=== PATIENT | male | born 1950 | race African-American/Black ===

== ENCOUNTER 2016-03-31 01:22 | Inpatient (IN) | payer MEDICARE, BC ==
[~2016-03-31] VITALS: Ht 177.8 cm; Wt 103.9 kg
[2016-03-31] VITALS (18 sets, daily range): BP systolic 102–197; BP diastolic 50–113; Ht 177.8 cm; Wt 103.9 kg
[~2016-03-31 01:22] MED LIST: ADVAIR HFA [SP]12 GM INH; ALEVE220 MG PO; AUGMENTIN 875-11 TAB PO; BAYER CHEWABLE81 MG PO; BENICAR HCT 40-1 TA1 PO; BENICAR40 MG PO; CARDIZEM CD240 MG PO; FLUTICASONE PRO16 GM NS; GLIMEPIRIDE1 MG PO; GLUCOPHAGE1000 MG PO; HYDROCHLOROTHIA25 MG PO; INVOKANA100 MG PO; INVOKANA300 MG PO; IPRAT-ALBUT 0.5-3 ML NEB; IPRAT-ALBUT 0.5-3 ML UPD; JANU; JANUMET 50-1,001 TAB PO; JANUVIA50 MG PO; LANTUS SOL100 UNIT/1 SQ; LEVAQUIN500 MG PO; LEVAQUIN750 MG PO; LEVEMIR100 U/M1 SC; MEDROL DOSE PACK4 MG PO; MUCINEX D1 TAB.SR . PO; MUCINEX600 MG PO; PREDNISONE20 MG PO; PROTONIX40 MG PO; PULMICORT180 MCG/AE INH; SINGULAIR10 MG PO; STERAPRED DS 1210 MG; SYMBICORT 16010.2 GM INH; TYLENOL325 MG PO; VIAGRA100 MG PO; XOPENEX 1.1.25 MG/3 UPD; ZITHROMAX250 MG PO; ZITHROMAX500 MG PO; ZOCOR40 MG PO; ZPAK PO
[2016-03-31 02:06] LABS: HEMATOCRIT 43.7 % (42.0-54.0); HEMOGLOBIN 14.2 g/dL (13.5-17.5); MCH 28.1 pg (26.0-34.0); MCHC 32.5 g/dL (31.0-37.0); MCV 86.5 fL (80.0-100.0); RBC 5.05 10x6/uL (4.20-6.10); RDW 13.7 % (11.5-14.5); WBC 20.9 10x3/uL (4.8-10.8)
[2016-03-31 02:07] LABS: MEAN PLATELET VOLUME 9.1 fL (7.4-10.4); PLATELET COUNT 288 10x3/uL (130-400)
[2016-03-31 02:20] LABS: ALBUMIN 4.4 g/dL (3.4-5.0); ALKALINE PHOSPHATASE 67 U/L (46-116); ALT (SGPT) 34 U/L (10-68); BILIRUBIN - TOTAL 0.28 mg/dL (0.2-1.3); CALC OSMOLALITY 299 mosm/kg (275-300); CALCIUM 9.8 mg/dL (8.5-10.1); CARBON DIOXIDE 31.8 mmol/L (21.0-32.0); CHLORIDE - SERUM 105 mmol/L (98-107); CREATININE - SERUM 1.2 mg/dL (0.6-1.3); GLUCOSE 269 mg/dL (74-106); POTASSIUM - SERUM 5.1 mmol/L (3.5-5.1); PROTEIN - SERUM 7.9 g/dL (6.4-8.2); SODIUM 144 mmol/L (136-145); UREA NITROGEN 24 mg/dL (7-18); eGFR NON AFRICAN AMERICAN 64 mL/min (90-120)
[2016-03-31 02:27] LABS: EOSINOPHILS 8 % (0-7); LYMPHOCYTES 14 % (15-50); MONOCYTES 5 % (2-11); NEUTROPHILS 71 % (40-80); PLATELET ESTIMATE NORMAL
[2016-03-31 02:28] LABS: CREATINE KINASE 182 UL (21-232); MAGNESIUM - SERUM 1.9 mg/dL (1.8-2.4); PRO BNP 305 pg/mL (0-125); TROPONIN-I < 0.017 ng/mL (0.000-0.060)
--- NOTE | 2016-03-31 03:50 | NUR ---
PT ARRIVED TO ICU FROM ER. ARRIVED BY HOSPITAL BED. PT AAO. PT ON NC @ 2L. C/O DIFFICULTY BREATHING.
[2016-03-31] MEDS ORDERED: DILTIAZEM PO (04:08)
[2016-03-31] MEDS ORDERED: BENICAR HCT 40-1 TA1 PO (04:09)
[2016-03-31] MEDS ORDERED: NIASPAN500 MG PO (04:09)
[2016-03-31] MEDS ORDERED: BREO ELLIPTA 21 EACH ×2 (04:09→04:12)
--- NOTE | 2016-03-31 04:15 | NUR ---
PT PLACED ON BIPAP. SHORT OF BREATH.
--- NOTE | 2016-03-31 04:18 | NUR ---
PERSONAL BELONGINGS HOME WITH GAURI SPENCE EXCEPT FOR CELL PHONE BEING KEPT BY PT.
--- NOTE | 2016-03-31 05:50 | NUR ---
PT RESTING; EYES CLOSED. NO DISTRESS NOTED. BIPAP IN PLACE. BP ELEVATED. WILL CONTINUE TO MONITOR.
--- NOTE | 2016-03-31 07:00 | NUR ---
REC'D REPORT AND RESUMED CARE, AWAKE WITH BIPAP IN USE AT 40%, FOLLOW COMMANDS, VSS, DENIES PAIN, ASSESSMENT COMPLETE PER FLOWSHEET, CALL LIGHT IN REACH, URINAL IN USE, NO NEEDS AT THIS TIME
--- NOTE | 2016-03-31 08:10 | NUR ---
BREAKFAST TRAY TO BEDSIDE, BIPAP OFF, NC AT 2L INITIATED WITHOUT DIFFICULTY, SAT 97%, INDEPENDENT WITH SET UP AND EATING
--- NOTE | 2016-03-31 09:15 | NUR ---
AM MEDS GIVEN WITHOUT DIFFICULTY, TOLERATED
--- NOTE | 2016-03-31 10:36 | NUR ---
Is the patient Alert and Oriented? Yes 0 * How many steps to enter\exit or inside your home? 4 0 * PCP DR. KATE 0 * Pharmacy [facility] 0 * Preadmission Environment Home with Family 0 * ADLs Independent 0 * Equipment Nebulizer 0 * List name and contact numbers for known caregivers / representatives who currently or will assist patient after discharge: TELLY': GAURI SPENCE [phone] 0 * Community resources currently utilized None 0 * Additional services required to return to the preadmission environment? No 0 * Can the patient safely return to the preadmission environment? Yes 0 * Has this patient been hospitalized within the prior 30 days at any hospital? No PATIENT STATES HE LIVES AT HOME WITH HIS FIANCEGAURI. SHE WILL BE AVAILABLE TO DRIVE HIM HOME AT DISCHARGE. PATIENT STATES HE WAS INDEPENDENT IN ALL ADL'S PRIOR TO COMING IN TO THE HOSPITAL. HIS PCP IS DR. KATE. HE GETS HIS MEDS FROM [facility]. PATIENT DENIES EVER HAVING HOME HEALTH. HE STATES HE HAS A NEBULIZER AT HOME. THERE ARE 4 STEPS TO ENTER HIS HOME. NO DISCHARGE NEEDS IDENTIFIED AT THIS TIME.
--- NOTE | 2016-03-31 11:06 | NUR ---
RESTING WATCHING TV, VSS, DENIES PAIN, NO ACUTE CHANGE FRO PREVIOUS ASSESSMENT, CALL LIGHT IN REACH, VOICES NO NEEDS AT THIS TIME
--- NOTE | 2016-03-31 11:23 | NUR ---
SET UP FOR BED BATH TO BEDSIDE, INDEPENDENT WITH SELF CARE/ADLS
--- NOTE | 2016-03-31 15:00 | NUR ---
NO ACUTE CHANGE FROM PREVIOUS ASSESSMENT, VSS, CALL LIGHT IN REACH, VOICES NO NEEDS AT THIS TIME, SELF REPOSITIONS
--- NOTE | 2016-03-31 17:15 | NUR ---
DINNER TRAY TO BEDSIDE, INDEPENDENT WITH SET UP AND EATING
--- NOTE | 2016-03-31 18:00 | NUR ---
AT BEDSIDE, STATUS UPDATE, VOICES NO NEEDS AT THIS TIME, PT AAO, CALL LIGHT IN REACH
--- NOTE | 2016-03-31 19:41 | NUR ---
REPORT RECIEVED. ASSESSMENT COMPLETE PER FLOW SHEET. REFER FOR FINDINGS. VSS DENIES PAIN OR NEEDS. WILL CONTINUE TO MONITOR.
--- NOTE | 2016-03-31 20:15 | NUR ---
GIVEN VALERIE PER REQUEST. ATE 100% VSS WILL CONTINUE TO MONITOR.
--- NOTE | 2016-03-31 21:10 | NUR ---
2100 MEDS ADM WIHTOUT DIFFICULTY. NO NEW CHANGES.
--- NOTE | 2016-03-31 21:50 | NUR ---
DR GWEN LI. T ORDER FOR TRANSFER GIVEN.
--- NOTE | 2016-03-31 22:30 | NUR ---
RECEIVED PATIENT FROM THE ICU.
[2016-04-01 01:00] VITALS: BP 121/60
--- NOTE | 2016-04-01 04:08 | NUR ---
RESTING WITH EYES CLOSED, OCCASIONAL COUGH NOTED, NO ACUTE DISTRESS, SR'S UP , CL IN REACH
[2016-04-01 06:15] LABS: BASOPHILS 0 % (0.0-2.0); EOSINOPHILS 0 % (0-7); HEMATOCRIT 37.6 % (42.0-54.0); HEMOGLOBIN 12.2 g/dL (13.5-17.5); IMMATURE GRANULOCYTES 0.4 % (0-5); LYMPHOCYTES 7.7 % (15-50); MCH 27.5 pg (26.0-34.0); MCHC 32.4 g/dL (31.0-37.0); MCV 84.7 fL (80.0-100.0); MEAN PLATELET VOLUME 9.2 fL (7.4-10.4); MONOCYTES 4.9 % (2-11); PLATELET COUNT 259 10x3/uL (130-400); RBC 4.44 10x6/uL (4.20-6.10); RDW 13.7 % (11.5-14.5); WBC 26.8 10x3/uL (4.8-10.8)
[2016-04-01 06:24] LABS: ANION GAP 10.8 mmol/L (8-16); CALCIUM 8.7 mg/dL (8.5-10.1); CARBON DIOXIDE 28.6 mmol/L (21.0-32.0); CREATININE - SERUM 1.2 mg/dL (0.6-1.3); MAGNESIUM - SERUM 2.2 mg/dL (1.8-2.4); PHOSPHOROUS 3.8 mg/dL (2.5-4.9); POTASSIUM - SERUM 4.4 mmol/L (3.5-5.1)
[2016-04-01 08:19] VITALS: BP 148/62
--- NOTE | 2016-04-01 08:51 | NUR ---
PT SEEN AT 0750. NO COMPLAINTS AT PRESENT. RUL CLEAR BUT ALL OTHER LOBES DIMINSHED. NO SOB NOTED OR VOICED. DID NOT USE BIPAP LAST PM. CALL LIGHT IN REACH
[2016-04-01 12:27] VITALS: BP 147/57
--- NOTE | 2016-04-01 13:56 | NUR ---
FSBS RECHECKED AND RESULTS OF 176
[2016-04-01 16:18] VITALS: BP 128/49
[2016-04-01 20:00] VITALS: BP 128/52
--- NOTE | 2016-04-01 20:00 | NUR ---
ASSESSMENT PER FLOWSHEET. IV PATENT LEFT AC SALINE LOCK. ALERT/ORIENTED X3 VISITS WITH FRIEND. O2 ON 2L/M PER NC. BREATH SOUNDS CLEAR UPPER LOBES AND DIMINSHED IN LOWER LOBES.
--- NOTE | 2016-04-01 21:45 | NUR ---
XVAS=127 28 UNITS REGULAR INSULIN GIVEN SUBC PER S/S.
[2016-04-02] VITALS: BP 115/45
--- NOTE | 2016-04-02 00:30 | NUR ---
EYES CLOSED RESPIRATIONS WITH EASE AND UNLABORED.
--- NOTE | 2016-04-02 02:24 | NUR ---
EYES CLOSED RESPIRATIONS WITH EASE AND UNLABORED.
[2016-04-02 04:00] VITALS: BP 128/55
--- NOTE | 2016-04-02 04:16 | NUR ---
RESTING QUIETLY RESPIRATIONS WITH EASE AND UNLABORED.
--- NOTE | 2016-04-02 07:15 | NUR ---
REPORT RECEIVED FROM PURCHASING INTERN NURSE. CALL LIGHT IN REACH.
[2016-04-02 07:57] VITALS: BP 145/60
[2016-04-02 08:21] LABS: IMMUNOGLOBULIN E 1224 IU/mL (0-100)
--- NOTE | 2016-04-02 09:03 | NUR ---
ASSESSMENT COMPLETED. AM MEDS ADMINISTERED. CALL LIGHT IN REACH. WILL CONTINUE WITH PLAN OF CARE.
[2016-04-02 11:33] LABS: BASOPHILS 0 % (0.0-2.0); EOSINOPHILS 0 % (0-7); HEMATOCRIT 39.4 % (42.0-54.0); IMMATURE GRANULOCYTES 0.8 % (0-5); LYMPHOCYTES 3.9 % (15-50); MCH 28.1 pg (26.0-34.0); MCV 85.1 fL (80.0-100.0); MEAN PLATELET VOLUME 9.5 fL (7.4-10.4); MONOCYTES 5.3 % (2-11); PLATELET COUNT 285 10x3/uL (130-400); RBC 4.63 10x6/uL (4.20-6.10); RDW 13.8 % (11.5-14.5); WBC 30.9 10x3/uL (4.8-10.8)
--- NOTE | 2016-04-02 11:54 | NUR ---
24 UNITS REGULAR INSULIN SUBQ TO LEFT ARM D/T FSBS OF 366.
[2016-04-02 12:31] VITALS: BP 118/65
--- NOTE | 2016-04-02 12:38 | NUR ---
EATING LUNCH AT THIS TIME.
--- NOTE | 2016-04-02 12:56 | NUR ---
AWAKE ALERT TALKING ON PHONE DENIES ANY NEEDS AT THIS TIME SL PATENT LAC.
--- NOTE | 2016-04-02 13:19 | NUR ---
NUTRITION MONITORING & EVAL CHART REVIEWED. PT TOLERATING ADA DIET. 100% INTAKE. WILL MONITOR PO INTAKE, PT PROGRESS. RD FOLLOWING
[2016-04-02] MEDS ORDERED: IPRAT-ALBUT 0.5-3 ML UPD (14:04)
[2016-04-02] MEDS ORDERED: PREDNISONE20 MG PO (14:07)
--- NOTE | 2016-04-02 16:16 | NUR ---
04/02/2016 16:12 DCP: Discharge Planning Patient Name: ANGEL SKAGGS Encounter No: [id number] : 1950 Primary Insurance: MEDICARE A & B Anticipated DC Date: Planned Disposition: Home DCP follow-up note: DC order rec'd. Patient and family in agreement with discharge plan. No changes to plan. Leonela Major
--- NOTE | 2016-04-02 17:34 | NUR ---
DC'D HOME VIA WC WITH .
--- NOTE | 2016-04-10 11:11 | EC ---
PATIENT:ANGEL SKAGGS DATE OF SERVICE: 03/31/16 SEX: M MEDICAL RECORD: [id number] DATE OF : [birth year] LOCATION:D.MS [address] AGE OF PATIENT: 65 ADMISSION DATE: 03/31/16 REFERRING PHYSICIAN: INTERPRETING PHYSICIAN: MARINO LUNA MD ECHOCARDIOGRAM REPORT ECHO CHARGES 4 ECHO COMPLETE CLINICAL DIAGNOSIS: AORTIC STENOSIS HX OF HTN/MURMUR ECHOCARDIOGRAPHIC MEASUREMENTS (adult normal given) AC root (d.<3.7cm) 3.2 LV Septum d (<1.2 cm> 1.7 Valve Excursion 1.6 LV Septum (systole) 1.8 Left Atria (s.<4.0cm> 3.6 LVPW d(<1.2cm) 1.5 RV (d.<2.3cm) 4.4 LVPW (sytole) 1.7 LV diastole(<5.6CM) 5.5 MV E-F(>70mm/sec) LV systole 3.8 LVOT Diameter 1.6 MV exc.(>10mm) 1.8 Est.ejection fraction (50-75%) Pericardial Effusion N DOPPLER: LVIT A 113 E 86.0 LA RVSP 23 LVOT 124 AOP1/2T Asc. Ao 410 RVOT RA PA AV Gradient Peak 67.37 AV Mean 42.99 AV Area 0.8 MV Gradient Peak 5.69 MV Mean 2.09 MV Area COMMENTS: Plate Drying Machine Tender: Vandana TANG Fishing Vessel Mate:Mila Luna TAPE# PACS DATE OF SERVICE: 03/31/2016 Echocardiogram FINDINGS: 1. Left ventricular chamber size is within normal limits. Left ventricular systolic function is normal. Overall ejection fraction estimated at 60%. 2. Left atrium is within normal limits at 3.6 cm. Right atrium and right ventricular chamber sizes are mildly dilated. 3. Valvular structures: Aortic valve demonstrates [id number] aortic ECHOCARDIOGRAM REPORT [id number] ANGEL SKAGGS stenosis. The valve area calculated to 0.8 cm square and there is a gradient of 67 mm across the valve. The remaining valvular structures have normal structure and motion. 4. Doppler interrogation elsewise reveals mild tricuspid regurgitation, no other valvular insufficiency or stenosis. Pulmonary systolic pressure is normal estimated at 23 mmHg. 5. No evidence of pericardial effusion or left ventricular thrombus. TRANSINT:[id number] Voice Confirmation ID: [id number] DOCUMENT ID: [id number] 04/09/2016 Edited to correct date of service, dmrae. MARINO LUNA MD at 1111 CC: [id number] DICTATION DATE: 04/01/16 1129 PRICE ACCURACY SUPERVISOR: 04/01/16 1203 DIS IN 04/02/16 [place] [id number] [place] [id number]
== END 2016-04-02 17:34 | disposition home or self-care (01) | DRG 189 ==
LOC: D.ER 01:22 → D.MS 03:01 → D.ICU 03:01 → D.MS 22:29
PROVIDERS: Emergency Medicine; Internal Medicine Pulmonary Disease; ADMIT Family Medicine
PROC: 5A09357 Assistance with Respiratory Ventilation, Less than 24 Consecutive Hours, Continuous Positive Airway Pressure (ICD-10-PCS; principal; 2016-03-31)
DX: J96.21 Acute and chronic respiratory failure with hypoxia (principal); J44.0 Chronic obstructive pulmonary disease with (acute) lower respiratory infection; J44.1 Chronic obstructive pulmonary disease with (acute) exacerbation; J45.901 Unspecified asthma with (acute) exacerbation; J96.22 Acute and chronic respiratory failure with hypercapnia; J20.9 Acute bronchitis, unspecified; J32.9 Chronic sinusitis, unspecified; D72.1 Eosinophilia; E11.65 Type 2 diabetes mellitus with hyperglycemia; I27.2 Other secondary pulmonary hypertension; I10 Essential (primary) hypertension; E78.5 Hyperlipidemia, unspecified; K21.9 Gastro-esophageal reflux disease without esophagitis; I08.2 Rheumatic disorders of both aortic and tricuspid valves

== ENCOUNTER 2016-04-22 05:39 | Inpatient (IN) | payer MEDICARE, BC ==
[~2016-04-22] VITALS: Ht 177.8 cm; Wt 100.5 kg
[~2016-04-22 05:39] MED LIST changes: +BREO ELLIPTA 21 EACH; +DILTIAZEM PO; +NIASPAN500 MG PO
[2016-04-22 06:20] LABS: BASOPHILS 0.2 % (0.0-2.0); EOSINOPHILS 4.5 % (0-7); HEMATOCRIT 42.1 % (42.0-54.0); HEMOGLOBIN 13.7 g/dL (13.5-17.5); IMMATURE GRANULOCYTES 0.6 % (0-5); LYMPHOCYTES 20.1 % (15-50); MCH 28.2 pg (26.0-34.0); MCHC 32.5 g/dL (31.0-37.0); MCV 86.8 fL (80.0-100.0); MEAN PLATELET VOLUME 9.1 fL (7.4-10.4); MONOCYTES 6.4 % (2-11); NEUTROPHILS 68.2 % (40-80); PLATELET COUNT 239 10x3/uL (130-400); RBC 4.85 10x6/uL (4.20-6.10); WBC 20.8 10x3/uL (4.8-10.8)
[2016-04-22 06:32] LABS: ALBUMIN 4.2 g/dL (3.4-5.0); ANION GAP 12.2 mmol/L (8-16); BILIRUBIN - TOTAL 0.4 mg/dL (0.2-1.3); CARBON DIOXIDE 29.6 mmol/L (21.0-32.0); CREATININE - SERUM 1.1 mg/dL (0.6-1.3); POTASSIUM - SERUM 3.8 mmol/L (3.5-5.1); PROTEIN - SERUM 7.3 g/dL (6.4-8.2)
--- NOTE | 2016-04-22 07:52 | NUR ---
REC'D PT FROM ER VIA W/C. PT A/O. SITTING ON SIDE OF BED. C/O SHORTNESS OF BREATH. O2 AT 3L VIA NC. O2 SAT 93%. LUNG SOUNDS CLEAR AT THIS TIME. PT REQUEST TEMP BE TURNED TO A LOWER SETTING IN THE ROOM. ORIENTED PT TO ROOM. PT DENIES NEEDS AT THIS TIME. CALL LIGHT WITH IN REACH. WILL CONT. TO MONITOR.
[2016-04-22 08:51] VITALS: BP 144/69
--- NOTE | 2016-04-22 09:32 | NUR ---
RESTS IN BED WITH CALL LIGHT IN REACH. WILL MONITOR NEEDS.
[2016-04-22 09:47] VITALS: BP 144/69; BMI 32.7
[2016-04-22 11:06] VITALS: Ht 177.8 cm; Wt 100.5 kg
[2016-04-22 12:17] VITALS: BP 168/105
[2016-04-22 14:53] VITALS: BP 126/58
--- NOTE | 2016-04-22 18:01 | NUR ---
PT SITTING UP IN BED VISITING WITH FAMILY. A/O. RESP UNLABORED. DENIES NEEDS. CALL LIGHT WITH INREACH.WILL CONT. TO MONITOR.
[2016-04-22 20:00] VITALS: BP 147/65
--- NOTE | 2016-04-22 23:18 | NUR ---
Recieved report, assessment done, patient alert and oriented, O2 at 3 L via NC, patient denies needs or wants at this time, no acute distress noted, will continue to monitor. call light hydration and bedside table in reach, will continue to monitor.
[2016-04-23] VITALS: BP 126/64
--- NOTE | 2016-04-23 01:12 | NUR ---
Patient resting quietly in bed eyes closed, no acute distress noted, call light, water, and bedside table within reach, will continue plan of care, will continue to monitor.
[2016-04-23 04:00] VITALS: BP 129/60
--- NOTE | 2016-04-23 04:54 | NUR ---
Patient resting quietly in bed eyes closed, call light and water in reach, no acute distress noted, will continue to monitor.
[2016-04-23 06:04] LABS: BASOPHILS 0.1 % (0.0-2.0); EOSINOPHILS 0 % (0-7); HEMATOCRIT 38.5 % (42.0-54.0); HEMOGLOBIN 12.6 g/dL (13.5-17.5); IMMATURE GRANULOCYTES 0.4 % (0-5); LYMPHOCYTES 5.9 % (15-50); MCH 27.9 pg (26.0-34.0); MCHC 32.7 g/dL (31.0-37.0); MCV 85.2 fL (80.0-100.0); MEAN PLATELET VOLUME 9.3 fL (7.4-10.4); MONOCYTES 2.9 % (2-11); NEUTROPHILS 90.7 % (40-80); PLATELET COUNT 237 10x3/uL (130-400); RBC 4.52 10x6/uL (4.20-6.10); RDW 13.9 % (11.5-14.5); WBC 17.9 10x3/uL (4.8-10.8)
[2016-04-23 06:33] LABS: ANION GAP 12.6 mmol/L (8-16); CALCIUM 8.7 mg/dL (8.5-10.1); CARBON DIOXIDE 27.5 mmol/L (21.0-32.0); CREATININE - SERUM 1.1 mg/dL (0.6-1.3); MAGNESIUM - SERUM 1.8 mg/dL (1.8-2.4); POTASSIUM - SERUM 4.1 mmol/L (3.5-5.1)
--- NOTE | 2016-04-23 08:07 | NUR ---
ASSESSMENT DONE. PT A/O. READING NEWSPAPER. STATES SOB HAS IMPROVED. DENIES NEEDS AT THIS TIME. CALL LIGHT WITH INREACH. WILL CONT. TO MONITOR.
[2016-04-23 08:34] VITALS: BP 135/60
--- NOTE | 2016-04-23 10:00 | NUR ---
RESP UL ON . BRAYAN NEEDS AT THIS TIME. CALL LIGHT IN REACH. WILL CONT. PLAN OF CARE.
[2016-04-23 11:00] VITALS: BP 125/57
--- NOTE | 2016-04-23 12:39 | NUR ---
PT TAKING SHOWER. NO DISTRESS NOTED. WILL CONT TO MONITOR.
--- NOTE | 2016-04-23 16:15 | NUR ---
Patient Name: ANGEL SKAGGS Admission Status: ER Accout number: [id number] Admission Date: 04-22-2016 : 1950 Admission Diagnosis: Attending: TORI Current LOS: 1 Anticipated DC Date: 04-25-2016 Planned Disposition: Home or Self Care Primary Insurance: MEDICARE A & B Discharge Planning Comments: CM MET WITH PATIENT REGARDING D/C NEEDS AND PLANS. PATIENT STATES HE LIVES WITH HIS FIANCE (GABRIELE SPENCE) AND SHE WILL DRIVE HIM HOME AT [facility]. PATIENT STATED HE HAS 4 STEPS W/RAILS TO ENTER HOME AND NO STAIRS ONCE INSIDE. PATIENT STATED HE IS INDEPENDENT WITH HIS CARE AND HAS A NEBULIZER AND GLUCOMETER AT HOME. PATIENT STATED HE CHECKS HIS BS EVERY OTHER DAY. PATIENTS PCP IS DR. KATE AND PHARMACY IS [facility]. PATIENT HAS REFUSED HOME HEALTH AT DISCHARGE. CM WILL CONTINUE TO FOLLOW PATIENT WITH D/C NEEDS AND PLANS. PCP DR. KATE [facility]- [phone] GABRIELE SPENCE- (TELLY) [phone] OR [phone] Audiology Doctor: Ladan Velasco Is the patient Alert and Oriented? Yes 0 * How many steps to enter\exit or inside your home? 4 W/RAILS 0 * PCP DR. KATE 0 * Pharmacy [facility] 0 * Preadmission Environment Home with Family 0 * ADLs Independent 0 * Equipment Glucometer 0 * List name and contact numbers for known caregivers / representatives who currently or will assist patient after discharge: GABRIELE SPENCE [phone] OR [phone] 0 * Community resources currently utilized None 0 * Additional services required to return to the preadmission environment? Yes 0 * Can the patient safely return to the preadmission environment? Yes 0 * Has this patient been hospitalized within the prior 30 days at any hospital? Yes 0 Grand Total: 0
[2016-04-23 16:39] VITALS: BP 137/58
--- NOTE | 2016-04-23 17:40 | NUR ---
PT LAYING IN BED TALKING ON PHONE. NO DISTRESS NOTED. DENIES NEEDS. CALL LIGHT WITH IN REACH. WILL CONT. TO MONITOR.
--- NOTE | 2016-04-23 19:30 | NUR ---
RESUMED CARE OF PT, PT IS ACHS, ON , IV-L. HAND-SL, DENIES ANY NEEDS, CALL LIGHT IN REACH, BED IS LOW, WILL CONTINUE TO MONITOR
[2016-04-23 20:00] VITALS: BP 114/56
--- NOTE | 2016-04-23 20:59 | NUR ---
[id number], COVER 16 UNITS HUMALOG, 40 UNITS OF LEVEMIR
[2016-04-24] VITALS: BP 129/57
--- NOTE | 2016-04-24 03:20 | NUR ---
CREDIT ADMINISTRATOR AT BEDSIDE TO OBTAIN VITALS, CALL LIGHT IN REACH. WILL CONTINUE WITH PLAN OF CARE.
[2016-04-24 04:00] VITALS: BP 118/48
--- NOTE | 2016-04-24 04:52 | NUR ---
SLEEPING, CALL LIGHT IN REACH,
[2016-04-24 06:09] LABS: BASOPHILS 0 % (0.0-2.0); EOSINOPHILS 0 % (0-7); HEMATOCRIT 37.3 % (42.0-54.0); HEMOGLOBIN 12.1 g/dL (13.5-17.5); IMMATURE GRANULOCYTES 0.4 % (0-5); MCH 27.8 pg (26.0-34.0); MCHC 32.4 g/dL (31.0-37.0); MCV 85.6 fL (80.0-100.0); MEAN PLATELET VOLUME 9.5 fL (7.4-10.4); MONOCYTES 2.7 % (2-11); NEUTROPHILS 91.9 % (40-80); PLATELET COUNT 243 10x3/uL (130-400); RBC 4.36 10x6/uL (4.20-6.10); RDW 14.1 % (11.5-14.5); WBC 18.4 10x3/uL (4.8-10.8)
[2016-04-24 06:30] LABS: CALC OSMOLALITY 287 mosm/kg (275-300); CALCIUM 8.8 mg/dL (8.5-10.1); CARBON DIOXIDE 29.8 mmol/L (21.0-32.0); CHLORIDE - SERUM 105 mmol/L (98-107); MAGNESIUM - SERUM 1.9 mg/dL (1.8-2.4); POTASSIUM - SERUM 4.7 mmol/L (3.5-5.1); SODIUM 139 mmol/L (136-145); UREA NITROGEN 24 mg/dL (7-18); eGFR NON AFRICAN AMERICAN 79 mL/min (90-120)
[2016-04-24 06:32] LABS: GLUCOSE 198 mg/dL (74-106)
--- NOTE | 2016-04-24 07:38 | NUR ---
PT LAYING IN BED WATCHING TV AND PLAYING ON PHONE. ASSESSMENT DONE. PT A/O. DENIES NEEDS AT THIS TIME. CALL LIGHT WITH IN REACH. WILL CONT. TO MONITOR.
[2016-04-24 08:31] VITALS: BP 128/59
--- NOTE | 2016-04-24 09:42 | NUR ---
RESP UL ON . STUDENT AT BS ASSISTING WITH NEEDS. WILL CONT. PLAN OF CARE.
[2016-04-24 12:05] VITALS: BP 120/60
[2016-04-24] MEDS ORDERED: VIBRAMYCIN 100100 MG PO (12:55)
[2016-04-24] MEDS ORDERED: PREDNISONE20 MG PO (12:55)
--- NOTE | 2016-04-24 13:53 | NUR ---
Patient Name: ANGEL SKAGGS Encounter No: [id number] : 1950 Primary Insurance: MEDICARE A & B Anticipated DC Date: 04-24-2016 Planned Disposition: Home or Self Care DCP follow-up note: CM MET WITH PT IN ROOM TO DISCUSS DISCHARGE NEEDS AND PLANNING. CM DISCUSSED AVAILABILITY OF HOME HEALTH, REHAB SERVICES AND MEDICAL EQUIPMENT. PT DENIES DISCHARGE NEEDS. FIANCE' TO TRANSPORT HOME AT DISCHARGE. IMPORTANT MESSAGE FROM MEDICARE PROVIDED AND EXPLAINED. Spencer Rodarte, CASE MANAGEMENT
--- NOTE | 2016-04-24 15:15 | NUR ---
D/C INSTRUCTIONS GIVEN TO PT. UNDERSTANDING VERBALIZED. IV REMOVED. PT WAITING ON A RIDE HOME.
--- NOTE | 2016-04-24 15:41 | NUR ---
PT D/C HOME SELF CARE VIA PRIVATE VEHICLE
--- NOTE | 2016-05-08 12:39 | CN ---
PATIENT NAME:ANGEL NAPOLES MEDICAL RECORD: [id number] : [birth year] LOCATION:[facility]104 ADMIT DATE: 04/22/16 ACCOUNT: [id number] CONSULTING PHYSICIAN: LESIA ALVAREZ MD REFERRING PHYSICIAN: ANGEL KATE MD DATE OF CONSULTATION: 04/22/2016 CONSULT REQUESTING PHYSICIAN: Dr. Angel Hand. REASON FOR CONSULTATION: Acute exacerbation of chronic obstructive pulmonary disease and shortness of breath. HISTORY OF PRESENT ILLNESS: Mr. Napoles is a 65-year-old gentleman who is well known to me. The patient is noncompliant. He did not follow in my office for almost 2 years. The patient was admitted on the first week of March with acute asthma exacerbation. He felt better, discharged home. Now, he is down to 10 mg of prednisone and he has worsening shortness of breath last night, wheezing, coughing and came to the ER. There is no significant sputum production. There are no fever and chills, no night sweats. He taking the GERD precaution. REVIEW OF SYSTEMS: As in history of present illness. PAST MEDICAL HISTORY: 1. Hypertension. 2. Aortic stenosis. 3. Mild tricuspid regurgitation. 4. Asthma. 5. Chronic obstructive pulmonary disease. 6. Bronchitis. PAST SURGICAL HISTORY: Appendectomy. ALLERGIES: HE IS ALLERGIC TO IODINE. PRESENT MEDICATIONS: He was on prednisone 40 mg b.i.d., Protonix 40 mg daily. His all other medication is reviewed. PERSONAL AND SOCIAL HISTORY: The patient is and lives with his . He is a nonsmoker, nondrinker. FAMILY HISTORY: Significant for cardiovascular and neurological disorder in his parents. PHYSICAL EXAMINATION: GENERAL: Now, the patient is sitting in bed. He is not in acute distress. VITAL SIGNS: The blood pressure is 126/58, pulse is 85, respiration is 15, temperature 98.1, SPO2 is 100% on 2 liters nasal cannula. HEENT: Conjunctivae pink, sclerae nonicteric. NECK: Supple, no JVD. CHEST: There is no wheeze, no rales. HEART: Rhythm regular, normal sound, no murmur. ABDOMEN: Soft. Bowel sounds present. No hepatosplenomegaly. RECTAL: Deferred. EXTREMITIES: No cyanosis, no clubbing, no pedal edema. CONSULT REPORT [id number] ANGEL NAPOLES SKIN: Warm, normal turgor. CENTRAL NERVOUS SYSTEM: The patient is awake and alert. There is no obvious cranial nerve abnormality. The gait was not tested. CHEST RADIOGRAPH: There is hyperinflation, no acute infiltrate. OTHER LABORATORY DATA: CBC: The WBC is 20.8, hemoglobin 13.7, hematocrit 42.1 the platelet count is 239. Chemistry: Sodium 143, potassium 3.8, BUN is 23, creatinine 1.1, glucose 172. ABG: The pH was 7.26, pCO2 of 62.5, the pO2 is 112. IMPRESSION: 1. Acute hypoxic-hypercapnic respiratory failure. 2. Respiratory acidosis secondary to acute hypoxic-hypercapnic respiratory failure. 3. Acute exacerbation of asthma. 4. Leukocytosis. 5. Tracheobronchitis. 6. Gastroesophageal reflux disease. 7. Acute cough. 8. Dyspnea. RECOMMENDATION: 1. Albuterol ipratropium nebulizer q.4 hourly, Brovana and budesonide nebulizer b.i.d., methylprednisolone IV, Singulair 10 mg daily, supplemental oxygen. 2. Follow labs and chest radiograph. I will talk to the pharmacy if we can get Xolair for him. Dr. Kate, once again, thanks for involving me in the care of Mr. Napoles. TRANSINT:[id number] Voice Confirmation ID: [id number] DOCUMENT ID: [id number] LESIA ALVAREZ MD at 1239 CC: AGNEL KATE MD [id number] DICTATION DATE: 04/22/16 1735 TUCKPOINTER: [id number] DIS IN 04/24/16 [place] [id number] [place] [address]
== END 2016-04-24 15:40 | disposition home or self-care (01) | DRG 190 ==
LOC: D.ER 05:39 → D.M2 06:22
PROVIDERS: Emergency Medicine; Internal Medicine Pulmonary Disease; ADMIT Family Medicine
DX: J44.1 Chronic obstructive pulmonary disease with (acute) exacerbation (principal); J96.02 Acute respiratory failure with hypercapnia; J96.01 Acute respiratory failure with hypoxia; J45.901 Unspecified asthma with (acute) exacerbation; I10 Essential (primary) hypertension; I07.1 Rheumatic tricuspid insufficiency; K21.9 Gastro-esophageal reflux disease without esophagitis

== ENCOUNTER 2017-01-29 15:17 | Inpatient (IN) | payer MEDICARE, BC ==
[~2017-01-29] VITALS: Ht 177.8 cm; Wt 104.3 kg
--- NOTE | ~2017-01-29 | HEMODYNAMI ---
PATIENT:ANGEL SKAGGS MEDICAL RECORD: [id number] : 48 [id number] [id number] ADMISSION DATE: 01/31/17 Generatedon:02/01/20179:18 Patient name: ANGEL SKAGGS Patient #: [id number] : 1950 Date of study: 02/01/2017 Page: Of Hemodynamic Procedure Report Patient Data Patient Demographics Procedure consent was obtained First Name: ANGEL Gender: Male Last Name: SHARIFA : 1950 Middle Initial: L Age: 66 year(s) Patient #: [id number] Race: Black SSN: [id number] Additional ID: [id number] Contact details Address: [address] [place] [address] State: [place] City: [facility] Zip code: [address] Past Medical History Allergies Allergen Reaction Date Comments Reported Other allergy 02/01/2017 iodine Admission Admission Data Admission Date: 01/31/2017 Admission Time: 17:56 Arrival Date: 01/31/2017 Arrival Time: 17:56 Admit Source: Other Insurance Payor: Medicare Room #: [id number] Lab Results Lab Result Date: 02/01/2017 Lab Result Time: 0:00 Biochemistry Name Units Result Min Max BUN mg/dl 28 --(----)-* 7 18 Creatinine mg/dl 1.1 --(--*-)-- 0.6 1.3 CBC Name Units Result Min Max Hemoglobin g/dl 11.9 *-(----)-- 13.5 17.5 Procedure Procedure Types Cath Procedure Diagnostic Procedure LHC Coronaries only Aortic Root Angiography Miscellaneous Procedures Moderate Sedation up to 15 minutes Procedure Description Procedure Date Procedure Date: 02/01/2017 Procedure Start Time: 8:51 Procedure End Time: 9:18 Procedure Staff Name Function Solomon Bazan MD Performing Physician Anali Rboles RT Scrub Sam Bradley RN Nurse Randee Fernandez RT Monitor Procedure Data Cath Procedure Fluoroscopy Diagnostic fluoroscopy Total fluoroscopy Time: 6.1 time: 6.1 min min Diagnostic fluoroscopy Total fluoroscopy dose: dose: 1473 mGy 1473 mGy Contrast Material Contrast Material Type Amount (ml) Isovue 300 107 Entry Location Entry Primary Successful Side Size Upsize Upsize Entry Closure Succes sful Closure Location (Fr) 1 (Fr) 2 (Fr) Remarks Device Remarks Femoral Right 5 Fr Exoseal artery Estimated blood loss: 10 ml Diagnostic catheters Device Type Used For End Catheter Placement Cordis 5Fr JL 4.0 Procedure Catheter (MP) Cordis 5Fr 3DRC Catheter Procedure (MP) Cordis 5Fr Pigtail Procedure Catheter (MP) Diagnostic Infinity 5Fr Procedure AR 1 MOD catheter Diagnostic Infinity 5Fr Procedure AL 1 catheter Procedure Complications No complications Procedure Medications Medication Administration Route Dosage 0.9% NaCl I.V. 100 ml/hr Oxygen NC 2 l/min Heparin Flush Bag added to field 2 bags (1000units/500ml NS) Lidocaine 2% added to field 20 Versed I.V. 1 mg Fentanyl I.V. 50 mcg Versed I.V. 1 mg Fentanyl I.V. 50 mcg Versed I.V. 0.5 mg Fentanyl I.V. 25 mcg Hemodynamics Rest HGB: 11.9 (g/dl) Heart Rate: 92 (bpm) Snapshots Pre Cath Intra NCS Post Cath Vital Signs Time Heart Resp SPO2 etCO2 NIBP (mmHg) Rhythm Pain Sedation Rate (ipm) (%) (mmHg) Status Level (bpm) 8:30:58 86 18 98 0 133/75(97) NSR 0 (11) 10(A) , No pain 8:35:21 84 22 97 24.7 126/73(102) NSR 0 (11) 10(A) , No pain 8:39:37 83 19 98 24.7 136/79(94) NSR 0 (11) 10(A) , No pain 8:43:59 87 17 97 22.5 136/72(96) NSR 0 (11) 10(A) , No pain 8:48:19 84 17 97 27 130/71(104) NSR 0 (11) 10(A) , No pain 8:53:18 82 17 97 25.4 123/71(99) NSR 0 (11) 9(A) , No pain 8:57:34 81 15 96 28.4 127/70(94) NSR 0 (11) 9(A) , No pain 9:01:48 84 16 96 32.2 122/72(96) NSR 0 (11) 9(A) , No pain 9:06:06 83 15 97 31.5 121/67(99) NSR 0 (11) 9(A) , No pain 9:10:14 85 16 96 30.7 125/76(97) NSR 0 (11) 10(A) , No pain 9:14:30 84 16 95 30.7 126/73(105) NSR 0 (11) 10(A) , No pain Medications Time Medication Route Dose Verified Delivered Reason Notes Ef fectiveness by by 8:34:35 0.9% NaCl I.V. 100ml/hr Solomon Buffie used for Beni Bradley cancer genetic counselor 8:35:30 Oxygen NC 2 l/min Solomon Buffie used for Beni Bradley cancer genetic counselor 8:35:51 Heparin Flush added 2 bags Solomon Buffie used for Bag to Beni Bradley cancer genetic counselor (1000units/500ml field NS) 8:36:51 Lidocaine 2% added 20ml Solomon Solomon for local to vial Beni Bazan MD anesthetic field 8:46:19 Versed I.V. 1 mg Solomon Buffie for Beni Bradley RN sedation 8:46:37 Fentanyl I.V. 50 mcg Solomon Buffie for Beni Bradley RN sedation 8:50:13 Versed I.V. 1 mg Solomon Buffie for Beni Bradley RN sedation 8:50:17 Fentanyl I.V. 50 mcg Solomon Buffie for Beni Bradley RN sedation 9:05:32 Versed I.V. 0.5 mg Solomon Buffie for Beni Bradley RN sedation 9:05:37 Fentanyl I.V. 25 mcg Solomon Buffie for Beni Bradley RN sedation Procedure Log Time Note 7:42:14 Informed consent obtained and on chart 7:42:23 Diagnostic Cath Status : Elective 7:43:25 Admit Source: Other 7:43:28 Arrival Date: 01/31/2017 5:56:00 PM 7:43:44 Insurance Payor : Medicare 7:45:25 Lab Result : Hemoglobin 11.9 g/dl 7:45:25 Lab Result : Creatinine 1.1 mg/dl 7:45:25 Lab Result : BUN 28 mg/dl 7:47:00 Anali Robles RT(R) sent for patient. Start room use. 7:47:01 Time tracking: Regular hours 7:47:06 Plan of Care:Hemodynamics will remain stable., Cardiac rhythm will remain stable., Comfort level will be maintained., Respiratory function will remain adequate., Patient/ family verbilizes understanding of procedure., Procedure tolerated without complication., Recovers from procedure without complications.. 8:23:17 Patient received from Med II to CCL 2 Alert and oriented. Tansferred to table in Supine position. 8:23:18 Warm blankets applied, and salbador hugger turned on for patient comfort. 8:23:19 Correct patient and procedure confirmed by team. 8:23:21 ECG and BP/O2 sat monitors applied to patient. 8:29:41 Vital chart was started 8:29:42 Baseline sample Acquired. 8:29:47 Previous problem with sedation/anesthesia? No ? 8:29:48 Snore? Yes 8:29:48 Sleep apnea? No 8:29:51 Patient diabetic? Yes. 8:29:51 If diabetic: On Metformin? No 8:29:57 Deviated septum? No 8:29:58 Opens mouth fully? Yes 8:29:59 Sticks out tongue? Yes 8:30:04 Airway obstruction? Yes asthma 8:30:06 Dentures? No ? 8:30:08 Pre procedure: right dorsailis pedis pulse 1+ Palpable, but thready & weak; easily obliterated 8:30:12 Patient pain scale 0/10 ?. 8:30:22 IV patent on arrival in left wrist with 0.9% NaCl at KVO. 8:30:25 Lab results completed and on chart. 8:30:32 Rhythm: sinus rhythm 8:30:47 H&P Date Dictated: 01/29/2017 Within 30 days and on chart.. 8:30:48 Pre-procedure instructions explained to patient. 8:30:48 Pre-op teaching completed and patient verbalized understanding. 8:30:50 Family in patients room. 8:30:51 Patient NPO since Midnight. 8:31:19 Patient allergic to Other allergyiodine 8:31:21 Is the patient allergic to Iodine/contrast media? Yes. 8:31:22 Was the patient premedicated? Yes 8:31:27 Is patient on blood thinner?Yes 8:31:30 ACC The patient was administered the following blood thiners within the last 24 hours: Coumadin 8:31:35 Right groin area was prepped with chlora-prep and draped in sterile fashion 8:31:36 Alarms reviewed by R. N. 8:31:36 Sharps counted by scrub and verified by R.N. 8:31:39 Use device set Femoral Dx 8:31:40 Tegaderm 4 x 4 opened to sterile field. 8:31:41 Acist Syringe opened to sterile field. 8:31:41 Bag Decanter opened to sterile field. 8:31:42 Medline Cath Pack opened to sterile field. 8:31:42 Terumo 5Fr Decatur Sheath opened to sterile field. 8:31:43 Diagnostic Infinity 5Fr Multipack catheter opened to sterile field. 8:31:44 Acist Manifold opened to sterile field. 8:31:45 Acist Hand Control opened to sterile field. 8:31:46 St Camilo 260cm J .035 wire opened to sterile field. 8:34:35 0.9% NaCl 100ml/hr I.V. was administered by Sam Bradley RN; used for procedure; 8:35:30 Oxygen 2 l/min NC was administered by Sam Bradley RN; used for procedure; 8:35:51 Heparin Flush Bag (1000units/500ml NS) 2 bags added to field was administered by Sam Bradley RN; used for procedure; 8:36:51 Lidocaine 2% 20ml vial added to field was administered by Solomon Bazan MD; for local anesthetic; 8:38:06 Physician paged 8:41:34 Zero performed for pressure channel P1 8:45:05 Physician arrived 8:45:06 --------ALL STOP TIME OUT------ 8:45:06 Final Timeout: patient, procedure, and site verified with staff and physician. All members of the team are in agreement. 8:45:08 Right groin site verified by team. 8:45:12 Sedation plan: IV Moderate Sedation Versed, Fentanyl 8:46:19 Versed 1 mg I.V. was administered by Sam Bradley RN; for sedation; 8:46:37 Fentanyl 50 mcg I.V. was administered by Sam Bradley RN; for sedation; 8:50:13 Versed 1 mg I.V. was administered by Sam Bradley RN; for sedation; 8:50:17 Fentanyl 50 mcg I.V. was administered by Sam Bradley RN; for sedation; 8:51:36 Procedure started. 8:51:36 Full Disclosure recording started 8:51:45 Local anesthetic to right femoral artery with Lidocaine 2% by Solomon Bazan MD.INITIAL ACCESS ONLY 8:53:27 A 5 Fr sheath was inserted into the Right Femoral artery 8:54:13 A Cordis 5Fr JL 4.0 Catheter (MP) was advanced over the wire and used for Procedure. 8:56:48 LCA angiography performed. 8:56:50 Catheter removed. 8:57:00 A Cordis 5Fr 3DRC Catheter (MP) was advanced over the wire and used for Procedure. 8:57:41 RCA angiography performed. 8:58:27 Catheter removed. 8:58:37 A Cordis 5Fr Pigtail Catheter (MP) was advanced over the wire and used for Procedure. 9:00:14 Aortic Root visualized 9:02:39 Catheter removed. 9:03:31 Cook Bentson 260cm 0.035 guide wire opened to sterile field. 9:03:38 A Diagnostic Infinity 5Fr AR 1 MOD catheter was advanced over the wire and used for Procedure. 9:05:32 Versed 0.5 mg I.V. was administered by Sam Bradley RN; for sedation; 9:05:37 Fentanyl 25 mcg I.V. was administered by Sam Bradley RN; for sedation; 9:06:13 Catheter removed. 9:06:34 Unable to cross valve 9:07:23 A Diagnostic Infinity 5Fr AL 1 catheter was advanced over the wire and used for Procedure. 9:08:58 Catheter removed. 9:09:16 unable to cross valve 9:09:22 Cordis 5Fr Exoseal opened to sterile field. 9:09:49 Sheath removed intact; hemostasis achieved with Exoseal to the Right Femoral artery. 9:09:51 Procedure ended.(Physican Out) 9:10:26 Fluoroscopy time 06.10 minutes. 9:10:32 Fluoroscopy dose: 1473 mGy 9:10:32 Flurop Dose total: 1473 9:10:38 Contrast amount:Isovue 300 107ml. 9:13:38 Sharps counted by scrub and verified by R.N. 9:13:44 Insertion/operative site no bleeding no hematoma. 9:13:51 Post-op/insertion site Right Femoral artery dressed using a 4 x 4 and Tegaderm. 9:14:28 Post right femoral artery:stable 9:14:50 Post Procedure Pulses reassessed and unchanged 9:14:59 Post-procedure physical assessment completed. ASA score P 2 - A patient with mild systemic disease as per Solomon Bazan MD. 9:15:02 Post procedure rhythm: sinus rhythm 9:15:06 Estimated blood loss: 10 ml 9:15:09 Post procedure instruction explained to patient.Patient verbalizes understanding. 9:15:38 Patient needs reinforcement of post procedure teaching. 9:16:23 Procedure type changed to Cath procedure, Diagnostic procedure, LHC, Coronaries only, Aortic Root Angiography, Miscellaneous Procedures, Moderate Sedation up to 15 minutes 9:16:25 Procedure and supply charges have been captured, reviewed, submitted and are correct. 9:17:22 Procedure Complication : No complications 9:17:25 Vital chart was stopped 9:17:30 See physician's report for complete and final results. 9:17:34 Report given to Med II. 9:18:09 Patient transfered to Med II with Bed. 9:18:12 Procedure ended. 9:18:12 Full Disclosure recording stopped 9:18:14 End room use (Document Last) Device Usage Item Name Manufacture Quantity Catalog Hospital Part Current Minimal Lo t# / Number Charge Number Stock Stock Serial# Code Tegaderm 4 3M 1 [id number] 149952 380403 5 x 4 Acist Acist 1 12220 604569 388746 725392 20 Syringe Medical Systems Inc Bag Microtek 1 2002S 650804 63641 279814 5 Decanter [employer] Inc. Medline Cardinal 1 [id number] 276720 22366 172392 5 Cath Pack Health Terumo 5Fr Terumo 1 [id number] 493760 679103 309717 40 Decatur Sheath Diagnostic Cardinal 1 [id number] 467807 19999 426345 30 Roam [employer] Wander 5Fr Multipack catheter Acist Acist 1 93073 717012 870844 448131 5 [employer] Inc Acist Hand Acist 1 87433 625250 280305 959734 5 Novapost Systems [facility] Camilo 1 [id number] 201396 265776 452798 30 260cm J .035 wire Cordis 5Fr Cardinal 1 576185 5 JL 4.0 Health Catheter (MP) Cordis 5Fr Cardinal 1 991432 5 3DRC Health Catheter (MP) Cordis 5Fr Cardinal 1 422052 5 Pigtail Health Catheter (MP) [facility] 1 [id number] 995504 116699 424233 4 Bentson 260cm 0.035 guide wire Diagnostic Cardinal 1 [id number] 166135 611907 140316 15 Infinity Health 5Fr AR 1 MOD catheter Diagnostic Cardinal 1 [id number] 343149 524847 600369 15 Infinity Health 5Fr AL 1 catheter Cordis 5Fr Cardinal 1 EX500 652293 595408 754466 10 [facility] [employer] Signature Audit [place] Stage Time Signature Unsigned Intra-Procedure 02/01/2017 Randee Fernandez 9:18:47 AM RT(R) Signatures Monitor : Randee Fernandez Signature : RT Date : Time : [place] [address] [place] [address]
[~2017-01-29 15:17] MED LIST changes: +VIBRAMYCIN 100100 MG PO
[2017-01-29 16:28] LABS: BASOPHILS 0.1 % (0-2); EOSINOPHILS 0.1 % (0-7); HEMATOCRIT 36.3 % (42.0-54.0); HEMOGLOBIN 11.8 g/dL (13.5-17.5); IMMATURE GRANULOCYTES 0.6 % (0-5); LYMPHOCYTES 7.5 % (15-50); MCH 27.5 pg (26.0-34.0); MCHC 32.5 g/dL (31.0-37.0); MCV 84.6 fL (80.0-100.0); MEAN PLATELET VOLUME 9.7 fL (7.4-10.4); MONOCYTES 4.9 % (2-11); NEUTROPHILS 86.8 % (40-80); PLATELET COUNT 290 10x3/uL (130-400); RBC 4.29 10x6/uL (4.20-6.10); RDW 14.1 % (11.5-14.5); WBC 18.1 10x3/uL (4.8-10.8)
[2017-01-29 16:43] LABS: ALBUMIN 3.4 g/dL (3.4-5.0); BILIRUBIN - TOTAL 0.27 mg/dL (0.2-1.3); CALCIUM 9.3 mg/dL (8.5-10.1); CARBON DIOXIDE 23.5 mmol/L (21.0-32.0); CREATININE - SERUM 1.5 mg/dL (0.6-1.3); POTASSIUM - SERUM 4.5 mmol/L (3.5-5.1); PROTEIN - SERUM 6.8 g/dL (6.4-8.2)
[2017-01-29 16:45] LABS: APPEARANCE CLEAR (CLEAR); BILIRUBIN NEGATIVE (NEGATIVE); COLOR YELLOW (YELLOW); GLUCOSE 1000 mg/dL (NEGATIVE); KETONE NEGATIVE (NEGATIVE); NITRITE NEGATIVE (NEGATIVE); PROTEIN NEGATIVE (NEGATIVE); UROBILINOGEN NORMAL (NORMAL)
[2017-01-29 20:00] VITALS: BP 111/63
--- NOTE | 2017-01-29 20:07 | HP ---
PATIENT: ANGEL SKAGGS MEDICAL RECORD: [id number] ACCOUNT: [id number] LOCATION:[address] : [birth year] ADMISSION DATE: 01/29/17 HISTORY AND PHYSICAL EXAMINATION ADMITTING PHYSICIAN: Angel Graves MD REASON FOR ADMISSION: Near syncope and shortness of breath. HISTORY OF PRESENT ILLNESS: The patient is a 66-year-old -Ind[place]ian male with history of diabetes mellitus, and hypertension, who said he has felt little short of breath on walking in the last 3 days. He has history of asthma and COPD, but says this is unlike his previous shortness of breath. He has not had a cough or sputum production and not felt wheezy. Nonetheless, he had walked to his truck after getting short of breath while doing so today and got in his truck, so he felt sweaty. His came home, found him in the truck, and she thought he might have passed out, and had low blood sugars, felt that he was very diaphoretic. He was awake, however. She got him into the house, who gave him a ham sandwich and he seemed to come around. He was in the Emergency Room for this reason, his blood sugar is over 300 when he came in. He denies any recent chest pain, but has been fatigued. He said he had a little bit of a headache as well and felt dizzy and wanted to be "checked out." PAST MEDICAL HISTORY: Asthma, COPD, GERD, hypertension, type 2 diabetes mellitus, fair control diabetic foot ulcer. He has had respiratory failure in the past required intubation as well as a tracheostomy short term, history of BPH, he has had multiple admissions for asthma, last was in March of this year. History of moderate to severe aortic stenosis, tricuspid regurg with the echo in March showed an EF of 60%, is on chronic steroid therapy and has chronic leukocytosis as a result. ALLERGIES: IODINE. PAST SURGICAL HISTORY: Appendectomy. FAMILY HISTORY: Father had lung cancer, smoker. Mother had lung disease and diabetes and of a stroke. SOCIAL HISTORY: He has never smoked. 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 He is . HOME MEDICATIONS: Glyburide 4 mg b.i.d., diltiazem 420 mg a day, diazepam 500 mg at bedtime, Breo-Ellipta 200/25 one puff daily, Singulair 10 mg at bedtime, Zocor 40 mg at bedtime, aspirin 81 mg a day, Benicar 40/25 one daily, Levemir 40 units subcutaneous at bedtime, Januvia 50 mg b.i.d. REVIEW OF SYSTEMS: GENERAL: He is a little fatigued in the last few days. He has had good appetite. No fever. HEENT: No recent visual change, sinus congestion, sore throat, or hearing difficulty, wears glasses to read. RESPIRATORY: As above, increasing exertional dyspnea recently, but no wheezing, cough, or asthmatic symptoms. Denies sputum production or hemoptysis. CARDIAC: No recent exertional chest pain, claudication, or edema. GASTROINTESTINAL: No nausea, vomiting, change in stools, or blood per rectum. HISTORY AND PHYSICAL [id number] ANGEL SKAGGS GENITOURINARY: Has nocturia once nightly. ENDOCRINE: Denies polyuria, polydipsia, heat or cold intolerance. NEUROLOGIC: Denies history of stroke, TIA, or vascular headaches. INTEGUMENT: No rash or itching. PSYCHIATRIC: Denies depressed mood. MUSCULOSKELETAL: Has intermittent lumbago with no sciatica. PHYSICAL EXAMINATION: VITAL SIGNS: Temperature 97.7 orally, respirations are 15, pulse 78 and regular, blood pressure 106/57, and sat 97% on room air. His BMI is 33, weighs 230 pounds or 104.3 kilos with height of 5 feet 10 inches. GENERAL: The patient is alert and oriented, in no acute distress. HEENT: His eyes are clear, oropharynx unremarkable. NECK: Supple, without bruits or masses. CHEST: Distant breath sounds without wheeze or rales. HEART: Regular rhythm with a 3 to 4/6 aortic systolic murmur. No diastolic rumble is noted. ABDOMEN: Soft, mildly obese, nontender. GENITOURINARY: Deferred. EXTREMITIES: No CC&E. He has diabetic foot ulcer that is very small. NEUROLOGIC: Oriented to person, place, and time. Cranial nerves grossly intact. Gait normal. LABORATORY DATA: Blood sugar 367. GFR of 60. ALT and AST are mildly elevated at 95 and 58 respectively. Creatinine 1.5, BUN 28. White count 18,000 with 86.8% segs. Urinalysis shows 1000 mg per deciliter of glucose, otherwise normal. X-rays: None ordered at this time. EKG is pending. ASSESSMENT: 1. Near syncopal episode with dyspnea. 2. Severe aortic stenosis, possibly causing current symptoms. 3. History of asthma and chronic obstructive pulmonary disease, currently stable. 4. Chronic leukocytosis, probably from steroid use. 5. Osteoarthritis. 6. Benign prostatic hyperplasia. 7. Hypertension. PLAN: We will check serial cardiac enzymes. Monitor on telemetry with further workup pending clinical course. TRANSINT:[id number] Voice Confirmation ID: [id number] DOCUMENT ID: [id number] HISTORY AND PHYSICAL [id number] ANGEL SKAGGS TIMOTHY MD at 2006 CC: [id number] DICTATION DATE: 01/29/171825 BALLOON DESIGN PRINTER: 01/29/17 193 ADM IN [facility] [address] [place] [address]
--- NOTE | 2017-01-29 20:10 | NUR ---
PT ARRIVED TO ROOM 2138 VIA WHEELCHAIR. PT IS AAO. HAS A 20G IV TO LEFT WRIST S/L. PT GAIT STEADY. VS BP 111/63 TEMP 98.4 PULSE 85 RR18 O2 96. PT WANTING TO TAKE A SHOWER. ONCE DONE WILL APPLY TELEMETRY AND THE ORDERED NS. PT DENIES ANY NEEDS AT THIS TIME. NO S/S OF DISTRESS. WILL CPOC
[2017-01-29] MEDS ORDERED: JANUMET 50-1,001 TAB PO (23:58)
[2017-01-30] VITALS (7 sets, daily range): BP systolic 104–138; BP diastolic 56–92; Ht 177.8 cm; Wt 104.3 kg
[2017-01-30 06:28] LABS: BASOPHILS 0.1 % (0-2); EOSINOPHILS 0.6 % (0-7); HEMATOCRIT 34.4 % (42.0-54.0); HEMOGLOBIN 11.4 g/dL (13.5-17.5); IMMATURE GRANULOCYTES 0.6 % (0-5); LYMPHOCYTES 21.4 % (15-50); MCH 27.7 pg (26.0-34.0); MCHC 33.1 g/dL (31.0-37.0); MCV 83.7 fL (80.0-100.0); MEAN PLATELET VOLUME 9.3 fL (7.4-10.4); MONOCYTES 6.3 % (2-11); PLATELET COUNT 260 10x3/uL (130-400); RBC 4.11 10x6/uL (4.20-6.10); RDW 14.2 % (11.5-14.5); WBC 15.9 10x3/uL (4.8-10.8)
--- NOTE | 2017-01-30 06:37 | NUR ---
FSBS OF 164 4 UNITS OF INSULIN GIVEN PER S/S. SNACK PROVIDED FOR PT. PT HAS NS INFUSING TO LEFT WRIST AT 100 ORDERED. PT DENIES ANY NEEDS. NO S/S OF DISTRESS. WILL CPOC
[2017-01-30 07:01] LABS: CALC OSMOLALITY 293 mosm/kg (275-300); CALCIUM 8.8 mg/dL (8.5-10.1); CHLORIDE - SERUM 108 mmol/L (98-107); CKMB 15.6 U/L (0.0-3.6); CREATINE KINASE 175 UL (21-232); CREATININE - SERUM 0.9 mg/dL (0.6-1.3); GLUCOSE 166 mg/dL (74-106); POTASSIUM - SERUM 3.5 mmol/L (3.5-5.1); SODIUM 143 mmol/L (136-145); UREA NITROGEN 27 mg/dL (7-18); eGFR NON AFRICAN AMERICAN 89 mL/min (90-120)
--- NOTE | 2017-01-30 07:15 | NUR ---
RECIEVED REPORT ON PATIENT, PATIENT IS ALERT AND ORIENTED AT THIS TIME. PATIENT HAS A L WRIST IV THAT IS INFUSING WITH NS AT 100ML/HR. PATIENT IS SR ON MONITOR WITH A RATE OF 85. EKG DONE, AND SPOKE WITH DR DUONG REGARDING CONSULT, DUE TO PATIENT ELEVATED TROPONIN OF 3.2. PATIENT DENIES ANY PAIN OR NEEDS AT THIS TIME. WILL CONT TO MONITOR PATIENT. BED LOW AND LOCKED. CPOC
--- NOTE | 2017-01-30 07:15 | NUR ---
CRITICAL TROPONIN OF 3.2. DR GRIFFITH NOTIFIED. BIOMASS BOILER OPERATOR CONSULT DONE. AND EKG ORDERED. PT HAS NO S/S OF DISTRESS. RUNNING 98 SR ON TELEMETRY. PT DENIES ANY NEEDS. WILL CPOC
--- NOTE | 2017-01-30 08:30 | NUR ---
MORNING MEDICATIONS GIVEN, NO ISSUES. PATIENT DENIES ANY NEEDS. BED LOW AND LOCKED. CPOC
[2017-01-30 09:04] LABS: HEMATOCRIT 36.9 % (42.0-54.0); HEMOGLOBIN 11.9 g/dL (13.5-17.5); MCH 27.2 pg (26.0-34.0); MCHC 32.2 g/dL (31.0-37.0); MCV 84.4 fL (80.0-100.0); MEAN PLATELET VOLUME 9.5 fL (7.4-10.4); RBC 4.37 10x6/uL (4.20-6.10); RDW 14.2 % (11.5-14.5); WBC 15.8 10x3/uL (4.8-10.8)
[2017-01-30 09:11] LABS: APTT 24.4 SECONDS (22.8-39.4); INR 1.08 (0.85-1.17); PROTIME 13.9 SECONDS (11.6-15.0)
--- NOTE | 2017-01-30 10:00 | NUR ---
ROUNDS MADE, PATIENT DENIES ANY CHEST PAIN OR NEEDS. CPOC
--- NOTE | 2017-01-30 11:15 | NUR ---
PATIENT FSBS 271, HUMILIN GIVEN PER SLIDING SCALE
--- NOTE | 2017-01-30 12:00 | NUR ---
PATIENT SITTING UP IN BED EATING LUNCH. DENIES ANY NEEDS. CPOC
--- NOTE | 2017-01-30 14:29 | NUR ---
PATIENT RESTING, REQUESTING HIS BREATHING TREATMENT. RESPIRATORY NOTIFIED. O2 SAT 93% RR 18. CPOC
--- NOTE | 2017-01-30 16:21 | NUR ---
HEPARING DOSE CHANGED TO 1200UNITS/HR, DUE TO PTT 49, WILL RECHECK IN 6 HOURS
--- NOTE | 2017-01-30 17:45 | NUR ---
PATIENT EATING DINNER, DENIES ANY NEEDS AT THIS TIME. CPOC
--- NOTE | 2017-01-30 18:38 | NUR ---
ROUNDS MADE, PATIENT FIANCE AT BEDSIDE. PATIENT DENIES ANY NEEDS OR PAIN AT THIS TIME. BED LOW AND LOCKED. CPOC
--- NOTE | 2017-01-30 19:40 | NUR ---
PT RESTING IN BED. AT BEDSIDE. PT HAS NS @ 100 AND HEPARIN @ 12 INFUSING TO LEFT WRIST. PT DENIES ANY NEEDS. NO S/S OF DISTRESS. WILL CPOC
--- NOTE | 2017-01-30 20:42 | NUR ---
PT FSBS 412 RECHECKED FSBS 2ND TIME AND IT WAS 377. WILL GIVE PT THE ORDERED 24 UNITS OF HUMULIN PER S/S. AND 40 UNITS OF LEVEMIR DUE QHS. PT DENIES ANY NEEDS. STATES IT IS HIGH FROM BEING ON SOLU-MED. PT HAS NO S/S OF DISTRESS. BED LOW AND CALL LIGHT IN REACH. WILL CPOC
--- NOTE | 2017-01-30 23:00 | NUR ---
APTT IS 47.6 PER HEPARIN PROTOCOL WILL INCREASE 100 UNITS AND RECHECK IN 6 HOURS. PT HAS NO S/S OF DISTRESS. PT DENIES ANY NEEDS. HEPARIN NOW AT 13 ML PER HOUR, WILL CPOC
[2017-01-31] VITALS: BP 114/58
[2017-01-31 05:14] LABS: HEMATOCRIT 36.8 % (42.0-54.0); HEMOGLOBIN 11.9 g/dL (13.5-17.5); MCH 27.2 pg (26.0-34.0); MCHC 32.3 g/dL (31.0-37.0); MEAN PLATELET VOLUME 10.1 fL (7.4-10.4); PLATELET COUNT 283 10x3/uL (130-400); RBC 4.38 10x6/uL (4.20-6.10); RDW 14.3 % (11.5-14.5); WBC 20.2 10x3/uL (4.8-10.8)
[2017-01-31 05:39] LABS: ANION GAP 16.4 mmol/L (8-16); CALCIUM 8.3 mg/dL (8.5-10.1); CARBON DIOXIDE 20.5 mmol/L (21.0-32.0); CREATININE - SERUM 1.1 mg/dL (0.6-1.3); POTASSIUM - SERUM 3.9 mmol/L (3.5-5.1)
--- NOTE | 2017-01-31 06:24 | NUR ---
PT APTT AT 0423 WAS 59.9 WILL INCREASE HEPARIN BY 100 UNITS ORDERED. PT RESTING IN BED. PT DENIES ANY NEEDS AT THIS TIME. NO S/S OF DISTRESS. WILL CPOC
--- NOTE | 2017-01-31 07:15 | NUR ---
RECIEVED REPORT ON PATIENT, PATIENT IS ALERT AND ORIENTED AT THIS TIME. PATIENT HAS A L WRIST IV WITH NS INFUSING AT 100ML/HR AND A HEPARIN DRIP INFUSING AT 14ML/HR. PATIENT IS SR ON MONITOR WITH A RATE OF 76. PATIENT DENIES ANY NEEDS AT THIS TIME. BED IS LOW AND LOCKED. WILL CONT TO MONITOR PATIENT. CPOC
[2017-01-31 08:00] VITALS: BP 160/62
[2017-01-31 08:49] LABS: BASOPHILS 0 % (0-2); EOSINOPHILS 0 % (0-7); IMMATURE GRANULOCYTES 0.3 % (0-5); LYMPHOCYTES 5.8 % (15-50); MONOCYTES 1.6 % (2-11); NEUTROPHILS 92.3 % (40-80)
--- NOTE | 2017-01-31 09:15 | NUR ---
MORNING MEDICATIONS GIVEN, NO ISSUES. FSBS 423. WAITING ON PHARMACY TO BRING LEVEMIR. CPOC
--- NOTE | 2017-01-31 11:20 | NUR ---
FSBS 405, 28 UNITS OF HUMULIN GIVEN. HEPARIN DRIP CHANGED TO 15ML/HR PER PROTOCOL. CPOC
[2017-01-31 12:00] VITALS: BP 114/58
--- NOTE | 2017-01-31 13:50 | NUR ---
PATIENT SITTING UP IN BED, DENIES ANY NEEDS OR PAIN AT THIS TIME. CPOC
--- NOTE | 2017-01-31 14:30 | NUR ---
PATIENT IS SHOWER AT THIS TIME. CPOC
[2017-01-31 16:00] VITALS: BP 113/53
--- NOTE | 2017-01-31 17:00 | NUR ---
PATIENT EATING DINNER, DENIES ANY NEEDS. CPOC
--- NOTE | 2017-01-31 17:45 | NUR ---
PTT IS 75 AND PER PROTOCOL, NO CHANGE TO HEPARIN DRIP. WILL CHECK PTT IN AM. CPOC
--- NOTE | 2017-01-31 18:15 | NUR ---
PATIENT SIGNED CONSENTS, DENIES ANY NEEDS AT THIS TIME. CPOC
--- NOTE | 2017-01-31 19:29 | NUR ---
RECEIVED REPORT, WILL ASSUME CARE OF PT, PT DENIES ANY NEEDS, GAVE ICE WATER, BED IS LOW, SRX2, EXPLAINED WILL BE NPO AFTER MIDNIGHT, CALL LIGHT IN REACH, WILL CONTINUE PLAN OF CARE
[2017-01-31 20:00] VITALS: BP 120/58
--- NOTE | 2017-01-31 21:09 | NUR ---
[id number] 28 UNITS-ROD R- LEVEMIR-40 ORDER
[2017-02-01] VITALS: BP 129/61
[2017-02-01 04:00] VITALS: BP 131/63
[2017-02-01 06:24] LABS: ANION GAP 13.7 mmol/L (8-16); CREATININE - SERUM 1.1 mg/dL (0.6-1.3); POTASSIUM - SERUM 3.7 mmol/L (3.5-5.1)
[2017-02-01 07:32] LABS: HEMATOCRIT 34.7 % (42.0-54.0); HEMOGLOBIN 11.5 g/dL (13.5-17.5); MCH 27.6 pg (26.0-34.0); MCHC 33.1 g/dL (31.0-37.0); MCV 83.2 fL (80.0-100.0); MEAN PLATELET VOLUME 10.1 fL (7.4-10.4); RBC 4.17 10x6/uL (4.20-6.10); RDW 14.4 % (11.5-14.5); WBC 26.4 10x3/uL (4.8-10.8)
--- NOTE | 2017-02-01 07:45 | NUR ---
ASSESSMENT DONE. DENIES NEEDS.
[2017-02-01 08:00] VITALS: BP 113/71
--- NOTE | 2017-02-01 08:30 | NUR ---
TO WOMEN'S GARMENT FITTER PER BED
--- NOTE | 2017-02-01 10:00 | NUR ---
BACK FROM COMBINE MECHANIC. VS WNL. RESO UL ON O2/NV. IV PATENT. AT BS. WILL CONT. PLAN OF CARE.
[2017-02-01 12:00] VITALS: BP 120/52
[2017-02-01 16:00] VITALS: BP 203/88
--- NOTE | 2017-02-01 16:39 | NUR ---
DAUGHTER AT SIDE. WITHOUT CHANGES OR DISTRESS NOTED AT THIS TIME. DENIES NEEDS.
--- NOTE | 2017-02-01 19:32 | NUR ---
PT SITTING UP ON SIDE OF BED, STATED THAT HE IS SOB, ASKING FOR BREATHING TX. PAGED RT, SPOKE WITH ALLAN.
--- NOTE | 2017-02-01 21:35 | NUR ---
HS MEDS GIVEN WITH FRESH ICE WATER. BS 295, COVERED PER S/S. PT DENIES PAIN OR NEEDS, BED LOW, CL IN REACH. FMILY ASLEEP AT BED SIDE.
[2017-02-01 22:18] VITALS: BP 120/63
[2017-02-02] VITALS (7 sets, daily range): BP systolic 122–156; BP diastolic 60–75
--- NOTE | 2017-02-02 03:36 | NUR ---
RESTING WITH EYES CLOSED, RESPERATIONS EVEN, NO S/S DISTRESS NOTED.
[2017-02-02 05:38] LABS: BASOPHILS 0 % (0-2); EOSINOPHILS 0 % (0-7); HEMATOCRIT 36.5 % (42.0-54.0); IMMATURE GRANULOCYTES 0.7 % (0-5); LYMPHOCYTES 4.4 % (15-50); MCH 27.5 pg (26.0-34.0); MCHC 32.9 g/dL (31.0-37.0); MCV 83.7 fL (80.0-100.0); MEAN PLATELET VOLUME 10.4 fL (7.4-10.4); NEUTROPHILS 88.9 % (40-80); PLATELET COUNT 266 10x3/uL (130-400); RBC 4.36 10x6/uL (4.20-6.10); RDW 14.8 % (11.5-14.5); WBC 24.4 10x3/uL (4.8-10.8)
[2017-02-02 05:54] LABS: ANION GAP 15.2 mmol/L (8-16); CARBON DIOXIDE 21.9 mmol/L (21.0-32.0); CREATININE - SERUM 1.3 mg/dL (0.6-1.3); MAGNESIUM - SERUM 2.3 mg/dL (1.8-2.4); PHOSPHOROUS 3.7 mg/dL (2.5-4.9); POTASSIUM - SERUM 4.1 mmol/L (3.5-5.1)
--- NOTE | 2017-02-02 08:03 | NUR ---
AM ROUNDS - PT IS IN BED AND AWAKE AT THIS TIME. MONITOR SHOWING SR, HR 2. PT ON 2.5L O2 VIA NC. IV TO LEFT WRIST, SL. PT IS UP AD NYDIA. FEMALE AT BEDSIDE. BED AT LOWEST POSITION. CALL BACA IN USE/REACH. SIDE RAILS UP X2. NO NEEDS AT THIS TIME. WILL CONTINUE OT MONITOR
[2017-02-02 10:19] LABS: HEPATITIS C ANTIBODY <0.1 (0.0-0.9)
--- NOTE | 2017-02-02 17:49 | NUR ---
PT IN BED WITH NO NEEDS AT THIS ITME. WILL CONTINUE TO MONITOR
--- NOTE | 2017-02-02 18:42 | NUR ---
PT PULLED IV IN LEFT ARM OUT. PLACED 22G TO RIGHT FA, 1 STICK. WILL CONTINUE TO MONITOR
[2017-02-03 01:16] LABS: HEMATOCRIT 34.9 % (42.0-54.0); HEMOGLOBIN 11.6 g/dL (13.5-17.5); MCH 27.9 pg (26.0-34.0); MCHC 33.2 g/dL (31.0-37.0); MCV 83.9 fL (80.0-100.0); MEAN PLATELET VOLUME 9.7 fL (7.4-10.4); RBC 4.16 10x6/uL (4.20-6.10); RDW 14.8 % (11.5-14.5); WBC 20.4 10x3/uL (4.8-10.8)
[2017-02-03 04:00] VITALS: BP 133/64
--- NOTE | 2017-02-03 05:28 | NUR ---
PT RESTING COMFORTABLY, CONTINUE TO MONITOR CLOSELY.
[2017-02-03 08:00] VITALS: BP 128/80
--- NOTE | 2017-02-03 08:24 | NUR ---
AM ROUNDS - PT IS IN BED AND AWAKE AT THIS TIME. NON SKID SOCKS ON. MONITOR SHOWING SR, HR 87. PT IS UP AD NYDIA. A&O. O2 AT 2.5L VIA NC. IV TO RIGHT FA, NS AT 30CC/HR. BED AT LOWEST LEVEL. SIDE RAILS UP X2. NON SKID SOCKS ON. CALL BACA IN USE. NO NEEDS AT THIS TIME. WILL CONTINUE TO MONITOR
[2017-02-03 11:51] VITALS: BP 146/71
--- NOTE | 2017-02-03 14:14 | NUR ---
Nutrition Follow Up: Pt is eating 100% meal avg on a diabetic diet. +BM 01/31/17. Labs reviewed - Glucose elevated. Meds noted including Lasix, Solu-Medrol. Rec continue current diet. RD following.
[2017-02-03 17:26] VITALS: BP 128/55
[2017-02-03 22:49] VITALS: BP 126/57
--- NOTE | 2017-02-03 23:31 | NUR ---
PATIENT IS ALERT, RR, CALL LIGHT IN REACH. DENIES NEEDS OR PAIN.
[2017-02-04] VITALS: BP 138/61
--- NOTE | 2017-02-04 00:17 | NUR ---
ORACLE DBA AT BEDSIDE, CALL LIGHT IN REACH. WILL CONTINUE WITH PLAN OF CARE.
[2017-02-04 06:29] LABS: BASOPHILS 0 % (0-2); EOSINOPHILS 0 % (0-7); HEMOGLOBIN 11.7 g/dL (13.5-17.5); IMMATURE GRANULOCYTES 0.6 % (0-5); LYMPHOCYTES 3.5 % (15-50); MCH 27.5 pg (26.0-34.0); MCHC 32.5 g/dL (31.0-37.0); MCV 84.5 fL (80.0-100.0); MEAN PLATELET VOLUME 10.1 fL (7.4-10.4); MONOCYTES 5.3 % (2-11); NEUTROPHILS 90.6 % (40-80); PLATELET COUNT 229 10x3/uL (130-400); RBC 4.26 10x6/uL (4.20-6.10); WBC 16.7 10x3/uL (4.8-10.8)
[2017-02-04 06:56] LABS: CALC OSMOLALITY 290 mosm/kg (275-300); CALCIUM 8.1 mg/dL (8.5-10.1); CARBON DIOXIDE 23.7 mmol/L (21.0-32.0); CHLORIDE - SERUM 110 mmol/L (98-107); CREATININE - SERUM 0.9 mg/dL (0.6-1.3); MAGNESIUM - SERUM 2.7 mg/dL (1.8-2.4); PHOSPHOROUS 3.3 mg/dL (2.5-4.9); POTASSIUM - SERUM 4.2 mmol/L (3.5-5.1); SODIUM 142 mmol/L (136-145); UREA NITROGEN 28 mg/dL (7-18); eGFR NON AFRICAN AMERICAN 89 mL/min (90-120)
[2017-02-04 07:00] LABS: GLUCOSE 141 mg/dL (74-106)
--- NOTE | 2017-02-04 07:46 | NUR ---
AM ROUNDING- RECEIVED REPORT FROM MARINE EQUIPMENT PRESERVATION INSPECTOR NURSE BASSAM. PT IS CURRENTLY SITTING UP IN BED WITH EYES OPEN RESTING ON CELL PHONE. PT DENIES ANY PAIN AT THIS TIME. ON 02 AT 2.5L VIA NC. ON MONITOR SHOWING SR, HR 70 WITH PVCS PER NATHALIE IN TELEMETRY. IV SEEN TO RIGHT FOREARM WITH NS RUNNING AT 30CC. NO FURTHER NEED AT THIS TIME. WILL CONTINUE TO MONITOR AND CONTINUE WITH PLAN OF CARE.
[2017-02-04 08:00] VITALS: BP 160/73
[2017-02-04 12:00] VITALS: BP 116/68
[2017-02-04 16:00] VITALS: BP 153/57
--- NOTE | 2017-02-04 18:32 | NUR ---
PT IS CURRENTLY SITTING UP IN BED WITH EYES OPEN RESTING. FAMILY MEMBER IS AT BEDSIDE. PT DENIES ANY NEED AT THIS CURRENT TIME. WILL CONTINUE TO MONITOR.
--- NOTE | 2017-02-04 19:41 | NUR ---
PT IS RESTING IN BED WITH EYES OPEN. ALERT AND ORIENTED X 3. DENIES ACUTE PAIN OR DISCOMFORT AT THIS TIME. O2 IS ON @ 2.5LPM PER NC. NO SOB NOTED. RFA SALINE LOCK NOTED. NO REDNESS OR EDEMA NOTED AT THE INSERTION SITE. TELEMETRY UNIT IS ON AND INTACT. SR'S ARE UP X 2 IN BED. CALL LIGHT AND BEDSIDE TABLE ARE WITHIN EASY REACH.
[2017-02-04 21:24] VITALS: BP 163/58
--- NOTE | 2017-02-04 22:04 | NUR ---
PT RESTING IN BED WATCHING TV. NO NEEDS VOICED.
--- NOTE | 2017-02-05 01:00 | NUR ---
PT RESTING IN BED WITH EYES CLOSED. NO ACUTE DISTRESS NOTED.
[2017-02-05 01:40] VITALS: BP 125/60
[2017-02-05 04:00] VITALS: BP 125/65
--- NOTE | 2017-02-05 05:14 | NUR ---
PT RESTING IN BED WITH EYES CLOSED. AWOKE EASILY TO VERBAL STIMULI. FSBS IS 45. PT HAS NO SYMPTOMS OF LOW SUGAR. MILK AND ASTON CRACKERS GIVEN PER HIS CHOICE. NO FURTHER NEEDS VOICED.
--- NOTE | 2017-02-05 05:26 | NUR ---
PT ASLEEP. RESPIRATIONS EVEN AND UNLABORED, NO S/S OF DISTRESS. BED LOW AND CALL LIGHT IN REACH. WILL CPOC
[2017-02-05 06:19] LABS: HEMATOCRIT 36.3 % (42.0-54.0); HEMOGLOBIN 11.8 g/dL (13.5-17.5); MCH 27.8 pg (26.0-34.0); MCHC 32.5 g/dL (31.0-37.0); MCV 85.6 fL (80.0-100.0); MEAN PLATELET VOLUME 10.1 fL (7.4-10.4); PLATELET COUNT 212 10x3/uL (130-400); RBC 4.24 10x6/uL (4.20-6.10); RDW 15.1 % (11.5-14.5); WBC 19.3 10x3/uL (4.8-10.8)
[2017-02-05 07:19] LABS: BASOPHILS 0 % (0-2); EOSINOPHILS 0.2 % (0-7); IMMATURE GRANULOCYTES 0.9 % (0-5); LYMPHOCYTES 9.8 % (15-50); MONOCYTES 7.8 % (2-11); NEUTROPHILS 81.3 % (40-80)
[2017-02-05 07:22] LABS: CALC OSMOLALITY 289 mosm/kg (275-300); CHLORIDE - SERUM 109 mmol/L (98-107); GLUCOSE 101 mg/dL (74-106); MAGNESIUM - SERUM 2.4 mg/dL (1.8-2.4); PHOSPHOROUS 3.1 mg/dL (2.5-4.9); POTASSIUM - SERUM 3.7 mmol/L (3.5-5.1); SODIUM 143 mmol/L (136-145); UREA NITROGEN 27 mg/dL (7-18); eGFR NON AFRICAN AMERICAN 79 mL/min (90-120)
[2017-02-05 08:00] VITALS: BP 137/70
--- NOTE | 2017-02-05 08:12 | NUR ---
AM ROUNDING- RECEIVED REPORT FROM CEMETERY LABORER NURSE CAMDEN. PT IS CURRENTLY SITTING UP IN BED WITH EYES OPEN RESTING EATING BREAKFAST. ON 02 AT 2.5L VIA NC. ON MONITOR SHOWING SR, HR 71. IV SEEN TO RIGHT FOREARM THAT IS CURRENTLY SALINE LOCKED. NO NEED AT THIS CURRENT TIME. WILL CONTINUE TO MONITOR AND CONTINUE WITH PLAN OF CARE.
[2017-02-05 12:00] VITALS: BP 139/64
[2017-02-05] MEDS ORDERED: LASIX40 MG PO (13:18)
[2017-02-05] MEDS ORDERED: PREDNISONE20 MG PO (13:18)
[2017-02-05] MEDS ORDERED: VIBRAMYCIN 100100 MG PO (13:19)
--- NOTE | 2017-02-05 13:23 | NUR ---
PAGED DR. HIDALGO REGARDING DR. GAXIOLA DISCHARGE MESSAGE. WILL AWAIT CALLBACK.
--- NOTE | 2017-02-05 16:05 | NUR ---
D/C INSTRUCTIONS EXPLAINED TO PT. D/C PAPERWORK SIGNED BY PT AND PLACED IN CHART. IV TO RIGHT FOREARM REMOVED WITH CATH TIP INTACT. PT IS AWAITING FIANCE TO COME AND GET HIM ONCE SHE GETS OFF WORK. WILL CONTINUE TO MONITOR.
--- NOTE | 2017-02-05 16:47 | NUR ---
Patient Name: ANGEL SKAGGS Encounter No: [id number] : 1950 Primary Insurance: MEDICARE A & B Anticipated DC Date: 02-05-2017 Planned Disposition: Home: DISCHARGE PLANNING: * Is the patient Alert and Oriented? Yes 0 * How many steps to enter\exit or inside your home? 4-O / 4-I 0 * PCP DR. KATE 0 * Pharmacy [facility] 0 * Preadmission Environment Home with Family 0 * ADLs Independent 0 * Equipment Nebulizer 0 * Other Equipment [facility] - MEDICAL EQUIPMENT PROVIDER 0 * List name and contact numbers for known caregivers / representatives who currently or will assist patient after discharge: ANNABEL SPENCE TELLY, 0 * Community resources currently utilized None 0 * Please name any agencies selected above. NONE 0 * Additional services required to return to the preadmission environment? No 0 * Can the patient safely return to the preadmission environment? Yes 0 * Has this patient been hospitalized within the prior 30 days at any hospital? No 0 CM MET WITH PT IN ROOM TO DISCUSS DISCHARGE PLANNING AND NEEDS. PT REPORTS LIVING AT HOME INDEPENDENTLY WITH BELINDA. PT HAS NEBULIZER FROM [facility]. PT HAS NO OUTSIDE SERVICES ASSISTING IN THE HOME. CM DISCUSSED AVAILABILITY OF HOME HEALTH, REHAB SERVICES AND MEDICAL EQUIPMENT. PT DENIES DISCHARGE NEEDS, REPORTS TELLY WILL PICK HIM UP FOR DISCHARGE HOME. IMPORTANT MESSAGE FROM MEDICARE PROVIDED AND EXPLAINED. Spencer Rodarte, CASE MANAGEMENT
--- NOTE | 2017-02-05 17:24 | NUR ---
PT D/C VIA WHEELCHAIR.
== END 2017-02-05 17:25 | disposition home or self-care (01) | DRG 280 ==
LOC: D.ER 15:17 → OBSVTIME 18:38 → D.M2 18:38
PROVIDERS: Emergency Medicine; Internal Medicine Cardiovascular Disease; Internal Medicine Pulmonary Disease; ADMIT Family Medicine
PROC: 4A023N7 Measurement of Cardiac Sampling and Pressure, Left Heart, Percutaneous Approach (ICD-10-PCS; 2017-02-01)
PROC: B2111ZZ Fluoroscopy of Multiple Coronary Arteries using Low Osmolar Contrast (ICD-10-PCS; principal; 2017-02-01 08:30)
DX: I21.4 Non-ST elevation (NSTEMI) myocardial infarction (principal); J18.9 Pneumonia, unspecified organism; I50.32 Chronic diastolic (congestive) heart failure; J98.11 Atelectasis; J44.0 Chronic obstructive pulmonary disease with (acute) lower respiratory infection; I08.3 Combined rheumatic disorders of mitral, aortic and tricuspid valves; I25.10 Atherosclerotic heart disease of native coronary artery without angina pectoris; I11.0 Hypertensive heart disease with heart failure; E11.9 Type 2 diabetes mellitus without complications; E78.5 Hyperlipidemia, unspecified; M19.90 Unspecified osteoarthritis, unspecified site; N40.0 Benign prostatic hyperplasia without lower urinary tract symptoms; K21.9 Gastro-esophageal reflux disease without esophagitis; D64.9 Anemia, unspecified; J30.9 Allergic rhinitis, unspecified; I27.20 Pulmonary hypertension, unspecified

== ENCOUNTER 2017-08-23 09:58 | Inpatient (IN) | payer MEDICARE, BC ==
[~2017-08-23] VITALS: Ht 177.8 cm; Wt 96.8 kg
--- NOTE | ~2017-08-23 | OP ---
PATIENT NAME: ANGEL SKAGGS MEDICAL RECORD: [id number] :[birth year] LOCATION:D.MS [address] ADMISSION DATE:08/23/17 SURGEON: RICHY COUCH MD DATE OF OPERATION: 08/24/2017 SURGEON: Richy Couch MD PREOPERATIVE DIAGNOSIS: Necrotic soft tissue wound, right shoulder. POSTOPERATIVE DIAGNOSIS: Necrotic soft tissue wound, right shoulder. PROCEDURE PERFORMED: Excisional biopsy of necrotic soft tissue, right shoulder with incision and drainage of subcutaneous abscess. ANESTHESIA: General. COMPLICATIONS: None. SPECIMEN: Tissue cultures as well as anaerobic and aerobic fluid cultures. Case was grossly contaminated. ESTIMATED BLOOD LOSS: 20 cc. OPERATIVE COURSE: After consent was obtained, the patient was taken to the operating room and placed in supine position on the operating table. There is an area of necrotic skin and soft tissue approximately 3 cm x 3 cm. This was excised with a 15 blade scalpel, approximately 5 cm in depth and at 5 cm in depth, some viable tissue was encountered. Extensive soft tissue excision continued until approximately wounds approximately 6 cm in width x cm in length x 5 cm in depth to excise all necrotic skin and soft tissue. The wound bed was then copiously debrided and scraped, tissue was sent for culture as well as fluid cultures were obtained at this time and sent for microbiology. Once healthy tissue had been encountered and all planes, a silver wound VAC was placed into the soft tissue defect and placed to suction. At end of the case, all needles and instrument counts were correct. No complications occurred. The patient was extubated and transferred to the PACU in stable condition. TRANSINT:[id number] Voice Confirmation ID: [id number] DOCUMENT ID: [id number] RICHY COUCH MD at 1556 CC: [id number] DICTATION DATE: 08/24/17 1306 MOLD MAINTENANCE TECHNICIAN: 08/24/17 1351 [place] [address]
[~2017-08-23 09:58] MED LIST changes: +LASIX40 MG PO
[2017-08-23 10:57] LABS: ALBUMIN 3.3 g/dL (3.4-5.0); ANION GAP 11.7 mmol/L (8-16); BILIRUBIN - TOTAL 0.5 mg/dL (0.2-1.3); CALCIUM 9.2 mg/dL (8.5-10.1); CARBON DIOXIDE 30.1 mmol/L (21.0-32.0); CREATININE - SERUM 2.3 mg/dL (0.6-1.3); POTASSIUM - SERUM 3.8 mmol/L (3.5-5.1); PROTEIN - SERUM 7.4 g/dL (6.4-8.2)
[2017-08-23 11:01] LABS: HEMATOCRIT 32.5 % (42.0-54.0); MCH 27.6 pg (26.0-34.0); MCHC 33.8 g/dL (31.0-37.0); MCV 81.7 fL (80.0-100.0); MEAN PLATELET VOLUME 9.3 fL (7.4-10.4); PLATELET COUNT 281 10x3/uL (130-400); RBC 3.98 10x6/uL (4.20-6.10); RDW 13.4 % (11.5-14.5); WBC 23.4 10x3/uL (4.8-10.8)
[2017-08-23 11:37] LABS: LYMPHOCYTES 11 % (15-50); MONOCYTES 5 % (2-11); NEUTROPHILS 75 % (40-80)
[2017-08-23 11:38] LABS: PLATELET ESTIMATE NORMAL; ROULEAUX OCC
[2017-08-23 12:04] LABS: APPEARANCE CLEAR (CLEAR); BILIRUBIN NEGATIVE (NEGATIVE); COLOR YELLOW (YELLOW); GLUCOSE 250 mg/dL (NEGATIVE); KETONE NEGATIVE (NEGATIVE); NITRITE NEGATIVE (NEGATIVE); PROTEIN NEGATIVE (NEGATIVE); UROBILINOGEN NORMAL (NORMAL)
[2017-08-23] MEDS ORDERED: PREDNISONE20 MG PO (12:54)
[2017-08-23 17:05] VITALS: BP 143/57
[2017-08-23 17:32] VITALS: BP 147/53; Ht 177.8 cm; Wt 96.8 kg
[2017-08-24 01:35] VITALS: BP 128/53
[2017-08-24 04:00] VITALS: BP 130/59
[2017-08-24 05:20] LABS: BASOPHILS 0 % (0-2); EOSINOPHILS 0.2 % (0-7); HEMATOCRIT 28.5 % (42.0-54.0); HEMOGLOBIN 9.4 g/dL (13.5-17.5); IMMATURE GRANULOCYTES 0.6 % (0-5); LYMPHOCYTES 6.8 % (15-50); MCH 27.1 pg (26.0-34.0); MCV 82.1 fL (80.0-100.0); MEAN PLATELET VOLUME 9.2 fL (7.4-10.4); MONOCYTES 6.4 % (2-11); PLATELET COUNT 264 10x3/uL (130-400); RBC 3.47 10x6/uL (4.20-6.10); RDW 13.5 % (11.5-14.5); WBC 22.9 10x3/uL (4.8-10.8)
[2017-08-24 05:40] LABS: ALBUMIN 2.5 g/dL (3.4-5.0); ANION GAP 13.5 mmol/L (8-16); BILIRUBIN - TOTAL 0.5 mg/dL (0.2-1.3); CALCIUM 8.6 mg/dL (8.5-10.1); CARBON DIOXIDE 27.1 mmol/L (21.0-32.0); MAGNESIUM - SERUM 1.9 mg/dL (1.8-2.4); POTASSIUM - SERUM 3.6 mmol/L (3.5-5.1); PROTEIN - SERUM 6.2 g/dL (6.4-8.2)
[2017-08-24 13:47] VITALS: BP 139/62
[2017-08-24 20:00] VITALS: BP 138/57
[2017-08-25 04:00] VITALS: BP 129/49
[2017-08-25 06:33] LABS: BASOPHILS 0 % (0-2); EOSINOPHILS 0.4 % (0-7); HEMATOCRIT 27.8 % (42.0-54.0); IMMATURE GRANULOCYTES 0.8 % (0-5); MCHC 32.4 g/dL (31.0-37.0); MCV 83.5 fL (80.0-100.0); MEAN PLATELET VOLUME 9.2 fL (7.4-10.4); NEUTROPHILS 83.8 % (40-80); PLATELET COUNT 251 10x3/uL (130-400); RBC 3.33 10x6/uL (4.20-6.10); RDW 13.7 % (11.5-14.5); WBC 21.7 10x3/uL (4.8-10.8)
[2017-08-25 07:05] LABS: ALBUMIN 2.1 g/dL (3.4-5.0); ANION GAP 14.4 mmol/L (8-16); BILIRUBIN - TOTAL 0.43 mg/dL (0.2-1.3); CALCIUM 8.4 mg/dL (8.5-10.1); CARBON DIOXIDE 24.5 mmol/L (21.0-32.0); CREATININE - SERUM 2.5 mg/dL (0.6-1.3); POTASSIUM - SERUM 3.9 mmol/L (3.5-5.1); PROTEIN - SERUM 5.7 g/dL (6.4-8.2)
[2017-08-25 10:03] VITALS: BP 143/61
[2017-08-25 13:35] VITALS: BP 128/53
[2017-08-25 16:54] VITALS: BP 123/79
[2017-08-25 20:00] VITALS: BP 119/46
[2017-08-26 04:00] VITALS: BP 140/44
[2017-08-26 05:43] LABS: BASOPHILS 0.1 % (0-2); EOSINOPHILS 0.8 % (0-7); HEMATOCRIT 26.2 % (42.0-54.0); HEMOGLOBIN 8.6 g/dL (13.5-17.5); IMMATURE GRANULOCYTES 0.9 % (0-5); LYMPHOCYTES 12.7 % (15-50); MCHC 32.8 g/dL (31.0-37.0); MCV 82.4 fL (80.0-100.0); MEAN PLATELET VOLUME 9.5 fL (7.4-10.4); MONOCYTES 8.1 % (2-11); NEUTROPHILS 77.4 % (40-80); PLATELET COUNT 261 10x3/uL (130-400); RBC 3.18 10x6/uL (4.20-6.10); RDW 13.4 % (11.5-14.5); WBC 16.8 10x3/uL (4.8-10.8)
[2017-08-26 06:09] LABS: ANION GAP 14.4 mmol/L (8-16); BILIRUBIN - TOTAL 0.37 mg/dL (0.2-1.3); CALCIUM 8.4 mg/dL (8.5-10.1); CARBON DIOXIDE 23.3 mmol/L (21.0-32.0); CREATININE - SERUM 2.4 mg/dL (0.6-1.3); MAGNESIUM - SERUM 2.2 mg/dL (1.8-2.4); POTASSIUM - SERUM 3.7 mmol/L (3.5-5.1); PROTEIN - SERUM 5.8 g/dL (6.4-8.2)
[2017-08-26 12:50] VITALS: BP 132/54
[2017-08-26 15:52] VITALS: BP 147/56
[2017-08-26] MEDS ORDERED: AUGMENTIN 875-11 TAB PO (18:06)
[2017-08-26 20:00] VITALS: BP 134/48
[2017-08-27] VITALS: BP 137/47
[2017-08-27 03:35] LABS: BASOPHILS 0.1 % (0-2); EOSINOPHILS 1.1 % (0-7); HEMATOCRIT 25.6 % (42.0-54.0); HEMOGLOBIN 8.4 g/dL (13.5-17.5); IMMATURE GRANULOCYTES 0.6 % (0-5); LYMPHOCYTES 14.7 % (15-50); MCH 26.8 pg (26.0-34.0); MCHC 32.8 g/dL (31.0-37.0); MCV 81.8 fL (80.0-100.0); MEAN PLATELET VOLUME 8.9 fL (7.4-10.4); MONOCYTES 7.6 % (2-11); NEUTROPHILS 75.9 % (40-80); PLATELET COUNT 257 10x3/uL (130-400); RBC 3.13 10x6/uL (4.20-6.10); RDW 13.5 % (11.5-14.5)
[2017-08-27 03:37] LABS: WBC 11.4 10x3/uL (4.8-10.8)
[2017-08-27 03:48] LABS: ALBUMIN 2.1 g/dL (3.4-5.0); BILIRUBIN - TOTAL 0.42 mg/dL (0.2-1.3); CALCIUM 8.3 mg/dL (8.5-10.1); CARBON DIOXIDE 23.6 mmol/L (21.0-32.0); CREATININE - SERUM 2.2 mg/dL (0.6-1.3); MAGNESIUM - SERUM 2.1 mg/dL (1.8-2.4); POTASSIUM - SERUM 3.6 mmol/L (3.5-5.1); PROTEIN - SERUM 5.3 g/dL (6.4-8.2)
[2017-08-27 04:00] VITALS: BP 132/42
[2017-08-27 07:57] VITALS: BP 147/55
[2017-08-27 11:47] VITALS: BP 142/52
== END 2017-08-27 14:09 | disposition home health service (06) | DRG 571 ==
LOC: D.ER 09:58 → D.MS 11:35
PROVIDERS: Emergency Medicine; Family Medicine; Surgery
PROC: 0JBD0ZZ Excision of Right Upper Arm Subcutaneous Tissue and Fascia, Open Approach (ICD-10-PCS; principal; 2017-08-24 08:00)
DX: L03.113 Cellulitis of right upper limb (principal); N17.9 Acute kidney failure, unspecified; I27.20 Pulmonary hypertension, unspecified; I35.0 Nonrheumatic aortic (valve) stenosis; K59.00 Constipation, unspecified; E11.22 Type 2 diabetes mellitus with diabetic chronic kidney disease; I12.9 Hypertensive chronic kidney disease with stage 1 through stage 4 chronic kidney disease, or unspecified chronic kidney disease; N18.9 Chronic kidney disease, unspecified

== ENCOUNTER 2018-03-03 11:07 | Inpatient (IN) | payer MEDICARE, BC ==
[~2018-03-03] VITALS: Ht 177.8 cm; Wt 93.9 kg
--- NOTE | ~2018-03-03 | MORECARE ---
CASE MANAGEMENT DISCHARGE SUMMARY PATIENT: ANGEL SKAGGS UNIT: [id number] ADM DATE: 03/03/18 AGE: 67 : 49 SEX: M ROOM/BED: D.1206 AUTHOR: JONA,DOC PHYSICIAN: REFERRING PHYSICIAN: RICHY COUCH MD DATE OF SERVICE: 03/09/18 Discharge Plan Patient Name: ANGEL SKAGGS Facility: [facility]:[place] : 1950 Planned Disposition: Home Health Service Anticipated Discharge Date: Discharge Date: Expected LOS: Initial Reviewer: [email or web address] Initial Review Date: 03/09/2018 Generated: 03/09/18 3:29 pm Comments DCP- Discharge Planning Updated by [id number]: Jannette Wells on 03/09/18 1:[address] Patient Name: ANGEL SKAGGS Admission Status: Elective Accout number: [id number] Admission Date: 03-03-2018 : 1950 Admission Diagnosis:SEPSIS, UNSPECIFIED ORGANISM Attending: RICHY COUCH Current LOS: 6 Anticipated DC Date: Planned Disposition: Home Health Service Primary Insurance: MEDICARE A & B Discharge Planning Comments: CM met with patient about discharge planning / needs. Patient states he plans to return home where he lives with his filizabeth?. Patient states he has used home health before for a spider bite to his back, but he could not remember the name of the agency. Patient choice [facility] and signed WILLIAMS. CM called [facility] [facility], spoke with Diamante. Diamante informed CM that they could not admit the patient before Wednesday and if the patient needs daily wound care they would have to have someone willing to learn how to do the wound care or they could not accept the patient. Barker Operator: Jannette Wells DCPIA - Discharge Planning Initial Assessment Updated by [id number]: Jannette Wells on 03/09/18 2:21 pm * Is the patient Alert and Oriented? Yes * How many steps to enter\exit or inside your home? * PCP [place] * Pharmacy [facility] * Preadmission Environment Home with Family * ADLs Independent * Equipment Grab Bars * List name and contact numbers for known caregivers / representatives who currently or will assist patient after discharge: Wilma Manjarrez [phone] * Verbal permission to speak to the caregivers and representatives has been obtained from the patient. N/A * Community resources currently utilized None * Additional services required to return to the preadmission environment? Yes * Can the patient safely return to the preadmission environment? Yes * Has this patient been hospitalized within the prior 30 days at any hospital? No Coverage Notice Reviewer: [id number] Bryce Wells Notice Issued Date-Time: 03/09/2018 13:05 Notice Type: Patient Choice Letter Notice Delivered To: Patient Relationship to Patient: Self Operational Intelligence Analyst Name: Delivery Method: HAND - Hand Delivered Shameka Days: Prior Verbal Notification: Recipient Understood Notice: Yes Recipient Signature: Yes Med Rec Note Co-signed by Attending: Coverage Notice Comment: Last DP export: 03/09/18 1:21 Patient Name: ANGEL SKAGGS Page [id number] at 1429 All edits/amendments must be made on the electronic document DICTATION DATE: 03/09/181427 CLINICAL OPERATIONS LEADER: DAVID 03/09/181427 RPT#: [id number] DC DATE: STATUS: ADM IN [facility] [address] [place] [address] END OF REPORT
--- NOTE | ~2018-03-03 | MORECARE ---
CASE MANAGEMENT DISCHARGE SUMMARY PATIENT: ANGEL SKAGGS UNIT: [id number] ADM DATE: 03/03/18 AGE: 67 : 49 SEX: M ROOM/BED: D.1206 AUTHOR: LUCINDA TENORIO PHYSICIAN: REFERRING PHYSICIAN: RICHY COUCH MD DATE OF SERVICE: 03/09/18 Discharge Plan Patient Name: ANGEL SKAGGS [facility] [facility] 1950 Planned Disposition: Home Health Service Anticipated Discharge Date: Discharge Date: Expected LOS: Initial Reviewer: [email or web address] Initial Review Date: 03/09/2018 Generated: 03/09/18 3:21 pm Patient Name: ANGEL SKAGGS Page [id number] at 1421 All edits/amendments must be made on the electronic document DICTATION DATE: 03/09/181419 TUMBLERS SUPERVISOR: DAVID 03/09/18 1420 RPT#: [id number] AL DATE: STATUS: ADM IN [facility] [address] [place] [address] END OF REPORT
--- NOTE | ~2018-03-03 | MORECARE ---
CASE MANAGEMENT DISCHARGE SUMMARY PATIENT: ANGEL SKAGGS UNIT: [id number] ADM DATE: 03/03/18 AGE: 67 : 49 SEX: M ROOM/BED: D.1206 AUTHOR: JONA,LUCINDA PHYSICIAN: REFERRING PHYSICIAN: RICHY COUCH MD DATE OF SERVICE: 03/14/18 Discharge Plan Patient Name: ANGEL SKAGGS Facility: [facility]:[place] : 1950 Planned Disposition: Home Health Service Anticipated Discharge Date: Discharge Date: 03/11/2018 Expected LOS: Initial Reviewer: [email or web address] Initial Review Date: 03/09/2018 Generated: 03/14/18 4:15 pm Comments DCP- Discharge Planning Updated by [email or web address]: Jannette Wells on 03/11/18 11:[address] CM faxed requested records to [facility] for home vac. Awaiting approval. CM called and spoke with Diamante at [facility] and informed her that CM anticipates discharge today, will need home health to admit Wednesday for wound vac changes Wed/Wed/Fridays. Faxed records as requested. CM met with patient and informed him of anticipated discharge today with [facility] to admit Wednesday for wound vac changes. Patient verbalized understanding and satisfaction with discharge plans. CM explained and served DC IMM. CM gave patient phone number for [facility] and instructed him to call home health if he has any trouble with the home vac this weekend. CM will continue to follow and assist as needed with discharge planning / needs. DCP- Discharge Planning Updated by [email or web address]: Jannette Wells on 03/09/18 1:[address] Patient Name: ANGEL SKAGGS Admission Status: Elective Accout number: [id number] Admission Date: 03-03-2018 : 1950 Admission Diagnosis:SEPSIS, UNSPECIFIED ORGANISM Attending: RICHY COUCH Current LOS: 6 Anticipated DC Date: Planned Disposition: Home Health Service Primary Insurance: MEDICARE A & B Discharge Planning Comments: CM met with patient about discharge planning / needs. Patient states he plans to return home where he lives with his fianc?. Patient states he has used home health before for a spider bite to his back, but he could not remember the name of the agency. Patient choice [facility] and signed WILLIAMS. CM called [facility], spoke with Diamante. Diamante informed CM that they could not admit the patient before Wednesday and if the patient needs daily wound care they would have to have someone willing to learn how to do the wound care or they could not accept the patient. General Manager: Jannette Wells DCPIA - Discharge Planning Initial Assessment Updated by [id number]: Jannette Wells on 03/09/18 2:21 pm * Is the patient Alert and Oriented? Yes * How many steps to enter\exit or inside your home? * PCP [facility] * Pharmacy [facility] * Preadmission Environment Home with Family * ADLs Independent * Equipment Grab Bars * List name and contact numbers for known caregivers / representatives who currently or will assist patient after discharge: Wilma Manjarrez, * Verbal permission to speak to the caregivers and representatives has been obtained from the patient. N/A * Community resources currently utilized None * Additional services required to return to the preadmission environment? Yes * Can the patient safely return to the preadmission environment? Yes * Has this patient been hospitalized within the prior 30 days at any hospital? No Coverage Notice Reviewer: [id number] Bryce Wells Notice Issued Date-Time: 03/09/2018 13:05 Notice Type: Patient Choice Letter Notice Delivered To: Patient Relationship to Patient: Self Chief Of Surgery Name: Delivery Method: HAND - Hand Delivered Shameka Days: Prior Verbal Notification: Recipient Understood Notice: Yes Recipient Signature: Yes Med Rec Note Co-signed by Attending: Coverage Notice Comment: Reviewer: [email or web address] Bryce Wells Notice Issued Date-Time: 03/11/2018 12:35 Notice Type: IM Discharge Notice Notice Delivered To: Patient Relationship to Patient: Self Chief Of Surgery Name: Delivery Method: HAND - Hand Delivered Shameka Days: Prior Verbal Notification: Recipient Understood Notice: Yes Recipient Signature: Yes Med Rec Note Co-signed by Attending: Coverage Notice Comment: Last DP export: 03/11/18 11:47 Patient Name: ANGEL SKAGGS Page [id number] at 1514 All edits/amendments must be made on the electronic document DICTATION DATE: 03/14/18 1512 ENVIRONMENTAL PROTECTION GEOLOGIST: DM 03/14/18 1515 RPT#: [id number] DC DATE:03/11/18 STATUS: DIS IN [facility] [address] [place] [address] END OF REPORT
--- NOTE | ~2018-03-03 | MORECARE ---
CASE MANAGEMENT DISCHARGE SUMMARY PATIENT: ANGEL SKAGGS UNIT: [id number] ADM DATE: 03/03/18 AGE: 67 : 49 SEX: M ROOM/BED: D.1206 AUTHOR: JONA,DOC PHYSICIAN: REFERRING PHYSICIAN: RICHY COUCH MD DATE OF SERVICE: 03/09/18 Discharge Plan Patient Name: ANGEL SKAGGS Facility: [facility]:[place] : 1950 Planned Disposition: Home Health Service Anticipated Discharge Date: Discharge Date: Expected LOS: Initial Reviewer: [email or web address] Initial Review Date: 03/09/2018 Generated: 03/09/18 4:56 pm Comments DCP- Discharge Planning Updated by [email or web address]: Jannette Wells on 03/09/18 1:[address] Patient Name: ANGEL SKAGGS Admission Status: Elective Accout number: [id number] Admission Date: 03-03-2018 : 1950 Admission Diagnosis:SEPSIS, UNSPECIFIED ORGANISM Attending: RICHY COUCH Current LOS: 6 Anticipated DC Date: Planned Disposition: Home Health Service Primary Insurance: MEDICARE A & B Discharge Planning Comments: CM met with patient about discharge planning / needs. Patient states he plans to return home where he lives with his filizabeth?. Patient states he has used home health before for a spider bite to his back, but he could not remember the name of the agency. Patient choice [facility] [employer] and signed WILLIAMS. CM called [employer] [facility], spoke with Diamante. Diamante informed CM that they could not admit the patient before Wednesday and if the patient needs daily wound care they would have to have someone willing to learn how to do the wound care or they could not accept the patient. Collections Professional: Jannette Wells DCPIA - Discharge Planning Initial Assessment Updated by [email or web address]: Jannette Wells on 03/09/18 2:21 pm * Is the patient Alert and Oriented? Yes * How many steps to enter\exit or inside your home? * PCP [place] * Pharmacy [facility] * Preadmission Environment Home with Family * ADLs Independent * Equipment Grab Bars * List name and contact numbers for known caregivers / representatives who currently or will assist patient after discharge: Wilma Manjarrez [phone] * Verbal permission to speak to the caregivers and representatives has been obtained from the patient. N/A * Community resources currently utilized None * Additional services required to return to the preadmission environment? Yes * Can the patient safely return to the preadmission environment? Yes * Has this patient been hospitalized within the prior 30 days at any hospital? No External Providers [facility] Next Contact Date: Service Request Date: Service Type: Resolution: Reviewer: Comments: Coverage Notice Reviewer: [id number] Bryce Wells Notice Issued Date-Time: 03/09/2018 13:05 Notice Type: Patient Choice Letter Notice Delivered To: Patient Relationship to Patient: Self Medical Billing Specialist Name: Delivery Method: HAND - Hand Delivered Shameka Days: Prior Verbal Notification: Recipient Understood Notice: Yes Recipient Signature: Yes Med Rec Note Co-signed by Attending: Coverage Notice Comment: Last DP export: 03/09/18 1:29 Patient Name: ANGEL SKAGGS Page [phone] at 1556 All edits/amendments must be made on the electronic document DICTATION DATE: 03/09/18 1555 PHYSICIAN COMPENSATION ANALYST: DAVID 03/09/18 1555 RPT#: [id number] DC DATE: STATUS: ADM IN [facility] [address] [place] [address] END OF REPORT
--- NOTE | ~2018-03-03 | OP ---
PATIENT NAME: ANGEL SKAGGS MEDICAL RECORD: [id number] :[birth year] LOCATION:D.M3 D.1206 ADMISSION DATE:03/03/18 SURGEON: SALMA DOTSON MD DATE OF OPERATION: 03/03/2018 PREOPERATIVE DIAGNOSES: 1. Left upper back cellulitis with abscess. 2. Sepsis. 3. Szipv-en-htiopjv renal failure. 4. Diabetes mellitus. POSTOPERATIVE DIAGNOSES: 1. Left upper back cellulitis with abscess. 2. Sepsis. 3. Dvwly-om-ulzvanx renal failure. 4. Diabetes mellitus. PROCEDURE: Incision and debridement of right upper back cellulitis. SURGEON: Salma Dotson MD DATA CENTER CONSULTANT: Beena Lara APRN REPORT OF OPERATION: The patient's right back was prepped and draped in sterile fashion. Upon palpation of the patient's back, there was purulent material extending out of all of the pores of the back. Cultures were taken times 2. There is an area of necrotic-appearing tissue on the right upper shoulder. A circular piece of this necrotic tissue was removed, totaling about a 2-1/2 x 3-1/2 cm in size. This was extended down all the way to the fascia of the scapular musculature. The wound had no evidence of an abscess pocket, but any time he would push on the tissues, purulence would come through the subcutaneous tissues into the wound. We tried to milk as much of the purulence as we could through the wound. Finger dissection of the planes showed that the tissues were all intact, which went against this being a necrotizing fasciitis. The fascia itself appeared to be okay. We inspected the remainder of the wound and could not find any evidence of an abscess pocket. We then irrigated out the wound thoroughly with peroxide and saline solution and then packed the wound with peroxide-soaked Kerlix. COMPLICATIONS: None. CONDITION: Stable. ANESTHESIA: General endotracheal. BLOOD LOSS: 50 mL. TRANSINT:[id number] Voice Confirmation ID: [id number] DOCUMENT ID: [id number] OPERATIVE REPORT [id number] ANGEL SKAGGS SALMA DOTSON MD CC: [id number] DICTATION DATE: 03/03/18 1527 WORKERS COMPENSATION ADMINISTRATOR: 03/04/18 0001 ADM IN [place] [id number] [place] [address]
--- NOTE | ~2018-03-03 | MORECARE ---
CASE MANAGEMENT DISCHARGE SUMMARY PATIENT: ANGEL SKAGGS UNIT: [id number] ADM DATE: 03/03/18 AGE: 67 : 49 SEX: M ROOM/BED: D.1206 AUTHOR: JONA,DOC PHYSICIAN: REFERRING PHYSICIAN: RICHY COUCH MD DATE OF SERVICE: 03/10/18 Discharge Plan Patient Name: ANGEL SKAGGS Facility: [facility]:[place] : 1950 Planned Disposition: Home Health Service Anticipated Discharge Date: Discharge Date: Expected LOS: Initial Reviewer: [email or web address] Initial Review Date: 03/09/2018 Generated: 03/10/18 4:18 pm Comments DCP- Discharge Planning Updated by [email or web address]: Jannette Wells on 03/09/18 1:[address] Patient Name: ANGEL SKAGGS Admission Status: Elective Accout number: [id number] Admission Date: 03-03-2018 : 1950 Admission Diagnosis:SEPSIS, UNSPECIFIED ORGANISM Attending: RICHY COUCH Current LOS: 6 Anticipated DC Date: Planned Disposition: Home Health Service Primary Insurance: MEDICARE A & B Discharge Planning Comments: CM met with patient about discharge planning / needs. Patient states he plans to return home where he lives with his filizabeth?. Patient states he has used home health before for a spider bite to his back, but he could not remember the name of the agency. Patient choice [employer] and signed WILLIAMS. CM called [facility] [facility], spoke with Diamante. Diamante informed CM that they could not admit the patient before Wednesday and if the patient needs daily wound care they would have to have someone willing to learn how to do the wound care or they could not accept the patient. Sign Artist: Jannette Wells DCPIA - Discharge Planning Initial Assessment Updated by [email or web address]: Jannette Wells on 03/09/18 2:21 pm * Is the patient Alert and Oriented? Yes * How many steps to enter\exit or inside your home? * PCP [place] * Pharmacy [facility] * Preadmission Environment Home with Family * ADLs Independent * Equipment Grab Bars * List name and contact numbers for known caregivers / representatives who currently or will assist patient after discharge: Wilma Manjarrez [phone] * Verbal permission to speak to the caregivers and representatives has been obtained from the patient. N/A * Community resources currently utilized None * Additional services required to return to the preadmission environment? Yes * Can the patient safely return to the preadmission environment? Yes * Has this patient been hospitalized within the prior 30 days at any hospital? No Coverage Notice Reviewer: [email or web address] Bryce Wells Notice Issued Date-Time: 03/09/2018 13:05 Notice Type: Patient Choice Letter Notice Delivered To: Patient Relationship to Patient: Self Control Panel Builder Name: Delivery Method: HAND - Hand Delivered Shameka Days: Prior Verbal Notification: Recipient Understood Notice: Yes Recipient Signature: Yes Med Rec Note Co-signed by Attending: Coverage Notice Comment: Last DP export: 03/09/18 2:56 Patient Name: ANGEL SKAGGS Page 18107 at 1518 All edits/amendments must be made on the electronic document DICTATION DATE: 03/10/181517 AUTOMATIC EQUIPMENT TECHNICIAN: DAVID 03/10/181517 RPT#: [id number] DC DATE: STATUS: ADM IN [facility] [address] [place] [address] END OF REPORT
--- NOTE | ~2018-03-03 | MORECARE ---
CASE MANAGEMENT DISCHARGE SUMMARY PATIENT: ANGEL SKAGGS UNIT: [id number] ADM DATE: 03/03/18 AGE: 67 : 49 SEX: M ROOM/BED: D.1206 AUTHOR: LUCINDA TENORIO PHYSICIAN: REFERRING PHYSICIAN: RICHY COUCH MD DATE OF SERVICE: 03/11/18 Discharge Plan Patient Name: ANGEL SKAGGS Facility: [facility]:[place] : 1950 Planned Disposition: Home Health Service Anticipated Discharge Date: Discharge Date: Expected LOS: Initial Reviewer: [email or web address] Initial Review Date: 03/09/2018 Generated: 03/11/18 1:47 pm Comments DCP- Discharge Planning Updated by [email or web address]: Jannette Wells on 03/11/18 11:[address] CM faxed requested records to [facility] for home vac. Awaiting approval. CM called and spoke with Diamante at [facility] and informed her that CM anticipates discharge today, will need home health to admit Wednesday for wound vac changes Wed/Wed/Fridays. Faxed records as requested. CM met with patient and informed him of anticipated discharge today with [facility] to admit Wednesday for wound vac changes. Patient verbalized understanding and satisfaction with discharge plans. CM explained and served DC IMM. CM gave patient phone number for [facility] and instructed him to call home health if he has any trouble with the home vac this weekend. CM will continue to follow and assist as needed with discharge planning / needs. DCP- Discharge Planning Updated by [email or web address]: Jannette Wells on 03/09/18 1:[address] Patient Name: ANGEL SKAGGS Admission Status: Elective Accout number: [id number] Admission Date: 03-03-2018 : 1950 Admission Diagnosis:SEPSIS, UNSPECIFIED ORGANISM Attending: RICHY COUCH Current LOS: 6 Anticipated DC Date: Planned Disposition: Home Health Service Primary Insurance: MEDICARE A & B Discharge Planning Comments: CM met with patient about discharge planning / needs. Patient states he plans to return home where he lives with his fianc?. Patient states he has used home health before for a spider bite to his back, but he could not remember the name of the agency. Patient choice [facility] and signed WILLIAMS. CM called [facility], spoke with Diamante. Diamante informed CM that they could not admit the patient before Wednesday and if the patient needs daily wound care they would have to have someone willing to learn how to do the wound care or they could not accept the patient. Machine Deicer Element Winder: Jannette Wells DCPIA - Discharge Planning Initial Assessment Updated by [email or web address]: Jannette Wells on 03/09/18 2:21 pm * Is the patient Alert and Oriented? Yes * How many steps to enter\exit or inside your home? * PCP [place] * Pharmacy [facility] * Preadmission Environment Home with Family * ADLs Independent * Equipment Grab Bars * List name and contact numbers for known caregivers / representatives who currently or will assist patient after discharge: Wilma Manjarrez, * Verbal permission to speak to the caregivers and representatives has been obtained from the patient. N/A * Community resources currently utilized None * Additional services required to return to the preadmission environment? Yes * Can the patient safely return to the preadmission environment? Yes * Has this patient been hospitalized within the prior 30 days at any hospital? No Coverage Notice Reviewer: [id number] Bryce Welsl Notice Issued Date-Time: 03/09/2018 13:05 Notice Type: Patient Choice Letter Notice Delivered To: Patient Relationship to Patient: Self Commercial Loan Coordinator Name: Delivery Method: HAND - Hand Delivered Shameka Days: Prior Verbal Notification: Recipient Understood Notice: Yes Recipient Signature: Yes Med Rec Note Co-signed by Attending: Coverage Notice Comment: Reviewer: [id number] Bryce Wells Notice Issued Date-Time: 03/11/2018 12:35 Notice Type: IM Discharge Notice Notice Delivered To: Patient Relationship to Patient: Self Commercial Loan Coordinator Name: Delivery Method: HAND - Hand Delivered Shameka Days: Prior Verbal Notification: Recipient Understood Notice: Yes Recipient Signature: Yes Med Rec Note Co-signed by Attending: Coverage Notice Comment: Last DP export: 03/11/18 10:29 Patient Name: ANGEL SKAGGS Page 07589 at 1247 All edits/amendments must be made on the electronic document DICTATION DATE: 03/11/18 1247 HEPATOLOGY PHYSICIAN: DAVID 03/11/18 1247 RPT#: [id number] DC DATE: STATUS: ADM IN [facility] [address] [place] [address] END OF REPORT
--- NOTE | ~2018-03-03 | MORECARE ---
CASE MANAGEMENT DISCHARGE SUMMARY PATIENT: ANGEL SKAGGS UNIT: [id number] ADM DATE: 03/03/18 AGE: 67 : 49 SEX: M ROOM/BED: D.1206 AUTHOR: JONA,DOC PHYSICIAN: REFERRING PHYSICIAN: RICHY COUCH MD DATE OF SERVICE: 03/11/18 Discharge Plan Patient Name: ANGEL SKAGGS Facility: [facility]:[place] : 1950 Planned Disposition: Home Health Service Anticipated Discharge Date: Discharge Date: Expected LOS: Initial Reviewer: [email or web address] Initial Review Date: 03/09/2018 Generated: 03/11/18 12:28 pm Comments DCP- Discharge Planning Updated by [email or web address]: Jannette Wells on 03/09/18 1:[address] Patient Name: ANGEL SKAGGS Admission Status: Elective Accout number: [id number] Admission Date: 03-03-2018 : 1950 Admission Diagnosis:SEPSIS, UNSPECIFIED ORGANISM Attending: RICHY COUCH Current LOS: 6 Anticipated DC Date: Planned Disposition: Home Health Service Primary Insurance: MEDICARE A & B Discharge Planning Comments: CM met with patient about discharge planning / needs. Patient states he plans to return home where he lives with his filizabeth?. Patient states he has used home health before for a spider bite to his back, but he could not remember the name of the agency. Patient choice [facility] and signed WILLIAMS. CM called [facility], spoke with Diamante. Diamante informed CM that they could not admit the patient before Wednesday and if the patient needs daily wound care they would have to have someone willing to learn how to do the wound care or they could not accept the patient. Mix Maker: Jannette Wells DCPIA - Discharge Planning Initial Assessment Updated by [id number]: Jannette Wells on 03/09/18 2:21 pm * Is the patient Alert and Oriented? Yes * How many steps to enter\exit or inside your home? * PCP [place] * Pharmacy [facility] * Preadmission Environment Home with Family * ADLs Independent * Equipment Grab Bars * List name and contact numbers for known caregivers / representatives who currently or will assist patient after discharge: Wilma Manjarrez [phone] * Verbal permission to speak to the caregivers and representatives has been obtained from the patient. N/A * Community resources currently utilized None * Additional services required to return to the preadmission environment? Yes * Can the patient safely return to the preadmission environment? Yes * Has this patient been hospitalized within the prior 30 days at any hospital? No External Providers External Provider: [facility] [employer] Next Contact Date: Service Request Date: Service Type: Resolution: Reviewer: Comments: Coverage Notice Reviewer: [id number] Bryce Wells Notice Issued Date-Time: 03/09/2018 13:05 Notice Type: Patient Choice Letter Notice Delivered To: Patient Relationship to Patient: Self Baggage Porter Name: Delivery Method: HAND - Hand Delivered Shameka Days: Prior Verbal Notification: Recipient Understood Notice: Yes Recipient Signature: Yes Med Rec Note Co-signed by Attending: Coverage Notice Comment: Last DP export: 03/10/18 2:18 Patient Name: ANGEL SKAGGS Page 10181 at 1129 All edits/amendments must be made on the electronic document DICTATION DATE: 03/11/181127 ARTILLERY SPECIALIST: DAVID 03/11/181127 RPT#: [id number] DC DATE: STATUS: ADM IN [facility] [address] [place] [address] END OF REPORT
[2018-03-03 13:53] VITALS: BMI 29.7
[2018-03-03 14:38] LABS: HEMATOCRIT 25.3 % (42.0-54.0); HEMOGLOBIN 8.4 g/dL (13.5-17.5); MCH 26.9 pg (26.0-34.0); MCHC 33.2 g/dL (31.0-37.0); MCV 81.1 fL (80.0-100.0); MEAN PLATELET VOLUME 9.6 fL (7.4-10.4); PLATELET COUNT 314 10x3/uL (130-400); RBC 3.12 10x6/uL (4.20-6.10); RDW 14.5 % (11.5-14.5); WBC 25.8 10x3/uL (4.8-10.8)
[2018-03-03 14:39] LABS: ANION GAP 14.8 mmol/L (8-16); CALCIUM 8.8 mg/dL (8.5-10.1); CARBON DIOXIDE 27.1 mmol/L (21.0-32.0); CREATININE - SERUM 3.6 mg/dL (0.6-1.3); MAGNESIUM - SERUM 1.8 mg/dL (1.8-2.4); POTASSIUM - SERUM 4.9 mmol/L (3.5-5.1)
[2018-03-03 14:58] VITALS: BP 145/53
[2018-03-03 15:09] LABS: LYMPHOCYTES 11 % (15-50); MONOCYTES 4 % (2-11); NEUTROPHILS 72 % (40-80); PLATELET ESTIMATE INCREASED; PLATELET MORPHOLOGY NORMAL PLT MORPH
[2018-03-03 16:45] VITALS: BP 137/54
[2018-03-03 17:00] VITALS: BP 125/68
[2018-03-03 17:15] VITALS: BP 136/58
[2018-03-03 17:30] VITALS: BP 145/60
[2018-03-03 20:00] VITALS: BP 119/51
[2018-03-04] VITALS: BP 93/52
[2018-03-04 04:00] VITALS: BP 100/50
[2018-03-04 05:25] LABS: BASOPHILS 0.1 % (0-2); EOSINOPHILS 0.3 % (0-7); HEMATOCRIT 24.5 % (42.0-54.0); IMMATURE GRANULOCYTES 1.2 % (0-5); LYMPHOCYTES 7.7 % (15-50); MCH 26.9 pg (26.0-34.0); MCHC 32.7 g/dL (31.0-37.0); MCV 82.5 fL (80.0-100.0); MEAN PLATELET VOLUME 9.2 fL (7.4-10.4); MONOCYTES 6.2 % (2-11); NEUTROPHILS 84.5 % (40-80); PLATELET COUNT 300 10x3/uL (130-400); RBC 2.97 10x6/uL (4.20-6.10); RDW 14.5 % (11.5-14.5); WBC 27.4 10x3/uL (4.8-10.8)
[2018-03-04 05:27] LABS: ANION GAP 15.6 mmol/L (8-16); CALCIUM 8.2 mg/dL (8.5-10.1); CARBON DIOXIDE 24.1 mmol/L (21.0-32.0); CREATININE - SERUM 4.1 mg/dL (0.6-1.3); POTASSIUM - SERUM 4.7 mmol/L (3.5-5.1)
[2018-03-04 07:41] VITALS: BP 109/50
[2018-03-04 10:40] VITALS: BP 101/59
[2018-03-04 14:43] VITALS: BP 112/53
[2018-03-04 20:00] VITALS: BP 124/50
[2018-03-05] VITALS: BP 112/44
[2018-03-05 06:04] LABS: BASOPHILS 0.1 % (0-2); EOSINOPHILS 0.4 % (0-7); HEMATOCRIT 23.6 % (42.0-54.0); HEMOGLOBIN 7.7 g/dL (13.5-17.5); IMMATURE GRANULOCYTES 1.6 % (0-5); LYMPHOCYTES 9.1 % (15-50); MCH 26.6 pg (26.0-34.0); MCHC 32.6 g/dL (31.0-37.0); MCV 81.7 fL (80.0-100.0); MEAN PLATELET VOLUME 9.2 fL (7.4-10.4); MONOCYTES 6.4 % (2-11); NEUTROPHILS 82.4 % (40-80); PLATELET COUNT 308 10x3/uL (130-400); RBC 2.89 10x6/uL (4.20-6.10); RDW 14.5 % (11.5-14.5); WBC 22.4 10x3/uL (4.8-10.8)
[2018-03-05 06:15] VITALS: BP 120/40
[2018-03-05 06:35] LABS: ANION GAP 15.3 mmol/L (8-16); CARBON DIOXIDE 21.4 mmol/L (21.0-32.0); CREATININE - SERUM 3.9 mg/dL (0.6-1.3)
[2018-03-05 06:36] LABS: POTASSIUM - SERUM 3.7 mmol/L (3.5-5.1)
[2018-03-05 08:25] VITALS: BP 131/44
[2018-03-05 20:00] VITALS: BP 149/67
[2018-03-05 21:23] VITALS: BP 138/48
[2018-03-05 21:38] VITALS: BP 130/75
[2018-03-06] VITALS (7 sets, daily range): BP systolic 112–149; BP diastolic 40–89
[2018-03-06 06:38] LABS: BASOPHILS 0.1 % (0-2); EOSINOPHILS 0.7 % (0-7); HEMATOCRIT 28.3 % (42.0-54.0); IMMATURE GRANULOCYTES 2.2 % (0-5); LYMPHOCYTES 7.8 % (15-50); MCH 27.5 pg (26.0-34.0); MCHC 32.9 g/dL (31.0-37.0); MONOCYTES 4.5 % (2-11); NEUTROPHILS 84.7 % (40-80); PLATELET COUNT 273 10x3/uL (130-400); RBC 3.38 10x6/uL (4.20-6.10); RDW 14.5 % (11.5-14.5); WBC 18.9 10x3/uL (4.8-10.8)
[2018-03-06 06:41] LABS: HEMOGLOBIN 9.3 g/dL (13.5-17.5); MCV 83.7 fL (80.0-100.0)
[2018-03-06 06:52] LABS: ANION GAP 15.5 mmol/L (8-16); CALCIUM 7.6 mg/dL (8.5-10.1); CARBON DIOXIDE 20.1 mmol/L (21.0-32.0); CREATININE - SERUM 4.1 mg/dL (0.6-1.3); POTASSIUM - SERUM 3.6 mmol/L (3.5-5.1)
[2018-03-06 17:16] LABS: CREATININE - URINE 118.4 mg/dL (30-125); PROTEIN - URINE 45.5 mg/dL (0.0-11.9)
[2018-03-07 00:29] VITALS: BP 131/45
[2018-03-07 04:00] VITALS: BP 143/48
[2018-03-07 06:04] LABS: BASOPHILS 0.2 % (0-2); EOSINOPHILS 0.6 % (0-7); HEMATOCRIT 28.6 % (42.0-54.0); HEMOGLOBIN 9.5 g/dL (13.5-17.5); LYMPHOCYTES 6.6 % (15-50); MCH 27.9 pg (26.0-34.0); MCHC 33.2 g/dL (31.0-37.0); MCV 84.1 fL (80.0-100.0); MEAN PLATELET VOLUME 9.1 fL (7.4-10.4); MONOCYTES 6.1 % (2-11); NEUTROPHILS 84.5 % (40-80); RDW 14.9 % (11.5-14.5); WBC 18.2 10x3/uL (4.8-10.8)
[2018-03-07 06:06] LABS: PLATELET COUNT 337 10x3/uL (130-400)
[2018-03-07 06:39] LABS: CALCIUM 7.7 mg/dL (8.5-10.1); CARBON DIOXIDE 19.4 mmol/L (21.0-32.0); CREATININE - SERUM 3.7 mg/dL (0.6-1.3)
[2018-03-07 06:41] LABS: ANION GAP 16.8 mmol/L (8-16); POTASSIUM - SERUM 4.2 mmol/L (3.5-5.1)
[2018-03-07 07:54] VITALS: BP 134/47
[2018-03-07 11:13] VITALS: BP 133/56
[2018-03-07 20:37] VITALS: BP 143/49
[2018-03-08] VITALS: BP 132/53
[2018-03-08 04:00] VITALS: BP 142/51
[2018-03-08 05:03] LABS: BASOPHILS 0.2 % (0-2); EOSINOPHILS 0.5 % (0-7); HEMOGLOBIN 9.5 g/dL (13.5-17.5); IMMATURE GRANULOCYTES 1.5 % (0-5); LYMPHOCYTES 10.4 % (15-50); MCH 27.5 pg (26.0-34.0); MCHC 32.8 g/dL (31.0-37.0); MCV 83.8 fL (80.0-100.0); MEAN PLATELET VOLUME 9.1 fL (7.4-10.4); MONOCYTES 6.3 % (2-11); NEUTROPHILS 81.1 % (40-80); PLATELET COUNT 379 10x3/uL (130-400); RBC 3.46 10x6/uL (4.20-6.10); RDW 14.9 % (11.5-14.5); WBC 16.9 10x3/uL (4.8-10.8)
[2018-03-08 05:16] LABS: ANION GAP 17.8 mmol/L (8-16); CALCIUM 7.9 mg/dL (8.5-10.1); CARBON DIOXIDE 19.3 mmol/L (21.0-32.0); POTASSIUM - SERUM 4.1 mmol/L (3.5-5.1)
[2018-03-08 05:26] LABS: CREATININE - SERUM 2.7 mg/dL (0.6-1.3)
[2018-03-08 09:52] VITALS: BP 138/55
[2018-03-08 13:28] VITALS: BP 126/55
[2018-03-08 17:08] VITALS: BP 153/64
[2018-03-08 20:00] VITALS: BP 121/49
[2018-03-09] VITALS: BP 132/48
[2018-03-09 05:16] VITALS: BP 141/50
[2018-03-09 07:58] VITALS: BP 113/40
[2018-03-09 11:37] VITALS: BP 134/50
[2018-03-09 12:02] VITALS: Ht 177.8 cm; Wt 93.9 kg
[2018-03-09 12:30] LABS: BASOPHILS 0.3 % (0-2); HEMATOCRIT 27.8 % (42.0-54.0); HEMOGLOBIN 9.2 g/dL (13.5-17.5); IMMATURE GRANULOCYTES 0.8 % (0-5); LYMPHOCYTES 16.9 % (15-50); MCH 27.7 pg (26.0-34.0); MCHC 33.1 g/dL (31.0-37.0); MCV 83.7 fL (80.0-100.0); MEAN PLATELET VOLUME 8.6 fL (7.4-10.4); MONOCYTES 5.3 % (2-11); NEUTROPHILS 75.7 % (40-80); PLATELET COUNT 357 10x3/uL (130-400); RBC 3.32 10x6/uL (4.20-6.10); RDW 14.8 % (11.5-14.5)
[2018-03-09 12:31] LABS: WBC 12.6 10x3/uL (4.8-10.8)
[2018-03-09 12:54] LABS: ANION GAP 15.7 mmol/L (8-16); CALCIUM 7.4 mg/dL (8.5-10.1); CREATININE - SERUM 2.4 mg/dL (0.6-1.3); POTASSIUM - SERUM 3.7 mmol/L (3.5-5.1)
[2018-03-09 16:50] VITALS: BP 132/66
[2018-03-09 20:24] VITALS: BP 130/74
[2018-03-10 00:58] VITALS: BP 114/50
[2018-03-10 04:00] VITALS: BP 120/52
[2018-03-10 05:48] LABS: BASOPHILS 0.2 % (0-2); EOSINOPHILS 0.8 % (0-7); HEMOGLOBIN 9.1 g/dL (13.5-17.5); IMMATURE GRANULOCYTES 0.6 % (0-5); LYMPHOCYTES 17.1 % (15-50); MCH 27.2 pg (26.0-34.0); MCHC 32.5 g/dL (31.0-37.0); MCV 83.6 fL (80.0-100.0); MEAN PLATELET VOLUME 8.9 fL (7.4-10.4); MONOCYTES 6.8 % (2-11); NEUTROPHILS 74.5 % (40-80); PLATELET COUNT 397 10x3/uL (130-400); RBC 3.35 10x6/uL (4.20-6.10); RDW 14.8 % (11.5-14.5); WBC 12.7 10x3/uL (4.8-10.8)
[2018-03-10 06:33] LABS: ANION GAP 14.2 mmol/L (8-16); CALCIUM 7.7 mg/dL (8.5-10.1); CARBON DIOXIDE 22.3 mmol/L (21.0-32.0); CREATININE - SERUM 2.2 mg/dL (0.6-1.3); POTASSIUM - SERUM 3.5 mmol/L (3.5-5.1)
[2018-03-10 08:15] VITALS: BP 154/79
[2018-03-10 11:31] VITALS: BP 132/47
[2018-03-11 04:25] LABS: BASOPHILS 0.3 % (0-2); EOSINOPHILS 0.7 % (0-7); HEMATOCRIT 27.6 % (42.0-54.0); HEMOGLOBIN 9.1 g/dL (13.5-17.5); IMMATURE GRANULOCYTES 0.7 % (0-5); LYMPHOCYTES 21.1 % (15-50); MCH 27.3 pg (26.0-34.0); MCV 82.9 fL (80.0-100.0); MEAN PLATELET VOLUME 8.7 fL (7.4-10.4); MONOCYTES 6.2 % (2-11); PLATELET COUNT 393 10x3/uL (130-400); RBC 3.33 10x6/uL (4.20-6.10); RDW 14.7 % (11.5-14.5); WBC 11.5 10x3/uL (4.8-10.8)
[2018-03-11 04:46] LABS: ANION GAP 14.6 mmol/L (8-16); CARBON DIOXIDE 23.2 mmol/L (21.0-32.0); CREATININE - SERUM 1.9 mg/dL (0.6-1.3); POTASSIUM - SERUM 3.8 mmol/L (3.5-5.1)
[2018-03-11 07:51] VITALS: BP 129/50
[2018-03-11 11:32] VITALS: BP 146/51
[2018-03-11] MEDS ORDERED: KEFLEX500 MG PO (13:59)
[2018-03-11 15:44] VITALS: BP 147/47
[2018-03-11] MEDS ORDERED: HYDROCODON-ACE1 EAC7 PO (18:14)
== END 2018-03-11 18:52 | disposition home health service (06) | DRG 853 ==
LOC: D.M3 11:07 → D.SDCHOLD 11:07 → D.M3 11:50
PROVIDERS: Internal Medicine; Internal Medicine Nephrology; Student in an Organized Health Care Education/Training Program; Surgery
PROC: 0JB70ZZ Excision of Back Subcutaneous Tissue and Fascia, Open Approach (ICD-10-PCS; principal; 2018-03-03 14:00)
DX: A41.9 Sepsis, unspecified organism (principal); N17.0 Acute kidney failure with tubular necrosis; L03.312 Cellulitis of back [any part except buttock and flank]; N13.30 Unspecified hydronephrosis; B95.61 Methicillin susceptible Staphylococcus aureus infection as the cause of diseases classified elsewhere; E11.22 Type 2 diabetes mellitus with diabetic chronic kidney disease; I12.9 Hypertensive chronic kidney disease with stage 1 through stage 4 chronic kidney disease, or unspecified chronic kidney disease; N18.9 Chronic kidney disease, unspecified

== ENCOUNTER 2018-04-01 03:08 | Emergency (ER) | payer MEDICARE, BC ==
[~2018-04-01] VITALS: Ht 177.8 cm; Wt 81.8 kg
[~2018-04-01 03:08] MED LIST changes: +HYDROCODON-ACE1 EAC7 PO; +KEFLEX500 MG PO
[2018-04-01 03:14] VITALS: Ht 177.8 cm; Wt 81.8 kg
[2018-04-01] MEDS ORDERED: NORCO 5/325 TAB1 TAB PO (04:15)
[2018-04-01 04:34] LABS: APPEARANCE SL CLDY (CLEAR); BILIRUBIN NEGATIVE (NEGATIVE); COLOR YELLOW (YELLOW); GLUCOSE 1000 mg/dL (NEGATIVE); KETONE NEGATIVE (NEGATIVE); NITRITE NEGATIVE (NEGATIVE); PROTEIN NEGATIVE (NEGATIVE); SPECIFIC GRAVITY 1.005 (1.005-1.020); UROBILINOGEN NORMAL (NORMAL); WHITE CELLS - URINE >50 /hpf (0-5)
[2018-04-01 04:35] LABS: BACTERIA MANY /hpf (NONE SEEN); EPITHELIAL CELLS 0-5 /hpf (0-5); MUCUS <1+ /lpf (NONE SEEN); RED CELLS - URINE 0-5 /hpf (0-5)
[2018-04-01] MEDS ORDERED: OMNICEF300 MG PO (04:37)
[2018-04-01 05:04] VITALS: BP 142/52
== END 2018-04-01 05:06 | disposition home or self-care (01) ==
LOC: D.ER 03:08
PROVIDERS: Family Medicine
DX: R33.9 Retention of urine, unspecified (principal); N39.0 Urinary tract infection, site not specified; R10.30 Lower abdominal pain, unspecified; E11.9 Type 2 diabetes mellitus without complications; I10 Essential (primary) hypertension

== ENCOUNTER 2018-04-01 19:01 | Inpatient (IN) | payer MEDICARE, BC ==
[~2018-04-01] VITALS: Ht 177.8 cm; Wt 98.4 kg
[~2018-04-01 19:01] MED LIST changes: +NORCO 5/325 TAB1 TAB PO; +OMNICEF300 MG PO
[2018-04-01 19:52] LABS: HEMATOCRIT 30.6 % (42.0-54.0); HEMOGLOBIN 10.1 g/dL (13.5-17.5); MCH 27.5 pg (26.0-34.0); MCV 83.4 fL (80.0-100.0); MEAN PLATELET VOLUME 9.9 fL (7.4-10.4); PLATELET COUNT 222 10x3/uL (130-400); RBC 3.67 10x6/uL (4.20-6.10)
[2018-04-01 20:00] LABS: INR 1.23 (0.85-1.17)
[2018-04-01 20:01] LABS: APTT 29.6 SECONDS (22.8-39.4)
[2018-04-01 20:04] LABS: ALBUMIN 2.9 g/dL (3.4-5.0); ALKALINE PHOSPHATASE 65 U/L (46-116); ALT (SGPT) 15 U/L (10-68); BILIRUBIN - TOTAL 0.87 mg/dL (0.2-1.3); CALC OSMOLALITY 300 mosm/kg (275-300); CALCIUM 8.6 mg/dL (8.5-10.1); CARBON DIOXIDE 17.3 mmol/L (21.0-32.0); CHLORIDE - SERUM 98 mmol/L (98-107); CREATININE - SERUM 3.7 mg/dL (0.6-1.3); POTASSIUM - SERUM 4.5 mmol/L (3.5-5.1); PROTEIN - SERUM 6.7 g/dL (6.4-8.2); SODIUM 132 mmol/L (136-145); UREA NITROGEN 72 mg/dL (7-18); eGFR NON AFRICAN AMERICAN 17 mL/min (90-120)
[2018-04-01 20:05] LABS: GLUCOSE 365 mg/dL (74-106)
[2018-04-01 20:10] LABS: EOSINOPHILS 2 % (0-7); LYMPHOCYTES 9 % (15-50); MONOCYTES 2 % (2-11); NEUTROPHILS 85 % (40-80); PLATELET ESTIMATE NORMAL
[2018-04-01 20:20] LABS: CREATINE KINASE 32 UL (21-232); TROPONIN-I 0.032 ng/mL (0.000-0.060)
[2018-04-01 20:41] LABS: APPEARANCE TURBID (CLEAR); BILIRUBIN NEGATIVE (NEGATIVE); COLOR RED (YELLOW); GLUCOSE NEGATIVE (NEGATIVE); KETONE NEGATIVE (NEGATIVE); NITRITE NEGATIVE (NEGATIVE); PROTEIN 2+ mg/dL (NEGATIVE); SPECIFIC GRAVITY 1.015 (1.005-1.020); UROBILINOGEN NORMAL (NORMAL)
[2018-04-01 20:42] LABS: BACTERIA MODERATE /hpf (NONE SEEN); RED CELLS - URINE >50 /hpf (0-5); WHITE CELLS - URINE 25-50 /hpf (0-5)
[2018-04-01 22:18] VITALS: BP 103/35
--- NOTE | 2018-04-01 22:21 | NUR ---
TITRATED LEVOPHED TO 17.5MCG/MIN FOR MAP OF 63
[2018-04-01 22:41] VITALS: BP 105/38
[2018-04-01 23:25] VITALS: BP 88/15
[2018-04-01 23:58] VITALS: BP 120/45
[2018-04-02] VITALS (85 sets, daily range): BP systolic 87–143; BP diastolic 30–743; BMI 28.5
--- NOTE | 2018-04-02 01:05 | NUR ---
NEOSYNEPHRINE ALMOST EMPTY WENT TO ICU TO GET SUPPLES TO CONT THERAPY
--- NOTE | 2018-04-02 01:11 | NUR ---
CHANGED NEOSYNEPHRINE BAG
--- NOTE | 2018-04-02 03:04 | NUR ---
0145-ARRIVED TO UNIT. MOVED SELF TO UNIT BED WITH LITTLE ASSISTANCE. HOOKED UP TO MONITORS. ADMISSIONS HISTORY OBTAINED AND ASSESSMENT COMPLETED. PATIENT ALERT AND ORIENTED X4, ANSWERS QUESTIONS APPROPRIATELY. SEE FLOW SHEETS FOR FULL DETAILS OF HX AND ASSESSMENT. DRESSING TO RIGHT SHOULDER TAKEN OFF, INSPECTED SITE, PATIENT STATED FROM BROWN RECLUSE BITE AND HAS HAD FOR 3 WEEKS. WOUND APPROXIMATELY 4 INCHES IN LENGTH AND 2 INCHES IN WIDTH AND 1.5 CM IN DEPTH, TUNNELING NOTED ON LEFT SIDE OF WOUND. TO LEFT OF WOUND A .5 CM IN DIAMETER PUNCTURE SPOT NOTED. BLOODY BANDAGES REMOVED, WOUND BASE PINK, TUNNELING AREA DARK BROWN IN COLOR. WOUND BASE WITH AREAS OF SEROUS MUCUS-LIKE TISSUE. PATIENT DENIES ANY PAIN AT SITE. PATIENT ON ROOM AIR, LUNGS CLEAR. S1S2 HEARD AND DISTANT, PPP, CAP REFIL <3 SECONDS. BS ACTIVE X4. DC IN PLACE, DRAINING CONCENTRATED AND BLOODY URINE. DENIES PAIN WHEN ASKED BUT INDICATED SOME DISCOMFORT WHEN TURNING. DURING ASSESSMENT PATIENT BECAME NAUSEOUS, VOMITED 200 ML DARK GREEN EMESIS, ASSISTED PATIENT WITH CLEAN UP. TOLERATED ACTIVITY WELL. VSS ATT, TITRATING MEDS PER ORDERS, BED LOW AND LOCKED, CALL LIGHT IN REACH. WILL CPOC.
--- NOTE | 2018-04-02 04:51 | NUR ---
PATIENT RESTING QUIETLY. VSS ATT. TITRATING LEVOPHED AND IRINEO PER ORDERS. BED LOW AND LOCKED, CALL LIGHT IN REACH. WILL CPOC.
[2018-04-02 08:08] LABS: BASOPHILS 0.1 % (0-2); EOSINOPHILS 0 % (0-7); HEMATOCRIT 28.6 % (42.0-54.0); HEMOGLOBIN 9.6 g/dL (13.5-17.5); IMMATURE GRANULOCYTES 9.9 % (0-5); LYMPHOCYTES 3.7 % (15-50); MCH 27.7 pg (26.0-34.0); MCHC 33.6 g/dL (31.0-37.0); MCV 82.7 fL (80.0-100.0); MEAN PLATELET VOLUME 9.7 fL (7.4-10.4); MONOCYTES 2.2 % (2-11); NEUTROPHILS 84.1 % (40-80); PLATELET COUNT 188 10x3/uL (130-400); RBC 3.46 10x6/uL (4.20-6.10); RDW 15.1 % (11.5-14.5)
[2018-04-02 08:12] LABS: WBC 62.6 10x3/uL (4.8-10.8)
[2018-04-02 08:13] LABS: ANION GAP 20.9 mmol/L (8-16); CALCIUM 7.8 mg/dL (8.5-10.1); CARBON DIOXIDE 19.5 mmol/L (21.0-32.0); POTASSIUM - SERUM 4.4 mmol/L (3.5-5.1)
--- NOTE | 2018-04-02 08:45 | NUR ---
ASSUMED CARE OF PT. ASSESSMENT COMPLETED. PT DENIES PAIN OR DISCOMFORT AT THIS TIME. ON DRIPS FOR HYPOTENSION SEE IV FLOWSHEET FOR DETAILS. CALL LIGHT IN REACH AND BREAKFAST TRAY DELIVERED.
--- NOTE | 2018-04-02 08:45 | NUR ---
REPORT GIVEN TO CHASE TA RN AND SHE ASSUMED CARE.
--- NOTE | 2018-04-02 10:13 | NUR ---
PATEINT REQUESTED "OXYGEN" NO DISTRESS NOTED, SAT 96% ON RA, PLACED 2LPM/NC PER PATIENT REQUEST.
--- NOTE | 2018-04-02 15:00 | NUR ---
NO CHANGE NOTED
--- NOTE | 2018-04-02 17:10 | NUR ---
FSBS WAS 239 BUT PATIENT IS NAUSEATED AND NOT EATING, NO INSULIN WILL BE GIVEN AT THIS TIME
[2018-04-03] VITALS (62 sets, daily range): BP systolic 92–139; BP diastolic 41–69
[2018-04-03 05:57] LABS: BASOPHILS 0 % (0-2); EOSINOPHILS 0.1 % (0-7); HEMATOCRIT 25.6 % (42.0-54.0); HEMOGLOBIN 8.4 g/dL (13.5-17.5); IMMATURE GRANULOCYTES 1.1 % (0-5); LYMPHOCYTES 2.7 % (15-50); MCH 26.9 pg (26.0-34.0); MCHC 32.8 g/dL (31.0-37.0); MCV 82.1 fL (80.0-100.0); MEAN PLATELET VOLUME 9.5 fL (7.4-10.4); MONOCYTES 2.9 % (2-11); NEUTROPHILS 93.2 % (40-80); PLATELET COUNT 118 10x3/uL (130-400); RBC 3.12 10x6/uL (4.20-6.10); RDW 15.2 % (11.5-14.5); WBC 41.1 10x3/uL (4.8-10.8)
[2018-04-03 06:06] LABS: CARBON DIOXIDE 21.8 mmol/L (21.0-32.0); CREATININE - SERUM 4.1 mg/dL (0.6-1.3); MAGNESIUM - SERUM 1.3 mg/dL (1.8-2.4); PHOSPHOROUS 5.3 mg/dL (2.5-4.9)
[2018-04-03 06:08] LABS: ANION GAP 16.3 mmol/L (8-16); POTASSIUM - SERUM 5.1 mmol/L (3.5-5.1)
[2018-04-03 06:09] LABS: CALCIUM 6.8 mg/dL (8.5-10.1)
--- NOTE | 2018-04-03 10:30 | NUR ---
W2D DRESSING CHANGED TO RIGHT SHOULDER WOUND, CULTURE ALSO OBTAINED
[2018-04-04] VITALS (22 sets, daily range): BP systolic 100–164; BP diastolic 49–99; Ht 177.8 cm; Wt 98.4 kg
[2018-04-04 04:28] LABS: BASOPHILS 0 % (0-2); EOSINOPHILS 0.5 % (0-7); HEMATOCRIT 25.7 % (42.0-54.0); HEMOGLOBIN 8.5 g/dL (13.5-17.5); IMMATURE GRANULOCYTES 0.3 % (0-5); LYMPHOCYTES 2.8 % (15-50); MCH 27.2 pg (26.0-34.0); MCHC 33.1 g/dL (31.0-37.0); MCV 82.1 fL (80.0-100.0); MONOCYTES 3.3 % (2-11); NEUTROPHILS 93.1 % (40-80); PLATELET COUNT 84 10x3/uL (130-400); RBC 3.13 10x6/uL (4.20-6.10); RDW 15.3 % (11.5-14.5); WBC 26.5 10x3/uL (4.8-10.8)
[2018-04-04 04:37] LABS: CALCIUM 7.3 mg/dL (8.5-10.1); CARBON DIOXIDE 26.7 mmol/L (21.0-32.0); CREATININE - SERUM 3.5 mg/dL (0.6-1.3)
[2018-04-04 04:43] LABS: MAGNESIUM - SERUM 1.9 mg/dL (1.8-2.4); POTASSIUM - SERUM 3.7 mmol/L (3.5-5.1)
[2018-04-04 05:08] LABS: PLATELET ESTIMATE DECREASED
--- NOTE | 2018-04-04 11:54 | NUR ---
Wound care consult: Pt has history of open wound on his right shoulder. The largest area measures 7cm x 9cm x 1.8cm x 1.3cm @ 9 oclock. Medial to this wound is a 1cm x 1cm x 1cm x 1cm @ 3 oclock open area. The wounds aren't bridged as of yet. The wound bed is pale pink with white/yellow necrotic tissue around inner edges. There is no odor. A small amount of serous drainage is noted. Cleansed well with wound peanut cleaner, patted dry, loosely packed with normal saline moistened 4x4s, covered with dry 4x4s, ABD pad and secured with medipore tape. Pt tolerated well. Wound care will continue monitoring.
--- NOTE | 2018-04-04 18:12 | MORECARE ---
CASE MANAGEMENT DISCHARGE SUMMARY PATIENT: ANGEL SKAGGS UNIT: [id number] ADM DATE: 04/02/18 AGE: 67 : 49 SEX: M ROOM/BED: D.2308 AUTHOR: LUCINDA TENORIO PHYSICIAN: REFERRING PHYSICIAN: ED JUNG MD DATE OF SERVICE: 04/04/18 Discharge Plan Patient Name: ANGEL SKAGGS [facility] [facility] 1950 Planned Disposition: Home Health Service Anticipated Discharge Date: Discharge Date: Expected LOS: Initial Reviewer: [email or web address] Initial Review Date: 04/04/2018 Generated: 04/04/18 7:12 pm DCPIA - Discharge Planning Initial Assessment Updated by [email or web address]: Adelaida Valdez on 04/04/18 6:11 pm * Is the patient Alert and Oriented? Yes * How many steps to enter\exit or inside your home? * PCP [facility] * [facility] * Preadmission Environment Home with Family * ADLs Independent * Equipment None * List name and contact numbers for known caregivers / representatives who currently or will assist patient after discharge: GAURI [facility]ENCE [facility] [phone] * Verbal permission to speak to the caregivers and representatives has been obtained from the patient. N/A * Community resources currently utilized Home Health * Please name any agencies selected above. [facility] * Additional services required to return to the preadmission environment? No * Can the patient safely return to the preadmission environment? Yes * Has this patient been hospitalized within the prior 30 days at any hospital? Yes Patient Name: ANGEL SKAGGS Page 26800 at 1812 All edits/amendments must be made on the electronic document DICTATION DATE: 04/04/181811 CHEMISTRY TEACHER: DAVID 04/04/181811 RPT#: [id number] DC DATE: STATUS: ADM IN [facility] [address] [place] [address] END OF REPORT
--- NOTE | 2018-04-04 18:35 | MORECARE ---
CASE MANAGEMENT DISCHARGE SUMMARY PATIENT: ANGEL SKAGGS UNIT: [id number] ADM DATE: 04/02/18 AGE: 67 : 48 SEX: M ROOM/BED: D.2308 AUTHOR: JONA,DOC PHYSICIAN: REFERRING PHYSICIAN: ED JUNG MD DATE OF SERVICE: 04/04/18 Discharge Plan Patient Name: ANGEL SKAGGS Facility: [facility]:[place] : 1950 Planned Disposition: Home Health Service Anticipated Discharge Date: Discharge Date: Expected LOS: Initial Reviewer: [email or web address] Initial Review Date: 04/04/2018 Generated: 04/04/18 7:35 pm Comments DCP- Discharge Planning Updated by [email or web address]: Adelaida Valdez on 04/04/18 5:[address] LATE ENTRY 04/04/18 @ 1145 Patient Name: ANGEL SKAGGS Admission Status: ER Accout number: [id number] Admission Date: 04-02-2018 : 1950 Admission Diagnosis: Attending: ED JUNG Current LOS: 2 Anticipated DC Date: Planned Disposition: Home Health Service Primary Insurance: MEDICARE A & B Discharge Planning Comments: CM met with patient at bedside after obtaining verbal consent. Patient states he plans on returning home after discharge with his family. Patient states he will have family transport him home via private vehicle. Patient states he plans on [facility] resuming care upon discharge. Patient denies any discharge needs at this time. CM will continue to follow and assist as needed for discharge planning / needs. Thermometer Maker: Adelaida Valedz DCPIA - Discharge Planning Initial Assessment Updated by [email or web address]: Adelaida Valdez on 04/04/18 6:11 pm * Is the patient Alert and Oriented? Yes * How many steps to enter\exit or inside your home? * PCP [facility] * [facility] * Preadmission Environment Home with Family * ADLs Independent * Equipment None * List name and contact numbers for known caregivers / representatives who currently or will assist patient after discharge: GAURI SPENCE [facility]- [phone] * Verbal permission to speak to the caregivers and representatives has been obtained from the patient. N/A * Community resources currently utilized Home Health * Please name any agencies selected above. [facility] * Additional services required to return to the preadmission environment? No * Can the patient safely return to the preadmission environment? Yes * Has this patient been hospitalized within the prior 30 days at any hospital? Yes Last DP export: 04/04/18 5:12 pm Patient Name: ANGEL SKAGGS Page 26262 at 1835 All edits/amendments must be made on the electronic document DICTATION DATE: 04/04/181833 BUNCHER MACHINE: DAVID 04/04/181833 RPT#: [id number] DC DATE: STATUS: ADM IN [facility] [address] [place] [address] END OF REPORT
[2018-04-05] VITALS (18 sets, daily range): BP systolic 98–137; BP diastolic 52–62
--- NOTE | 2018-04-05 07:20 | NUR ---
REPORT RECEIVED. ASSESSMENT COMPLETE PER FLOW SHEET. VSS. NO NEW CHANGES. PT RESTING COMFORTABLY WILL CONTINE TO MONITOR
--- NOTE | 2018-04-05 08:50 | NUR ---
DR COUCH AT BEDSIDE. UPDATE GIVEN. NEW ORDERS RECUEVED.
--- NOTE | 2018-04-05 11:16 | NUR ---
REASSESSMENT COMPLET EPER FLOW SHEET. VSS NO NEW CHANGES WILL CONTINUE TO MONITOR
--- NOTE | 2018-04-05 15:23 | NUR ---
REASSESSMENT COMPLETE PER FLOW SHEET.VSS PT RESTING COMFORTABLY WILL CONTINUE TO MONITOR
--- NOTE | 2018-04-05 17:15 | NUR ---
FAMILY CALLED STATED PASSWORD GIVEN UPDATE. NO NEW CHANGES WILL CONTINUE TO MONITOR
[2018-04-06 01:10] VITALS: BP 113/46
[2018-04-06 04:38] LABS: BASOPHILS 0 % (0-2); HEMATOCRIT 23.1 % (42.0-54.0); HEMOGLOBIN 7.7 g/dL (13.5-17.5); IMMATURE GRANULOCYTES 0.6 % (0-5); LYMPHOCYTES 8.1 % (15-50); MCH 27.2 pg (26.0-34.0); MCHC 33.3 g/dL (31.0-37.0); MCV 81.6 fL (80.0-100.0); MEAN PLATELET VOLUME 9.9 fL (7.4-10.4); MONOCYTES 5.4 % (2-11); NEUTROPHILS 84.9 % (40-80); PLATELET COUNT 101 10x3/uL (130-400); RBC 2.83 10x6/uL (4.20-6.10); RDW 15.4 % (11.5-14.5); WBC 20.7 10x3/uL (4.8-10.8)
[2018-04-06 04:46] LABS: ALBUMIN 1.4 g/dL (3.4-5.0); ANION GAP 11.6 mmol/L (8-16); BILIRUBIN - TOTAL 0.96 mg/dL (0.2-1.3); CALCIUM 7.6 mg/dL (8.5-10.1); CARBON DIOXIDE 27.7 mmol/L (21.0-32.0); POTASSIUM - SERUM 3.3 mmol/L (3.5-5.1); PROTEIN - SERUM 5.3 g/dL (6.4-8.2)
[2018-04-06 05:36] VITALS: BP 124/54
--- NOTE | 2018-04-06 06:26 | NUR ---
PATIENT ARIVED ON FLOOR AT 2044 FROM ICU IN W/C AND ICU STAFF, ASSISTED TO BED IV IN TACT WITH SODIUM BICARB TO #1. AND #2 S/L. REVIEW OF ORDERS SHOW ORDER FOR INSERTION OF NGT FOR DECOMPRESSION. PLACED AND TOLARATED WELL BY PATIENT. 60CC OF CLEAR FLUID WITH SOME BROWN DRANAGE NOTED, AND AIR WHEN PLACED. TO INTERMINET. RESTING WITH NO NEEDS,
--- NOTE | 2018-04-06 06:35 | NUR ---
CALL TO DR KATE INFORMED OF POTASSIUM OF 3.3 STATED THAT HE WOULD ADRESS WHEN HE WAS ON UNIT THIS AM.
--- NOTE | 2018-04-06 08:28 | NUR ---
PT RESTING IN BED WITH EYES CLOSED. AROUSED BY VERBAL STIMULI. NO S/S OF ACUTE DISTRESS. CL IN PLACE.
[2018-04-06 08:45] VITALS: BP 146/56
[2018-04-06 12:59] VITALS: BP 123/54
--- NOTE | 2018-04-06 13:53 | NUR ---
NUTRITION F/U DIET ADVANCED TO CLEAR LIQUID. WILL CONTINUE TO MONITOR DIET ADVANCEMENT, PO INTAKE. RD FOLLOWING
[2018-04-06 17:01] VITALS: BP 131/58
--- NOTE | 2018-04-06 20:06 | NUR ---
PT RESTING IN BED. RETAPED NGTUBE. NO S/S OF ACUTE DISTRESS. CL IN PLACE.
[2018-04-06 20:23] VITALS: BP 138/52
[2018-04-07 00:15] VITALS: BP 126/59
--- NOTE | 2018-04-07 00:32 | NUR ---
LYING IN BED WITH EYES CLOSED. RESP EVEN AND NONLABORED. NGT TO RT NARE WITH BURGANDY DRAINAGE IN CANISTER. IV INFUSING IN LT WRIST WITHOUT DIFF. DC CATH PATENT. SR ELEVATED X2. CL IN REACH.
[2018-04-07 04:23] VITALS: BP 134/60
[2018-04-07 05:02] LABS: HEMATOCRIT 22.5 % (42.0-54.0); MCH 27.5 pg (26.0-34.0); MCHC 32.9 g/dL (31.0-37.0); MEAN PLATELET VOLUME 9.2 fL (7.4-10.4); NEUTROPHILS 83.9 % (40-80); RBC 2.69 10x6/uL (4.20-6.10); RDW 15.2 % (11.5-14.5)
[2018-04-07 05:08] LABS: ALBUMIN 1.3 g/dL (3.4-5.0); ANION GAP 13.7 mmol/L (8-16); BILIRUBIN - TOTAL 0.71 mg/dL (0.2-1.3); CALCIUM 7.5 mg/dL (8.5-10.1); CARBON DIOXIDE 25.9 mmol/L (21.0-32.0); CREATININE - SERUM 2.5 mg/dL (0.6-1.3); POTASSIUM - SERUM 3.6 mmol/L (3.5-5.1); PROTEIN - SERUM 5.2 g/dL (6.4-8.2)
[2018-04-07 05:22] LABS: MCV 83.6 fL (80.0-100.0); PLATELET COUNT 127 10x3/uL (130-400); WBC 14.5 10x3/uL (4.8-10.8)
[2018-04-07 05:23] LABS: HEMOGLOBIN 7.4 g/dL (13.5-17.5)
[2018-04-07 08:22] VITALS: BP 137/56
--- NOTE | 2018-04-07 08:30 | NUR ---
PT AOX4 RESP EVEN AND NONLABORED PT DENIES NEEDS AT THIS TIME IV TO LEFT WRIST PATENT AND INTACT AT THIS TIME SRX2 BED AT LOWEST SETTING CALL LIGHT WITHIN REACH WILL CONTINUE TO MONITOR
[2018-04-07 13:16] VITALS: BP 128/54
--- NOTE | 2018-04-07 16:00 | NUR ---
Dressing to wound on right shoulder removed and wound cleaned with wound blind cleaner/patted dry. Applied santyl to adaptic and placed in the wound bed. covered with 4x4s and ABD pad and secured with medipore tape. Pt tolerated well.
[2018-04-07 16:51] VITALS: BP 127/58
[2018-04-07 20:53] VITALS: BP 130/50
[2018-04-08 01:11] VITALS: BP 144/54
--- NOTE | 2018-04-08 02:07 | NUR ---
UNIT 1 OF BLOOD STARTED AT 04/07/18 AT 2030 V/S 98.7, P;USE 95, RESP 18, B/P 134/81 COMPLETED AT 0010 98.9, 89, 18, 132/52 UNIT 2 STARTED AT 0010. NO S/S OF DISTRESS.
--- NOTE | 2018-04-08 03:38 | NUR ---
2ED UNIT OF BLOOD COMPLET TOLLARATED WELL RESTING WITH NO S/S OF DISTRESS.
[2018-04-08 04:51] VITALS: BP 139/47
[2018-04-08 05:34] LABS: ALBUMIN 1.4 g/dL (3.4-5.0); ANION GAP 13.6 mmol/L (8-16); BILIRUBIN - TOTAL 1.19 mg/dL (0.2-1.3); CALCIUM 7.6 mg/dL (8.5-10.1); CARBON DIOXIDE 24.7 mmol/L (21.0-32.0); CREATININE - SERUM 2.1 mg/dL (0.6-1.3); POTASSIUM - SERUM 3.3 mmol/L (3.5-5.1); PROTEIN - SERUM 5.3 g/dL (6.4-8.2)
[2018-04-08 05:38] LABS: BASOPHILS 0.2 % (0-2); EOSINOPHILS 2.2 % (0-7); HEMATOCRIT 26.7 % (42.0-54.0); HEMOGLOBIN 8.8 g/dL (13.5-17.5); IMMATURE GRANULOCYTES 0.4 % (0-5); LYMPHOCYTES 13.4 % (15-50); MCH 27.3 pg (26.0-34.0); MCV 82.9 fL (80.0-100.0); MEAN PLATELET VOLUME 9.7 fL (7.4-10.4); MONOCYTES 4.7 % (2-11); NEUTROPHILS 79.1 % (40-80); PLATELET COUNT 150 10x3/uL (130-400); RBC 3.22 10x6/uL (4.20-6.10); RDW 15.3 % (11.5-14.5); WBC 16.9 10x3/uL (4.8-10.8)
[2018-04-08 09:35] VITALS: BP 144/53
--- NOTE | 2018-04-08 11:13 | NUR ---
PT RESTING IN BED. NO SIGNS OF DISTRESS. IV TO LEFT WRIST PATENT NO REDNESS OR TENDERESS. HAS NG TUBE TO LOW INT. SUCTION. HAS DC PATENT NO KINKS. HAS DRESSING TO RIGHT SHOULDER CLEAN AND INTACT. RIGHT HAND TENDER PER PT. DENIES ANY OTHER NEED AT THIS TIME. CALL LIGHT IN REACH. BED LOW POSITION. NO FAMILY AT BEDSIDE.
[2018-04-08 14:13] VITALS: BP 136/57
[2018-04-08 15:42] VITALS: BP 140/67
[2018-04-08 21:28] VITALS: BP 137/59
--- NOTE | 2018-04-08 23:00 | NUR ---
PT PULLED OUT NGT. TOLERATING CLEAR LIQUIDS. INCONTINENT OF DARK LOOSE STOOL. COMPLETE ASSESSMENT PER FLOW-SHEET. WILL CONTINUE TO MONITOR.
[2018-04-09 00:29] VITALS: BP 130/80
[2018-04-09 05:26] VITALS: BP 120/80
[2018-04-09 08:10] LABS: BASOPHILS 0.1 % (0-2); EOSINOPHILS 1.7 % (0-7); HEMATOCRIT 24.5 % (42.0-54.0); IMMATURE GRANULOCYTES 0.4 % (0-5); LYMPHOCYTES 13.7 % (15-50); MCH 27.3 pg (26.0-34.0); MCHC 32.7 g/dL (31.0-37.0); MCV 83.6 fL (80.0-100.0); MEAN PLATELET VOLUME 9.5 fL (7.4-10.4); MONOCYTES 3.9 % (2-11); NEUTROPHILS 80.2 % (40-80); RBC 2.93 10x6/uL (4.20-6.10); RDW 15.7 % (11.5-14.5); WBC 16.6 10x3/uL (4.8-10.8)
[2018-04-09 08:15] LABS: PLATELET COUNT 188 10x3/uL (130-400)
--- NOTE | 2018-04-09 08:33 | NUR ---
PT ALERT X 4. BREATH SOUNDS CLEAR BILAT. +3 EDEMA TO RIGHT HAND AND ARM. +2 EDEMA TO LOWER EXTREMITIES. OPEN WOUND TO RIGHT SCAPULAR AREA, DRESSING CLEAN DRY AND INTACT. IV TO LEFT WRIST, PATENT, DRESSING CLEAN DRY AND INTACT. DC IN PLACE, URINE YELLOW AND CLEAR. BOTTOM EXCORIATED. PAIN OF 8/10, MEDICATED PER ORDERS, WILL MONITOR. BREAKFAST IN ROOM. BED LOW, CALL LIGHT IN REACH. NO OTHER NEEDS AT THIS TIME.
[2018-04-09 09:00] LABS: ALBUMIN 1.3 g/dL (3.4-5.0); BILIRUBIN - TOTAL 0.7 mg/dL (0.2-1.3); CALCIUM 7.4 mg/dL (8.5-10.1); CARBON DIOXIDE 21.5 mmol/L (21.0-32.0); CREATININE - SERUM 1.8 mg/dL (0.6-1.3); MAGNESIUM - SERUM 1.6 mg/dL (1.8-2.4); PHOSPHOROUS 2.4 mg/dL (2.5-4.9); PROTEIN - SERUM 5.2 g/dL (6.4-8.2)
[2018-04-09 09:06] LABS: ANION GAP 14.2 mmol/L (8-16); POTASSIUM - SERUM 4.7 mmol/L (3.5-5.1)
[2018-04-09 09:09] VITALS: BP 131/68
[2018-04-09 13:15] VITALS: BP 151/60
[2018-04-09 20:53] VITALS: BP 145/56
[2018-04-10 00:50] VITALS: BP 150/80
[2018-04-10 05:02] VITALS: BP 139/50
[2018-04-10 07:04] LABS: BASOPHILS 0.2 % (0-2); EOSINOPHILS 1.2 % (0-7); HEMATOCRIT 26.1 % (42.0-54.0); HEMOGLOBIN 8.4 g/dL (13.5-17.5); IMMATURE GRANULOCYTES 0.4 % (0-5); LYMPHOCYTES 15.2 % (15-50); MCH 27.5 pg (26.0-34.0); MCHC 32.2 g/dL (31.0-37.0); MEAN PLATELET VOLUME 9.1 fL (7.4-10.4); MONOCYTES 3.1 % (2-11); NEUTROPHILS 79.9 % (40-80); PLATELET COUNT 204 10x3/uL (130-400); RBC 3.05 10x6/uL (4.20-6.10); RDW 15.8 % (11.5-14.5); WBC 16.3 10x3/uL (4.8-10.8)
[2018-04-10 07:21] LABS: MCV 85.6 fL (80.0-100.0)
[2018-04-10 07:33] LABS: ALBUMIN 1.5 g/dL (3.4-5.0); BILIRUBIN - TOTAL 0.63 mg/dL (0.2-1.3); CALCIUM 7.9 mg/dL (8.5-10.1); CARBON DIOXIDE 20.1 mmol/L (21.0-32.0); CREATININE - SERUM 1.7 mg/dL (0.6-1.3); POTASSIUM - SERUM 5.1 mmol/L (3.5-5.1); PROTEIN - SERUM 5.5 g/dL (6.4-8.2)
--- NOTE | 2018-04-10 07:52 | NUR ---
PT ALERT X 4. BREATH SOUNDS CLEAR BILAT. ABDOMEN DISTENDED, TENDER IN UPPER QUADS. +2 EDEMA TO RIGHT ARM AND HAND, ELEVATED, PT DOING ROM TO REDUCE SWELLING. +1 EDEMA TO BLE. DC IN PLACE, URINE YELLOW AND CLEAR. IV TO LEFT WRIST, PATENT, DRESSING CLEAN DRY AND INTACT. BED LOW, CALL LIGHT IN REACH, NO OTHER NEEDS AT THIS TIME.
[2018-04-10 08:00] VITALS: BP 161/61
[2018-04-10 12:00] VITALS: BP 165/59
[2018-04-10 21:02] VITALS: BP 150/49
[2018-04-11 00:43] VITALS: BP 153/55
[2018-04-11 05:00] VITALS: BP 148/62
[2018-04-11 05:49] LABS: MAGNESIUM - SERUM 1.2 mg/dL (1.8-2.4)
[2018-04-11 06:01] LABS: PHOSPHOROUS 3.1 mg/dL (2.5-4.9)
--- NOTE | 2018-04-11 08:05 | NUR ---
AWAKE AND ALERT. ORIENTED X3. C/O HICCUPS THIS AM. WILL MONITOR. LUNGS HAVE INSPIRATORY WHEEZES IN UPPER LOBES. DENIES COUGH. SKIN IS INTACT WITHOUT REDNESS. DC PATENT WITH CLEAR YELLOW URINE. IV TO LEFT WRIST IS PATENT WITHOUT REDNESS AT INSERTION SITE. DENIES NEEDS.
[2018-04-11 08:09] VITALS: BP 157/58
--- NOTE | 2018-04-11 09:10 | NUR ---
INCONTINENT LARGE AMOUNT OF WATERY TARRY STOOL. SKIN CARE, LINENS CHANGED PER STAFF. POSITIONED ON LEFT SIDE.
[2018-04-11 12:09] VITALS: BP 172/51
--- NOTE | 2018-04-11 17:05 | NUR ---
FOUND WITH IV OUT CATHETER INTACT. RESITED TO LEFT FOREARM AFTER ONE ATTEMPT WITH 22G.
--- NOTE | 2018-04-11 19:47 | NUR ---
DRESSING REMOVED FROM RIGHT SHOULDER. WOUND CLEANED AND DRESSING RE-APPLIED PER ORDER. PT TOLERATED WELL. BED IS IN LOWEST POSITION. CALL LIGHT AND BEDSIDE TABLE ARE WITHIN REACH. PT DENIES FURTHER NEEDS. WILL CONT TO MONITOR.
[2018-04-11 20:00] VITALS: BP 142/48
--- NOTE | 2018-04-11 20:00 | NUR ---
RESTING IN BED RESP UNLABOREDIV INFUSING WITHOUT DIFFICULTY, DC CATH DRAINING YELLOW URINE DENIES PAIN CALL RUPINDER EWING
--- NOTE | 2018-04-12 07:15 | NUR ---
MORNING ASSESSMENT COMPLETE. SEE ASSESSMENT FLOWSHEET FOR FURTHER DETIALS. PT LYING IN BED AAO X3 TO PERSON, PLACE, AND TIME. L FA PIV IN PLACE- C/D/I; PATENT. HEART: S1 AND S2 HEARD AT AORTIC, PULMONIC, ERBS, TRICUSPID, AND MITRAL SITES- REG RHYTHM. BILAT RADIAL AND PEDAL PULSES PALP AND STRONG. LUNG SOUNDS CTA. BOWEL SOUNDS ACTIVE X4. DENIES NEEDS AT THIS TIME. CL IN REACH.
[2018-04-12 07:44] LABS: BASOPHILS 0.2 % (0-2); EOSINOPHILS 1.6 % (0-7); IMMATURE GRANULOCYTES 0.3 % (0-5); LYMPHOCYTES 21.5 % (15-50); MCH 27.1 pg (26.0-34.0); MCHC 31.3 g/dL (31.0-37.0); MCV 86.5 fL (80.0-100.0); MEAN PLATELET VOLUME 9.1 fL (7.4-10.4); MONOCYTES 5.4 % (2-11); PLATELET COUNT 222 10x3/uL (130-400); RBC 2.66 10x6/uL (4.20-6.10); RDW 15.7 % (11.5-14.5)
[2018-04-12 07:53] LABS: WBC 9.5 10x3/uL (4.8-10.8)
[2018-04-12 07:54] LABS: HEMOGLOBIN 7.2 g/dL (13.5-17.5)
[2018-04-12 08:05] LABS: ALBUMIN 1.4 g/dL (3.4-5.0); ANION GAP 12.5 mmol/L (8-16); BILIRUBIN - TOTAL 0.43 mg/dL (0.2-1.3); CALCIUM 7.7 mg/dL (8.5-10.1); CARBON DIOXIDE 22.5 mmol/L (21.0-32.0); CREATININE - SERUM 1.7 mg/dL (0.6-1.3); PROTEIN - SERUM 5.2 g/dL (6.4-8.2)
[2018-04-12 08:24] VITALS: BP 150/54
[2018-04-12 12:49] VITALS: BP 152/53
--- NOTE | 2018-04-12 13:05 | NUR ---
NUTRITION F/U CHART REVIEWED. NG TUBE DC'D, CLEAR LIQUID DIET. MAY BENEFIT FROM NUTRITION SUPPORT IF UNABLE TO ADVANCE DIET IN 24 [address] FOLLOWING
[2018-04-12 16:06] LABS: HEMATOCRIT 23.7 % (42.0-54.0)
[2018-04-12 16:08] VITALS: BP 148/50
[2018-04-12 16:17] LABS: HEMOGLOBIN 7.4 g/dL (13.5-17.5)
--- NOTE | 2018-04-12 17:37 | NUR ---
CHANGED DRSG TO R SCAPULA
[2018-04-12 19:48] VITALS: BP 139/49
--- NOTE | 2018-04-12 20:00 | NUR ---
RESTING QUITELY IN BED RESP UNLABORED, DENIES PAIN CALL LIGHT IN REACH DC CATH DRAING YELLOW URINE NO APPARENT DISTRESS
[2018-04-13 04:17] LABS: BASOPHILS 0.1 % (0-2); EOSINOPHILS 1.3 % (0-7); HEMATOCRIT 21.9 % (42.0-54.0); IMMATURE GRANULOCYTES 0.4 % (0-5); LYMPHOCYTES 21.7 % (15-50); MCH 27.3 pg (26.0-34.0); MCV 85.5 fL (80.0-100.0); MEAN PLATELET VOLUME 8.9 fL (7.4-10.4); NEUTROPHILS 71.5 % (40-80); PLATELET COUNT 227 10x3/uL (130-400); RBC 2.56 10x6/uL (4.20-6.10); RDW 15.1 % (11.5-14.5); WBC 8.2 10x3/uL (4.8-10.8)
[2018-04-13 04:43] LABS: ALBUMIN 1.4 g/dL (3.4-5.0); ANION GAP 11.5 mmol/L (8-16); BILIRUBIN - TOTAL 0.28 mg/dL (0.2-1.3); CALCIUM 7.4 mg/dL (8.5-10.1); CARBON DIOXIDE 23.6 mmol/L (21.0-32.0); CREATININE - SERUM 1.9 mg/dL (0.6-1.3); MAGNESIUM - SERUM 1.2 mg/dL (1.8-2.4); PHOSPHOROUS 3.6 mg/dL (2.5-4.9); POTASSIUM - SERUM 5.1 mmol/L (3.5-5.1); PROTEIN - SERUM 5.1 g/dL (6.4-8.2)
[2018-04-13 06:14] VITALS: BP 146/52
[2018-04-13 08:12] VITALS: BP 161/59
--- NOTE | 2018-04-13 10:25 | NUR ---
RESITED 22G PIC TO L LOWER FA X1 ATTEMPT. PT TOLERATED WELL
[2018-04-13 12:58] VITALS: BP 135/51
--- NOTE | 2018-04-13 20:00 | NUR ---
RESTING IN BED ALERT IV INFUSING WITHOUT DIFFICULTY, DC CATH DRAINING YELLOW URINE NO APPARENT DISTRESS CALL LIGHT IN REACH
[2018-04-13 20:55] VITALS: BP 155/51
[2018-04-14 04:00] VITALS: BP 143/54
[2018-04-14 06:09] LABS: BASOPHILS 0.2 % (0-2); EOSINOPHILS 1.2 % (0-7); HEMOGLOBIN 8.4 g/dL (13.5-17.5); IMMATURE GRANULOCYTES 0.4 % (0-5); LYMPHOCYTES 25.2 % (15-50); MCH 27.5 pg (26.0-34.0); MCHC 32.3 g/dL (31.0-37.0); MCV 85.2 fL (80.0-100.0); MEAN PLATELET VOLUME 9.4 fL (7.4-10.4); MONOCYTES 6.3 % (2-11); NEUTROPHILS 66.7 % (40-80); PLATELET COUNT 250 10x3/uL (130-400); RBC 3.05 10x6/uL (4.20-6.10); RDW 15.1 % (11.5-14.5); WBC 8.1 10x3/uL (4.8-10.8)
[2018-04-14 06:19] LABS: ALBUMIN 1.5 g/dL (3.4-5.0); ANION GAP 13.2 mmol/L (8-16); BILIRUBIN - TOTAL 0.52 mg/dL (0.2-1.3); CALCIUM 7.8 mg/dL (8.5-10.1); CARBON DIOXIDE 22.6 mmol/L (21.0-32.0); CREATININE - SERUM 1.8 mg/dL (0.6-1.3); POTASSIUM - SERUM 4.8 mmol/L (3.5-5.1); PROTEIN - SERUM 5.2 g/dL (6.4-8.2)
--- NOTE | 2018-04-14 07:15 | NUR ---
MORNING ASSESSMENT COMPLETE. SEE ASSESSMENT FLWOSHEET FOR FURTHER DETIALS. PT LYING IN BED AAO X3 TO PERSON, PLACE, AND TIME. BUTTOCK SKIN BREAKDOWN NOTED. R SHOULDER SKIN BREAKDOWN- PT STATES ITS FROM A "SPIDER BITE". CHANGING DRSGS ON SHOULDER DAILY. DENIES NEEDS AT THIS TIME. CL IN REACH. SIDE RAILS UP X3 FOR PATIENT SAFETY
[2018-04-14 09:00] VITALS: BP 149/54
[2018-04-14 12:42] VITALS: BP 157/54
[2018-04-14 16:00] VITALS: BP 147/49
--- NOTE | 2018-04-14 19:40 | NUR ---
DRSG CHANGE COMPLETE. NO DRAINAGE NOTED. PT TOLERATED WELL.
[2018-04-14 19:52] VITALS: BP 139/46
--- NOTE | 2018-04-14 20:10 | NUR ---
LYING IN BED. ALERT AND ORIENTED X4. RESP EVEN AND NONLABORED. ABD IS DISTENDED. DC CATH PATENT AND DRAINING CLEAR YELLOW URINE. DRSG NOTED TO RT SHOULDER IS C/D/I. DRSG NOTED TO COCCYX IS INTACT. SCDS ON. 2+ EDEMA NOTED TO BLE. O2 @ 1L/NC. NS WITH 40 MEQ KCL @ 50 ML/HR INFUSING IN LT FOREARM WITHOUT DIFF. SR ELEVATED X2. CL IN REACH.
[2018-04-15] VITALS: BP 149/54
[2018-04-15 04:00] VITALS: BP 155/58
[2018-04-15 05:20] LABS: BASOPHILS 0.2 % (0-2); EOSINOPHILS 1.6 % (0-7); HEMATOCRIT 26.7 % (42.0-54.0); HEMOGLOBIN 8.5 g/dL (13.5-17.5); IMMATURE GRANULOCYTES 0.4 % (0-5); LYMPHOCYTES 23.3 % (15-50); MCH 27.2 pg (26.0-34.0); MCHC 31.8 g/dL (31.0-37.0); MCV 85.6 fL (80.0-100.0); MEAN PLATELET VOLUME 9.1 fL (7.4-10.4); NEUTROPHILS 69.5 % (40-80); PLATELET COUNT 252 10x3/uL (130-400); RBC 3.12 10x6/uL (4.20-6.10); RDW 15.1 % (11.5-14.5); WBC 8.6 10x3/uL (4.8-10.8)
[2018-04-15 05:37] LABS: ALBUMIN 1.6 g/dL (3.4-5.0); ANION GAP 16.7 mmol/L (8-16); BILIRUBIN - TOTAL 0.26 mg/dL (0.2-1.3); CALCIUM 7.9 mg/dL (8.5-10.1); CARBON DIOXIDE 22.4 mmol/L (21.0-32.0); CREATININE - SERUM 1.8 mg/dL (0.6-1.3); MAGNESIUM - SERUM 1.3 mg/dL (1.8-2.4); PHOSPHOROUS 3.6 mg/dL (2.5-4.9); POTASSIUM - SERUM 5.1 mmol/L (3.5-5.1); PROTEIN - SERUM 5.5 g/dL (6.4-8.2)
--- NOTE | 2018-04-15 07:50 | NUR ---
PT AOX4 RESP EVEN AND NONLABORED PT DENIES NEEDS AT THIS TIME IV TO RIGHT HAND PATENT AND INTACT AT THIS TIME SRX2 BED AT LOWEST SETTING CALL LIGHT WITHIN REACH WILL CONTINUE TO MONITOR
[2018-04-15 07:53] VITALS: BP 147/53
[2018-04-15 12:03] VITALS: BP 138/50
--- NOTE | 2018-04-15 19:00 | NUR ---
PT IN BED IN LOW FOWLERS POSITION. ALERT AND ORIENTED X4. RESPIRATIONS EVEN AND UNLABORED. VITAL SIGNS STABLE AND AFEBRILE. NO VISUAL CUES OF DISTRESS NOTED. DENIES ANY OTHER NEEDS AT THIS TIME. BED LOW, SIDE RAILS UP X2. CALL LIGHT IN REACH. WILL CONTINUE TO MONITOR.
[2018-04-15 20:00] VITALS: BP 150/46
[2018-04-15 23:58] VITALS: BP 148/51
[2018-04-16 04:00] VITALS: BP 149/54
[2018-04-16 06:24] LABS: BASOPHILS 0.4 % (0-2); HEMATOCRIT 25.6 % (42.0-54.0); HEMOGLOBIN 8.1 g/dL (13.5-17.5); IMMATURE GRANULOCYTES 0.3 % (0-5); LYMPHOCYTES 23.5 % (15-50); MCH 26.8 pg (26.0-34.0); MCHC 31.6 g/dL (31.0-37.0); MCV 84.8 fL (80.0-100.0); MEAN PLATELET VOLUME 9.1 fL (7.4-10.4); MONOCYTES 5.8 % (2-11); PLATELET COUNT 261 10x3/uL (130-400); RBC 3.02 10x6/uL (4.20-6.10); WBC 7.6 10x3/uL (4.8-10.8)
[2018-04-16 06:42] LABS: ALBUMIN 1.7 g/dL (3.4-5.0); BILIRUBIN - TOTAL 0.26 mg/dL (0.2-1.3); CALCIUM 7.8 mg/dL (8.5-10.1); CARBON DIOXIDE 22.9 mmol/L (21.0-32.0); CREATININE - SERUM 1.9 mg/dL (0.6-1.3); POTASSIUM - SERUM 4.9 mmol/L (3.5-5.1); PROTEIN - SERUM 5.6 g/dL (6.4-8.2)
[2018-04-16 08:30] VITALS: BP 173/54
--- NOTE | 2018-04-16 08:35 | NUR ---
PT ALERT X 4. BREATH SOUNDS CLEAR, 1L 02 PER NC. IV TO LEFT FOREARM, PATENT, DRESSING CLEAN DRY AND INTACT. ABSCESS TO RIGHT SHOULDER, DRESSING CLEAN DRY AND INTACT. EXCORIATION TO BOTTOM, DRESSING INTACT. BREAKFAST IN ROOM. BED LOW, CALL LIGHT IN REACH, NO OTHER NEEDS AT THIS TIME.
[2018-04-16 20:00] VITALS: BP 149/49
[2018-04-17] VITALS (7 sets, daily range): BP systolic 94–157; BP diastolic 45–55
[2018-04-17 06:09] LABS: MAGNESIUM - SERUM 1.3 mg/dL (1.8-2.4); PHOSPHOROUS 4.4 mg/dL (2.5-4.9)
--- NOTE | 2018-04-17 06:46 | NUR ---
PT IN BED IN LOW FOWLERS POSITION. ALERT AND ORIENTED X 4. RESPIRATIONS EVEN AND UNLABORED. RESPIRATIONS EVEN AND UNLABORED. NO VISUAL CUES OF DISTRESS NOTED. DENIES ANY OTHER NEEDS AT THIS TIME. BED LOW, SIDE RAILS UP X2 CALL LIGHT IN REACH. WILL CONTINUE TO MONITOR.
[2018-04-17 07:59] LABS: ALBUMIN 1.8 g/dL (3.4-5.0); ANION GAP 14.8 mmol/L (8-16); BILIRUBIN - TOTAL 0.28 mg/dL (0.2-1.3); CALCIUM 8.1 mg/dL (8.5-10.1); CARBON DIOXIDE 22.8 mmol/L (21.0-32.0); POTASSIUM - SERUM 4.6 mmol/L (3.5-5.1); PROTEIN - SERUM 5.7 g/dL (6.4-8.2)
--- NOTE | 2018-04-17 08:07 | NUR ---
PT ALERT X 4. WHEEZES ON INSPIRATION AND EXPIRATION THAT CLEARS WITH COUGHING. IV TO LEFT FOREARM, SALINE LOCKED. +1 EDEMA TO BLE, PT ENCOURAGED TO WALK TODAY. DC IN PLACE, URINE YELLOW AND CLEAR. OPEN ABSCESS WOUND TO RIGHT SHOULDER. EXCORIATION TO BUTTOCKS, MEPILEX IN PLACE. BED LOW, CALL LIGHT IN REACH. NO OTHER NEEDS AT THIS TIME.
[2018-04-18] VITALS: BP 141/51; BP 158/57
--- NOTE | 2018-04-18 00:40 | NUR ---
RIGHT SHOULDER DRESSING BLEEDING THROUGH. REMOVED OLD DRESSING. CLEANED WOUND WITH WOUND CLEANSER AND PATTED DRY. APPLIED SANTYL TO ADAPTIC AND PLACED IN WOUND BED. LIGHTLY PACKED WITH SALINE MOIST 4X4'S, APPLIED DRY 4X4'S, ABD PAD AND SECURED WITH MEDIPORE TAPE. PT TOLERATED WELL. NO OTHER NEEDS. WILL CONTINUE TO MONITOR.
--- NOTE | 2018-04-18 07:00 | NUR ---
FSBS 51 THIS AM. PT DRINKING ORANGE JUICE AND WILL EAT BREAKFAST. PASSED ON IN REPORT TO FOLLOW-UP.
--- NOTE | 2018-04-18 07:15 | NUR ---
MORNING ASSESSMENT COMPLETE. SEE ASSESSMENT FLOWSHEET FOR FURTHER DETAILS. PT LYING IN BED AAO X3 TO PERSON, PLACE, AND TIME. L FA SL- C/D/I; PATNENT. S1 AND S2 HEARD AT AORTIC, PULMONIC, ERBS, TRICUSPID, AND MITRAL SITES- REG RHYTH,. BILAT RADIAL AND PEDAL PULSES PALP AND STRONG. LUNG SOUNDS CTA- ON 1 L O2 PER NC. BOWEL SOUNDS ACTIVE X4. DENIES NEEDS AT THIS TIME. CL IN REACH. SIDE RAILS UP X2 FOR PATIENT SAFETY
[2018-04-18 08:30] VITALS: BP 137/56
[2018-04-18 08:37] LABS: ANION GAP 13.6 mmol/L (8-16); CALCIUM 8.3 mg/dL (8.5-10.1); CARBON DIOXIDE 24.8 mmol/L (21.0-32.0); MAGNESIUM - SERUM 1.4 mg/dL (1.8-2.4); POTASSIUM - SERUM 4.4 mmol/L (3.5-5.1)
[2018-04-18 11:52] VITALS: BP 159/48
--- NOTE | 2018-04-18 14:44 | NUR ---
NUTRITION F/U PT TOLERATING DIABETIC DIET. 75% INTAKE RECENT MEALS. WILL CONTINUE TO PROVIDE DIET, MONITOR PO INTAKE. RD FOLLOWING
[2018-04-18 16:29] VITALS: BP 157/77
[2018-04-18 17:11] LABS: BASOPHILS 0.2 % (0-2); HEMATOCRIT 29.2 % (42.0-54.0); IMMATURE GRANULOCYTES 0.2 % (0-5); LYMPHOCYTES 18.9 % (15-50); MCHC 30.8 g/dL (31.0-37.0); MCV 87.7 fL (80.0-100.0); MEAN PLATELET VOLUME 9.2 fL (7.4-10.4); MONOCYTES 5.1 % (2-11); NEUTROPHILS 73.6 % (40-80); PLATELET COUNT 306 10x3/uL (130-400); RBC 3.33 10x6/uL (4.20-6.10); RDW 14.9 % (11.5-14.5); WBC 8.7 10x3/uL (4.8-10.8)
--- NOTE | 2018-04-18 17:13 | NUR ---
CHANGED R SHOULDER DRSG. USED SANTYL, ADAPTIC, 4X4, AND ABD PAD. PT TOLERATED WELL. SLIGHT YELLOW DISCHARGE NOTED.
--- NOTE | 2018-04-18 19:40 | NUR ---
awake alert and orented able to voice needs and wants to staff no needs at this time call light in reach.
[2018-04-18 20:00] VITALS: BP 135/48
[2018-04-19 04:00] VITALS: BP 140/55
[2018-04-19 04:50] LABS: BASOPHILS 0.3 % (0-2); EOSINOPHILS 2.7 % (0-7); HEMATOCRIT 27.4 % (42.0-54.0); HEMOGLOBIN 8.8 g/dL (13.5-17.5); IMMATURE GRANULOCYTES 0.3 % (0-5); LYMPHOCYTES 28.2 % (15-50); MCH 27.4 pg (26.0-34.0); MCHC 32.1 g/dL (31.0-37.0); MEAN PLATELET VOLUME 8.6 fL (7.4-10.4); MONOCYTES 5.7 % (2-11); NEUTROPHILS 62.8 % (40-80); PLATELET COUNT 257 10x3/uL (130-400); RBC 3.21 10x6/uL (4.20-6.10); RDW 14.6 % (11.5-14.5); WBC 8.8 10x3/uL (4.8-10.8)
[2018-04-19 04:53] LABS: MCV 85.4 fL (80.0-100.0)
[2018-04-19 05:22] LABS: ALBUMIN 1.9 g/dL (3.4-5.0); ANION GAP 13.3 mmol/L (8-16); BILIRUBIN - TOTAL 0.17 mg/dL (0.2-1.3); CALCIUM 8.3 mg/dL (8.5-10.1); CARBON DIOXIDE 25.4 mmol/L (21.0-32.0); CREATININE - SERUM 1.9 mg/dL (0.6-1.3); POTASSIUM - SERUM 4.7 mmol/L (3.5-5.1)
--- NOTE | 2018-04-19 06:09 | NUR ---
FSBS 53 THIS AM GAVE ORANGE JUICE AND MILK WITH GRAM CRAKER RECHECK FSBS 77
--- NOTE | 2018-04-19 07:15 | NUR ---
MORNING ASSESSMENT COMPLETE. SEE ASSESSMENT FLOWSHEET FOR FRUTHER DETAILS. PT LYIGN IN BED AAO X3 TO PERSON, PLACE, AND TIME. SKIN BREAKDOWN NOTED TO BOTTOM (MEPILEX DRSG IN PLACE) AND R SHOULDER (SANTYL BEING USED). DAILY DRSG CHANGE TO R SHOULDER- WILL CHANGE LATER TODAY. CHRONIC F/C IN PLACE. L FA SL- C/D/I; PATENT. DENIES NEEDS AT THIS TIME. CL IN REACH.
[2018-04-19 08:45] VITALS: BP 133/50
[2018-04-19 12:49] VITALS: BP 123/60
[2018-04-19 16:16] VITALS: BP 137/53
[2018-04-19 20:00] VITALS: BP 131/55
--- NOTE | 2018-04-19 20:08 | NUR ---
SUPINE IN BED, A&O X 4, DENIES CURRENT NEEDS, REFUSED SCD'S, FSBS 140. WILL CONTINUE TO MONITOR.
[2018-04-20] VITALS: BP 130/53
--- NOTE | 2018-04-20 03:00 | NUR ---
CONCUR W/ BIOCHEMICAL ENGINEER ASSESSMENT
[2018-04-20 04:00] VITALS: BP 123/54
[2018-04-20 07:24] LABS: BASOPHILS 0.4 % (0-2); EOSINOPHILS 2.9 % (0-7); HEMATOCRIT 29.7 % (42.0-54.0); HEMOGLOBIN 9.3 g/dL (13.5-17.5); IMMATURE GRANULOCYTES 0.2 % (0-5); LYMPHOCYTES 25.4 % (15-50); MCHC 31.3 g/dL (31.0-37.0); MCV 86.1 fL (80.0-100.0); MEAN PLATELET VOLUME 8.9 fL (7.4-10.4); MONOCYTES 6.2 % (2-11); NEUTROPHILS 64.9 % (40-80); PLATELET COUNT 285 10x3/uL (130-400); RBC 3.45 10x6/uL (4.20-6.10); RDW 14.8 % (11.5-14.5); WBC 8.4 10x3/uL (4.8-10.8)
[2018-04-20 07:41] LABS: ALBUMIN 2.3 g/dL (3.4-5.0); ANION GAP 13.6 mmol/L (8-16); BILIRUBIN - TOTAL 0.32 mg/dL (0.2-1.3); CARBON DIOXIDE 25.9 mmol/L (21.0-32.0); POTASSIUM - SERUM 4.5 mmol/L (3.5-5.1); PROTEIN - SERUM 6.7 g/dL (6.4-8.2)
[2018-04-20 10:04] VITALS: BP 131/58
--- NOTE | 2018-04-20 11:27 | MORECARE ---
CASE MANAGEMENT DISCHARGE SUMMARY PATIENT: ANGEL SKAGGS UNIT: [id number] ADM DATE: 04/02/18 AGE: 67 : 49 SEX: M ROOM/BED: D.2203 AUTHOR: JONA,DOC PHYSICIAN: REFERRING PHYSICIAN: ANGEL KATE MD DATE OF SERVICE: 04/20/18 Discharge Plan Patient Name: ANGEL SKAGGS Facility: [facility]:[place] : 1950 Planned Disposition: Home Health Service Anticipated Discharge Date: Discharge Date: Expected LOS: Initial Reviewer: [email or web address] Initial Review Date: 04/04/2018 Generated: 04/20/18 12:27 pm Comments DCP- Discharge Planning Updated by [id number]: Adelaida Valdez on 04/04/18 5:[address] LATE ENTRY 04/04/18 @ 1145 Patient Name: ANGEL SKAGGS Admission Status: ER Accout number: [id number] Admission Date: 04-02-2018 : 1950 Admission Diagnosis: Attending: ED JUNG Current LOS: 2 Anticipated DC Date: Planned Disposition: Home Health Service Primary Insurance: MEDICARE A & B Discharge Planning Comments: CM met with patient at bedside after obtaining verbal consent. Patient states he plans on returning home after discharge with his family. Patient states he will have family transport him home via private vehicle. Patient states he plans on [facility] resuming care upon discharge. Patient denies any discharge needs at this time. CM will continue to follow and assist as needed for discharge planning / needs. Service Administrator: Adelaida Valdez DCPIA - Discharge Planning Initial Assessment Updated by [email or web address]: Adelaida Valdez on 04/04/18 6:11 pm * Is the patient Alert and Oriented? Yes * How many steps to enter\exit or inside your home? * [facility] * [facility] * Preadmission Environment Home with Family * ADLs Independent * Equipment None * List name and contact numbers for known caregivers / representatives who currently or will assist patient after discharge: GAURI SPENCE [facility]- [phone] * Verbal permission to speak to the caregivers and representatives has been obtained from the patient. N/A * Community resources currently utilized Home Health * Please name any agencies selected above. [facility] * Additional services required to return to the preadmission environment? No * Can the patient safely return to the preadmission environment? Yes * Has this patient been hospitalized within the prior 30 days at any hospital? Yes Last DP export: 04/04/18 5:35 pm Patient Name: ANGEL SKAGGS Page 52301 at 1127 All edits/amendments must be made on the electronic document DICTATION DATE: 04/20/181125 IT ANALYST: DAVID 04/20/181125 RPT#: [id number] DC DATE: STATUS: ADM IN [facility] [address] [place] [address] END OF REPORT
--- NOTE | 2018-04-20 11:35 | MORECARE ---
CASE MANAGEMENT DISCHARGE SUMMARY PATIENT: ANGEL SKAGGS UNIT: [id number] ADM DATE: 04/02/18 AGE: 67 : 49 SEX: M ROOM/BED: D.2203 AUTHOR: JONA,DOC PHYSICIAN: REFERRING PHYSICIAN: ANGEL KATE MD DATE OF SERVICE: 04/20/18 Discharge Plan Patient Name: ANGEL SKAGGS Facility: [facility]:[place] : 1950 Planned Disposition: Home Health Service Anticipated Discharge Date: Discharge Date: Expected LOS: Initial Reviewer: [id number] Initial Review Date: 04/04/2018 Generated: 04/20/18 12:35 pm Comments DCP- Discharge Planning Updated by [email or web address]: Leeanne Berman on 04/20/18 10:[address] Patient would like to go to inpatient rehab, Inpatient rehab will accept patient today. IMM served and explained to patient. CM will continue to follow and assist as needed DCP- Discharge Planning Updated by [id number]: Adelaida Valdez on 04/04/18 5:[address] LATE ENTRY 04/04/18 @ 1145 Patient Name: ANGEL SKAGGS Admission Status: ER Accout number: [id number] Admission Date: 04-02-2018 : 1950 Admission Diagnosis: Attending: ED JUNG Current LOS: 2 Anticipated DC Date: Planned Disposition: Home Health Service Primary Insurance: MEDICARE A & B Discharge Planning Comments: CM met with patient at bedside after obtaining verbal consent. Patient states he plans on returning home after discharge with his family. Patient states he will have family transport him home via private vehicle. Patient states he plans on [facility] resuming care upon discharge. Patient denies any discharge needs at this time. CM will continue to follow and assist as needed for discharge planning / needs. Steamfitter: Adelaida Valdez DCPIA - Discharge Planning Initial Assessment Updated by [id number]: Adelaida Valdez on 04/04/18 6:11 pm * Is the patient Alert and Oriented? Yes * How many steps to enter\exit or inside your home? * [facility] * Preadmission Environment Home with Family * ADLs Independent * Equipment None * List name and contact numbers for known caregivers / representatives who currently or will assist patient after discharge: GAURI SPENCE [facility]- [phone] * Verbal permission to speak to the caregivers and representatives has been obtained from the patient. N/A * Community resources currently utilized Home Health * Please name any agencies selected above. [facility] * Additional services required to return to the preadmission environment? No * Can the patient safely return to the preadmission environment? Yes * Has this patient been hospitalized within the prior 30 days at any hospital? Yes Coverage Notice Reviewer: [id number] Bryce Berman Notice Issued Date-Time: 04/20/2018 11:15 Notice Type: IM Discharge Notice Notice Delivered To: Patient Relationship to Patient: Bottling Line Attendant Name: Delivery Method: HAND - Hand Delivered Shameka Days: Prior Verbal Notification: Recipient Understood Notice: Yes Recipient Signature: Yes Med Rec Note Co-signed by Attending: Coverage Notice Comment: Last DP export: 04/20/18 10:27 a Patient Name: ANGEL SKAGGS Page [id number] at 1135 All edits/amendments must be made on the electronic document DICTATION DATE: 04/20/18 1134 CONCRETE FOREMAN: DAVID 04/20/18 1134 RPT#: [id number] DC DATE: STATUS: ADM IN [facility] [address] [place] [address] END OF REPORT
--- NOTE | 2018-04-20 11:59 | NUR ---
Rehab Prescreening Consult recieved and the patient was visited. He meets criteria and is agreeable to participate in the required therapy. He will be accepted today if his physician luciano. Discussed with the CM Cammy Berman. Karla Villarreal RN Clinical Liaison, Rehab
--- NOTE | 2018-04-20 13:42 | NUR ---
Right shoulder surgical wound has improved, now measuring 7cm x 9cm x 1cm. Wound bed is red and has spotted areas of white/necrotic tissue. Recommend stopping use of Santyl and starting plurogel to wound bed. Coccyx has stage 2 pressure injury measuring 10cm x 8cm. Wound bed is red and includes bilateral buttocks. Instructed pt to lay on his left or right side while in bed to relieve pressure. He voiced understanding and remained on his left side. Cleansed and covered area with mepilex sacral dressing. Pt tolerated well.
--- NOTE | 2018-04-20 14:24 | MORECARE ---
CASE MANAGEMENT DISCHARGE SUMMARY PATIENT: ANGEL SKAGGS UNIT: [id number] ADM DATE: 04/02/18 AGE: 67 : 49 SEX: M ROOM/BED: D.2203 AUTHOR: JONA,DOC PHYSICIAN: REFERRING PHYSICIAN: ANGEL KATE MD DATE OF SERVICE: 04/20/18 Discharge Plan Patient Name: ANGEL SKAGGS Facility: [facility]:[place] : 1950 Planned Disposition: Home Health Service Anticipated Discharge Date: Discharge Date: Expected LOS: Initial Reviewer: [id number] Initial Review Date: 04/04/2018 Generated: 04/20/18 3:24 pm Comments DCP- Discharge Planning Updated by [id number]: Leeanne Berman on 04/20/18 1:[address] PATIENT TO DISCHARGE TO INPATIENT REHAB TODAY DCP- Discharge Planning Updated by [id number]: Leeanne Berman on 04/20/18 10:[address] Patient would like to go to inpatient rehab, Inpatient rehab will accept patient today. IMM served and explained to patient. CM will continue to follow and assist as needed DCP- Discharge Planning Updated by [id number]: Adelaida Valdez on 04/04/18 5:[address] LATE ENTRY 04/04/18 @ 1145 Patient Name: ANGEL SKAGGS Admission Status: ER Accout number: [id number] Admission Date: 04-02-2018 : 1950 Admission Diagnosis: Attending: ED JUNG Current LOS: 2 Anticipated DC Date: Planned Disposition: Home Health Service Primary Insurance: MEDICARE A & B Discharge Planning Comments: CM met with patient at bedside after obtaining verbal consent. Patient states he plans on returning home after discharge with his family. Patient states he will have family transport him home via private vehicle. Patient states he plans on [facility] resuming care upon discharge. Patient denies any discharge needs at this time. CM will continue to follow and assist as needed for discharge planning / needs. Stage Builder: Adelaida Valdez DCPIA - Discharge Planning Initial Assessment Updated by [email or web address]: Adelaida Valdez on 04/04/18 6:11 pm * Is the patient Alert and Oriented? Yes * How many steps to enter\exit or inside your home? * PCP [facility] * Preadmission Environment Home with Family * ADLs Independent * Equipment None * List name and contact numbers for known caregivers / representatives who currently or will assist patient after discharge: GAURI SPENCE -[facility]- [phone] * Verbal permission to speak to the caregivers and representatives has been obtained from the patient. N/A * Community resources currently utilized Home Health * Please name any agencies selected above. [facility] * Additional services required to return to the preadmission environment? No * Can the patient safely return to the preadmission environment? Yes * Has this patient been hospitalized within the prior 30 days at any hospital? Yes Coverage Notice Reviewer: [id number] Bryce Berman Notice Issued Date-Time: 04/20/2018 11:15 Notice Type: IM Discharge Notice Notice Delivered To: Patient Relationship to Patient: Pillow Agent Name: Delivery Method: HAND - Hand Delivered Shameka Days: Prior Verbal Notification: Recipient Understood Notice: Yes Recipient Signature: Yes Med Rec Note Co-signed by Attending: Coverage Notice Comment: Last DP export: 04/20/18 10:35 a Patient Name: ANGEL SKAGGS Page 75997 at 1424 All edits/amendments must be made on the electronic document DICTATION DATE: 04/20/181423 MEDTRONICS TECHNICIAN: DAVID 04/20/181423 RPT#: [id number] DC DATE: STATUS: ADM IN [facility] [address] [place] [address] END OF REPORT
--- NOTE | 2018-04-22 11:36 | MORECARE ---
CASE MANAGEMENT DISCHARGE SUMMARY PATIENT: ANGEL SKAGGS UNIT: [id number] ADM DATE: 04/02/18 AGE: 67 : 49 SEX: M ROOM/BED: D.2203 AUTHOR: JONA,DOC PHYSICIAN: REFERRING PHYSICIAN: ANGEL KATE MD DATE OF SERVICE: 04/22/18 Discharge Plan Patient Name: ANGEL SKAGGS Facility: [facility]:[place] : 1950 Planned Disposition: Home Health Service Anticipated Discharge Date: Discharge Date: 04/20/2018 Expected LOS: 0 Initial Reviewer: [id number] Initial Review Date: 04/04/2018 Generated: 04/22/18 12:36 pm Comments DCP- Discharge Planning Updated by [id number]: Leeanne Berman on 04/20/18 1:[address] PATIENT TO DISCHARGE TO INPATIENT REHAB TODAY DCP- Discharge Planning Updated by [id number]: Leeanne Berman on 04/20/18 10:[address] Patient would like to go to inpatient rehab, Inpatient rehab will accept patient today. IMM served and explained to patient. CM will continue to follow and assist as needed DCP- Discharge Planning Updated by [id number]: Adelaida Valdez on 04/04/18 5:[address] LATE ENTRY 04/04/18 @ 1145 Patient Name: ANGEL SKAGGS Admission Status: ER Accout number: [id number] Admission Date: 04-02-2018 : 1950 Admission Diagnosis: Attending: ED JUNG Current LOS: 2 Anticipated DC Date: Planned Disposition: Home Health Service Primary Insurance: MEDICARE A & B Discharge Planning Comments: CM met with patient at bedside after obtaining verbal consent. Patient states he plans on returning home after discharge with his family. Patient states he will have family transport him home via private vehicle. Patient states he plans on [facility] resuming care upon discharge. Patient denies any discharge needs at this time. CM will continue to follow and assist as needed for discharge planning / needs. Power Generating Plant Operator: Adelaida Valdez DCPIA - Discharge Planning Initial Assessment Updated by [email or web address]: Adelaida Valdez on 04/04/18 6:11 pm * Is the patient Alert and Oriented? Yes * How many steps to enter\exit or inside your home? * [facility] * Preadmission Environment Home with Family * ADLs Independent * Equipment None * List name and contact numbers for known caregivers / representatives who currently or will assist patient after discharge: GAURI ENRIQUEZ- [phone] * Verbal permission to speak to the caregivers and representatives has been obtained from the patient. N/A * Community resources currently utilized Home Health * Please name any agencies selected above. [facility] * Additional services required to return to the preadmission environment? No * Can the patient safely return to the preadmission environment? Yes * Has this patient been hospitalized within the prior 30 days at any hospital? Yes Coverage Notice Reviewer: [id number] Bryce Berman Notice Issued Date-Time: 04/20/2018 11:15 Notice Type: IM Discharge Notice Notice Delivered To: Patient Relationship to Patient: Salt Miner Name: Delivery Method: HAND - Hand Delivered Shameka Days: Prior Verbal Notification: Recipient Understood Notice: Yes Recipient Signature: Yes Med Rec Note Co-signed by Attending: Coverage Notice Comment: Last DP export: 04/20/18 1:24 p Patient Name: ANGEL SKAGGS Page 06825 at 1136 All edits/amendments must be made on the electronic document DICTATION DATE: 04/22/181134 PHARMACOVIGILANCE SAFETY EXPERT: DAVID 04/22/18 1135 RPT#: [id number] DC DATE:04/20/18 STATUS: DIS IN [facility] [address] [place] [address] END OF REPORT
--- NOTE | 2018-04-22 11:45 | MORECARE ---
CASE MANAGEMENT DISCHARGE SUMMARY PATIENT: ANGEL SKAGGS UNIT: [id number] ADM DATE: 04/02/18 AGE: 67 : 49 SEX: M ROOM/BED: D.2203 AUTHOR: JONA,DOC PHYSICIAN: REFERRING PHYSICIAN: ANGEL KATE MD DATE OF SERVICE: 04/22/18 Discharge Plan Patient Name: ANGEL SKAGGS Facility: [facility]:[place] : 1950 Planned Disposition: Home Health Service Anticipated Discharge Date: Discharge Date: 04/20/2018 Expected LOS: 0 Initial Reviewer: [email or web address] Initial Review Date: 04/04/2018 Generated: 04/22/18 12:45 pm Comments DCP- Discharge Planning Updated by [id number]: Leeanne Berman on 04/20/18 1:[address] PATIENT TO DISCHARGE TO INPATIENT REHAB TODAY DCP- Discharge Planning Updated by [email or web address]: Leeanne Berman on 04/20/18 10:[address] Patient would like to go to inpatient rehab, Inpatient rehab will accept patient today. IMM served and explained to patient. CM will continue to follow and assist as needed DCP- Discharge Planning Updated by [id number]: Adelaida Valdez on 04/04/18 5:[address] LATE ENTRY 04/04/18 @ 1145 Patient Name: ANGEL SKAGGS Admission Status: ER Accout number: [id number] Admission Date: 04-02-2018 : 1950 Admission Diagnosis: Attending: ED JUNG Current LOS: 2 Anticipated DC Date: Planned Disposition: Home Health Service Primary Insurance: MEDICARE A & B Discharge Planning Comments: CM met with patient at bedside after obtaining verbal consent. Patient states he plans on returning home after discharge with his family. Patient states he will have family transport him home via private vehicle. Patient states he plans on [facility] resuming care upon discharge. Patient denies any discharge needs at this time. CM will continue to follow and assist as needed for discharge planning / needs. Commissary Assistant: Adelaida Valdez DCPIA - Discharge Planning Initial Assessment Updated by [id number]: Adelaida Valdez on 04/04/18 6:11 pm * Is the patient Alert and Oriented? Yes * How many steps to enter\exit or inside your home? * [facility]CP [facility] * [facility] * Preadmission Environment Home with Family * ADLs Independent * Equipment None * List name and contact numbers for known caregivers / representatives who currently or will assist patient after discharge: GAURI ENRIQUEZ- [phone] * Verbal permission to speak to the caregivers and representatives has been obtained from the patient. N/A * Community resources currently utilized Home Health * Please name any agencies selected above. [facility] * Additional services required to return to the preadmission environment? No * Can the patient safely return to the preadmission environment? Yes * Has this patient been hospitalized within the prior 30 days at any hospital? Yes Coverage Notice Reviewer: [id number] Bryce Berman Notice Issued Date-Time: 04/20/2018 11:15 Notice Type: IM Discharge Notice Notice Delivered To: Patient Relationship to Patient: Senior Electronics Technician Name: Delivery Method: HAND - Hand Delivered Shameka Days: Prior Verbal Notification: Recipient Understood Notice: Yes Recipient Signature: Yes Med Rec Note Co-signed by Attending: Coverage Notice Comment: Last DP export: 04/20/18 1:24 p Patient Name: ANGEL SKAGGS Page 97230 at 1145 All edits/amendments must be made on the electronic document DICTATION DATE: 04/22/18 1144 LINER MAN: DAVID 04/22/18 1144 RPT#: [id number] DC DATE:04/20/18 STATUS: DIS IN [facility] [address] [place] [address] END OF REPORT
== END 2018-04-20 17:03 | DRG 871 ==
LOC: D.ER 19:01 → D.ICU 04-02 01:03 → D.MS 04-02 01:03 → D.EDHOLD 04-02 01:03 → D.ICU 04-02 01:19 → D.MS 04-05 20:45
PROVIDERS: Family Medicine; Internal Medicine; ADMIT Family Medicine
DX: A41.9 Sepsis, unspecified organism (principal); R65.21 Severe sepsis with septic shock; N17.9 Acute kidney failure, unspecified; N10 Acute pyelonephritis; K56.690 Other partial intestinal obstruction; I12.9 Hypertensive chronic kidney disease with stage 1 through stage 4 chronic kidney disease, or unspecified chronic kidney disease; N18.9 Chronic kidney disease, unspecified; B96.89 Other specified bacterial agents as the cause of diseases classified elsewhere; E87.6 Hypokalemia; N13.9 Obstructive and reflux uropathy, unspecified; E11.9 Type 2 diabetes mellitus without complications

== ENCOUNTER 2018-04-20 17:07 | Inpatient (IN) | payer MEDICARE, BC ==
[~2018-04-20] VITALS: Ht 177.8 cm; Wt 90.7 kg
--- NOTE | 2018-04-20 16:45 | NUR ---
RECIEVED FROM [facility] FLOOR TO ROOM 1119B PER WC;ORIENTED TO SURROUNDINGS AND CL.
[2018-04-20 19:00] VITALS: BP 133/54
[2018-04-20 20:46] VITALS: BP 133/54; BMI 28.7
--- NOTE | 2018-04-20 21:30 | NUR ---
PATIENT INSISTING THAT HE CANT BREATH AND THAT I NEED TO CONTACT RESPIRATORY. TWO RESPIRATORY THERAPISTS CAME AND ASSESSED THE PATIENT. RESPIRATORY SAID THAT HIS SATS WHERE GOOD AT 97% ON 2L O2 VIA NC. PATIENT SEEMED TO BE ANXIOUS WHICH MAY HAVE CAUSED HIM TO FEEL LIKE HE COULDNT BREATH. WCTM.
--- NOTE | 2018-04-20 23:51 | NUR ---
PATIENT ASLEEP WITH EYES CLOSED LAYING ON RIGHT SIDE. RESPIRATIONS EVEN. NO SIGNS OF DISTRESS. CALL LIGHT IN REACH.
--- NOTE | 2018-04-21 02:22 | NUR ---
URINE SAMPLE COLLECTED FROM DC AND TAKEN TO LAB FOR UA
[2018-04-21 02:42] LABS: APPEARANCE CLEAR (CLEAR); BILIRUBIN NEGATIVE (NEGATIVE); COLOR STRAW (YELLOW); GLUCOSE NEGATIVE (NEGATIVE); KETONE NEGATIVE (NEGATIVE); NITRITE NEGATIVE (NEGATIVE); PROTEIN NEGATIVE (NEGATIVE); SPECIFIC GRAVITY 1.005 (1.005-1.020); UROBILINOGEN NORMAL (NORMAL)
[2018-04-21 02:43] LABS: BACTERIA FEW /hpf (NONE SEEN); EPITHELIAL CELLS 0-5 /hpf (0-5); RED CELLS - URINE 0-5 /hpf (0-5)
--- NOTE | 2018-04-21 03:55 | NUR ---
PATIENT ASLEEP WITH EYES CLOSED LAYING IN SUPINE POSITION. HOB AT 30 DEGREES. O2 AT 2L VIA NC. RESPIRATIONS EVEN. NO SIGNS OF DISTRESS. CALL LIGHT IN REACH.
--- NOTE | 2018-04-21 07:36 | NUR ---
PT LYING IN BED WATCHING TV. CL IN REACH. PT DENIES NEEDS OR PAIN. PT DOES COMPLAIN OF BEING SHORT OF BREATH RESP SHALLOW BUT NO SIGNS OF DISTRESS OR PAIN. RESP 18. O2 97%. BED IN LOW POSITION. SIDE RAILS X2. PT ON 1ST STEP MATTRESS DUE TO PRESSURE SORE ON BUTTOCKS. PT ON 2L OF O2. WILL CONTINUE TO MONITOR.
[2018-04-21 08:00] VITALS: BP 112/67
[2018-04-21 08:32] LABS: BASOPHILS 0.3 % (0-2); EOSINOPHILS 3.1 % (0-7); HEMATOCRIT 28.4 % (42.0-54.0); HEMOGLOBIN 8.9 g/dL (13.5-17.5); IMMATURE GRANULOCYTES 0.2 % (0-5); LYMPHOCYTES 23.5 % (15-50); MCH 26.9 pg (26.0-34.0); MCHC 31.3 g/dL (31.0-37.0); MCV 85.8 fL (80.0-100.0); MEAN PLATELET VOLUME 8.8 fL (7.4-10.4); MONOCYTES 7.3 % (2-11); NEUTROPHILS 65.6 % (40-80); PLATELET COUNT 290 10x3/uL (130-400); RBC 3.31 10x6/uL (4.20-6.10); RDW 14.4 % (11.5-14.5); WBC 8.7 10x3/uL (4.8-10.8)
[2018-04-21 08:42] LABS: ANION GAP 12.5 mmol/L (8-16); CALCIUM 8.5 mg/dL (8.5-10.1); CARBON DIOXIDE 27.1 mmol/L (21.0-32.0); POTASSIUM - SERUM 4.6 mmol/L (3.5-5.1)
--- NOTE | 2018-04-21 10:24 | NUR ---
CHANGED DRESSING TO BUTTOCKS AND RIGHT SHOULDER PER PREVIOUS WOUND CARE ORDERS. ORDERS IN FOR DAILY DRESSING CHANGE FOR RIGHT SHOULDER AND EVERY 3 DAYS FOR MEPILEX OR CHANGED WHEN SOILED. PT RECIEVED SHOWER THIS MORNING. WILL CONTINUE TO MONITOR. CL IN REACH. PT SITTING UP IN WHEELCHAIR NEXT TO BED.
--- NOTE | 2018-04-21 11:28 | NUR ---
CHECKED ON PT AND PT COMPLAINED OF BEING COLD. BROUGHT PT A BLANKET AND CHECKED TEMP. TEMP WAS 98.0 WNL. CL IN REACH. PT DENIES ANY FURTHER NEEDS OR PAIN. WCTM
[2018-04-21 13:23] VITALS: Ht 177.8 cm; Wt 90.7 kg
--- NOTE | 2018-04-21 14:28 | NUR ---
PT IN THERAPY. DENIES NEEDS
--- NOTE | 2018-04-21 15:23 | NUR ---
RESTING QUIETLY.CL IN REACH.
--- NOTE | 2018-04-21 17:42 | NUR ---
PT LYING IN BED. PT DENIES NEEDS OR PAIN. CL IN REACH. WCTM
[2018-04-21 19:00] VITALS: BP 116/69
--- NOTE | 2018-04-21 19:42 | NUR ---
PT UP ON SIDE OF BED, C/O INABILITY TO BREATHE, CALLED RESPIRATORY, FLUIDS AND CALL LIGHT WITHIN REACH
--- NOTE | 2018-04-22 01:31 | NUR ---
PT ASLEEP NO NEEDS NOTED FLUIDS AND CALL LIGHT WITHIN REACH
[2018-04-22 07:49] VITALS: BP 116/63
[2018-04-22 07:50] LABS: BASOPHILS 0.3 % (0-2); EOSINOPHILS 3.3 % (0-7); HEMATOCRIT 29.6 % (42.0-54.0); HEMOGLOBIN 9.3 g/dL (13.5-17.5); IMMATURE GRANULOCYTES 0.2 % (0-5); LYMPHOCYTES 23.7 % (15-50); MCHC 31.4 g/dL (31.0-37.0); MCV 85.8 fL (80.0-100.0); MEAN PLATELET VOLUME 9.3 fL (7.4-10.4); MONOCYTES 7.6 % (2-11); NEUTROPHILS 64.9 % (40-80); PLATELET COUNT 333 10x3/uL (130-400); RBC 3.45 10x6/uL (4.20-6.10); RDW 14.3 % (11.5-14.5)
[2018-04-22 07:51] LABS: ANION GAP 14.3 mmol/L (8-16); CALCIUM 8.7 mg/dL (8.5-10.1); CARBON DIOXIDE 24.8 mmol/L (21.0-32.0); POTASSIUM - SERUM 4.1 mmol/L (3.5-5.1)
[2018-04-22 08:19] LABS: WBC 11.1 10x3/uL (4.8-10.8)
--- NOTE | 2018-04-22 12:13 | NUR ---
PATIENT ADMITTED TO REHAB FROM ACUTE FLOOR. SHE IS A CLIENT OF [facility]. HER PCP IS DR. KATE. DSICHARGE PLANS ARE TO RETURN HOME. WILL CONTINUE TO FOLLOW WITH PATIENT.
--- NOTE | 2018-04-22 15:04 | NUR ---
DSG CHANGED TO BACK OF RIGHT SHOULDER. WOUND BED IS BEEFY RED. WOUND SIZE [id number]. GREENISH DRAINAGE NOTED ON OLD DSG.
--- NOTE | 2018-04-22 17:29 | NUR ---
LAYING ON LEFT SIDE IN BED. EYES CLOSED. RESP EFFORT 22 AND NON LABORED. OXYGEN 2LNC IN PLACE. CALL LIGHT IN REACH
--- NOTE | 2018-04-22 20:32 | NUR ---
CONTACTED RESPIRATORY TO COME AND CHECK OUT PATIENT. PATIENT IS GASPING FOR BREATH. O2 TURNED UP TO 3L AND PATIENT MOVED UP IN BED TO HELP WITH BREATHING.
--- NOTE | 2018-04-22 20:45 | NUR ---
PATIENTS BREATHING HAS IMPROVED. O2 SATS ARE UP TO 97. WCTM.
--- NOTE | 2018-04-22 21:15 | NUR ---
RESPIRATORY IN PATIENTS ROOM AND DID ABG'S = RESULTING IN PH OR 7.22, BICARB OF 28, RESPIRATORY OF 68.7 FROM VENOUS BLOOD.
--- NOTE | 2018-04-22 21:25 | NUR ---
RESPIRATORY DOING ARTERIAL ABG TO CHECK OXYGEN STATUS.
--- NOTE | 2018-04-22 21:31 | NUR ---
ARTERAIL ABGS PERFORMED RESULTING IN PH 7.33, CO2-43, BICARB - 23, SAT 97
--- NOTE | 2018-04-23 01:15 | NUR ---
PATIENT IS AWAKE AND LAYING IN BED WATCHING TV. O2 AT 3L AND SAT AT 99%. WCTM.
--- NOTE | 2018-04-23 01:30 | NUR ---
ADMINISTERED PRN ATIVAN FOR PATIENTS ANXIETY. PATIENT SEEMS TO HAVE A HARD TIME BREATHING WHEN HIS ANXIETY INCREASES. 02 SAT AT 99%
--- NOTE | 2018-04-23 02:28 | NUR ---
ANSWERING CALL LIGHT. PATIENT STATES THAT HE SHORT OF BREATH AND THAT HE IS TOO HOT. PATIENTS O2 SAT AT 98. AND NO FEVER. WIPED PATIENT DOWN WITH COOL WET WASH CLOTH AND OPENED DOOR TO ROOM TO HELP WITH VENTOLATION. SUNIL.
--- NOTE | 2018-04-23 04:30 | NUR ---
ASSISTED PATIENT TO SITTING IN WHEELCHAIR. ALARM IN CHAIR ON AND WORKING PROPERLY. PATIENT STATED THAT MAYBE HE COULD BREATHE BETTER. WCTM.
[2018-04-23 07:31] VITALS: BP 120/53
--- NOTE | 2018-04-23 09:55 | NUR ---
RESTING QUIETLY IN BED. LEANED OVER TO LEFT SIDE. OXYGEN IN PLACE. 2LNC. DRY NON PRODUCTIVE COUGH NOTED. AIR MATTRESS IN PLACE. CALL LIGHT IN REACH
--- NOTE | 2018-04-23 19:40 | NUR ---
GREETED PATIENT AND INTRODUCED MYSELF HIS NURSE. PATIENT STATES THAT HE HASNT HAD A VERY GOOD DAY TODAY THAT HE CONTINUES TO BE ANXIOUS AND THAT HE HAS A HARD TIME CATCHING IS BREATH. STATES THAT HE IS IN A LITTLE PAIN IN BOTH OF HIS LEGS. CALL LIGHT IN REACH.
[2018-04-23 20:13] VITALS: BP 131/75
--- NOTE | 2018-04-23 21:15 | NUR ---
CONTACTED RESPIRATORY TO COME AND TALK WITH PATIENT. PATIENT INSIST THAT HE DIDNT GET HIS 0 BREATHING TREATMENT. RESPIRATORY CONFIRMED THAT PATIENT DID RECEIVE TREATMENT 1912. [facility].
--- NOTE | 2018-04-23 21:24 | NUR ---
RESPIRATORY HERE TO TALK WITH PATIENT AND EXPLAIN TO HIM THAT SHE HAD GIVEN HIM TREATMENT EARLIER AND THAT SHE WOULD BE BACK AT 2300 TO GIVE HIM ANOTHER ONE. PATIENT STATES THAT HE IS STILL HAVING A HARD TIME BREATHING. PATIENTS HEART RATE INCREASES DUE TO HIS CONTINUED ANXIETY EVEN WITH ADMINISTRATION OF PRN ATIVAN. WCTM.
--- NOTE | 2018-04-23 22:40 | NUR ---
CHECKED PATIENTS FSBS BLOOD SUGAR. BLOOD SUGAR WAS 47. PATIENT WARM AND DRY AND ALERT X 4. GAVE PATIENT ORANCE JUICE AND 2% MILK AND ASTON CRACKERS WITH PEANUT BUTTER.
--- NOTE | 2018-04-23 23:16 | NUR ---
RECHECKED PATIENTS BLOOD SUGAR AFTER ORANGE JUICE, MILK AND ASTON CRACKERS WITH PEANUT BUTTER. PATIENTS BLOOD SUGAR IS UP TO 57. WILL REPEAT WITH ANOTHER ORANGE JUICE, MILK AND ASTON CRACKERS.
--- NOTE | 2018-04-24 00:07 | NUR ---
RECHECKED PATIENTS BLOOD SUGAR AFTER SECOND ROUND OF ORANGE JUICE, MILK, ASTON CRACKERS AND PEANUT BUTTER. PATIENTS BLOOD SUGAR IS NOW 74. WCTM.
--- NOTE | 2018-04-24 01:30 | NUR ---
CHECKED ON PATIENT AND HE IS STILL EXPERIENCING LABORED BREATHING AND PULSE IS 135. SAT AT 96. PATIENT STATED THAT HE JUST WANTED TO BE LEFT ALONE AT THIS TIME.
--- NOTE | 2018-04-24 01:50 | NUR ---
APICAL PULSE AND 02 SATS CHECKED BY Beny JAMES AND REMAINS TACHYCARDIC. RT NOTIFIED TO ASSESS PATIENT.
--- NOTE | 2018-04-24 02:36 | NUR ---
PATIENT STILL HAVING LABORED BREATHING. RESPIRATORY ON SITE AND CHANGED PATIENT FROM NC TO NON-REBREATHER AND DOING ABG'S.
--- NOTE | 2018-04-24 02:40 | NUR ---
AUDIOMETRIC TECHNICIAN FOR DR. LOCKHART NOTIFIED AND WAS INFORMED TO CALL ER DOCTOR. MACHINE TENDER NOTIFIED.
--- NOTE | 2018-04-24 02:43 | NUR ---
PATIENT NOT RESPONDING TO VERBAL COMMANDS AND STILL HAVING LABORED BREATHING. RAPID RESPONSE CALLED. RESPIRATORY PRESENT IN PATIENTS ROOM AT TIME OF RAPID CALLED. RESPIRATORY DID EKG AND ABGS. ABG RESULTS: C02-105, PH 7.0, P02-251.
--- NOTE | 2018-04-24 02:49 | NUR ---
ICU STAFF ARRIVED TO PATIENTS ROOM TO ASSESS. ASSESSMENT WAS MADE BY ICU STAFF TO TRANSFER TO ICU.
--- NOTE | 2018-04-24 02:50 | NUR ---
PATIENTS VITALS - TEMP 98.2, BP 167/70, PULSE 136
--- NOTE | 2018-04-24 02:56 | NUR ---
PATIENT TRANSFERRED TO ICU. WITH ICU STAFF AND RESPIRATORY AT BEDSIDE.
--- NOTE | 2018-04-24 03:04 | NUR ---
FAMILY MEMBERS CONTACTED ABOUT PATIENT MOVING TO ICU.
[2018-04-24 03:06] LABS: BASOPHILS 0.6 % (0-2); EOSINOPHILS 6.1 % (0-7); HEMOGLOBIN 10.2 g/dL (13.5-17.5); IMMATURE GRANULOCYTES 0.1 % (0-5); LYMPHOCYTES 23.4 % (15-50); MCH 27.2 pg (26.0-34.0); MCHC 30.9 g/dL (31.0-37.0); MONOCYTES 8.3 % (2-11); NEUTROPHILS 61.5 % (40-80); PLATELET COUNT 367 10x3/uL (130-400); RBC 3.75 10x6/uL (4.20-6.10); RDW 14.2 % (11.5-14.5)
[2018-04-24 03:07] LABS: WBC 14.7 10x3/uL (4.8-10.8)
[2018-04-24 03:10] LABS: APTT 37.6 SECONDS (22.8-39.4)
--- NOTE | 2018-04-24 03:10 | NUR ---
PATIENT DISCHARGED FROM REHAB.
[2018-04-24 03:18] LABS: D-DIMER-QUANTITATIVE 6.17 ug/mLFEU (0.20-0.54)
[2018-04-24 03:20] LABS: ALBUMIN 2.8 g/dL (3.4-5.0); ANION GAP 10.2 mmol/L (8-16); BILIRUBIN - TOTAL 0.22 mg/dL (0.2-1.3); CALCIUM 8.9 mg/dL (8.5-10.1); CARBON DIOXIDE 29.3 mmol/L (21.0-32.0); CREATININE - SERUM 2.1 mg/dL (0.6-1.3); POTASSIUM - SERUM 5.5 mmol/L (3.5-5.1); PROTEIN - SERUM 7.8 g/dL (6.4-8.2)
--- NOTE | 2018-04-28 08:31 | RHP ---
PATIENT: ANGEL SKAGGS MEDICAL RECORD: [id number] ACCOUNT: [id number] [facility] [birth year] ADMISSION DATE: 04/20/18 REHABILITATION HISTORY AND PHYSICAL EXAMINATION POST ADMISSION PHYSICIAN EXAMINATION DATE OF ADMISSION: 04/20/2018 ADMITTING DIAGNOSIS: Critical illness myopathy. HISTORY OF PRESENT ILLNESS: The patient is a 67-year-old gentleman admitted with critical illness myopathy secondary to severe sepsis, septic shock, acute renal failure, obstructive uropathy and prolonged hospitalization, arrived to Emergency Room on 04/01/2018 with hematuria, fever and chills. He is a patient of Dr. Graves, has been having some urinary retention for almost a year. He has got an indwelling catheter. The home health nurse was instructed to remove it for a voiding trial. He was unable to void in the Emergency Room, he was found to have a bladder scan with 970 cc of volume left. He had fever, chills and rigors. UA was consistent with positive white blood cells, leukocyte esterase, and bacteria. Urine grew out gram-negative rods. CT of the abdomen and pelvis showed hydronephrosis due to urinary retention, a thickened bladder and enlarged prostate. White count was elevated at 62,000. His creatinine had been in renal failure range throughout 2018 with a range of 2 to 3.9. He was found to be in septic shock. He was hypotensive, given IV fluids and transferred to the ICU. After 2 days in the ICU, he had good urine output. His white count had decreased to 40,000. His creatinine was 4.1. He had symptoms consistent with a partial small-bowel obstruction. Dr. Lindquist was consulted. NG tube placement was done. Dr. Ron is set up to follow him up on an outpatient basis for prostate biopsy. He has been having some improved p.o. intake and been on an electrolyte replacement protocol. On 04/13/2018, his hemoglobin dropped to 7. An additional 2 units packed red blood cells was given. He was improved and placed out in the medical floor. He gets fatigued and winded easily when he tries to walk. He has been very fatigued with limited flexion and extension of his lower extremities. He has got proximal muscle strength, which is pretty decreased at this time. He is mod-to-max assist for ADLs, mod-to-max assist for agx-qk-khyrc and wti-zq-deplp. He is highly motivated and has good family support to regain his strength and return back to home with his prior level of functioning. Previously, he was wearing a Quiles catheter when he was driving and was independent with ADLs and mobility. COMORBIDITIES: In this patient include fever, weakness, peripheral neuropathy, urinary retention, UTI, diabetes, acute renal failure, metabolic acidosis, diabetes, pulmonary hypertension, COPD, open wound to his shoulder, pressure ulcer to his coccyx, UTI, pyelonephritis, hypertension, history of ID, moderate aortic stenosis, weight loss, sepsis. PAST MEDICAL HISTORY: Significant for diabetes, moderate aortic stenosis, tricuspid regurg, hypertension, ID, asthma, bronchitis, acid reflux, arthritis. PAST SURGICAL HISTORY: Includes tracheostomy, he had heart surgery in January, tonsillectomy, appendectomy and he has also had a valve replacement. ALLERGIES: IODINE. CURRENT MEDICATIONS: Include Floranex 460 mg daily, Protonix 40 mg daily, HISTORY AND PHYSICAL [id number] ANGEL SKAGGS Amaryl 4 mg b.i.d. with meals, aspirin 81 mg daily, Omnicef 300 mg b.i.d., DuoNeb updrafts, albuterol 2 puffs every 2 to 4 hours p.r.n., Zocor 40 mg at bedtime, niacin 500 mg at bedtime, Singulair 10 mg at bedtime, [place] 5/325 one tab every 4 to 6 hours as needed. HABITS: No current alcohol or tobacco use. FAMILY HISTORY: Noncontributory. SOCIAL HISTORY: The patient hopes to return back home and get back to his prior level of functioning. REVIEW OF SYSTEMS: GENERAL: He does complain of some weakness and fatigue. HEENT: Denies cold, cough, or congestion. CARDIOVASCULAR: Denied chest pain. VITAL SIGNS: Stable, afebrile. GENERAL: A well-developed gentleman in no acute distress, alert upon exam. HEENT: Normocephalic and atraumatic. Mucosa moist. NECK: Supple. No lymphadenopathy. LUNGS: Clear at this time. HEART: Regular rate and rhythm. He does have a holosystolic murmur. ABDOMEN: Benign. EXTREMITIES: No clubbing, cyanosis or edema. NEUROLOGIC: He does have noted weakness. LABORATORY DATA: Admit white count is 8.7, H&H is 8.9 and 28.4, and platelet count is noted to be 290. His admit UA did show trace blood, leukocyte esterase and a few bacteria. His admit chemistries are pending at this time. ASSESSMENT: This is a 67-year-old gentleman admitted to the rehab with a working diagnosis of critical illness myopathy secondary to a prolonged stay in the ICU with sepsis. The patient has potential to make improvement. We instituted the following multidisciplinary therapies including, but not limited to physical, occupational, respiratory, speech, nutritional services, prosthetics and orthotics. Given his complex medical condition and risks for more complications rehabilitation services cannot be provided at a low level of care such as shelter facility. PLAN: 1. Admit to [facility] for inpatient therapy to include the following disciplines: A. Physical therapy to improve gait, all transfer skills and bed mobility to a modified independent level. B. Occupational therapy to a modified independent level. C. Case management to assist with discharge planning and placement options. D. Nutrition to assist with nutritional needs. E. Rehabilitation nursing to assist with monitoring the patient's underlying medical conditions and to assist with any type of bowel and bladder management. 2. The patient's current medication and medical care will be continued. 3. The patient will be placed on standard fall precautions. 4. The patient's estimated length of stay is approximately 7-10 days. 5. Discuss this patient during care team staff meeting this week. TRANSINT:[id number] Voice Confirmation ID: [id number] DOCUMENT ID: [id number] HISTORY AND PHYSICAL [id number] ANGEL SKAGGS 04/22/18 Edited for priyanka KOCH. ZEE notes whether there has been none or any medical/functional change since admission: - No change since preadmission screening. ZEE attests patient continues to be appropriate for IRF: - Continues to be appropriate. BARRIE LOCKHART MD at 0831 CC: [id number] DICTATION DATE: 04/21/18 0841 PACKAGING ENGINEER: 04/21/18 0903 DIS IN 04/24/18 [place] [address]
--- NOTE | 2018-04-29 11:40 | NUR ---
LATE ENTRY FOR 04/24/18 PATIENT DISCHARGE FROM REHAB AND ADMITTED TO ACUTE FLOOR.
== END 2018-04-24 03:10 | disposition short-term general hospital (02) | DRG 91 ==
LOC: D.REHAB 17:07
PROVIDERS: ADMIT Emergency Medicine
DX: G72.81 Critical illness myopathy (principal); A41.9 Sepsis, unspecified organism; R65.21 Severe sepsis with septic shock; N39.0 Urinary tract infection, site not specified; N12 Tubulo-interstitial nephritis, not specified as acute or chronic; E87.2 Acidosis; N17.9 Acute kidney failure, unspecified; K56.609 Unspecified intestinal obstruction, unspecified as to partial versus complete obstruction; R63.4 Abnormal weight loss; I35.0 Nonrheumatic aortic (valve) stenosis; J44.9 Chronic obstructive pulmonary disease, unspecified; I27.20 Pulmonary hypertension, unspecified; R33.9 Retention of urine, unspecified; E11.42 Type 2 diabetes mellitus with diabetic polyneuropathy; R50.9 Fever, unspecified; R53.1 Weakness; I95.9 Hypotension, unspecified; S41.001D Unspecified open wound of right shoulder, subsequent encounter; L89.152 Pressure ulcer of sacral region, stage 2; I12.9 Hypertensive chronic kidney disease with stage 1 through stage 4 chronic kidney disease, or unspecified chronic kidney disease; E11.22 Type 2 diabetes mellitus with diabetic chronic kidney disease; N18.9 Chronic kidney disease, unspecified; R31.9 Hematuria, unspecified; D72.829 Elevated white blood cell count, unspecified; I25.10 Atherosclerotic heart disease of native coronary artery without angina pectoris

== ENCOUNTER 2018-04-24 03:10 | Inpatient (IN) | payer MEDICARE, BC ==
--- NOTE | 2018-04-23 03:45 | NUR ---
DECREASED BP NOTED, MD ORDER FOR LEVOPHED GTT RECEIVED.
[~2018-04-24] VITALS: Ht 177.8 cm; Wt 92.3 kg
[2018-04-24] VITALS (53 sets, daily range): BP systolic 51–148; BP diastolic 31–75
--- NOTE | ~2018-04-24 | OP ---
PATIENT NAME: ANGEL SKAGGS MEDICAL RECORD: [id number] :48 LOCATION:[facility] D.2305 ADMISSION DATE:04/24/18 SURGEON: LESIA ALVAREZ MD DATE OF OPERATION: 04/24/2018 PROCEDURE: Fiberoptic bronchoscopy. INDICATION: Mr. Skaggs is a 67-year-old gentleman who has respiratory arrest last night, possible aspiration of crackers. Fiberoptic bronchoscopy was carried out to remove any foreign body as well as to obtain specimen for culture and sensitivity. DESCRIPTION OF PROCEDURE: The patient orally intubated. The disposable bronchoscope was passed through the tracheostomy tube. There was a thick yellowish secretion bilaterally. No crackles. No food material was seen. The right main bronchus subsegment to the right upper lobe, right lower lobe, and middle lobe within normal range. There were bronchitic changes with thick yellowish secretion. The left main bronchus subsegment to the left upper lobe lingula, left lower lobe within normal range. No endobronchial lesion was seen. There were bronchitic changes. Overall, the patient tolerated the procedure very well. Specimen washing was obtained and sent for routine culture and sensitivity, AFB and fungus and cytology. TRANSINT:[id number] Voice Confirmation ID: [id number] DOCUMENT ID: [id number] LESIA ALVAREZ MD CC: [id number] DICTATION DATE: 04/24/18 1239 AFTER SCHOOL COORDINATOR: 04/24/18 1411 ADM IN [facility] [id number] [place] [address]
--- NOTE | ~2018-04-24 | CN ---
PATIENT NAME:ANGEL NAPOLES MEDICAL RECORD: [id number] : [birth year] LOCATION:[facility].2305 ADMIT DATE: 04/24/18 ACCOUNT: [id number] CONSULTING PHYSICIAN: LESIA ALVAREZ MD REFERRING PHYSICIAN: ANGEL KATE MD DATE OF CONSULTATION: 04/24/2018 REQUESTING PHYSICIAN: Angel Kate MD REASON FOR CONSULTATION: Respiratory arrest. HISTORY OF PRESENT ILLNESS: Mr. Napoles is a 67-year-old -Trist[place] gentleman, very well known to me. He has a history of IgE-associated asthma, diabetes, gastroesophageal reflux disease. Recently, he was hospitalized for a brown recluse spider bite. The patient was then transferred to the rehab for rehabilitation. Last night, the patient was hypoglycemic and lethargic. He was given some crackers and the patient choke on it and a code blue was called because the patient was in agonal breathing. Now, the patient is orally intubated and sedated. The history was taken mainly by reviewing the patient's note as well as talking to the nursing staff. PAST MEDICAL HISTORY: 1. COPD. 2. IgE-associated asthma. 3. Gastroesophageal reflux disease. 4. History of respiratory failure and mechanical ventilation in the past. PAST SURGICAL HISTORY: 1. Appendectomy. 2. He has history of tracheostomy. ALLERGIES: HE IS ALLERGIC TO IODINE. MEDICATIONS: On Take the Interview is reviewed. PERSONAL AND SOCIAL HISTORY: The patient is . He lives with his . He is nonsmoker, nondrinker. FAMILY HISTORY: Noncontributory. PHYSICAL EXAMINATION: GENERAL: Now, the patient is orally intubated and sedated. VITAL SIGNS: The blood pressure is 136/63, pulse is 108, and respiratory rate is 14. He is on SIMV mechanical ventilation, PEEP of 5. HEENT: Conjunctivae are pink. Sclerae not icteric. NECK: Supple, no JVD. CHEST: No excursion is minimal on both sides. There is prolonged expiration with wheezing. There are crackle. HEART: Rhythm regular, normal sound. No murmur. ABDOMEN: Abdomen is soft. Bowel sounds present. No hepatosplenomegaly. RECTAL: Deferred. EXTREMITIES: No cyanosis, no clubbing, no pedal edema. CENTRAL NERVOUS SYSTEM: The patient is orally intubated and sedated. There is no obvious cranial nerve abnormality. CONSULT REPORT [id number] ANGEL NAPOLES CHEST RADIOGRAPH: The ET tube is in good position. There is minimal atelectasis/scarring. No consolidation as such. OTHER LABORATORY DATA: CBC: WBC 14.7, hemoglobin 10.2, hematocrit 33, the platelet count is 367. Chemistry: Sodium 140, potassium 5.5, BUN is 21, creatinine is 2.1. Initial ABG: The pH was 7.24, pCO2 was 70.6%, pO2 is 93, bicarbonate is 30.6. IMPRESSION: 1. Acute hypoxic hypercapnic respiratory failure. 2. Respiratory arrest. 3. Acute asthma exacerbation. 4. Xbanu-ri-jckfloh kidney disease. 5. Respiratory acidosis. 6. Leukocytosis. 7. Foreign body aspiration, possible crackle aspiration. 8. Pseudomonas bacteremia. 9. UTI. 10. Open wound on his back due to a spider bite. RECOMMENDATION: 1. Continue mechanical ventilation, adjust the setting. Keep the peak airway pressure below 40. 2. Start on Zosyn. Continue Levaquin. 3. Methylprednisolone IV. 4. Brovana and budesonide nebulizer. 5. Albuterol and ipratropium nebulizer. 6. DVT prophylaxis. 7. GI bleed prophylaxis. 8. Follow up labs and chest radiograph. 9. We will proceed with fiberoptic bronchoscopy. Discussed with the family at length. Dr. Kate, thank you for involving me in the care of Mr. Napoles. TRANSINT:[id number] Voice Confirmation ID: [id number] DOCUMENT ID: [id number] LESIA ALVAREZ MD CC: [id number] DICTATION DATE: 04/24/18 1237 HEADRIG SAWYER: 04/24/18 1403 ADM IN [facility] [address] [place] [address]
--- NOTE | 2018-04-24 03:05 | NUR ---
PT REC'D TO ROOM 2305 FROM REHAB, TRANSFERRED TO BED, PT UNRESPONSIVE, NONREBREATHER INTACT, DR. MCNEILL IN ROOM TO INTUBATE PATIENT, RIGHT 20GAUGE PLACED TO FOREARM X 2 ATTEMPTS, 100MG SUCCS AND 5MG VERSED GIVEN SLOW IVP FOR INTUBATION, PT INTUBATED WITH 8.0 ETT TAPED @ 25CM LIPLINE, VENT SETTINGS A/C TV 550 R 14 FIO2 100 % PEEP 5, OGT PLACED AND VERIFIED WITH AIR BOLUS AUSCULTATED OVER EPIGASTRIM, IMMEDIATE RETURN OF 300CC BEIGE SECRETIONS WITH FOOD PARTICLES NOTED, CXR OBTAINED FOR PLACEMENT.
--- NOTE | 2018-04-24 03:05 | NUR ---
PT TO ROOM 2305 VIA BED, BAGGED BY RT, DR MCNEILL AT BEDSIDE.
--- NOTE | 2018-04-24 03:15 | NUR ---
DIPRIVAN BEGUN TO LEFT UPPER ARM PIV @ 10MCG/KG/MIN, DR. MCNEILL AT REVIEWING CXR, ETT PULLED BACK TO THE 23CM LIPLINE, BP 94/52, WILL MONITOR CLOSELY FOR CHANGES.
--- NOTE | 2018-04-24 03:25 | NUR ---
SBP 50'S LEVOPHED GTT BEGUN @ 20MCG/MIN AND FLUID BOLUS INFUSING AT THIS TIME.
--- NOTE | 2018-04-24 03:40 | NUR ---
100 OF SUCC, 5 OF VERSED PER MD ORDER BY DR MCNEILL. PT INTUBATED WITH 8.0 ETT, 25 AT [facility]. CXR COMPLETED, ETT PULLED BACK TO 23 AT [facility] BY DR MCNEILL.
--- NOTE | 2018-04-24 03:56 | NUR ---
DR KATE NOTIFIED REGARDING CHANGE IN PT STATUS AND CURRENT INTUBATION, NO ORDERS RECEIEVED AT THIS TIME.
--- NOTE | 2018-04-24 04:07 | NUR ---
PT FAMILY NOTIFIED OF PT CURRENT STATUS, ALL QUESTIONS ANSWERED. STATE THEY ARE WAITING FOR HIS DAUGHTER.
--- NOTE | 2018-04-24 05:50 | NUR ---
PT SISTER, SON, AND DAUGHTER AT BEDSIDE, ALL QUESTIONS ANSWERED. COPY OF POA PAPERWORK MADE AND PLACED ON CHART.
--- NOTE | 2018-04-24 07:00 | NUR ---
REPORT RECIEVED, SHIFT ASSESSMENT COMPLETE, PT IS SEDATED ON VENT, SEDATION VACATION, PT BECAME AGITATED, ORAL CARE PROVIDED, ALL PPP, WILL CON'T TO MONITOR
--- NOTE | 2018-04-24 09:12 | NUR ---
FAMILY AT BEDSIDE, UPDATE GIVEN
--- NOTE | 2018-04-24 11:10 | NUR ---
REASSESSMENT COMPLETE, NO CHANGES NOTED, WILL CON'T TO MONITOR
--- NOTE | 2018-04-24 12:00 | NUR ---
FAMILY AT BEDSIDE, UPDATE GIVEN, CONSENT SIGNED FOR BRONCHOSCOPY
--- NOTE | 2018-04-24 12:18 | NUR ---
DR. ALVAREZ AT BEDSIDE, BRONCH PERFORMED, PT TOLERATED WELL,
--- NOTE | 2018-04-24 13:26 | NUR ---
FAMILY AT BEDSIDE, UPDATE GIVEN
--- NOTE | 2018-04-24 15:15 | NUR ---
REASSESSMENT COMPLETE, NO CHANGES NOTED, WILL CON'T TO MONITOR
--- NOTE | 2018-04-24 19:00 | NUR ---
REPORT RECEIVED, PT SEDATED ON VENT, VSS, WILL CONTINUE TO ASSESS
--- NOTE | 2018-04-24 20:04 | NUR ---
PT FIENCEE AT BEDSIDE, PT RESTING COMFORTABLY, VSS, MEDS GIVEN PER MAR
--- NOTE | 2018-04-24 20:20 | NUR ---
PT POA CONTACTED D/T JORDAN ASKING FOR PASSWORD, POA CONFIRMED TO NOT GIVE PASSWORD TO JORDAN
--- NOTE | 2018-04-24 22:07 | NUR ---
PT SON CALLED, UPDATE GIVEN, NO FURTHER NEEDS STATED, VSS, WILL CONTINUE TO MONITOR
--- NOTE | 2018-04-24 23:00 | NUR ---
REASSESSMENT COMPLETE, NO ACUTE CHANGES NOTED, PT SEDATEDON VENT, VSS, REPOSITIONED, WILL CONTINUE TO ASSESS
[2018-04-25] VITALS (24 sets, daily range): BP systolic 123–151; BP diastolic 53–95; Ht 177.8 cm; Wt 92.3 kg
--- NOTE | 2018-04-25 01:00 | NUR ---
PT SEDATED, VENT SETTINGS PER ORDERS/MAR, ORAL CARE DC CARE COMPLETED, REPOSITIONED IN BED, VSS, WILL CONTINUE TO ASSESS
--- NOTE | 2018-04-25 03:00 | NUR ---
REASSESSMENT COMPLETE, NO S/S OF DISTRESS NOTED, COMPLETE BED BATH AND LINEN CHANGE, ORAL/SKIN CARE COMPLETED, REPOSITIONED IN BED, HOB ELEVATED, HEELS FLOATED WITH PILLOWS, VSS WILL CONTINUE TO ASSESS
[2018-04-25 04:49] LABS: BASOPHILS 0.1 % (0-2); EOSINOPHILS 0 % (0-7); HEMATOCRIT 27.4 % (42.0-54.0); HEMOGLOBIN 8.7 g/dL (13.5-17.5); IMMATURE GRANULOCYTES 0.2 % (0-5); LYMPHOCYTES 7.2 % (15-50); MCH 26.6 pg (26.0-34.0); MCHC 31.8 g/dL (31.0-37.0); MEAN PLATELET VOLUME 9.4 fL (7.4-10.4); MONOCYTES 1.6 % (2-11); NEUTROPHILS 90.9 % (40-80); RBC 3.27 10x6/uL (4.20-6.10); WBC 16.1 10x3/uL (4.8-10.8)
[2018-04-25 05:00] LABS: MCV 83.8 fL (80.0-100.0); PLATELET COUNT 275 10x3/uL (130-400)
[2018-04-25 05:14] LABS: ALBUMIN 2.1 g/dL (3.4-5.0); BILIRUBIN - TOTAL 0.28 mg/dL (0.2-1.3); CALCIUM 7.9 mg/dL (8.5-10.1); CARBON DIOXIDE 24.4 mmol/L (21.0-32.0); CREATININE - SERUM 2.6 mg/dL (0.6-1.3); MAGNESIUM - SERUM 1.9 mg/dL (1.8-2.4); PROTEIN - SERUM 6.4 g/dL (6.4-8.2)
[2018-04-25 05:15] LABS: ANION GAP 16.5 mmol/L (8-16); POTASSIUM - SERUM 3.9 mmol/L (3.5-5.1)
--- NOTE | 2018-04-25 05:30 | NUR ---
JORDAN AT BEDSIDE, UNABE TO UPDATE D/T POA REQUEST, PT SEDATED ON VENT, VSS, WILL CONT TO ASSESS
--- NOTE | 2018-04-25 07:00 | NUR ---
REPORT RECIEVED, SHIFT ASSESSMENT COMPLETE, PT IS SEDATED ON VENT, REPOSITIONED FOR COMFORT, ORAL CARE PROVIDED, WILL CON'T TO MONITOR
--- NOTE | 2018-04-25 08:59 | NUR ---
SEDATION TURNED OFF AT THIS TIME,
--- NOTE | 2018-04-25 11:00 | NUR ---
REASSESSMENT COMPLETE, NO CHANGES NOTED, PT STILL CPAPING AT THIS TIME, ALL VSS, WILL CON'T TO MONITOR
--- NOTE | 2018-04-25 13:20 | NUR ---
PT EXTUBATED AT THIS TIME, ON 3L NC WITH 95% O2 SAT.
--- NOTE | 2018-04-25 15:00 | NUR ---
DR. KATE AT BEDSIDE, UPDATE GIVEN
--- NOTE | 2018-04-25 15:38 | NUR ---
DR. DAWKINS AT BEDSIDE, UPDATE GIVEN
--- NOTE | 2018-04-25 16:15 | NUR ---
14 FR DC DC'D AT THIS TIME, NEW 14FR DC PLACED AT THIS TIME, PT TOLERATED WELL
[2018-04-25 17:03] LABS: APPEARANCE CLEAR (CLEAR); BACTERIA MODERATE /hpf (NONE SEEN); BILIRUBIN NEGATIVE (NEGATIVE); COLOR YELLOW (YELLOW); GLUCOSE NEGATIVE (NEGATIVE); KETONE NEGATIVE (NEGATIVE); NITRITE NEGATIVE (NEGATIVE); PROTEIN TRACE mg/dL (NEGATIVE); RED CELLS - URINE OCC /hpf (0-5); SPECIFIC GRAVITY 1.015 (1.005-1.020); UROBILINOGEN NORMAL (NORMAL); WHITE CELLS - URINE OCC /hpf (0-5)
--- NOTE | 2018-04-25 17:15 | NUR ---
PT C/O PAIN, DR. HIDALGO NOTIFIED, NEW ORDERS RECIEVED
--- NOTE | 2018-04-25 19:51 | MORECARE ---
CASE MANAGEMENT DISCHARGE SUMMARY PATIENT: ANGEL SKAGGS UNIT: [id number] ADM DATE: 04/24/18 AGE: 67 : 49 SEX: M ROOM/BED: D.2305 AUTHOR: LUCINDA TENORIO PHYSICIAN: REFERRING PHYSICIAN: ANGEL KATE MD DATE OF SERVICE: 04/25/18 Discharge Plan Patient Name: ANGEL SKAGGS Facility: [facility]:[place] : 1950 Planned Disposition: Anticipated Discharge Date: Discharge Date: Expected LOS: Initial Reviewer: [email or web address] Initial Review Date: 04/25/2018 Generated: 04/25/18 8:51 pm Comments DCP- Discharge Planning Updated by [email or web address]: Adelaida Valdez on 04/25/18 6:[address] CM notified that patients family are requesting for patient to be transferred to . CM [phone]. She stated that she was [facility]. CM explained that insurance wouldn't pay for transfer since it isn't medically necessary for transfer. She agreed that she still wanted to check pricing. CM explained process of transfer of having to get an accepting physician. CM contacted [employer] [phone] and spoke with Shonda Martínez in business office received a quote from [facility] to [facility] for $1767.00. Shonda stated that the family would need to pay half up front then can pay out the rest. MARTHA spoke with Sandy and gave her the quote. Sandy was requesting a notary for POA to get patients wallet from patients girlfriend / fianc?e. MARTHA notified Medical Records but they only notarized medical papers. Sandy came back and spoke with CM that her brother would be here on to pay for patients transfer. Patient was extubated today so hopefully by he will be able to make his own decision on transfer. Family dynamic issues are noted. CM will continue to follow and assist as needed with discharge planning / needs. Patient Name: ANGEL SKAGGS Page [id number] at 1951 All edits/amendments must be made on the electronic document DICTATION DATE: 04/25/181950 SENIOR JAVA DEVELOPER: DAVID 04/25/181950 RPT#: [id number] DC DATE: STATUS: ADM IN [facility] [address] [place] [address] END OF REPORT
--- NOTE | 2018-04-25 20:20 | NUR ---
PT SON GLADYS AT BEDSIDE, UPDATE GIVEN, EXPLAINED PAIN CONTROL, PT AND SON VERBALIZED UNDERSTANDING, REPOSITIONED ON LEFT SIDE WITH PILLOWS, WARM BLANKET GIVEN, MEDS GIVEN PER MAR, VSS, WILL CONTINUE TO ASSESS
--- NOTE | 2018-04-25 23:54 | NUR ---
PT AGGITATED AND STATING HE IS IN PAIN, BUT WILL NOT ANSWER ANY QUESTIONS, WHEN ASKED IF HE WANTED TO BE REPOSITIONED PT STATED "NO, I WANT SOMETHING FOR PAIN" AFTER JUST RECEIVING PAIN MEDICATION PER MAR, INFORMED PT ABOUT MEDICATION, PT CONTINUES AGGITATION, VSS, WILL CONTINUE TO ASSESS
[2018-04-26] VITALS (24 sets, daily range): BP systolic 123–145; BP diastolic 52–67
--- NOTE | 2018-04-26 00:07 | NUR ---
PT YELLING FROM ROOM FOR HELP, PT ASKED WHAT HE NEEDS HELP WITH PT ONLY STATES PAIN AND WONT ANSWER ANY FURTHER QUESTIONS, PT RECEIVED PAIN MEDICATION RECENTLY PER MAR, INFORMED PT OF ONSET OF MEDICATION.
--- NOTE | 2018-04-26 00:50 | NUR ---
MICHELET Swan CALLED, PW OBTAINED, UPDATE GIVEN, NO FURTHER NEEDS AT THIS TIME
--- NOTE | 2018-04-26 01:01 | NUR ---
PT YELLING FOR HELP FROM ROOM, STATES HE NEEDS HELP WITH PAIN, PT DOESN'T ANSWER ANY OTHER QUESTIONS WHEN ASKED TO FURTHER ASSESS PAIN, PT GETS AGGITATED AND STATES HE JUST NEEDS HELP WITH PAIN, REPOSITIONED PT IN BED, INFORMED PT ABOUT PAIN MEDICATION, VSS
--- NOTE | 2018-04-26 01:17 | NUR ---
Patient yelling out "Help me", entered room to check on patient. Multiple attempts to question patient, eventually responds with "I'm hurting". Again attempted to discover location/severity of pain with multiple attempts, patient irritable and states hurting "all over". PRN Tramadol already given per EMAR, patient repositioned. Questioned patient multiple times regarding anything that helps relieve pain with no response, patient eventually yells angrily that "nothing helps". Tried again to discover methods of alleviating patient discomfort, patient refuses to respond to questions and turns away.
--- NOTE | 2018-04-26 02:59 | NUR ---
PT SHOUTING " SOMEONE HELP", WHEN ASKED WHAT PT NEEDS HELP WITH, PT GETS AGGITATED AND STATES " I NEED HELP WITH HELP", ASKED PT TO CLARIFY WHAT HE NEEDS HELP WITH HE RAISES VOICE AND STATES " IM IN PAIN", ASKED PT WHERE HE IS IN PAIN PT STATES "ALL OVER", PT DOESNT ANSWER OTHER QUESTIONS TO ASSESS PAIN JUST GETS AGGITATED AND SHAKES HEAD, REPOSITIONED IN BED, ELEVATED HOB, NO DECREASE IN PAIN, WILL CONTINUE TO ASSESS
--- NOTE | 2018-04-26 04:00 | NUR ---
PT FAMILY MICHELET Swan AT BEDSIDE, UPDATE GIVEN, NO OTHER NEEDS AT THIS TIME
--- NOTE | 2018-04-26 04:10 | NUR ---
DISCUSSED WITH FAMILY MEMBER ABOUT PT PAIN AND UNABLE TO GET INFORMATION FROM PT WITH MULTIPLE ATTEMPTS THROUGHOUT THE NIGHT, PT FAMILY MEMBER STATED SHE WILL ATTEMPT TO HELP WITH SITUATION
[2018-04-26 04:20] LABS: HEMATOCRIT 25.8 % (42.0-54.0); HEMOGLOBIN 8.4 g/dL (13.5-17.5); MCH 26.8 pg (26.0-34.0); MCHC 32.6 g/dL (31.0-37.0); MCV 82.4 fL (80.0-100.0); MEAN PLATELET VOLUME 9.2 fL (7.4-10.4); PLATELET COUNT 281 10x3/uL (130-400); RBC 3.13 10x6/uL (4.20-6.10); RDW 14.2 % (11.5-14.5)
[2018-04-26 04:21] LABS: ANION GAP 17.4 mmol/L (8-16); BILIRUBIN - TOTAL 0.27 mg/dL (0.2-1.3); CALCIUM 7.7 mg/dL (8.5-10.1); CARBON DIOXIDE 22.1 mmol/L (21.0-32.0); CREATININE - SERUM 2.3 mg/dL (0.6-1.3); PHOSPHOROUS 2.7 mg/dL (2.5-4.9); POTASSIUM - SERUM 3.5 mmol/L (3.5-5.1); PROTEIN - SERUM 6.2 g/dL (6.4-8.2)
--- NOTE | 2018-04-26 04:30 | NUR ---
FAMILY MEMBER STATED SHE WAS UNABLE TO GATHER ANY INFORMATION FROM PT R/T PAIN, FAMILY MEMBER STATED SHE WAS GETTING SAME RESPONSE FROM PT; THAT HE IS IN PAIN BUT WONT STATE ANY FURTHER ABOUT PAIN QUALITY OR LOCATION, WILL CONTINUE TO ASSESS, FAMILY MEMBER AWARE OF SITUATION
[2018-04-26 04:49] LABS: LYMPHOCYTES 9 % (15-50); MONOCYTES 1 % (2-11); NEUTROPHILS 89 % (40-80); PLATELET ESTIMATE NORMAL
--- NOTE | 2018-04-26 04:54 | NUR ---
PT CONTINUES TO C/O OF GENERALIZED PAIN, AGGITATED AND DOESNT GIVE ANY FURTHER INFORMATION ABOUT LOCATION OR PAIN DESCRIPTION, PT SELF REPOSITIONED TO LEFT SIDE, WHEN ASKED IF IT HELPED PAIN, PT ELEVATED VOICE AND STATED "MAN, NO IM HURTING", VSS, WILL CONTINUE TO ASSESS AND NOTIFY ONCOMING RN OF SITUATION
--- NOTE | 2018-04-26 05:15 | NUR ---
REPLACED DRSG ON RT UPPER SHOULDER, WOUND PINK WITH LIGHT CLEAR EXUDATE NOTED, CLEANED WOUND WITH SALINE FLUSH DAMPENED GAUZE, DRIED SITE AND PLACED NON-ADHEARANT GAUZE OVER WOUND, WITH ABD PAD COVERING GAUZE OVER SITE SECURED ON SIDES WITH MEDIPORE TAPE, DATE AND TIMEED NEW DRSG, PT TOLLERATED PROCEDURE, WILL DISCUSS WITH ONCOMING RN R/T WOUNDS, PT VSS, WILL CONTINUE TO ASSESS
--- NOTE | 2018-04-26 09:00 | NUR ---
RESTING QUIETLY AT THIS TIME---SEE GRAPHIC
--- NOTE | 2018-04-26 13:00 | NUR ---
WATCHING TV AT THIS TIME ---SEE GRAPHIC
--- NOTE | 2018-04-26 16:44 | MORECARE ---
CASE MANAGEMENT DISCHARGE SUMMARY PATIENT: ANGEL SKAGGS UNIT: [id number] ADM DATE: 04/24/18 AGE: 67 : 49 SEX: M ROOM/BED: D.2305 AUTHOR: JONA,DOC PHYSICIAN: REFERRING PHYSICIAN: ANGEL KATE MD DATE OF SERVICE: 04/26/18 Discharge Plan Patient Name: ANGEL SKAGGS Facility: [facility]:[place] : 1950 Planned Disposition: Anticipated Discharge Date: Discharge Date: Expected LOS: Initial Reviewer: [email or web address] Initial Review Date: 04/25/2018 Generated: 04/26/18 5:43 pm Comments DCP- Discharge Planning Updated by [email or web address]: Adelaida Valdez on 04/25/18 6:[address] CM notified that patients family are requesting for patient to be transferred to . CM spoke with daughter Sandy [facility] [phone]. She stated that she was wanting patient transferred to [facility] or [facility]. CM explained that insurance wouldn't pay for transfer since it isn't medically necessary for transfer. She agreed that she still wanted to check pricing. CM explained process of transfer of having to get an accepting physician. CM contacted [employer] [phone] and spoke with Shonda Martínez in business office received a quote from [facility] to [facility] for $1767.00. Shonda stated that the family would need to pay half up front then can pay out the rest. MARTHA spoke with Sandy and gave her the quote. Sandy was requesting a notary for POA to get patients wallet from patients girlfriend / fianc?e. MARTHA notified Medical Records but they only notarized medical papers. Sandy came back and spoke with CM that her brother would be here on to pay for patients transfer. Patient was extubated today so hopefully by he will be able to make his own decision on transfer. Family dynamic issues are noted. CM will continue to follow and assist as needed with discharge planning / needs. Last DP export: 04/25/18 6:51 p Patient Name: ANGEL SKAGGS Page [id number] at 1644 All edits/amendments must be made on the electronic document DICTATION DATE: 04/26/181642 CEO NA: DAVID 04/26/181642 RPT#: [id number] DC DATE: STATUS: ADM IN [facility] [address] [place] [address] END OF REPORT
--- NOTE | 2018-04-26 16:55 | MORECARE ---
CASE MANAGEMENT DISCHARGE SUMMARY PATIENT: ANGEL SKAGGS UNIT: [id number] ADM DATE: 04/24/18 AGE: 67 : 49 SEX: M ROOM/BED: D.2305 AUTHOR: JONA,DOC PHYSICIAN: REFERRING PHYSICIAN: ANGEL KATE MD DATE OF SERVICE: 04/26/18 Discharge Plan Patient Name: ANGEL SKAGGS Facility: [facility]:[place] : 1950 Planned Disposition: Anticipated Discharge Date: Discharge Date: Expected LOS: Initial Reviewer: [email or web address] Initial Review Date: 04/25/2018 Generated: 04/26/18 5:55 pm Comments DCP- Discharge Planning Updated by [email or web address]: Adelaida Valdez on 04/25/18 6:[address] CM notified that patients family are requesting for patient to be transferred to . CM spoke with daughter Isela Mosqueda [facility] [phone]. She stated that she was wanting patient transferred to [facility] or [facility]. CM explained that insurance wouldn't pay for transfer since it isn't medically necessary for transfer. She agreed that she still wanted to check pricing. CM explained process of transfer of having to get an accepting physician. CM contacted [employer] [phone] and spoke with Shonda Martínez in business office received a quote from [facility] to [facility] for $1767.00. Shonda stated that the family would need to pay half up front then can pay out the rest. MARTHA spoke with Isela and gave her the quote. Isela was requesting a notary for POA to get patients wallet from patients girlfriend / fianc?e. MARTHA notified Medical Records but they only notarized medical papers. Isela came back and spoke with CM that her brother would be here on to pay for patients transfer. Patient was extubated today so hopefully by he will be able to make his own decision on transfer. Family dynamic issues are noted. CM will continue to follow and assist as needed with discharge planning / needs. DCPIA - Discharge Planning Initial Assessment Updated by [email or web address]: Adelaida Valdez on 04/26/18 4:45 pm * Is the patient Alert and Oriented? Yes * How many steps to enter\exit or inside your home? * PCP [facility] * Pharmacy [facility] * Preadmission Environment Acute Inpatient Rehab * Facility Name [facility] * ADLs Partial Dependent * Equipment None * List name and contact numbers for known caregivers / representatives who currently or will assist patient after discharge: GAURI SPENCE [facility] [phone] ISELA MOSQUEDA - [facility]- [phone] * Verbal permission to speak to the caregivers and representatives has been obtained from the patient. Yes * Community resources currently utilized Home Health * Please name any agencies selected above. HOME HEALTH CARE per patient * Additional services required to return to the preadmission environment? No * Can the patient safely return to the preadmission environment? Yes * Has this patient been hospitalized within the prior 30 days at any hospital? Yes Last DP export: 04/26/18 3:44 p Patient Name: ANGEL SKAGGS Page 48390 at 1655 All edits/amendments must be made on the electronic document DICTATION DATE: 04/26/181653 NITROGLYCERIN NITRATOR OPERATOR BATCH: DAVID 04/26/181653 RPT#: [id number] DC DATE: STATUS: ADM IN [facility] [address] [place] [address] END OF REPORT
--- NOTE | 2018-04-26 17:00 | NUR ---
SON AT ----NO COMPLAINTS VERBAL
--- NOTE | 2018-04-26 17:05 | MORECARE ---
CASE MANAGEMENT DISCHARGE SUMMARY PATIENT: ANGEL SKAGGS UNIT: [id number] ADM DATE: 04/24/18 AGE: 67 : 49 SEX: M ROOM/BED: D.2305 AUTHOR: JONA,DOC PHYSICIAN: REFERRING PHYSICIAN: ANGEL KATE MD DATE OF SERVICE: 04/26/18 Discharge Plan Patient Name: ANGEL SKAGGS Facility: [facility]:[place] : 1950 Planned Disposition: Anticipated Discharge Date: Discharge Date: Expected LOS: Initial Reviewer: [email or web address] Initial Review Date: 04/25/2018 Generated: 04/26/18 6:04 pm Comments DCP- Discharge Planning Updated by [email or web address]: Adelaida Valdez on 04/26/18 3:[address] Patient Name: ANGEL SKAGGS Admission Status: Elective Accout number: [id number] Admission Date: 04-24-2018 : 1950 Admission Diagnosis: Attending: ANGEL KATE Current LOS: 2 Anticipated DC Date: Planned Disposition: Primary Insurance: MEDICARE A & B Discharge Planning Comments: CM spoke with patient at bedside. Patient states that prior to his recent hospitalization he lived at home with his fianc?e. He plans to return there eventually. He states he knows he needs to get stronger. CM asked patient if he was wanting to be transferred to [place]. He first stated "No" then CM explained that his daughter was requesting for him to transfer to be closer to her. He then stated " if that's what she wants then I guess I will go." CM explained that it was going to probably be before transfer. Patient states that he did have Home Health Care but couldn't give providers name. CM will continue to follow and assist as needed with discharge planning / needs. Chef German: Adelaida Valdez DCP- Discharge Planning Updated by [id number]: Adelaida Valdez on 04/25/18 6:[address] CM notified that patients family are requesting for patient to be transferred to . CM [facility] with [facility] [phone]. She stated that she was wanting patient transferred to [facility] or [facility]. CM explained that insurance wouldn't pay for transfer since it isn't medically necessary for transfer. She agreed that she still wanted CM to check pricing. CM explained process of transfer of having to get an accepting physician. CM contacted [employer] [phone] and spoke with Shonda Casanovaman in business office received a quote from [facility] to [facility] for $1767.00. Shonda stated that the family would need to pay half up front then can pay out the rest. MARTHA spoke with Isela and gave her the quote. Isela was requesting a notary for POA to get patients wallet from patients girlfriend / fianc?e. MARTHA notified Medical Records but they only notarized medical papers. Isela came back and spoke with CM that her brother would be here on to pay for patients transfer. Patient was extubated today so hopefully by he will be able to make his own decision on transfer. Family dynamic issues are noted. CM will continue to follow and assist as needed with discharge planning / needs. DCPIA - Discharge Planning Initial Assessment Updated by [id number]: Adelaida Valdez on 04/26/18 4:45 pm * Is the patient Alert and Oriented? Yes * How many steps to enter\\exit or inside your home? * [facility] * Pharmacy [facility] * Preadmission Environment Acute Inpatient Rehab * Facility Name [facility] * ADLs Partial Dependent * Equipment None * List name and contact numbers for known caregivers / representatives who currently or will assist patient after discharge: GAURI SPENCE MAXIMILIANO [phone] ISELA MOSQUEDA - [facility]- [phone] * Verbal permission to speak to the caregivers and representatives has been obtained from the patient. Yes * Community resources currently utilized Home Health * Please name any agencies selected above. HOME HEALTH CARE per patient * Additional services required to return to the preadmission environment? No * Can the patient safely return to the preadmission environment? Yes * Has this patient been hospitalized within the prior 30 days at any hospital? Yes Last DP export: 04/26/18 3:55 p Patient Name: ANGEL SKAGGS Page 00197 at 1705 All edits/amendments must be made on the electronic document DICTATION DATE: 04/26/181703 THERAPIST RADIATION: DAVID 04/26/181703 RPT#: [id number] [place] DATE: STATUS: ADM IN [facility] [address] [place] [address] END OF REPORT
[2018-04-26 17:11] LABS: ACID FAST SMEAR Negative (()); AFB SPECIMEN PROCESSING Concentration (())
--- NOTE | 2018-04-26 19:00 | NUR ---
REPORT RECEIVED, ASSESSMENT COMPLETED PER FLOW SHEET, PT IN NO ACUTE DISTRESS, DENIES NEEDS AT THIS TIME, RESPIRATORY GIVING Tx, PT AWAKE AND ALERT SITTING UP IN BED, 20g PIV IN RT HAND INFUSING MEDS PER MAR, PPP, VSS, WILL CONTINUE TO ASSESS
--- NOTE | 2018-04-26 19:15 | NUR ---
JORDAN CALLED, NO PASSWORD GIVEN BY CALLER, JORDAN WANTED NURSE TO TELL PT THAT SHE CALLED "BECAUSE THAT WOULD MAKE KATHERINE FEEL BETTER"
--- NOTE | 2018-04-26 20:42 | NUR ---
PAGED R/T PT PAIN CONTROL WITH ULTRAM, ANSWERING SERVICE STATED IS ON-CALL PHYSICIAN ELIZABETH
--- NOTE | 2018-04-26 20:50 | NUR ---
CALLED ICU, UPDATE ON PT GIVEN, INFORMED OF PAIN CONTROL WITH ULTRAM NOT CONTROLLING PAIN, ORDERS RECEIVED TO RESTART HOME PAIN MEDICATION, NO OTHER NEEDS AT THIS TIME
--- NOTE | 2018-04-26 23:00 | NUR ---
REASSESSMENT COMPLETED PER FLOW SHEET, NO ACUTE CHANGES NOTED, PT RESTING WITH EYES CLOSED, VSS, WILL CONTINUE TO ASSESS
[2018-04-27] VITALS (19 sets, daily range): BP systolic 116–146; BP diastolic 61–95
--- NOTE | 2018-04-27 01:00 | NUR ---
PT SLEEPING, NO S/S OF ACUTE DISTRESS, VSS, REPOSITIONED FOR COMFORT, WILL CONTINUE TO ASSESS
[2018-04-27 03:50] LABS: BASOPHILS 0 % (0-2); EOSINOPHILS 0 % (0-7); HEMATOCRIT 25.7 % (42.0-54.0); HEMOGLOBIN 8.2 g/dL (13.5-17.5); IMMATURE GRANULOCYTES 0.3 % (0-5); LYMPHOCYTES 4.5 % (15-50); MCH 26.5 pg (26.0-34.0); MCHC 31.9 g/dL (31.0-37.0); MCV 82.9 fL (80.0-100.0); MEAN PLATELET VOLUME 9.3 fL (7.4-10.4); MONOCYTES 2.2 % (2-11); PLATELET COUNT 247 10x3/uL (130-400); RDW 14.3 % (11.5-14.5); WBC 17.8 10x3/uL (4.8-10.8)
[2018-04-27 04:36] LABS: % SATURATION 56 % (15-55); IRON 82 ug/dl (35-150); TOTAL IRON BIND CAPACITY 144 ug/dl (260-445); UNSAT IRON BIND CAPACITY 62 ug/dl (150-375)
--- NOTE | 2018-04-27 04:40 | NUR ---
PT FAMILY MEMBER AT BEDSIDE, UPDATE GIVEN, NO FURTHER NEEDS, PT AWAKE AND ALERT, VSS WILL CONTINUE TO MONITOR
[2018-04-27 04:49] LABS: ALBUMIN 2.1 g/dL (3.4-5.0); ANION GAP 14.2 mmol/L (8-16); BILIRUBIN - TOTAL 0.25 mg/dL (0.2-1.3); CALCIUM 7.5 mg/dL (8.5-10.1); CARBON DIOXIDE 23.6 mmol/L (21.0-32.0); CREATININE - SERUM 1.9 mg/dL (0.6-1.3); MAGNESIUM - SERUM 2.1 mg/dL (1.8-2.4); POTASSIUM - SERUM 3.8 mmol/L (3.5-5.1); PROTEIN - SERUM 6.1 g/dL (6.4-8.2)
--- NOTE | 2018-04-27 09:00 | NUR ---
PT ALERT & O X 3 -----REQUEST FOR GIRLFRIEND TO VISIT & BRING HIS CELL PHONE
--- NOTE | 2018-04-27 10:25 | NUR ---
GIRLFRIEND AT BS NO COMPLAINTS VERBAL
--- NOTE | 2018-04-27 10:56 | NUR ---
APS NOW AT BS VISITING WITH PATIENT
--- NOTE | 2018-04-27 13:00 | NUR ---
DR KATE @ -----GIRLFRIEND AT
--- NOTE | 2018-04-27 13:03 | NUR ---
Nutrition follow-up: Diet: ADA pureed PO intake 50-75% of meals Labs reviewed; glucose elevated +BM Pt to tx to [facility] 04/28 RDN following.
--- NOTE | 2018-04-27 14:40 | MORECARE ---
CASE MANAGEMENT DISCHARGE SUMMARY PATIENT: ANGEL SKAGGS UNIT: [id number] ADM DATE: 04/24/18 AGE: 67 : 49 SEX: M ROOM/BED: D.2305 AUTHOR: JONA,DOC PHYSICIAN: REFERRING PHYSICIAN: ANGEL KATE MD DATE OF SERVICE: 04/27/18 Discharge Plan Patient Name: ANGEL SKAGGS Facility: [facility]:[place] : 1950 Planned Disposition: Anticipated Discharge Date: Discharge Date: Expected LOS: Initial Reviewer: [id number] Initial Review Date: 04/25/2018 Generated: 04/27/18 3:39 pm Comments DCP- Discharge Planning Updated by [email or web address]: Adelaida Valdez on 04/26/18 3:[address] Patient Name: ANGEL SKAGGS Admission Status: Elective Accout number: [id number] Admission Date: 04-24-2018 : 1950 Admission Diagnosis: Attending: ANGEL KATE Current LOS: 2 Anticipated DC Date: Planned Disposition: Primary Insurance: MEDICARE A & B Discharge Planning Comments: CM spoke with patient at bedside. Patient states that prior to his recent hospitalization he lived at home with his fianc?e. He plans to return there eventually. He states he knows he needs to get stronger. CM asked patient if he was wanting to be transferred to [place]. He first stated "No" then CM explained that his daughter was requesting for him to transfer to be closer to her. He then stated " if that's what she wants then I guess I will go." CM explained that it was going to probably be before transfer. Patient states that he did have Home Health Care but couldn't give providers name. CM will continue to follow and assist as needed with discharge planning / needs. Asp Net Mvc Developer: Adelaida Valdez DCP- Discharge Planning Updated by [id number]: Adelaida Valdez on 04/25/18 6:[address] CM notified that patients family are requesting for patient to be transferred to . CM spoke with [facility] [phone]. She stated that she was wanting patient transferred to [facility] or [facility]. CM explained that insurance wouldn't pay for transfer since it isn't medically necessary for transfer. She agreed that she still wanted CM to check pricing. CM explained process of transfer of having to get an accepting physician. CM contacted [employer] [phone] and spoke with Shonda Casanovaman in business office received a quote from [facility] [place] to [facility] for $1767.00. Shonda stated that the family would need to pay half up front then can pay out the rest. MARTHA spoke with Isela and gave her the quote. Isela was requesting a notary for POA to get patients wallet from patients girlfriend / fianc?e. MARTHA notified Medical Records but they only notarized medical papers. Isela came back and spoke with CM that her brother would be here on to pay for patients transfer. Patient was extubated today so hopefully by he will be able to make his own decision on transfer. Family dynamic issues are noted. CM will continue to follow and assist as needed with discharge planning / needs. DCPIA - Discharge Planning Initial Assessment Updated by [id number]: Adelaida Valdez on 04/26/18 4:45 pm * Is the patient Alert and Oriented? Yes * How many steps to enter\\exit or inside your home? * PCP [facility] * Pharmacy [facility] * Preadmission Environment Acute Inpatient Rehab * Facility Name [facility] [place] * ADLs Partial Dependent * Equipment None * List name and contact numbers for known caregivers / representatives who currently or will assist patient after discharge: GAURI SPENCE MAXIMILIANO - [phone] ISELA MOSQUEDA - [facility]- [phone] * Verbal permission to speak to the caregivers and representatives has been obtained from the patient. Yes * Community resources currently utilized Home Health * Please name any agencies selected above. HOME HEALTH CARE per patient * Additional services required to return to the preadmission environment? No * Can the patient safely return to the preadmission environment? Yes * Has this patient been hospitalized within the prior 30 days at any hospital? Yes External Providers External Provider: [facility] Next Contact Date: Service Request Date: Service Type: Resolution: Reviewer: Comments: Last DP export: 04/26/18 4:05 p Patient Name: ANGEL SKAGGS Page [phone] at 1440 All edits/amendments must be made on the electronic document DICTATION DATE: 04/27/181438 BRIM RAISER: DAVID 04/27/18 143 RPT#: [id number] DC DATE: STATUS: ADM IN [facility] [address] [place] [address] END OF REPORT
--- NOTE | 2018-04-27 15:05 | MORECARE ---
CASE MANAGEMENT DISCHARGE SUMMARY PATIENT: ANGEL SKAGGS UNIT: [id number] ADM DATE: 04/24/18 AGE: 67 : 49 SEX: M ROOM/BED: D.2305 AUTHOR: JONA,DOC PHYSICIAN: REFERRING PHYSICIAN: ANGEL KATE MD DATE OF SERVICE: 04/27/18 Discharge Plan Patient Name: ANGEL SKAGGS Facility: [facility]:[place] : 1950 Planned Disposition: Anticipated Discharge Date: Discharge Date: Expected LOS: Initial Reviewer: [email or web address] Initial Review Date: 04/25/2018 Generated: 04/27/18 4:04 pm Comments DCP- Discharge Planning Updated by [id number]: Adelaida Valdez on 04/27/18 1:[address] CM spoke with Dr. Kate regarding transfer. Dr. Kate stated that patient was alright for patient to transfer to to an acute floor bed and that it would be alright for him to transfer by private vehicle with portable 02. CM spoke with patient he still agrees to transfer. Patient's oxygen saturation is 98% at room air. He will not qualify for portable 02. CM called transfer center and faxed records to find placement. Family is requesting [facility] in preferably but any hospital in except [place]. will be alright. CM conveyed this request to transfer center. CM awaiting to hear back from transfer center on placement acceptance. CM will continue to follow and assist as needed with discharge planning / needs. DCP- Discharge Planning Updated by [id number]: Adelaida Valdez on 04/26/18 3:[address] Patient Name: ANGEL SKAGGS Admission Status: Elective Accout number: [id number] Admission Date: 04-24-2018 : 1950 Admission Diagnosis: Attending: ANGEL KATE Current LOS: 2 Anticipated DC Date: Planned Disposition: Primary Insurance: MEDICARE A & B Discharge Planning Comments: CM spoke with patient at bedside. Patient states that prior to his recent hospitalization he lived at home with his fianc?e. He plans to return there eventually. He states he knows he needs to get stronger. CM asked patient if he was wanting to be transferred to [place]. He first stated "No" then CM explained that his daughter was requesting for him to transfer to be closer to her. He then stated " if that's what she wants then I guess I will go." CM explained that it was going to probably be before transfer. Patient states that he did have Home Health Care but couldn't give providers name. CM will continue to follow and assist as needed with discharge planning / needs. Rfid Systems Architect: Adelaida Valdez DCP- Discharge Planning Updated by [id number]: Adelaida Valdez on 04/25/18 6:[address] CM notified that patients family are requesting for patient to be transferred to . CM spoke with daughter Isela Mo POA [phone]. She stated that she was wanting patient transferred to [facility] or [facility]. CM explained that insurance wouldn't pay for transfer since it isn't medically necessary for transfer. She agreed that she still wanted CM to check pricing. CM explained process of transfer of having to get an accepting physician. CM contacted [employer] [phone] and spoke with Shonda Martínez in business office received a quote from [facility] to [facility] for $1767.00. Shonda stated that the family would need to pay half up front then can pay out the rest. CM spoke with Isela and gave her the quote. Isela was requesting a notary for POA to get patients wallet from patients girlfriend / fianc?e. CM notified Medical Records but they only notarized medical papers. Isela came back and spoke with CM that her brother would be here on to pay for patients transfer. Patient was extubated today so hopefully by he will be able to make his own decision on transfer. Family dynamic issues are noted. CM will continue to follow and assist as needed with discharge planning / needs. DCPIA - Discharge Planning Initial Assessment Updated by [id number]: Adelaida Valdez on 04/26/18 4:45 pm * Is the patient Alert and Oriented? Yes * How many steps to enter\\exit or inside your home? * PCP [facility] * Pharmacy [facility] * Preadmission Environment Acute Inpatient Rehab * Facility Name [facility] * ADLs Partial Dependent * Equipment None * List name and contact numbers for known caregivers / representatives who currently or will assist patient after discharge: GAURI SPENCE [facility] [phone] ISELA MOSQUEDA - [facility]- [phone] * Verbal permission to speak to the caregivers and representatives has been obtained from the patient. Yes * Community resources currently utilized Home Health * Please name any agencies selected above. HOME HEALTH CARE per patient * Additional services required to return to the preadmission environment? No * Can the patient safely return to the preadmission environment? Yes * Has this patient been hospitalized within the prior 30 days at any hospital? Yes Last DP export: 04/27/18 1:39 p Patient Name: ANGEL SKAGGS Page [phone] at 1505 All edits/amendments must be made on the electronic document DICTATION DATE: 04/27/18 1504 PICTURE FRAME MAKER: DAVID 04/27/18 1504 RPT#: [id number] DC DATE: STATUS: ADM IN [facility] [address] [place] [address] END OF REPORT
[2018-04-27 15:19] LABS: FUNGUS STAIN Final report (())
--- NOTE | 2018-04-27 17:00 | NUR ---
AT 45 DEGREES IN BED EATEN DINNER --NO SWALLOWING DIFFICULTS NOTED
--- NOTE | 2018-04-27 19:48 | NUR ---
REPORT RECEIVED. PT WITH EYES OPEN WATCHING TV. ALERT AND ORIENTED. NO S/S/ OF DISTRESS. NO NEEDS MADE KNOWN. CALL LIGHT IN REACH. WILL CONTINUE TO OBSERVE.
--- NOTE | 2018-04-27 20:27 | NUR ---
DAUGHTER AND SON AT BEDSIDE. DAUGHTER REQEST ORANGE JUICE AND RECEIVED. WILL CONTINUE TO OBSERVE.
--- NOTE | 2018-04-27 21:25 | NUR ---
SON HAS LEFT UNIT. GIRLFRIEND NOT DAUGHTER REMAINS AT BEDSIDE. WILL CONTINUE TO OBSERVE.
--- NOTE | 2018-04-27 22:32 | NUR ---
GIRLFRIEND HAS JUST LEFT UNIT. PT RESTING. WILL CONTINUE TO OBSERVE.
--- NOTE | 2018-04-27 23:58 | NUR ---
PT WITH EYES CLOSED AND CHEST RISING. NO S/S OF DISTRESS. WILL CONTINUE TO OBSERVE.
[2018-04-28] VITALS (10 sets, daily range): BP systolic 131–152; BP diastolic 50–71
--- NOTE | 2018-04-28 01:52 | NUR ---
PT RESTING WITH EYES CLOSED AND CHEST RISING. NO S/S OF DISTRESS. CALL LIGHT IN REACH. WILL CONTINUE TO OBSERVE.
--- NOTE | 2018-04-28 03:55 | NUR ---
PT WITH EYES OPEN WATCHING TV. NO NEEDS MADE KNOWN. CALL LIGHT IN REACH. WILL CONTINUE TO OBSERVE.
[2018-04-28 04:44] LABS: BASOPHILS 0.1 % (0-2); EOSINOPHILS 0 % (0-7); HEMATOCRIT 25.3 % (42.0-54.0); HEMOGLOBIN 8.2 g/dL (13.5-17.5); IMMATURE GRANULOCYTES 0.7 % (0-5); LYMPHOCYTES 6.5 % (15-50); MCH 26.7 pg (26.0-34.0); MCHC 32.4 g/dL (31.0-37.0); MCV 82.4 fL (80.0-100.0); MEAN PLATELET VOLUME 9.1 fL (7.4-10.4); MONOCYTES 4.6 % (2-11); NEUTROPHILS 88.1 % (40-80); PLATELET COUNT 244 10x3/uL (130-400); RBC 3.07 10x6/uL (4.20-6.10); RDW 14.4 % (11.5-14.5); WBC 16.2 10x3/uL (4.8-10.8)
[2018-04-28 04:59] LABS: ALBUMIN 2.1 g/dL (3.4-5.0); ANION GAP 12.7 mmol/L (8-16); BILIRUBIN - TOTAL 0.17 mg/dL (0.2-1.3); CALCIUM 7.7 mg/dL (8.5-10.1); CARBON DIOXIDE 23.3 mmol/L (21.0-32.0); CREATININE - SERUM 1.8 mg/dL (0.6-1.3); MAGNESIUM - SERUM 2.1 mg/dL (1.8-2.4); PROTEIN - SERUM 5.7 g/dL (6.4-8.2)
--- NOTE | 2018-04-28 06:49 | NUR ---
TRANSFER CENTER CALLED AND RECEIVED UPDATE ON PT VS, WEIGHT, AND TYPE OF BED. WILL UPDATE ON STATUS ON BED OPENINGS.
--- NOTE | 2018-04-28 07:00 | NUR ---
PATIENT RESTING IN BED C CALL BACA IN REACH. NO COMPLAINTS. VSS.
--- NOTE | 2018-04-28 09:30 | NUR ---
ASSISTED PATIENT ONTO BED FRANCIS FOR BM. PT HAD MEDIUM SIZED LIGHT COLORED BM. NURSE CLEANED AND CHANGED. CHANGED DRESSING TO COCCYX. CHANGED PADS UNDERNEATH AND PULLED UP IN BED. TURNED TO LEFT SIDE. CALL BACA IN REACH. FIANCE IN ROOM.
--- NOTE | 2018-04-28 11:15 | NUR ---
TURNED PATIENT BACK TO LEFT SIDE. RECEIVING BREATH TREATMENT PER RT. VSS. WILL CONTINUE TO MONITOR
--- NOTE | 2018-04-28 13:05 | NUR ---
PATIENT RESTING IN BED C CALL BACA IN REACH. VSS. NO COMPLAINTS.
--- NOTE | 2018-04-28 15:01 | NUR ---
PATIENT IN BED, ALERT TALKING ON PHONE AND WATCHING TV. DENIES PAIN NO DISTRESS. MONITOR SR. IV RIGHT HAND WITHOUT REDNESS OR SWELLING INFUSING WITH NS AT KVO. DC CATH DRAINING CLEAR YELLOW URINE. HEAD OF BED ELEVATED 30 DEGREES.
--- NOTE | 2018-04-28 17:11 | NUR ---
TALKED WITH [place] [facility]ER[facility] STATES [facility] CAN HAVE A REGULAR DIABETIC DIET, IMPROVED ON SWALLOW EVAL TODAY. NO LONGER REQUIRES A PUREE DIET. DIETARY NOTIFIED OF NEW ORDERS.
--- NOTE | 2018-04-28 19:00 | NUR ---
ASSESSMENT COMPLETED. SEE FLOWSHEETS FOR ALL FINDINGS. PT A/O X4,DENIES ANY DISCOMFORT AT THIS TIME. SR ON CM WITH HR AT 98BPM, LUNG SOUNDS CRACKLES/ WHEEZING TO ULB WITH DIMINISHED TO LLB, UNLABORED. RT PIV INTACT, CLEAN AND DRY, INFUSING NS AT KVO, NO S/S OF IRRITATION OR REDNESS NOTED. DC INTACT TO GRAVITY WITH CL/Y DRAINAGE TO BAG. PPP. CALL LIGHT IN REACH. CONT TO MONITOR.
--- NOTE | 2018-04-28 19:00 | NUR ---
ASSESSMENT COMPLETED PER FLOW SHEETS, PT SEDATED ON VENT, OPENS EYES WITH VOICES, SR ON CM WITH HR AT 93BPM, LUNG SOUNDS CRACKLES TO ULB WITH DIMINISHED TO LLB,UNLABORED. OGT IN PLACE, VERIFIED BY AIR BOLUS. 30CC RESIDUAL NOTED. LEFT UA PICC LINE INTACT INFUSING IV FLUIDS PER ORDER VIA PUMP. DC INTACT TO GRAVITY WITH YELLOW DRAINAGE TO BAG. PPP. REPOSITIONED FOR COMFORT. CPOC
--- NOTE | 2018-04-28 20:00 | NUR ---
ASSSITED WITH BEDPAN. LARGE SOFT STOOL RESULTED. DC AND PERICARE PROVIDED. SKIN CARE DONE. BUTTOM DRESSING CHANGED, PRESSURE ULCER ASSESS. NO DRAINGE NOTED. LINEN CHANGED. REPOSIIIONED FOR COMFORT. CALL LIGHT IN REACH. CONT TO MONITOR.
--- NOTE | 2018-04-28 21:00 | NUR ---
FAMILY AT BEDSIDE. UPDATED.
--- NOTE | 2018-04-28 23:00 | NUR ---
PT RESTING QUIETLY WITHOUT DISTRESS. VSS. NO NEEDS VOICES. CALL LIGHT IN REACH. CONT TO MONITOR.
--- NOTE | 2018-04-28 23:00 | NUR ---
REASSESSMENT COMPLETED PER FLOWSHEETS. PT SEDATED ON VENT OPEN EYES WITH VOICES, NO ACUTE CHANGED NOTED IN PT'S CONDITION. VSS. CPOC
--- NOTE | 2018-04-29 00:36 | NUR ---
PT ARRIVED IN ROOM 1208, PT IS AAO, 2L O2 NC. DC CATH NOTED WITH CLEAR YELLOW URINE. PT HAS A 20G RIGHT HAND NS KVO, PT ON A 1ST STEP OVERLAY BED, HAS A DRSG ON RIGHT SHOULDER CDI CHANGED THIS SHIFT. PT HAS A PRESSURE SORE ON BUTTOCK, NURSE TAKING PT HAS NOT OBSERVED, BUT NURSE GIVING PT FROM ICU STATES IT IS A STAGE 3, A MEPILEX IS ON IT, NO SORES ON HEELS, ELEVATED HEELS. TURNED PT TO THE RIGHT SIDE FOR SKIN CARE/WOUND CARE. PT DENIES ANY NEEDS. CALLED FAMILY TO UPDATE ON TRANSFER. PT HAS CALL LIGHT IN REACH. NAME AND DATE PLACED ON BOARD. PT WILL CALL FOR ASSIST WHEN NEEDED WILL CPOC
--- NOTE | 2018-04-29 01:00 | NUR ---
PT RESTING ON VENT WITHOUT DISTRESS. CONT SEDATION FOR PT'S COMFORT. VSS.
--- NOTE | 2018-04-29 03:33 | NUR ---
PT ROLLED TO LAY ON LEFT SIDE WITHOUT ASSIST. PT AROUSES TO VERBAL STIMULI, DENIES ANY NEEDS. NO S/S OF DISTRESS. 2L O2 NC. BEDLOW CALL LIGHT IN REACH. WILL CPOC
--- NOTE | 2018-04-29 04:38 | NUR ---
SISTER CAME TO VISIT PT, PT RESTING IN BED. PT DENIES ANY NEEDS. STATES HE IS GOING BACK TO BED. PT REPOSITIONED SELF IN BED. NO S/S OF DISTRESS. WILL CPOC
--- NOTE | 2018-04-29 06:30 | NUR ---
MORNING MEDS GIVEN. PT FSBS IS 112, NO INSULIN NEEDED. PT DENIES ANY NEEDS., NO S/S OF DISTESS. 2L O2 NC. PT WILL CALL FOR ASSIST WHEN NEEDED. WILL CPOC
--- NOTE | 2018-04-29 08:00 | NUR ---
REQUESTED DIFFERENT BREAKFAST TRAY. REQUEST SENT TO KITCHEN. REPOSITIONED IN BED FOR COMFORT. OVERLAY INFLATED WELL.
[2018-04-29 08:03] VITALS: BP 138/52
--- NOTE | 2018-04-29 08:10 | NUR ---
PT LAYING IN BED THIS AM. PT ON A 1ST STEP OVERLAY HOWEVER IT WAS DEFLATED THIS AM. 1ST STEP OVERLAY REINFLATED THIS AM. PT SITTING UP IN BED EATING BREAKFAST. RESPIRATIONS EVEN AND UNLABORED, NO S/S OF DISTRESS NOTED, PT ON 2L O2 VIA NC. RIGHT POSTERIOR SHOULDER DRESSING NOTED. MEPILEX TO BUTTOCKS, DRESSINGS ARE BOTH CDI. DENIES NEEDS AT THIS TIME. BED LOW AND LOCKED, SR UP X2, CL IN EASY REACH. WILL CONTINUE TO MONITOR.
[2018-04-29 09:56] LABS: BASOPHILS 0.2 % (0-2); EOSINOPHILS 0.1 % (0-7); HEMATOCRIT 27.4 % (42.0-54.0); HEMOGLOBIN 8.8 g/dL (13.5-17.5); IMMATURE GRANULOCYTES 1.5 % (0-5); LYMPHOCYTES 10.9 % (15-50); MCH 26.4 pg (26.0-34.0); MCHC 32.1 g/dL (31.0-37.0); MCV 82.3 fL (80.0-100.0); MEAN PLATELET VOLUME 9.1 fL (7.4-10.4); MONOCYTES 6.3 % (2-11); PLATELET COUNT 232 10x3/uL (130-400); RBC 3.33 10x6/uL (4.20-6.10); RDW 14.5 % (11.5-14.5); WBC 19.1 10x3/uL (4.8-10.8)
[2018-04-29 10:11] LABS: ALBUMIN 2.3 g/dL (3.4-5.0); ANION GAP 13.6 mmol/L (8-16); BILIRUBIN - TOTAL 0.24 mg/dL (0.2-1.3); CALCIUM 7.9 mg/dL (8.5-10.1); CARBON DIOXIDE 22.4 mmol/L (21.0-32.0); CREATININE - SERUM 1.6 mg/dL (0.6-1.3); MAGNESIUM - SERUM 1.9 mg/dL (1.8-2.4); PROTEIN - SERUM 5.9 g/dL (6.4-8.2)
[2018-04-29 12:43] VITALS: BP 145/68
--- NOTE | 2018-04-29 14:17 | NUR ---
Nutrition Follow Up: Chart reviewed. Noted MASTER AUTOMOTIVE GLASS TECHNICIAN has upgraded diet to regular consistencies. Diet: ADA PO Intake: 59% meal avg BM: 04/28/18 I>O Labs reviewed - Glucose elevated Meds noted Rec continue current diet. Will continue to honor food preferences. RD following.
--- NOTE | 2018-04-29 14:22 | MORECARE ---
CASE MANAGEMENT DISCHARGE SUMMARY PATIENT: ANGEL SKAGGS UNIT: [id number] ADM DATE: 04/24/18 AGE: 67 : 49 SEX: M ROOM/BED: D.1208 AUTHOR: JONA,DOC PHYSICIAN: REFERRING PHYSICIAN: ANGEL KATE MD DATE OF SERVICE: 04/29/18 Discharge Plan Patient Name: ANGEL SKAGGS Facility: [facility]:[place] : 1950 Planned Disposition: Anticipated Discharge Date: Discharge Date: Expected LOS: Initial Reviewer: [email or web address] Initial Review Date: 04/25/2018 Generated: 04/29/18 3:22 pm Comments DCP- Discharge Planning Updated by [id number]: Leonela Chavira on 04/29/18 1:[address] Patient Name: ANGEL SKAGGS Admission Status: Elective Accout number: [id number] Admission Date: 04-24-2018 : 1950 Admission Diagnosis:ACUTE RESPIRATORY FAILURE WITH HYPOXIA Attending: ANGEL KATE Current LOS: 5 Anticipated DC Date: Planned Disposition: Primary Insurance: MEDICARE A & B Discharge Planning Comments: CM SPOKE WITH THE TRANSFER CALL CENTER AND SPOKE WITH NARINDER. SHE STATES THE TRANSFER WAS CANCELED BY DR. KATE AND HE WAS RECOMENDING REHAB PLACEMENT. CM WILL FOLLOW AND ASSSIST NEEDED WITH DC PLANNING/NEEDS. Relationship Assoc: Leonela Chavira DCP- Discharge Planning Updated by [email or web address]: Adelaida Valdez on 04/27/18 1:[address] CM spoke with Dr. Kate regarding transfer. Dr. Kate stated that patient was alright for patient to transfer to to an acute floor bed and that it would be alright for him to transfer by private vehicle with portable 02. CM spoke with patient he still agrees to transfer. Patient's oxygen saturation is 98% at room air. He will not qualify for portable 02. CM called transfer center and faxed records to find placement. Family is requesting [facility] in preferably but any hospital in except [place]. will be alright. CM conveyed this request to transfer center. CM awaiting to hear back from transfer center on placement acceptance. CM will continue to follow and assist as needed with discharge planning / needs. DCP- Discharge Planning Updated by [id number]: Adelaida Valdez on 04/26/18 3:[address] Patient Name: ANGEL SKAGGS Admission Status: Elective Accout number: [id number] Admission Date: 04-24-2018 : 1950 Admission Diagnosis: Attending: ANGEL KATE Current LOS: 2 Anticipated DC Date: Planned Disposition: Primary Insurance: MEDICARE A & B Discharge Planning Comments: CM spoke with patient at bedside. Patient states that prior to his recent hospitalization he lived at home with his fianc?e. He plans to return there eventually. He states he knows he needs to get stronger. CM asked patient if he was wanting to be transferred to [place]. He first stated "No" then CM explained that his daughter was requesting for him to transfer to be closer to her. He then stated " if that's what she wants then I guess I will go." CM explained that it was going to probably be before transfer. Patient states that he did have Home Health Care but couldn't give providers name. CM will continue to follow and assist as needed with discharge planning / needs. Relationship Assoc: Adelaida Mccormickr DCP- Discharge Planning Updated by [email or web address]: Adelaida Courtney on 04/25/18 6:[address] CM notified that patients family are requesting for patient to be transferred to . CM spoke with daughter Isela Mo POA [phone]. She stated that she was wanting patient transferred to [facility] or [facility]. CM explained that insurance wouldn't pay for transfer since it isn't medically necessary for transfer. She agreed that she still wanted CM to check pricing. CM explained process of transfer of having to get an accepting physician. CM contacted [employer] [phone] and spoke with Shonda Martínez in business office received a quote from [facility] to [facility] for $1767.00. Shonda stated that the family would need to pay half up front then can pay out the rest. MARTHA spoke with Isela and gave her the quote. Isela was requesting a notary for POA to get patients wallet from patients girlfriend / fianc?e. CM notified Medical Records but they only notarized medical papers. Isela came back and spoke with CM that her brother would be here on to pay for patients transfer. Patient was extubated today so hopefully by he will be able to make his own decision on transfer. Family dynamic issues are noted. CM will continue to follow and assist as needed with discharge planning / needs. DCPIA - Discharge Planning Initial Assessment Updated by [email or web address]: Adelaida Valdez on 04/26/18 4:45 pm * Is the patient Alert and Oriented? Yes * How many steps to enter\\exit or inside your home? * PCP [facility] * [facility] * Preadmission Environment Acute Inpatient Rehab * Facility Name [facility] * ADLs Partial Dependent * Equipment None * List name and contact numbers for known caregivers / representatives who currently or will assist patient after discharge: GAURI BEBE MAXIMILIANO [phone] ISELA MOSQUEDA - [facility]- [phone] * Verbal permission to speak to the caregivers and representatives has been obtained from the patient. Yes * Community resources currently utilized Home Health * Please name any agencies selected above. HOME HEALTH CARE per patient * Additional services required to return to the preadmission environment? No * Can the patient safely return to the preadmission environment? Yes * Has this patient been hospitalized within the prior 30 days at any hospital? Yes Last DP export: 04/27/18 2:04 p Patient Name: ANGEL SKAGGS Page 79555 at 1422 All edits/amendments must be made on the electronic document DICTATION DATE: 04/29/181421 ANIMAL CARE ASSISTANT: DAVID 04/29/18 142 RPT#: [id number] DC DATE: STATUS: ADM IN [facility] [address] [place] [address] END OF REPORT
--- NOTE | 2018-04-29 14:44 | MORECARE ---
CASE MANAGEMENT DISCHARGE SUMMARY PATIENT: ANGEL SKAGGS UNIT: [id number] ADM DATE: 04/24/18 AGE: 67 : 49 SEX: M ROOM/BED: D.1208 AUTHOR: JONA,DOC PHYSICIAN: REFERRING PHYSICIAN: ANGEL KATE MD DATE OF SERVICE: 04/29/18 Discharge Plan Patient Name: ANGEL SKAGGS Facility: [facility]:[place] : 1950 Planned Disposition: Anticipated Discharge Date: Discharge Date: Expected LOS: Initial Reviewer: [email or web address] Initial Review Date: 04/25/2018 Generated: 04/29/18 3:44 pm Comments DCP- Discharge Planning Updated by [id number]: Leonela Chavira on 04/29/18 1:[address] Patient Name: ANGEL SKAGGS Admission Status: Elective Accout number: [id number] Admission Date: 04-24-2018 : 1950 Admission Diagnosis:ACUTE RESPIRATORY FAILURE WITH HYPOXIA Attending: ANGEL KATE Current LOS: 5 Anticipated DC Date: Planned Disposition: Primary Insurance: MEDICARE A & B Discharge Planning Comments: CM MET WITH PATIENT AND FAMILY AND STATES WANTS IN PATIENT REHAB HERE WHEN MEDICALLY STABLE. WE WILL CONSULT REHAB AFTER A PT ASSESSMENT IS DONE. Advertising Associate: Leonela Chavira DCP- Discharge Planning Updated by [id number]: Leonela Chavira on 04/29/18 1:[address] Patient Name: ANGEL SKAGGS Admission Status: Elective Accout number: [id number] Admission Date: 04-24-2018 : 1950 Admission Diagnosis:ACUTE RESPIRATORY FAILURE WITH HYPOXIA Attending: ANGEL KATE Current LOS: 5 Anticipated DC Date: Planned Disposition: Primary Insurance: MEDICARE A & B Discharge Planning Comments: CM SPOKE WITH THE TRANSFER CALL CENTER AND SPOKE WITH NARINDER. SHE STATES THE TRANSFER WAS CANCELED BY DR. KATE AND HE WAS RECOMENDING REHAB PLACEMENT. CM WILL FOLLOW AND ASSSIST NEEDED WITH DC PLANNING/NEEDS. Advertising Associate: Leonela Chavira DCP- Discharge Planning Updated by [email or web address]: Adelaida Valdez on 04/27/18 1:[address] CM spoke with Dr. Kate regarding transfer. Dr. Kate stated that patient was alright for patient to transfer to to an acute floor bed and that it would be alright for him to transfer by private vehicle with portable 02. CM spoke with patient he still agrees to transfer. Patient's oxygen saturation is 98% at room air. He will not qualify for portable 02. CM called transfer center and faxed records to find placement. Family is requesting [facility] in preferably but any hospital in except [place]. will be alright. CM conveyed this request to transfer center. CM awaiting to hear back from transfer center on placement acceptance. CM will continue to follow and assist as needed with discharge planning / needs. DCP- Discharge Planning Updated by [id number]: Adelaida Valdez on 04/26/18 3:[address] Patient Name: ANGEL SKAGGS Admission Status: Elective Accout number: [id number] Admission Date: 04-24-2018 : 1950 Admission Diagnosis: Attending: ANGEL KATE Current LOS: 2 Anticipated DC Date: Planned Disposition: Primary Insurance: MEDICARE A & B Discharge Planning Comments: CM spoke with patient at bedside. Patient states that prior to his recent hospitalization he lived at home with his fianc?e. He plans to return there eventually. He states he knows he needs to get stronger. CM asked patient if he was wanting to be transferred to [place]. He first stated "No" then CM explained that his daughter was requesting for him to transfer to be closer to her. He then stated " if that's what she wants then I guess I will go." CM explained that it was going to probably be before transfer. Patient states that he did have Home Health Care but couldn't give providers name. CM will continue to follow and assist as needed with discharge planning / needs. Advertising Associate: Adelaida Valdez DCP- Discharge Planning Updated by [email or web address]: Adelaida Valdez on 04/25/18 6:[address] CM notified that patients family are requesting for patient to be transferred to . CM spoke with daughter Isela Mo POA [phone]. She stated that she was wanting patient transferred to [facility] or [facility]. CM explained that insurance wouldn't pay for transfer since it isn't medically necessary for transfer. She agreed that she still wanted CM to check pricing. MARTHA explained process of transfer of having to get an accepting physician. CM contacted [email or web address] [phone] and spoke with Shonda Martínez in business office received a quote from [facility] to [facility] for $1767.00. Shonda stated that the family would need to pay half up front then can pay out the rest. MARTHA spoke with Isela and gave her the quote. Isela was requesting a notary for POA to get patients wallet from patients girlfriend / fianc?e. MARTHA notified Medical Records but they only notarized medical papers. Isela came back and spoke with CM that her brother would be here on to pay for patients transfer. Patient was extubated today so hopefully by he will be able to make his own decision on transfer. Family dynamic issues are noted. CM will continue to follow and assist as needed with discharge planning / needs. DCPIA - Discharge Planning Initial Assessment Updated by [id number]: Adelaida Valdez on 04/26/18 4:45 pm * Is the patient Alert and Oriented? Yes * How many steps to enter\\exit or inside your home? * PCP [facility] * [facility] * Preadmission Environment Acute Inpatient Rehab * Facility Name [facility] * ADLs Partial Dependent * Equipment None * List name and contact numbers for known caregivers / representatives who currently or will assist patient after discharge: GAURI [facility] - [phone] ISELA MOSQUEDA - [facility]- [phone] * Verbal permission to speak to the caregivers and representatives has been obtained from the patient. Yes * Community resources currently utilized Home Health * Please name any agencies selected above. HOME HEALTH CARE per patient * Additional services required to return to the preadmission environment? No * Can the patient safely return to the preadmission environment? Yes * Has this patient been hospitalized within the prior 30 days at any hospital? Yes Last DP export: 04/29/18 1:22 pm Patient Name: ANGEL SKAGGS Page 11230 at 1444 All edits/amendments must be made on the electronic document DICTATION DATE: 04/29/18 7597 [employer] ESTATE INTERNSHIP: DAVID 04/29/18 144 RPT#: [id number] DC DATE: STATUS: ADM IN [facility] [address] [place] [address] END OF REPORT
--- NOTE | 2018-04-29 16:46 | NUR ---
Pt has stage 2 pressure injury on coccyx 10cm x 8cm Right shoulder has 7cm x 9cm x 1cm open wound. Mepilex is being applied to bottom and santyl is being used on shoulder. Wound care continues to monitor.
--- NOTE | 2018-04-29 19:30 | NUR ---
PT RESTING IN BED. AROUSED WHEN NURSE WALKED INTO ROOM. NURSE PLACED NAME AND DATE ON BOARD. PT IS ON A 1ST STEP OVERLAY, AAO X4. LUNGS CLEAR, DRSG TO RIGHT SHOULDER AND BUTTOCK CDI, DRSG CHANGED BY WOUND CARE TODAY. PT HAS A RIGHT HAND PIV INFUSING NS ORDERED. DC NOTED, STRAW COLORED URINE. PT ABLE TO REPOSITION SELF IN BED WITH OUT ASSIST. ELEVATED LOWER EXTREM. NOURISHMENT OFFERED. PT DENIES ANY NEEDS AT THIS TIME. NO S/S OF DISTRESS. WILL CPOC
[2018-04-29 20:00] VITALS: BP 129/56
--- NOTE | 2018-04-29 20:32 | NUR ---
PT LAYING ON RIGHT SIDE. PT DENIES ANY NEEDS, VERBLAIZED UNDERSTANDING OF NEW ANTIFUNGAL CREAM MEDICATION. APPLIED TO FEET ORDERED. PT HAS CALL LIGHT IN REACH. NO S/S OF DISTRESS. NS INFUSING ORDERED. PT WILL CALL FOR ASSIST WHEN NEEDED. WILL CPOC
[2018-04-30] VITALS: BP 137/55
--- NOTE | 2018-04-30 00:31 | NUR ---
PT REPOSITIONED IN BED WITH OUT ASSIST. GAVE PT CALL LIGHT AND BLANKETS. PT FSBS IS 212, INSULIN 12 UNITS GIVEN. NOURISHMENT OFFERED. PT DENIES ANY NEEDS. NO S/S OF DISTRESS. WILL CPOC
[2018-04-30 04:00] VITALS: BP 139/54
--- NOTE | 2018-04-30 08:01 | NUR ---
NO INSULIN NEEDED FOR FSBS OF 68
--- NOTE | 2018-04-30 08:10 | NUR ---
PT AAOX4 RESP EVEN AND NONLABORED, NO SIGNS OF DISTRESS NOTED, NO QUESTIONS/CONCERNS EXPRESSED, SITTING UP IN BED EATING BREAKFAST CL IN REACH WILL CONTINUE TO MONITOR
[2018-04-30 08:38] VITALS: BP 149/64
--- NOTE | 2018-04-30 12:30 | NUR ---
DENIES ANY NEEDS AT THIS TIME. RESTING QUIETLY IN BED.
[2018-04-30 12:37] VITALS: BP 146/67
[2018-04-30 17:29] VITALS: BP 135/57
[2018-04-30 20:00] VITALS: BP 154/64
--- NOTE | 2018-04-30 22:36 | NUR ---
PT A/O X 4. UP WITH ASSISTANCE. FIRST STEP OVERLAY ON AND WORKING PROPERLY. DC IN PLACE. NEELA URINE NOTED. R HAND IV WITH NS @ 75. 2L 02 VIA NC. R SHOULDER DRSG, C/D/I. STAGE 2 TO BUTTOCKS, MEPELEX C/D/I. DENIES PAIN AT THIS TIME. REUBEN FEET DRY/SCALY. C/O INDIGESTION. NO FURTHER CONCERNS AT THIS TIME. BED LOWERED AND LOCKED. CL IN REACH. WILL CONTINUE TO MONITOR.
--- NOTE | 2018-04-30 23:42 | NUR ---
IV INFILTRATED TO R HAND. IV REMOVED. TIP INTACT. WILL RESITE NEW IV.
--- NOTE | 2018-04-30 23:52 | NUR ---
REFUSED TX DUE TO INDIGESTION VERBALLY CONSENTED TO NEXT TX
[2018-05-01] VITALS: BP 149/59
--- NOTE | 2018-05-01 00:15 | NUR ---
RESITED THE PATIENT'S IV WITH A 22G IN THE LEFT FA ON THE SECOND ATTEMPT
[2018-05-01 04:00] VITALS: BP 148/61
--- NOTE | 2018-05-01 05:26 | NUR ---
PT LAYING IN BED RESTING. DENIES PAIN AT THIS TIME. VITALS STABLE. BS 102 THIS AM. TOOK MORNING MEDS WITHOUT DIFFICULTY. FRESH WATER PROVIDED. NO FURTHER CONCERNS AT THIS TIME. BED LOWERED AND LOCKED. CL IN REACH. WILL CPOC.
[2018-05-01 07:03] LABS: BASOPHILS 0.1 % (0-2); EOSINOPHILS 1.4 % (0-7); HEMATOCRIT 25.5 % (42.0-54.0); HEMOGLOBIN 8.3 g/dL (13.5-17.5); IMMATURE GRANULOCYTES 2.1 % (0-5); MCH 26.7 pg (26.0-34.0); MCHC 32.5 g/dL (31.0-37.0); MEAN PLATELET VOLUME 9.1 fL (7.4-10.4); MONOCYTES 7.7 % (2-11); NEUTROPHILS 70.7 % (40-80); PLATELET COUNT 217 10x3/uL (130-400); RBC 3.11 10x6/uL (4.20-6.10); RDW 14.9 % (11.5-14.5); WBC 18.5 10x3/uL (4.8-10.8)
[2018-05-01 07:14] LABS: ANION GAP 11.2 mmol/L (8-16); CALCIUM 7.4 mg/dL (8.5-10.1); CARBON DIOXIDE 23.5 mmol/L (21.0-32.0); CREATININE - SERUM 1.4 mg/dL (0.6-1.3); POTASSIUM - SERUM 3.7 mmol/L (3.5-5.1)
--- NOTE | 2018-05-01 07:53 | NUR ---
PT AAOX4 RESP EVEN AND NONLABORED, NO SIGNS OF DISTRESS NOTED, ASKING TO BE PULLED UP DONE AT THIS TIME, IV INFUSING TO THE LEFT FOREARM, CL IN REACH BED IN LOWEST POSTION SR UPX2
[2018-05-01 08:05] VITALS: BP 150/59
--- NOTE | 2018-05-01 09:50 | NUR ---
DR GRIFFITH IN ROOM WITH PT I TOLD "DR. GRIFFITH THAT THE FAMILY WANTS AN UROLOGY CONSULT ABOUT THE PT F/C AND A CONSULT FOR A INVENTORY SPECIALIST MANAGER FOR PT TOENAILS" CL IN REACH FOR THE PT
--- NOTE | 2018-05-01 09:52 | NUR ---
NEW MEPILEX DRESSING APPILED TO BUTTOCK AND RIGHT SHOULDER DRESSING CHANGED PT TOLERATED W/O COMPLAINT
--- NOTE | 2018-05-01 11:02 | NUR ---
PT AMBULATING IN HALLS WITH WALKER WITH PHYSICAL THERAPY NO SIGNS OF DISTRESS NOTED
[2018-05-01 12:00] VITALS: BP 139/59
--- NOTE | 2018-05-01 13:55 | NUR ---
MAINTENANCE INSPECTOR NOTES - NO SHORTNESS OF BREATH, 2L O2 PER NC PRN. STAGE 2 PRESSURE ULCER TO HIS BUTTOCKS, DRESSING CHANGED TODAY CDI.
[2018-05-01 16:00] VITALS: BP 112/61
--- NOTE | 2018-05-01 18:31 | NUR ---
PT AAOX4 RESP EVEN AND NONLABORED, NO SIGNS OF DISTRESS NOTED, WATCHING TV CL IN REACH
--- NOTE | 2018-05-01 20:05 | NUR ---
REST IN BED,FAMILY MEMBER AT BEDSIDE, CALL LIGHT IN REACH.
--- NOTE | 2018-05-01 23:15 | NUR ---
CHECKED PT FSBS 220 12 UNIT OF HUMULIN R GIVEN FOR PT.
--- NOTE | 2018-05-02 02:17 | NUR ---
PATIENT RESTING IN BED WITH EYES CLOSED AND NO S/S OF DISTRESS. BED IN LOWEST POSITION AND CALL LIGHT WITHIN REACH. WILL CONTINUE TO MONITOR.
--- NOTE | 2018-05-02 04:21 | NUR ---
PT PULLED OUT IV, RESTART IV AT PT'S RIGHT HAND, 22 G, ONE ATTEMPT, GOOD BLOOD RETURN.
[2018-05-02 06:07] LABS: BASOPHILS 0.1 % (0-2); EOSINOPHILS 0.9 % (0-7); HEMATOCRIT 24.6 % (42.0-54.0); HEMOGLOBIN 8.3 g/dL (13.5-17.5); IMMATURE GRANULOCYTES 1.5 % (0-5); LYMPHOCYTES 19.1 % (15-50); MCH 27.7 pg (26.0-34.0); MCHC 33.7 g/dL (31.0-37.0); MEAN PLATELET VOLUME 9.4 fL (7.4-10.4); MONOCYTES 9.5 % (2-11); NEUTROPHILS 68.9 % (40-80); PLATELET COUNT 205 10x3/uL (130-400); RDW 15.2 % (11.5-14.5)
[2018-05-02 06:29] LABS: CALCIUM 7.4 mg/dL (8.5-10.1); CARBON DIOXIDE 20.5 mmol/L (21.0-32.0); CREATININE - SERUM 1.5 mg/dL (0.6-1.3); POTASSIUM - SERUM 3.5 mmol/L (3.5-5.1)
--- NOTE | 2018-05-02 07:40 | NUR ---
LYING IN BED WITH EYES CLOSED. CALL LIGHT IN EASY REACH.
[2018-05-02 08:38] VITALS: BP 137/58
--- NOTE | 2018-05-02 10:17 | NUR ---
HEART SHAPE DRESSING TO SACRUM WOUND CHANGED, INITIALLED AND DATED. COLLAGEN ADAPTIC, GUAZE AND BORDER DRESSING CHANGED TO RIGHT SHOULDER WOUND, INITIALLED AND DATED. PATIENT TOLERATED BOTH PROCEDURES WELL. NO C/O PAIN.
--- NOTE | 2018-05-02 10:42 | NUR ---
PER DR HIDALGO, IV FLUIDS STOPPED, REMOVE DC IN 2 HOURS, TAKE OFF O2. PER MY ASSESSMENT PATIENT NO LONGER MEETS CRITERIA FOR DC OR FALL RISK.
[2018-05-02 12:30] VITALS: BP 142/58
--- NOTE | 2018-05-02 13:53 | MORECARE ---
CASE MANAGEMENT DISCHARGE SUMMARY PATIENT: ANGEL SKAGGS UNIT: [id number] ADM DATE: 04/24/18 AGE: 67 : 49 SEX: M ROOM/BED: D.1208 AUTHOR: JONADOC PHYSICIAN: REFERRING PHYSICIAN: ANGEL KATE MD DATE OF SERVICE: 05/02/18 Discharge Plan Patient Name: ANGEL SKAGGS Facility: [facility]:[place] : 1950 Planned Disposition: Anticipated Discharge Date: Discharge Date: Expected LOS: Initial Reviewer: [id number] Initial Review Date: 04/25/2018 Generated: 05/02/18 2:52 pm Comments DCP- Discharge Planning Updated by [id number]: Leonela Chavira on 05/02/18 12:[address] Patient Name: ANGEL SKAGGS Admission Status: Elective Accout number: [id number] Admission Date: 04-24-2018 : 1950 Admission Diagnosis:ACUTE RESPIRATORY FAILURE WITH HYPOXIA Attending: ANGEL KATE Current LOS: 8 Anticipated DC Date: Planned Disposition: Primary Insurance: MEDICARE A & B Discharge Planning Comments: CM SPOKE WITH PATIENTS DAUGHTER AND CHARLEEN WEISS AT [phone] AND SHE STATES THEY ARE IN AGREEMENT WITH HIM GOING TO INPATIENT REHAB. Mine Superintendent: Leonela Chavira DCP- Discharge Planning Updated by [id number]: Leonela Chavira on 04/29/18 1:[address] Patient Name: ANGEL SKAGGS Admission Status: Elective Accout number: [id number] Admission Date: 04-24-2018 : 1950 Admission Diagnosis:ACUTE RESPIRATORY FAILURE WITH HYPOXIA Attending: ANGEL KATE Current LOS: 5 Anticipated DC Date: Planned Disposition: Primary Insurance: MEDICARE A & B Discharge Planning Comments: CM MET WITH PATIENT AND FAMILY AND STATES WANTS IN PATIENT REHAB HERE WHEN MEDICALLY STABLE. WE WILL CONSULT REHAB AFTER A PT ASSESSMENT IS DONE. Mine Superintendent: Leonela Chavira DCP- Discharge Planning Updated by [id number]: Leonela Chavira on 04/29/18 1:[address] Patient Name: ANGEL SKAGGS Admission Status: Elective Accout number: [id number] Admission Date: 04-24-2018 : 1950 Admission Diagnosis:ACUTE RESPIRATORY FAILURE WITH HYPOXIA Attending: ANGEL KATE Current LOS: 5 Anticipated DC Date: Planned Disposition: Primary Insurance: MEDICARE A & B Discharge Planning Comments: CM SPOKE WITH THE TRANSFER CALL CENTER AND SPOKE WITH NARINDER. SHE STATES THE TRANSFER WAS CANCELED BY DR. KATE AND HE WAS RECOMENDING REHAB PLACEMENT. CM WILL FOLLOW AND ASSSIST NEEDED WITH DC PLANNING/NEEDS. Mine Superintendent: Leonela Chavira DCP- Discharge Planning Updated by [id number]: Adelaida Valdez on 04/27/18 1:[address] CM spoke with Dr. Kate regarding transfer. Dr. Kate stated that patient was alright for patient to transfer to LR to an acute floor bed and that it would be alright for him to transfer by private vehicle with portable 02. CM spoke with patient he still agrees to transfer. Patient's oxygen saturation is 98% at room air. He will not qualify for portable 02. CM called transfer center and faxed records to find placement. Family is requesting [facility] in preferably but any hospital in except [place]. will be alright. CM conveyed this request to transfer center. CM awaiting to hear back from transfer center on placement acceptance. CM will continue to follow and assist as needed with discharge planning / needs. DCP- Discharge Planning Updated by [id number]: Adelaida Valdez on 04/26/18 3:[address] Patient Name: ANGEL SKAGGS Admission Status: Elective Accout number: [id number] Admission Date: 04-24-2018 : 1950 Admission Diagnosis: Attending: ANGEL KATE Current LOS: 2 Anticipated DC Date: Planned Disposition: Primary Insurance: MEDICARE A & B Discharge Planning Comments: CM spoke with patient at bedside. Patient states that prior to his recent hospitalization he lived at home with his fianc?e. He plans to return there eventually. He states he knows he needs to get stronger. CM asked patient if he was wanting to be transferred to [place]. He first stated "No" then CM explained that his daughter was requesting for him to transfer to be closer to her. He then stated " if that's what she wants then I guess I will go." CM explained that it was going to probably be before transfer. Patient states that he did have Home Health Care but couldn't give providers name. CM will continue to follow and assist as needed with discharge planning / needs. Mine Superintendent: Adelaida Valdez DCP- Discharge Planning Updated by [email or web address]: Adelaida Valdez on 04/25/18 6:[address] CM notified that patients family are requesting for patient to be transferred to . CM spoke with daughter Islea [facility] POA [phone]. She stated that she was wanting patient transferred to [facility] or [facility]. CM explained that insurance wouldn't pay for transfer since it isn't medically necessary for transfer. She agreed that she still wanted CM to check pricing. CM explained process of transfer of having to get an accepting physician. CM contacted [facility] [phone] and spoke with Shonda Martínez in business office received a quote from [facility] to [facility] for $1767.00. Shonda stated that the family would need to pay half up front then can pay out the rest. CM spoke with Isela and gave her the quote. Isela was requesting a notary for POA to get patients wallet from patients girlfriend / fianc?e. CM notified Medical Records but they only notarized medical papers. Isela came back and spoke with CM that her brother would be here on to pay for patients transfer. Patient was extubated today so hopefully by he will be able to make his own decision on transfer. Family dynamic issues are noted. CM will continue to follow and assist as needed with discharge planning / needs. DCPIA - Discharge Planning Initial Assessment Updated by [email or web address]: Adelaida Mccormickr on 04/26/18 4:45 pm * Is the patient Alert and Oriented? Yes * How many steps to enter\\exit or inside your home? * PCP [facility] * [facility]acy [facility] * Preadmission Environment Acute Inpatient Rehab * Facility Name [facility] * ADLs Partial Dependent * Equipment None * List name and contact numbers for known caregivers / representatives who currently or will assist patient after discharge: GAURI OWENSOLIVER VIERA - [phone] ISELA MOSQUEDA - DAUGHTER MEDICAL POA- [phone] * Verbal permission to speak to the caregivers and representatives has been obtained from the patient. Yes * Community resources currently utilized Home Health * Please name any agencies selected above. HOME HEALTH CARE per patient * Additional services required to return to the preadmission environment? No * Can the patient safely return to the preadmission environment? Yes * Has this patient been hospitalized within the prior 30 days at any hospital? Yes Last DP export: 04/29/18 1:44 pm Patient Name: ANGEL SKAGGS Page 39274 at 1353 All edits/amendments must be made on the electronic document DICTATION DATE: 05/02/18 1352 TURN MACHINE OPERATOR: DAVID 05/02/18 1352 RPT#: [id number] DC DATE: STATUS: ADM IN [facility] [address] [place] [address] END OF REPORT
[2018-05-02 14:13] LABS: FUNGUS CULTURE RESULT 1 Candida albicans (()); FUNGUS MYCOLOGY CULTURE Final report (())
[2018-05-02 17:03] VITALS: BP 149/64
--- NOTE | 2018-05-02 17:24 | NUR ---
DC CATHETER CLAMPED FOR BLADDER TRAINING BEFORE REMOVAL.
--- NOTE | 2018-05-02 20:01 | NUR ---
REST QUIETLY IN BED, CALL LIGHT IN REACH.
--- NOTE | 2018-05-02 21:42 | NUR ---
PT FSBS 228 12 UNITS HUMULIN REG GIVEN, CALL LIGHT IN REACH.
[2018-05-02 22:01] VITALS: BP 132/53
[2018-05-03] VITALS: BP 127/42
--- NOTE | 2018-05-03 01:48 | NUR ---
LYING ON RT SIDE IN BED WITH EYES CLOSED. RESP EVEN AND NONLABORED. NO DISTRESS. SR ELEVATED X2. CL IN REACH.
--- NOTE | 2018-05-03 03:50 | NUR ---
DC CATH D/C'D PER ORDER. WITHDREW 10CC OF WATER FROM BALLON, CATHETER REMOVED WITHOUT DIFFICULTY. PT INSTRUCTED TO NOTIFY NURSE OF FIRST VOID.
--- NOTE | 2018-05-03 05:55 | NUR ---
FSBS 104.
[2018-05-03 05:59] VITALS: BP 133/63
[2018-05-03 07:04] LABS: BASOPHILS 0.1 % (0-2); EOSINOPHILS 0.5 % (0-7); HEMATOCRIT 24.8 % (42.0-54.0); HEMOGLOBIN 8.2 g/dL (13.5-17.5); IMMATURE GRANULOCYTES 1.2 % (0-5); MCH 26.9 pg (26.0-34.0); MCHC 33.1 g/dL (31.0-37.0); MCV 81.3 fL (80.0-100.0); MEAN PLATELET VOLUME 9.2 fL (7.4-10.4); MONOCYTES 7.6 % (2-11); NEUTROPHILS 70.6 % (40-80); PLATELET COUNT 199 10x3/uL (130-400); RBC 3.05 10x6/uL (4.20-6.10); RDW 15.4 % (11.5-14.5)
[2018-05-03 07:32] LABS: ANION GAP 14.3 mmol/L (8-16); CALCIUM 7.3 mg/dL (8.5-10.1); CARBON DIOXIDE 19.8 mmol/L (21.0-32.0); CREATININE - SERUM 1.4 mg/dL (0.6-1.3); POTASSIUM - SERUM 3.1 mmol/L (3.5-5.1)
[2018-05-03 09:43] VITALS: BP 171/72
[2018-05-03 11:45] VITALS: BP 164/68
--- NOTE | 2018-05-03 13:03 | NUR ---
Pt is on a diabetic diet with 86% average po intake GI WDP BM yesterday Reviewed labs Pt reports eating well and tolerating diet well Pt reports no nutritional requests or concerns at this time RD following
--- NOTE | 2018-05-03 16:12 | NUR ---
PATIENT STILL HAS NOT URINATED POST DC REMOVAL. BLADDER SCANNED PATIENT AND SHOWS 530 MLS. PATIENT DENIES PAIN, DENIES THE URGE TO VOID. WILL CONT TO MONITOR
--- NOTE | 2018-05-03 16:15 | NUR ---
CALLED AND SPOKE TO DR KATE, REPORTED THE 530 ML RESULT FROM THE BLADDER SCAN, VERBAL ORDER TO PERFORM IN/OUT STRAIGHT CATH FOR BLADDER SCAN RESULT OF 600 ML OR ABOVE. BLADDER SCAN PATIENT Q6 HOURS WITH NO URINE OUTPUT
--- NOTE | 2018-05-03 17:34 | NUR ---
BLADDER SCAN SHOWS 735 ML, DOCTOR KATE AT BED SIDE, VERBAL ORDER TO PLACE DC.
--- NOTE | 2018-05-03 17:56 | NUR ---
OT NOTE: PT COMPLETED BED MOB AND EOB SITTING WITH CGA. THANK YOU, STACI DUBON
--- NOTE | 2018-05-03 18:39 | NUR ---
ATTEMPTED WITH NO SUCCESS AT PLACING A DC ORDERED. WILL PASS THIS INFORMATION ON TO SCRAP DROP ENGINEER.
--- NOTE | 2018-05-03 19:40 | NUR ---
LYING IN BED. ALERT AND ORIENTED X4. DENIES PAIN. STATES HE DOESNT FEEL LIKE HE NEEDS TO URINATE. SCALE SHOOTER CONTACTED ABOUT NEED FOR DC CATH SUPPLIES. DRSG NOTED NOTED TO BUTTOCKS AND RT SHOULDER. SKIN IS DRY, SCALY. NO EDEMA NOTED. RESP EVEN AND NONLABORED. NOT WEARING O2. NO DISTRESS. REPORTS PROD WHITE SPUTUM. SALINE LOCK NOTED TO RT HAND. SR ELEVATED X2. CL IN REACH.
[2018-05-03 19:54] VITALS: BP 134/55
--- NOTE | 2018-05-03 20:30 | NUR ---
TINSMITH HELPER STATES THAT PT VOIDED. PT STATES HE GOT UP TO BR TO HAVE BM AND VOIDED AT THE SAME TIME. DOESNT WANT CATH AT THIS TIME. WILL MONITOR CLOSELY.
--- NOTE | 2018-05-04 01:48 | NUR ---
HAS BEEN VOIDING IN URINAL DURING THE NIGHT. OTHERWISE HAS BEEN RESTING WELL. NO DISTRESS. CL IN REACH.
[2018-05-04 05:12] VITALS: BP 142/52
[2018-05-04 06:58] LABS: BASOPHILS 0 % (0-2); EOSINOPHILS 0.5 % (0-7); HEMATOCRIT 25.2 % (42.0-54.0); HEMOGLOBIN 8.3 g/dL (13.5-17.5); IMMATURE GRANULOCYTES 1.2 % (0-5); LYMPHOCYTES 21.8 % (15-50); MCH 26.9 pg (26.0-34.0); MCHC 32.9 g/dL (31.0-37.0); MCV 81.6 fL (80.0-100.0); MEAN PLATELET VOLUME 8.9 fL (7.4-10.4); MONOCYTES 7.7 % (2-11); NEUTROPHILS 68.8 % (40-80); PLATELET COUNT 184 10x3/uL (130-400); RBC 3.09 10x6/uL (4.20-6.10); RDW 16.1 % (11.5-14.5); WBC 12.9 10x3/uL (4.8-10.8)
[2018-05-04 07:16] LABS: ANION GAP 13.4 mmol/L (8-16); CALCIUM 7.9 mg/dL (8.5-10.1); CARBON DIOXIDE 20.9 mmol/L (21.0-32.0); CREATININE - SERUM 1.4 mg/dL (0.6-1.3); POTASSIUM - SERUM 3.3 mmol/L (3.5-5.1)
[2018-05-04 08:27] VITALS: BP 160/66
[2018-05-04 11:16] VITALS: BP 137/55
--- NOTE | 2018-05-04 13:40 | MORECARE ---
CASE MANAGEMENT DISCHARGE SUMMARY PATIENT: ANGEL SKAGGS UNIT: [id number] ADM DATE: 04/24/18 AGE: 67 : 49 SEX: M ROOM/BED: D.1208 AUTHOR: JONADOC PHYSICIAN: REFERRING PHYSICIAN: ANGEL KATE MD DATE OF SERVICE: 05/04/18 Discharge Plan Patient Name: ANGLE SKAGGS Facility: [facility]:[place] : 1950 Planned Disposition: Anticipated Discharge Date: Discharge Date: Expected LOS: Initial Reviewer: [id number] Initial Review Date: 04/25/2018 Generated: 05/04/18 2:40 pm Comments DCP- Discharge Planning Updated by [id number]: Leonela Chavira on 05/02/18 12:[address] Patient Name: ANGEL SKAGGS Admission Status: Elective Accout number: [id number] Admission Date: 04-24-2018 : 1950 Admission Diagnosis:ACUTE RESPIRATORY FAILURE WITH HYPOXIA Attending: ANGEL KATE Current LOS: 8 Anticipated DC Date: Planned Disposition: Primary Insurance: MEDICARE A & B Discharge Planning Comments: CM SPOKE WITH PATIENTS DAUGHTER AND CHARLEEN WEISS AT [phone] AND SHE STATES THEY ARE IN AGREEMENT WITH HIM GOING TO INPATIENT REHAB. Reconciliation Accountant: Leonela Chavira DCP- Discharge Planning Updated by [id number]: Leonela Chavira on 04/29/18 1:[address] Patient Name: ANGEL SKAGGS Admission Status: Elective Accout number: [id number] Admission Date: 04-24-2018 : 1950 Admission Diagnosis:ACUTE RESPIRATORY FAILURE WITH HYPOXIA Attending: ANGEL KATE Current LOS: 5 Anticipated DC Date: Planned Disposition: Primary Insurance: MEDICARE A & B Discharge Planning Comments: CM MET WITH PATIENT AND FAMILY AND STATES WANTS IN PATIENT REHAB HERE WHEN MEDICALLY STABLE. WE WILL CONSULT REHAB AFTER A PT ASSESSMENT IS DONE. Reconciliation Accountant: Leonela Chavira DCP- Discharge Planning Updated by [id number]: Leonela Chavira on 04/29/18 1:[address] Patient Name: ANGEL SKAGGS Admission Status: Elective Accout number: [id number] Admission Date: 04-24-2018 : 1950 Admission Diagnosis:ACUTE RESPIRATORY FAILURE WITH HYPOXIA Attending: ANGEL KATE Current LOS: 5 Anticipated DC Date: Planned Disposition: Primary Insurance: MEDICARE A & B Discharge Planning Comments: CM SPOKE WITH THE TRANSFER CALL CENTER AND SPOKE WITH NARINDER. SHE STATES THE TRANSFER WAS CANCELED BY DR. KATE AND HE WAS RECOMENDING REHAB PLACEMENT. CM WILL FOLLOW AND ASSSIST NEEDED WITH DC PLANNING/NEEDS. Reconciliation Accountant: Leonela Chavira DCP- Discharge Planning Updated by [id number]: Adelaida Valdez on 04/27/18 1:[address] CM spoke with Dr. Kate regarding transfer. Dr. Kate stated that patient was alright for patient to transfer to LR to an acute floor bed and that it would be alright for him to transfer by private vehicle with portable 02. CM spoke with patient he still agrees to transfer. Patient's oxygen saturation is 98% at room air. He will not qualify for portable 02. CM called transfer center and faxed records to find placement. Family is requesting [facility] in preferably but any hospital in except [place]. will be alright. CM conveyed this request to transfer center. CM awaiting to hear back from transfer center on placement acceptance. CM will continue to follow and assist as needed with discharge planning / needs. DCP- Discharge Planning Updated by [id number]: Adelaida Valdez on 04/26/18 3:[address] Patient Name: ANGEL SKAGGS Admission Status: Elective Accout number: [id number] Admission Date: 04-24-2018 : 1950 Admission Diagnosis: Attending: ANGEL KATE Current LOS: 2 Anticipated DC Date: Planned Disposition: Primary Insurance: MEDICARE A & B Discharge Planning Comments: CM spoke with patient at bedside. Patient states that prior to his recent hospitalization he lived at home with his fianc?e. He plans to return there eventually. He states he knows he needs to get stronger. CM asked patient if he was wanting to be transferred to [place]. He first stated "No" then CM explained that his daughter was requesting for him to transfer to be closer to her. He then stated " if that's what she wants then I guess I will go." CM explained that it was going to probably be before transfer. Patient states that he did have Home Health Care but couldn't give providers name. CM will continue to follow and assist as needed with discharge planning / needs. Reconciliation Accountant: Adelaida Valdez DCP- Discharge Planning Updated by [email or web address]: Adelaida Valdez on 04/25/18 6:[address] CM notified that patients family are requesting for patient to be transferred to . CM spoke with daughter Isela [facility] POA [phone]. She stated that she was wanting patient transferred to [facility] or [facility]. CM explained that insurance wouldn't pay for transfer since it isn't medically necessary for transfer. She agreed that she still wanted CM to check pricing. CM explained process of transfer of having to get an accepting physician. CM contacted [facility] [phone] and spoke with Shonda Marítnez in business office received a quote from [facility] to [facility] for $1767.00. Shonda stated that the family would need to pay half up front then can pay out the rest. CM spoke with Isela and gave her the quote. Isela was requesting a notary for POA to get patients wallet from patients girlfriend / fianc?e. CM notified Medical Records but they only notarized medical papers. Isela came back and spoke with CM that her brother would be here on to pay for patients transfer. Patient was extubated today so hopefully by he will be able to make his own decision on transfer. Family dynamic issues are noted. CM will continue to follow and assist as needed with discharge planning / needs. DCPIA - Discharge Planning Initial Assessment Updated by [email or web address]: Adelaida Mccormickr on 04/26/18 4:45 pm * Is the patient Alert and Oriented? Yes * How many steps to enter\\exit or inside your home? * PCP [facility] * [facility] * Preadmission Environment Acute Inpatient Rehab * Facility Name [facility] * ADLs Partial Dependent * Equipment None * List name and contact numbers for known caregivers / representatives who currently or will assist patient after discharge: GAURI OWENSOLIVER VIERA - [phone] ISELA MOSQUEDA - DAUGHTER MEDICAL POA- [phone] * Verbal permission to speak to the caregivers and representatives has been obtained from the patient. Yes * Community resources currently utilized Home Health * Please name any agencies selected above. HOME HEALTH CARE per patient * Additional services required to return to the preadmission environment? No * Can the patient safely return to the preadmission environment? Yes * Has this patient been hospitalized within the prior 30 days at any hospital? Yes Coverage Notice Reviewer: [id number] Bryce Chavira Notice Issued Date-Time: 05/04/2018 13:37 Notice Type: IM Discharge Notice Notice Delivered To: Patient Relationship to Patient: Self Mixer Operator Helper Hot Metal Name: Delivery Method: HAND - Hand Delivered Shameka Days: Prior Verbal Notification: Recipient Understood Notice: Yes Recipient Signature: Yes Med Rec Note Co-signed by Attending: Coverage Notice Comment: Reviewer: [email or web address] Bryce Chavira Notice Issued Date-Time: 05/04/2018 13:37 Notice Type: Patient Choice Letter Notice Delivered To: Patient Relationship to Patient: Self Mixer Operator Helper Hot Metal Name: Delivery Method: HAND - Hand Delivered Shameka Days: Prior Verbal Notification: Recipient Understood Notice: Yes Recipient Signature: Yes Med Rec Note Co-signed by Attending: Coverage Notice Comment: DANTE ABARCA Last DP export: 05/02/18 12:52 pm Patient Name: ANGEL SKAGGS Page 00022 at 1340 All edits/amendments must be made on the electronic document DICTATION DATE: 05/04/181338 SALES SERVICE REP: DAVID 05/04/181338 RPT#: [id number] DC DATE: STATUS: ADM IN [facility] [address] [place] [address] END OF REPORT
--- NOTE | 2018-05-04 13:47 | MORECARE ---
CASE MANAGEMENT DISCHARGE SUMMARY PATIENT: ANGEL SKAGGS UNIT: [id number] ADM DATE: 04/24/18 AGE: 67 : 49 SEX: M ROOM/BED: D.1208 AUTHOR: JONADOC PHYSICIAN: REFERRING PHYSICIAN: ANGEL KATE MD DATE OF SERVICE: 05/04/18 Discharge Plan Patient Name: ANGEL SKAGGS Facility: [facility]:[place] : 1950 Planned Disposition: Anticipated Discharge Date: Discharge Date: Expected LOS: Initial Reviewer: [id number] Initial Review Date: 04/25/2018 Generated: 05/04/18 2:47 pm Comments DCP- Discharge Planning Updated by [email or web address]: Leonela Chavira on 05/04/18 12:[address] Patient Name: ANGEL SKAGGS Admission Status: Elective Accout number: [id number] Admission Date: 04-24-2018 : 1950 Admission Diagnosis:ACUTE RESPIRATORY FAILURE WITH HYPOXIA Attending: ANGEL KATE Current LOS: 10 Anticipated DC Date: Planned Disposition: Primary Insurance: MEDICARE A & B Discharge Planning Comments: CM MET WITH PATIENT AND HE WANTS TO BE DISCHARGED WITH [facility] FOR WOUND CARE AND PT. PATIENT CHOICE LETTER SIGNED AND IM SIGNED. CM WILL ATEMPT TO GET IN TOUCH WITH DR. KATE FOR HH ORDERS APPROVAL. CM WILL FOLLOW AND ASSIST NEEDED WITH DC PLANNING/NEEDS. Rn Acute Dialysis: Leonela Chavira DCP- Discharge Planning Updated by [id number]: Leonela Chavira on 05/02/18 12:[address] Patient Name: ANGEL SKAGGS Admission Status: Elective Accout number: [id number] Admission Date: 04-24-2018 : 1950 Admission Diagnosis:ACUTE RESPIRATORY FAILURE WITH HYPOXIA Attending: ANGEL KATE Current LOS: 8 Anticipated DC Date: Planned Disposition: Primary Insurance: MEDICARE A & B Discharge Planning Comments: CM SPOKE WITH PATIENTS DAUGHTER AND CHARLEEN WEISS AT [phone] AND SHE STATES THEY ARE IN AGREEMENT WITH HIM GOING TO INPATIENT REHAB. Rn Acute Dialysis: Leonela Chavira DCP- Discharge Planning Updated by [id number]: Leonela Chavira on 04/29/18 1:[address] Patient Name: ANGEL SKAGGS Admission Status: Elective Accout number: [id number] Admission Date: 04-24-2018 : 1950 Admission Diagnosis:ACUTE RESPIRATORY FAILURE WITH HYPOXIA Attending: ANGEL KATE Current LOS: 5 Anticipated DC Date: Planned Disposition: Primary Insurance: MEDICARE A & B Discharge Planning Comments: CM MET WITH PATIENT AND FAMILY AND STATES WANTS IN PATIENT REHAB HERE WHEN MEDICALLY STABLE. WE WILL CONSULT REHAB AFTER A PT ASSESSMENT IS DONE. Rn Acute Dialysis: Leonela Chavira DCP- Discharge Planning Updated by [email or web address]: Leonela Chavira on 04/29/18 1:[address] Patient Name: ANGEL SKAGGS Admission Status: Elective Accout number: [id number] Admission Date: 04-24-2018 : 1950 Admission Diagnosis:ACUTE RESPIRATORY FAILURE WITH HYPOXIA Attending: ANGEL KATE Current LOS: 5 Anticipated DC Date: Planned Disposition: Primary Insurance: MEDICARE A & B Discharge Planning Comments: CM SPOKE WITH THE TRANSFER CALL CENTER AND SPOKE WITH NARINDER. SHE STATES THE TRANSFER WAS CANCELED BY DR. KATE AND HE WAS RECOMENDING REHAB PLACEMENT. CM WILL FOLLOW AND ASSSIST NEEDED WITH DC PLANNING/NEEDS. Rn Acute Dialysis: Leonela Chavira DCP- Discharge Planning Updated by [email or web address]: Adelaida Valdez on 04/27/18 1:[address] CM spoke with Dr. Kate regarding transfer. Dr. Kate stated that patient was alright for patient to transfer to [place] to an acute floor bed and that it would be alright for him to transfer by private vehicle with portable 02. CM spoke with patient he still agrees to transfer. Patient's oxygen saturation is 98% at room air. He will not qualify for portable 02. CM called transfer center and faxed records to find placement. Family is requesting [facility] in [place] preferably but any hospital in except [place]. will be alright. CM conveyed this request to transfer center. CM awaiting to hear back from transfer center on placement acceptance. CM will continue to follow and assist as needed with discharge planning / needs. DCP- Discharge Planning Updated by [id number]: Adelaida Valdez on 04/26/18 3:[address] Patient Name: ANGEL SKAGGS Admission Status: Elective Accout number: [id number] Admission Date: 04-24-2018 : 1950 Admission Diagnosis: Attending: ANGEL KATE Current LOS: 2 Anticipated DC Date: Planned Disposition: Primary Insurance: MEDICARE A & B Discharge Planning Comments: CM spoke with patient at bedside. Patient states that prior to his recent hospitalization he lived at home with his fianc?e. He plans to return there eventually. He states he knows he needs to get stronger. CM asked patient if he was wanting to be transferred to [place]. He first stated "No" then CM explained that his daughter was requesting for him to transfer to be closer to her. He then stated " if that's what she wants then I guess I will go." CM explained that it was going to probably be before transfer. Patient states that he did have Home Health Care but couldn't give providers name. CM will continue to follow and assist as needed with discharge planning / needs. Rn Acute Dialysis: Adelaida Valdez DCP- Discharge Planning Updated by [email or web address]: Adelaida Valdez on 04/25/18 6:[address] CM notified that patients family are requesting for patient to be transferred to . MARTHA spoke with daughter Isela Mo POA [phone]. She stated that she was wanting patient transferred to [facility] or [facility]. CM explained that insurance wouldn't pay for transfer since it isn't medically necessary for transfer. She agreed that she still wanted CM to check pricing. CM explained process of transfer of having to get an accepting physician. MARTHA contacted [facility] [phone] and spoke with Shonda Martínez in business office received a quote from [facility] to [facility] for $1767.00. Shonda stated that the family would need to pay half up front then can pay out the rest. MARTHA spoke with Isela and gave her the quote. Isela was requesting a notary for POA to get patients wallet from patients girlfriend / fianc?e. CM notified Medical Records but they only notarized medical papers. Isela came back and spoke with CM that her brother would be here on to pay for patients transfer. Patient was extubated today so hopefully by he will be able to make his own decision on transfer. Family dynamic issues are noted. CM will continue to follow and assist as needed with discharge planning / needs. DCPIA - Discharge Planning Initial Assessment Updated by [email or web address]: Adelaida Valdez on 04/26/18 4:45 pm * Is the patient Alert and Oriented? Yes * How many steps to enter\\exit or inside your home? * PCP [facility] * [facility] * Preadmission Environment Acute Inpatient Rehab * Facility Name [facility] * ADLs Partial Dependent * Equipment None * List name and contact numbers for known caregivers / representatives who currently or will assist patient after discharge: GAURI SPENCE [facility] [phone] ISELA MOSQUEDA - [facility]- [phone] * Verbal permission to speak to the caregivers and representatives has been obtained from the patient. Yes * Community resources currently utilized Home Health * Please name any agencies selected above. HOME HEALTH CARE per patient * Additional services required to return to the preadmission environment? No * Can the patient safely return to the preadmission environment? Yes * Has this patient been hospitalized within the prior 30 days at any hospital? Yes Coverage Notice Reviewer: [id number] Byrce Chavira Notice Issued Date-Time: 05/04/2018 13:37 Notice Type: IM Discharge Notice Notice Delivered To: Patient Relationship to Patient: Self Edge Trimmer Mechanic Name: Delivery Method: HAND - Hand Delivered Shameka Days: Prior Verbal Notification: Recipient Understood Notice: Yes Recipient Signature: Yes Med Rec Note Co-signed by Attending: Coverage Notice Comment: Reviewer: [id number] Chavira Notice Issued Date-Time: 05/04/2018 13:37 Notice Type: Patient Choice Letter Notice Delivered To: Patient Relationship to Patient: Self Edge Trimmer Mechanic Name: Delivery Method: HAND - Hand Delivered Shameka Days: Prior Verbal Notification: Recipient Understood Notice: Yes Recipient Signature: Yes Med Rec Note Co-signed by Attending: Coverage Notice Comment: DANTE ABARCA Last DP export: 05/04/18 12:40 pm Patient Name: ANGEL SKAGGS Page [id number] at 1347 All edits/amendments must be made on the electronic document DICTATION DATE: 05/04/18 1346 FURNACE HELPER: DAVID 05/04/18 1346 RPT#: [id number] DC DATE: STATUS: ADM IN [facility] [address] [facility] [place] [address] END OF REPORT
[2018-05-04] MEDS ORDERED: IPRAT-ALBUT 0.5-3 ML UPD (14:37)
[2018-05-04] MEDS ORDERED: MEDROL DOSE PACK4 MG PO (14:39)
--- NOTE | 2018-05-04 14:46 | MORECARE ---
CASE MANAGEMENT DISCHARGE SUMMARY PATIENT: ANGEL SKAGGS UNIT: [id number] ADM DATE: 04/24/18 AGE: 67 : 49 SEX: M ROOM/BED: D.1208 AUTHOR: JONADOC PHYSICIAN: REFERRING PHYSICIAN: ANGEL KATE MD DATE OF SERVICE: 05/04/18 Discharge Plan Patient Name: ANGEL SKAGGS Facility: [facility]:[place] : 1950 Planned Disposition: Home Hlth Svc w Plan Readm Anticipated Discharge Date: Discharge Date: Expected LOS: Initial Reviewer: [id number] Initial Review Date: 04/25/2018 Generated: 05/04/18 3:46 pm Comments DCP- Discharge Planning Updated by [email or web address]: Leonela Chavira on 05/04/18 12:[address] Patient Name: ANGEL SKAGGS Admission Status: Elective Accout number: [id number] Admission Date: 04-24-2018 : 1950 Admission Diagnosis:ACUTE RESPIRATORY FAILURE WITH HYPOXIA Attending: ANGEL KATE Current LOS: 10 Anticipated DC Date: Planned Disposition: Primary Insurance: MEDICARE A & B Discharge Planning Comments: CM MET WITH PATIENT AND HE WANTS TO BE DISCHARGED WITH [facility] FOR WOUND CARE AND PT. PATIENT CHOICE LETTER SIGNED AND IM SIGNED. CM WILL ATEMPT TO GET IN TOUCH WITH DR. KATE FOR HH ORDERS APPROVAL. CM WILL FOLLOW AND ASSIST NEEDED WITH DC PLANNING/NEEDS. Embossing Press Operator Apprentice: Leonela Chavira DCP- Discharge Planning Updated by [email or web address]: Leonela Chavira on 05/02/18 12:[address] Patient Name: ANGEL SKAGGS Admission Status: Elective Accout number: [id number] Admission Date: 04-24-2018 : 1950 Admission Diagnosis:ACUTE RESPIRATORY FAILURE WITH HYPOXIA Attending: ANGEL KATE Current LOS: 8 Anticipated DC Date: Planned Disposition: Primary Insurance: MEDICARE A & B Discharge Planning Comments: CM SPOKE WITH PATIENTS DAUGHTER AND CHARLEEN WEISS AT [phone] AND SHE STATES THEY ARE IN AGREEMENT WITH HIM GOING TO INPATIENT REHAB. Embossing Press Operator Apprentice: Leonela Chavira DCP- Discharge Planning Updated by [email or web address]: Leonela Chavira on 04/29/18 1:[address] Patient Name: ANGEL SKAGGS Admission Status: Elective Accout number: [id number] Admission Date: 04-24-2018 : 1950 Admission Diagnosis:ACUTE RESPIRATORY FAILURE WITH HYPOXIA Attending: ANGEL KATE Current LOS: 5 Anticipated DC Date: Planned Disposition: Primary Insurance: MEDICARE A & B Discharge Planning Comments: CM MET WITH PATIENT AND FAMILY AND STATES WANTS IN PATIENT REHAB HERE WHEN MEDICALLY STABLE. WE WILL CONSULT REHAB AFTER A PT ASSESSMENT IS DONE. Embossing Press Operator Apprentice: Leonela Chavira DCP- Discharge Planning Updated by [id number]: Leonela Chavira on 04/29/18 1:[address] Patient Name: ANGEL SKAGGS Admission Status: Elective Accout number: [id number] Admission Date: 04-24-2018 : 1950 Admission Diagnosis:ACUTE RESPIRATORY FAILURE WITH HYPOXIA Attending: ANGEL KATE Current LOS: 5 Anticipated DC Date: Planned Disposition: Primary Insurance: MEDICARE A & B Discharge Planning Comments: CM SPOKE WITH THE TRANSFER CALL CENTER AND SPOKE WITH NARINDER. SHE STATES THE TRANSFER WAS CANCELED BY DR. KATE AND HE WAS RECOMENDING REHAB PLACEMENT. CM WILL FOLLOW AND ASSSIST NEEDED WITH DC PLANNING/NEEDS. Embossing Press Operator Apprentice: Leonela Chavira DCP- Discharge Planning Updated by [email or web address]: Adelaida Valdez on 04/27/18 1:[address] CM spoke with Dr. Kate regarding transfer. Dr. Kate stated that patient was alright for patient to transfer to LR to an acute floor bed and that it would be alright for him to transfer by private vehicle with portable 02. CM spoke with patient he still agrees to transfer. Patient's oxygen saturation is 98% at room air. He will not qualify for portable 02. CM called transfer center and faxed records to find placement. Family is requesting [facility] in preferably but any hospital in except [place]. will be alright. CM conveyed this request to transfer center. CM awaiting to hear back from transfer center on placement acceptance. CM will continue to follow and assist as needed with discharge planning / needs. DCP- Discharge Planning Updated by [email or web address]: Adelaida Valdez on 04/26/18 3:[address] Patient Name: ANGEL SKAGGS Admission Status: Elective Accout number: [id number] Admission Date: 04-24-2018 : 1950 Admission Diagnosis: Attending: ANGEL KATE Current LOS: 2 Anticipated DC Date: Planned Disposition: Primary Insurance: MEDICARE A & B Discharge Planning Comments: CM spoke with patient at bedside. Patient states that prior to his recent hospitalization he lived at home with his fianc?e. He plans to return there eventually. He states he knows he needs to get stronger. CM asked patient if he was wanting to be transferred to [place]. He first stated "No" then CM explained that his daughter was requesting for him to transfer to be closer to her. He then stated " if that's what she wants then I guess I will go." CM explained that it was going to probably be before transfer. Patient states that he did have Home Health Care but couldn't give providers name. CM will continue to follow and assist as needed with discharge planning / needs. Embossing Press Operator Apprentice: Adelaida Valdez DCP- Discharge Planning Updated by [email or web address]: Adelaida Valdez on 04/25/18 6:[address] CM notified that patients family are requesting for patient to be transferred to . CM spoke with daughter Isela Mo POA [phone]. She stated that she was wanting patient transferred to [facility] or [facility]. CM explained that insurance wouldn't pay for transfer since it isn't medically necessary for transfer. She agreed that she still wanted CM to check pricing. CM explained process of transfer of having to get an accepting physician. MARTHA contacted [facility] [phone] and spoke with Shonda Martínez in business office received a quote from [facility] to [facility] for $1767.00. Shonda stated that the family would need to pay half up front then can pay out the rest. MARTHA spoke with Isela and gave her the quote. Isela was requesting a notary for POA to get patients wallet from patients girlfriend / fianc?e. CM notified Medical Records but they only notarized medical papers. Isela came back and spoke with CM that her brother would be here on to pay for patients transfer. Patient was extubated today so hopefully by he will be able to make his own decision on transfer. Family dynamic issues are noted. CM will continue to follow and assist as needed with discharge planning / needs. DCPIA - Discharge Planning Initial Assessment Updated by [id number]: Adelaida Valdez on 04/26/18 4:45 pm * Is the patient Alert and Oriented? Yes * How many steps to enter\\exit or inside your home? * PCP [facility] * [facility] * Preadmission Environment Acute Inpatient Rehab * Facility Name [facility] * ADLs Partial Dependent * Equipment None * List name and contact numbers for known caregivers / representatives who currently or will assist patient after discharge: GAURI OWENSIGGS [facility] [phone] ISELA MOSQUEDA - [facility]- [phone] * Verbal permission to speak to the caregivers and representatives has been obtained from the patient. Yes * Community resources currently utilized Home Health * Please name any agencies selected above. HOME HEALTH CARE per patient * Additional services required to return to the preadmission environment? No * Can the patient safely return to the preadmission environment? Yes * Has this patient been hospitalized within the prior 30 days at any hospital? Yes Coverage Notice Reviewer: [id number] Bryce Chavira Notice Issued Date-Time: 05/04/2018 13:37 Notice Type: IM Discharge Notice Notice Delivered To: Patient Relationship to Patient: Self Computer Tech Name: Delivery Method: HAND - Hand Delivered Shameka Days: Prior Verbal Notification: Recipient Understood Notice: Yes Recipient Signature: Yes Med Rec Note Co-signed by Attending: Coverage Notice Comment: Reviewer: [email or web address] Bryce Chavira Notice Issued Date-Time: 05/04/2018 13:37 Notice Type: Patient Choice Letter Notice Delivered To: Patient Relationship to Patient: Self Computer Tech Name: Delivery Method: HAND - Hand Delivered Shameka Days: Prior Verbal Notification: Recipient Understood Notice: Yes Recipient Signature: Yes Med Rec Note Co-signed by Attending: Coverage Notice Comment: DANTE ABARCA Last DP export: 05/04/18 12:47 pm Patient Name: ANGEL SKAGGS Page 47787 at 1446 All edits/amendments must be made on the electronic document DICTATION DATE: 05/04/18 1440 COUNTY DIRECTOR: DAVID 05/04/18 1446 RPT#: [id number] CO DATE: STATUS: ADM IN [facility] [address] [place] [address] END OF REPORT
--- NOTE | 2018-05-04 14:57 | MORECARE ---
CASE MANAGEMENT DISCHARGE SUMMARY PATIENT: ANGEL SKAGGS UNIT: [id number] ADM DATE: 04/24/18 AGE: 67 : 49 SEX: M ROOM/BED: D.1208 AUTHOR: JONA,DOC PHYSICIAN: REFERRING PHYSICIAN: ANGEL KATE MD DATE OF SERVICE: 05/04/18 Discharge Plan Patient Name: ANGEL SKAGGS Facility: [facility]:[place] : 1950 Planned Disposition: Home Hlth Svc w Plan Readm Anticipated Discharge Date: Discharge Date: Expected LOS: Initial Reviewer: [id number] Initial Review Date: 04/25/2018 Generated: 05/04/18 3:57 pm Comments DCP- Discharge Planning Updated by [id number]: Leonela Chavira on 05/04/18 1:[address] Patient Name: ANGEL SKAGGS Admission Status: Elective Accout number: [id number] Admission Date: 04-24-2018 : 1950 Admission Diagnosis:ACUTE RESPIRATORY FAILURE WITH HYPOXIA Attending: ANGEL KATE Current LOS: 10 Anticipated DC Date: Planned Disposition: Primary Insurance: MEDICARE A & B Discharge Planning Comments: CM MET WITH PATIENT AND HE WANTS TO BE DISCHARGED WITH [facility] FOR WOUND CARE AND PT. PATIENT CHOICE LETTER SIGNED AND IM SIGNED. CM WILL ATEMPT TO GET IN TOUCH WITH DR. KATE FOR ORDERS APPROVAL. CM WILL FOLLOW AND ASSIST NEEDED WITH DC PLANNING/NEEDS. Broadcasting Equipment Mechanic: Leonela Chavira Appended by Leonela Chavira on 05/04/2018 14:55 WIRE STRIPPER: CM MET WITH DR. KATE. PATIENT TO DC TODAY. QUIN AT [facility] STATES HE IS CURRENT AND THEY WILL RESUME CARE AND ADD PT IF NEEDED. WILL SEE PATIENT TOMORROW. DCP- Discharge Planning Updated by [id number]: Leonela Chavira on 05/02/18 12:[address] Patient Name: ANGEL SAKGGS Admission Status: Elective Accout number: [id number] Admission Date: 04-24-2018 : 1950 Admission Diagnosis:ACUTE RESPIRATORY FAILURE WITH HYPOXIA Attending: ANGEL KATE Current LOS: 8 Anticipated DC Date: Planned Disposition: Primary Insurance: MEDICARE A & B Discharge Planning Comments: CM SPOKE WITH PATIENTS DAUGHTER AND CHARLEEN WEISS AT [phone] AND SHE STATES THEY ARE IN AGREEMENT WITH HIM GOING TO INPATIENT REHAB. Broadcasting Equipment Mechanic: Leonela Chavira DCP- Discharge Planning Updated by [id number]: Leonela Chavira on 04/29/18 1:[address] Patient Name: ANGEL SKAGGS Admission Status: Elective Accout number: [id number] Admission Date: 04-24-2018 : 1950 Admission Diagnosis:ACUTE RESPIRATORY FAILURE WITH HYPOXIA Attending: ANGEL KATE Current LOS: 5 Anticipated DC Date: Planned Disposition: Primary Insurance: MEDICARE A & B Discharge Planning Comments: CM MET WITH PATIENT AND FAMILY AND STATES WANTS IN PATIENT REHAB HERE WHEN MEDICALLY STABLE. WE WILL CONSULT REHAB AFTER A PT ASSESSMENT IS DONE. Broadcasting Equipment Mechanic: Leonela Chavira DCP- Discharge Planning Updated by [id number]: Leonela Chavira on 04/29/18 1:[address] Patient Name: ANGEL SKAGGS Admission Status: Elective Accout number: [id number] Admission Date: 04-24-2018 : 1950 Admission Diagnosis:ACUTE RESPIRATORY FAILURE WITH HYPOXIA Attending: ANGEL KATE Current LOS: 5 Anticipated DC Date: Planned Disposition: Primary Insurance: MEDICARE A & B Discharge Planning Comments: CM SPOKE WITH THE TRANSFER CALL CENTER AND SPOKE WITH NARINDER. SHE STATES THE TRANSFER WAS CANCELED BY DR. KATE AND HE WAS RECOMENDING REHAB PLACEMENT. CM WILL FOLLOW AND ASSSIST NEEDED WITH DC PLANNING/NEEDS. Broadcasting Equipment Mechanic: Leonela Chavira DCP- Discharge Planning Updated by [id number]: Adelaida Valdez on 04/27/18 1:[address] CM spoke with Dr. Kate regarding transfer. Dr. Kate stated that patient was alright for patient to transfer to LR to an acute floor bed and that it would be alright for him to transfer by private vehicle with portable 02. CM spoke with patient he still agrees to transfer. Patient's oxygen saturation is 98% at room air. He will not qualify for portable 02. CM called transfer center and faxed records to find placement. Family is requesting [facility] in preferably but any hospital in except [place]. will be alright. CM conveyed this request to transfer center. CM awaiting to hear back from transfer center on placement acceptance. CM will continue to follow and assist as needed with discharge planning / needs. DCP- Discharge Planning Updated by [email or web address]: Adelaida Valdez on 04/26/18 3:[address] Patient Name: ANGEL SKAGGS Admission Status: Elective Accout number: [id number] Admission Date: 04-24-2018 : 1950 Admission Diagnosis: Attending: ANGEL KATE Current LOS: 2 Anticipated DC Date: Planned Disposition: Primary Insurance: MEDICARE A & B Discharge Planning Comments: CM spoke with patient at bedside. Patient states that prior to his recent hospitalization he lived at home with his fianc?e. He plans to return there eventually. He states he knows he needs to get stronger. CM asked patient if he was wanting to be transferred to [place]. He first stated "No" then CM explained that his daughter was requesting for him to transfer to be closer to her. He then stated " if that's what she wants then I guess I will go." CM explained that it was going to probably be before transfer. Patient states that he did have Home Health Care but couldn't give providers name. CM will continue to follow and assist as needed with discharge planning / needs. Broadcasting Equipment Mechanic: Adelaida Valdez DCP- Discharge Planning Updated by [id number]: Adelaida Valdez on 04/25/18 6:[address] CM notified that patients family are requesting for patient to be transferred to . MARTHA spoke with daughter Isela Mosqueda [facility] POA [phone]. She stated that she was wanting patient transferred to [facility] or [facility]. CM explained that insurance wouldn't pay for transfer since it isn't medically necessary for transfer. She agreed that she still wanted CM to check pricing. CM explained process of transfer of having to get an accepting physician. MARTHA contacted [employer] [phone] and spoke with Shonda Martínez in business office received a quote from [facility] to [facility] for $1767.00. Shonda stated that the family would need to pay half up front then can pay out the rest. MARTHA spoke with Isela and gave her the quote. Isela was requesting a notary for POA to get patients wallet from patients girlfriend / fianc?e. CM notified Medical Records but they only notarized medical papers. Isela came back and spoke with CM that her brother would be here on to pay for patients transfer. Patient was extubated today so hopefully by he will be able to make his own decision on transfer. Family dynamic issues are noted. CM will continue to follow and assist as needed with discharge planning / needs. DCPIA - Discharge Planning Initial Assessment Updated by [email or web address]: Adelaida Valdez on 04/26/18 4:45 pm * Is the patient Alert and Oriented? Yes * How many steps to enter\\exit or inside your home? * PCP [facility] * [facility]acy [facility] * Preadmission Environment Acute Inpatient Rehab * Facility Name [facility] * ADLs Partial Dependent * Equipment None * List name and contact numbers for known caregivers / representatives who currently or will assist patient after discharge: GAURI [facility]BE [facility] - [phone] ISELA MOSQUEDA - [facility]- [phone] * Verbal permission to speak to the caregivers and representatives has been obtained from the patient. Yes * Community resources currently utilized Home Health * Please name any agencies selected above. HOME HEALTH CARE per patient * Additional services required to return to the preadmission environment? No * Can the patient safely return to the preadmission environment? Yes * Has this patient been hospitalized within the prior 30 days at any hospital? Yes External Providers External Provider: [facility] Next Contact Date: Service Request Date: Service Type: Resolution: Reviewer: Comments: Coverage Notice Reviewer: [email or web address] Bryce Chavira Notice Issued Date-Time: 05/04/2018 13:37 Notice Type: IM Discharge Notice Notice Delivered To: Patient Relationship to Patient: Self Family Service Aide Name: Delivery Method: HAND - Hand Delivered Shameka Days: Prior Verbal Notification: Recipient Understood Notice: Yes Recipient Signature: Yes Med Rec Note Co-signed by Attending: Coverage Notice Comment: Reviewer: [email or web address] Bryce Chavira Notice Issued Date-Time: 05/04/2018 13:37 Notice Type: Patient Choice Letter Notice Delivered To: Patient Relationship to Patient: Self Family Service Aide Name: Delivery Method: HAND - Hand Delivered Shameka Days: Prior Verbal Notification: Recipient Understood Notice: Yes Recipient Signature: Yes Med Rec Note Co-signed by Attending: Coverage Notice Comment: DANTE Carrington DP export: 05/04/18 1:46 pm Patient Name: ANGEL SKAGGS Page [phone] at 1457 All edits/amendments must be made on the electronic document DICTATION DATE: 05/04/181456 VENEER STOCK GRADER: DAVID 05/04/181456 RPT#: [id number] DC DATE: STATUS: ADM IN [facility] [address] [place] [address] END OF REPORT
--- NOTE | 2018-05-04 16:53 | NUR ---
REMOVED THE PATIENTS IV, ASSISTED THE PATIENT IN PACKING HIS PERSONAL BELONGINGS, SPOUSE WAS CALLED TO ESTIMATION MANAGER THE PATIENT.
--- NOTE | 2018-05-05 10:27 | MORECARE ---
CASE MANAGEMENT DISCHARGE SUMMARY PATIENT: ANGEL SKAGGS UNIT: [id number] ADM DATE: 04/24/18 AGE: 67 : 49 SEX: M ROOM/BED: D.1208 AUTHOR: JONA,DOC PHYSICIAN: REFERRING PHYSICIAN: ANGEL KATE MD DATE OF SERVICE: 05/05/18 Discharge Plan Patient Name: ANGEL SKAGGS Facility: [facility]:[place] : 1950 Planned Disposition: Home Hlth Svc w Plan Readm Anticipated Discharge Date: Discharge Date: 05/04/2018 Expected LOS: Initial Reviewer: [email or web address] Initial Review Date: 04/25/2018 Generated: 05/05/18 11:27 am Comments DCP- Discharge Planning Updated by [id number]: Leonela Chavira on 05/04/18 1:[address] Patient Name: ANGEL SKAGGS Admission Status: Elective Accout number: [id number] Admission Date: 04-24-2018 : 1950 Admission Diagnosis:ACUTE RESPIRATORY FAILURE WITH HYPOXIA Attending: ANGEL KATE Current LOS: 10 Anticipated DC Date: Planned Disposition: Primary Insurance: MEDICARE A & B Discharge Planning Comments: CM MET WITH PATIENT AND HE WANTS TO BE DISCHARGED WITH [facility] FOR WOUND CARE AND PT. PATIENT CHOICE LETTER SIGNED AND IM SIGNED. CM WILL ATEMPT TO GET IN TOUCH WITH DR. KATE FOR ORDERS APPROVAL. CM WILL FOLLOW AND ASSIST NEEDED WITH DC PLANNING/NEEDS. Assistant Account Executive: Leonela Chavira Appended by Leonela Chavira on 05/04/2018 14:55 CASUALTY INSURANCE CLAIM ADJUSTER: CM MET WITH DR. KATE. PATIENT TO DC TODAY. QUIN AT [facility] STATES HE IS CURRENT AND THEY WILL RESUME CARE AND ADD PT IF NEEDED. WILL SEE PATIENT TOMORROW. DCP- Discharge Planning Updated by [id number]: Leonela Chavira on 05/02/18 12:[address] Patient Name: ANGEL SKAGGS Admission Status: Elective Accout number: [id number] Admission Date: 04-24-2018 : 1950 Admission Diagnosis:ACUTE RESPIRATORY FAILURE WITH HYPOXIA Attending: ANGEL KATE Current LOS: 8 Anticipated DC Date: Planned Disposition: Primary Insurance: MEDICARE A & B Discharge Planning Comments: CM SPOKE WITH PATIENTS DAUGHTER AND CHARLEEN WEISS AT [phone] AND SHE STATES THEY ARE IN AGREEMENT WITH HIM GOING TO INPATIENT REHAB. Assistant Account Executive: Leonela Chavira DCP- Discharge Planning Updated by [id number]: Leonela Chavira on 04/29/18 1:[address] Patient Name: ANGEL SKAGGS Admission Status: Elective Accout number: [id number] Admission Date: 04-24-2018 : 1950 Admission Diagnosis:ACUTE RESPIRATORY FAILURE WITH HYPOXIA Attending: ANGEL KATE Current LOS: 5 Anticipated DC Date: Planned Disposition: Primary Insurance: MEDICARE A & B Discharge Planning Comments: CM MET WITH PATIENT AND FAMILY AND STATES WANTS IN PATIENT REHAB HERE WHEN MEDICALLY STABLE. WE WILL CONSULT REHAB AFTER A PT ASSESSMENT IS DONE. Assistant Account Executive: Leonela Chavira DCP- Discharge Planning Updated by [id number]: Leonela Cait on 04/29/18 1:[address] Patient Name: ANGEL SKAGGS Admission Status: Elective Accout number: [id number] Admission Date: 04-24-2018 : 1950 Admission Diagnosis:ACUTE RESPIRATORY FAILURE WITH HYPOXIA Attending: ANGEL KATE Current LOS: 5 Anticipated DC Date: Planned Disposition: Primary Insurance: MEDICARE A & B Discharge Planning Comments: CM SPOKE WITH THE TRANSFER CALL CENTER AND SPOKE WITH NARINDER. SHE STATES THE TRANSFER WAS CANCELED BY DR. KATE AND HE WAS RECOMENDING REHAB PLACEMENT. CM WILL FOLLOW AND ASSSIST NEEDED WITH DC PLANNING/NEEDS. Assistant Account Executive: Leonela Chavira DCP- Discharge Planning Updated by [email or web address]: Adelaida Valdez on 04/27/18 1:[address] CM spoke with Dr. Kate regarding transfer. Dr. Kate stated that patient was alright for patient to transfer to LR to an acute floor bed and that it would be alright for him to transfer by private vehicle with portable 02. CM spoke with patient he still agrees to transfer. Patient's oxygen saturation is 98% at room air. He will not qualify for portable 02. CM called transfer center and faxed records to find placement. Family is requesting [facility] in preferably but any hospital in except [place]. will be alright. CM conveyed this request to transfer center. CM awaiting to hear back from transfer center on placement acceptance. CM will continue to follow and assist as needed with discharge planning / needs. DCP- Discharge Planning Updated by [email or web address]: Adelaida Valdez on 04/26/18 3:[address] Patient Name: ANGEL SKAGGS Admission Status: Elective Accout number: [id number] Admission Date: 04-24-2018 : 1950 Admission Diagnosis: Attending: ANGEL KATE Current LOS: 2 Anticipated DC Date: Planned Disposition: Primary Insurance: MEDICARE A & B Discharge Planning Comments: CM spoke with patient at bedside. Patient states that prior to his recent hospitalization he lived at home with his fianc?e. He plans to return there eventually. He states he knows he needs to get stronger. CM asked patient if he was wanting to be transferred to [place]. He first stated "No" then CM explained that his daughter was requesting for him to transfer to be closer to her. He then stated " if that's what she wants then I guess I will go." CM explained that it was going to probably be before transfer. Patient states that he did have Home Health Care but couldn't give providers name. CM will continue to follow and assist as needed with discharge planning / needs. Assistant Account Executive: Adelaida Valdez DCP- Discharge Planning Updated by [id number]: Adelaida Valdez on 04/25/18 6:[address] CM notified that patients family are requesting for patient to be transferred to . MARTHA spoke with daughter Isela Mosqueda [facility] POA [phone]. She stated that she was wanting patient transferred to [facility] or [facility]. CM explained that insurance wouldn't pay for transfer since it isn't medically necessary for transfer. She agreed that she still wanted CM to check pricing. CM explained process of transfer of having to get an accepting physician. MARTHA contacted [employer] [phone] and spoke with Shonda Martínez in business office received a quote from [facility] to [facility] for $1767.00. Shonda stated that the family would need to pay half up front then can pay out the rest. MARTHA spoke with Isela and gave her the quote. Isela was requesting a notary for POA to get patients wallet from patients girlfriend / fianc?e. CM notified Medical Records but they only notarized medical papers. Isela came back and spoke with CM that her brother would be here on to pay for patients transfer. Patient was extubated today so hopefully by he will be able to make his own decision on transfer. Family dynamic issues are noted. CM will continue to follow and assist as needed with discharge planning / needs. DCPIA - Discharge Planning Initial Assessment Updated by [id number]: Adelaida Valdez on 04/26/18 4:45 pm * Is the patient Alert and Oriented? Yes * How many steps to enter\\exit or inside your home? * PCP [facility] * [facility] * Preadmission Environment Acute Inpatient Rehab * Facility Name [facility] * ADLs Partial Dependent * Equipment None * List name and contact numbers for known caregivers / representatives who currently or will assist patient after discharge: GAURI SPENCE [facility] - [phone] ISELA MOSQUEDA - [facility]- [phone] * Verbal permission to speak to the caregivers and representatives has been obtained from the patient. Yes * Community resources currently utilized Home Health * Please name any agencies selected above. HOME HEALTH CARE per patient * Additional services required to return to the preadmission environment? No * Can the patient safely return to the preadmission environment? Yes * Has this patient been hospitalized within the prior 30 days at any hospital? Yes Coverage Notice Reviewer: [id number] Bryce Chavira Notice Issued Date-Time: 05/04/2018 13:37 Notice Type: IM Discharge Notice Notice Delivered To: Patient Relationship to Patient: Self Hand Driller Name: Delivery Method: HAND - Hand Delivered Shameka Days: Prior Verbal Notification: Recipient Understood Notice: Yes Recipient Signature: Yes Med Rec Note Co-signed by Attending: Coverage Notice Comment: Reviewer: [id number] Bryce Chavira Notice Issued Date-Time: 05/04/2018 13:37 Notice Type: Patient Choice Letter Notice Delivered To: Patient Relationship to Patient: Self Hand Driller Name: Delivery Method: HAND - Hand Delivered Shameka Days: Prior Verbal Notification: Recipient Understood Notice: Yes Recipient Signature: Yes Med Rec Note Co-signed by Attending: Coverage Notice Comment: DANTE VILLARREAL Last DP export: 05/04/18 1:57 pm Patient Name: ANGEL SKAGGS Page [phone] at 1027 All edits/amendments must be made on the electronic document DICTATION DATE: 05/05/18 1026 DIVISIONAL MERCHANDISING MANAGER: DAVID 05/05/18 1026 RPT#: [id number] DC DATE:05/04/18 STATUS: DIS IN [facility] [address] [place] [address] END OF REPORT
== END 2018-05-04 17:40 | disposition home health service (06) | DRG 871 ==
LOC: D.ICU 03:10 → D.M3 04-29 00:42
PROVIDERS: Internal Medicine Pulmonary Disease; Student in an Organized Health Care Education/Training Program; ADMIT Family Medicine
PROC: 5A1945Z Respiratory Ventilation, 24-96 Consecutive Hours (ICD-10-PCS; principal; 2018-04-24)
PROC: 0BH17EZ Insertion of Endotracheal Airway into Trachea, Via Natural or Artificial Opening (ICD-10-PCS; 2018-04-24)
PROC: 0B998ZZ Drainage of Lingula Bronchus, Via Natural or Artificial Opening Endoscopic (ICD-10-PCS; 2018-04-24)
PROC: 0B948ZZ Drainage of Right Upper Lobe Bronchus, Via Natural or Artificial Opening Endoscopic (ICD-10-PCS; 2018-04-24)
PROC: 0B988ZZ Drainage of Left Upper Lobe Bronchus, Via Natural or Artificial Opening Endoscopic (ICD-10-PCS; 2018-04-24)
PROC: 0B958ZZ Drainage of Right Middle Lobe Bronchus, Via Natural or Artificial Opening Endoscopic (ICD-10-PCS; 2018-04-24)
PROC: 0B938ZZ Drainage of Right Main Bronchus, Via Natural or Artificial Opening Endoscopic (ICD-10-PCS; 2018-04-24)
PROC: 0B978ZZ Drainage of Left Main Bronchus, Via Natural or Artificial Opening Endoscopic (ICD-10-PCS; 2018-04-24)
PROC: 0B968ZZ Drainage of Right Lower Lobe Bronchus, Via Natural or Artificial Opening Endoscopic (ICD-10-PCS; 2018-04-24)
PROC: 0B9B8ZZ Drainage of Left Lower Lobe Bronchus, Via Natural or Artificial Opening Endoscopic (ICD-10-PCS; 2018-04-24)
DX: A41.50 Gram-negative sepsis, unspecified (principal); J96.01 Acute respiratory failure with hypoxia; G93.41 Metabolic encephalopathy; J18.9 Pneumonia, unspecified organism; R65.21 Severe sepsis with septic shock; J96.02 Acute respiratory failure with hypercapnia; J45.901 Unspecified asthma with (acute) exacerbation; E87.2 Acidosis; I50.30 Unspecified diastolic (congestive) heart failure; I13.0 Hypertensive heart and chronic kidney disease with heart failure and stage 1 through stage 4 chronic kidney disease, or unspecified chronic kidney disease; J98.11 Atelectasis; E11.22 Type 2 diabetes mellitus with diabetic chronic kidney disease; N18.9 Chronic kidney disease, unspecified; R53.81 Other malaise; D64.9 Anemia, unspecified; G89.29 Other chronic pain; I27.20 Pulmonary hypertension, unspecified; I25.10 Atherosclerotic heart disease of native coronary artery without angina pectoris; I08.1 Rheumatic disorders of both mitral and tricuspid valves

== ENCOUNTER 2018-05-07 13:34 | Inpatient (IN) | payer MEDICARE, BC ==
[~2018-05-07] VITALS: Ht 177.8 cm; Wt 97.0 kg
[2018-05-07] VITALS (35 sets, daily range): BP systolic 87–178; BP diastolic 39–82; Ht 177.8 cm; Wt 97.0 kg
[2018-05-07 14:12] LABS: HEMATOCRIT 34.7 % (42.0-54.0); HEMOGLOBIN 11.2 g/dL (13.5-17.5); MCH 27.4 pg (26.0-34.0); MCHC 32.3 g/dL (31.0-37.0); MCV 84.8 fL (80.0-100.0); MEAN PLATELET VOLUME 9.7 fL (7.4-10.4); PLATELET COUNT 229 10x3/uL (130-400); RBC 4.09 10x6/uL (4.20-6.10); RDW 17.8 % (11.5-14.5)
[2018-05-07 14:21] LABS: APTT 26.8 SECONDS (22.8-39.4)
[2018-05-07 14:22] LABS: INR 1.21 (0.85-1.17); PROTIME 14.8 SECONDS (11.6-15.0)
[2018-05-07 14:30] LABS: D-DIMER-QUANTITATIVE 8.64 ug/mLFEU (0.20-0.54)
[2018-05-07 14:33] LABS: EOSINOPHILS 1 % (0-7); LYMPHOCYTES 8 % (15-50); MONOCYTES 1 % (2-11); NEUTROPHILS 87 % (40-80); PLATELET ESTIMATE NORMAL
[2018-05-07 14:40] LABS: ALBUMIN 2.4 g/dL (3.4-5.0); ALKALINE PHOSPHATASE 56 U/L (46-116); ALT (SGPT) 27 U/L (10-68); BILIRUBIN - TOTAL 0.62 mg/dL (0.2-1.3); CALC OSMOLALITY 285 mosm/kg (275-300); CARBON DIOXIDE 22.6 mmol/L (21.0-32.0); CHLORIDE - SERUM 109 mmol/L (98-107); CREATINE KINASE 75 UL (21-232); CREATININE - SERUM 2.7 mg/dL (0.6-1.3); GLUCOSE 76 mg/dL (74-106); MAGNESIUM - SERUM 1.5 mg/dL (1.8-2.4); POTASSIUM - SERUM 5.2 mmol/L (3.5-5.1); PROTEIN - SERUM 5.7 g/dL (6.4-8.2); SODIUM 142 mmol/L (136-145); UREA NITROGEN 25 mg/dL (7-18); eGFR NON AFRICAN AMERICAN 25 mL/min (90-120)
[2018-05-07 14:47] LABS: CALCIUM 6.8 mg/dL (8.5-10.1)
[2018-05-07 14:48] LABS: TROPONIN-I 0.388 ng/mL (0.000-0.060)
[2018-05-07 15:36] LABS: APPEARANCE CLEAR (CLEAR); BILIRUBIN NEGATIVE (NEGATIVE); COLOR YELLOW (YELLOW); GLUCOSE NEGATIVE (NEGATIVE); KETONE NEGATIVE (NEGATIVE); NITRITE NEGATIVE (NEGATIVE); PROTEIN NEGATIVE (NEGATIVE); UROBILINOGEN NORMAL (NORMAL)
[2018-05-07 15:49] LABS: UDS - AMPHET NEGATIVE QUAL (NEGATIVE); UDS - BARB NEGATIVE QUAL (NEGATIVE); UDS - BENZO NEGATIVE QUAL (NEGATIVE); UDS - COCAINE NEGATIVE QUAL (NEGATIVE); UDS - OPIATE NEGATIVE QUAL (NEGATIVE); UDS - PCP NEGATIVE QUAL (NEGATIVE); UDS - THC NEGATIVE QUAL (NEGATIVE)
[2018-05-07 20:57] LABS: WBC 71.6 10x3/uL (4.8-10.8)
[2018-05-07 20:58] LABS: BASOPHILS 0.1 % (0-2); EOSINOPHILS 0 % (0-7); HEMATOCRIT 33.1 % (42.0-54.0); HEMOGLOBIN 10.8 g/dL (13.5-17.5); IMMATURE GRANULOCYTES 2.1 % (0-5); LYMPHOCYTES 1.6 % (15-50); MCH 27.3 pg (26.0-34.0); MCHC 32.6 g/dL (31.0-37.0); MCV 83.8 fL (80.0-100.0); MEAN PLATELET VOLUME 9.7 fL (7.4-10.4); MONOCYTES 2.6 % (2-11); NEUTROPHILS 93.6 % (40-80); PLATELET COUNT 194 10x3/uL (130-400); RBC 3.95 10x6/uL (4.20-6.10); RDW 17.8 % (11.5-14.5)
[2018-05-07 21:24] LABS: CALC OSMOLALITY 300 mosm/kg (275-300); CARBON DIOXIDE 21.6 mmol/L (21.0-32.0); CHLORIDE - SERUM 111 mmol/L (98-107); CKMB 12.6 U/L (0.0-3.6); GLUCOSE 147 mg/dL (74-106); MAGNESIUM - SERUM 1.5 mg/dL (1.8-2.4); POTASSIUM - SERUM 3.5 mmol/L (3.5-5.1); SODIUM 147 mmol/L (136-145); UREA NITROGEN 30 mg/dL (7-18); eGFR NON AFRICAN AMERICAN 22 mL/min (90-120)
[2018-05-07 21:26] LABS: CALCIUM 6.5 mg/dL (8.5-10.1); CREATINE KINASE 482 UL (21-232); TROPONIN-I 1.299 ng/mL (0.000-0.060)
[2018-05-08] VITALS (89 sets, daily range): BP systolic 7–166; BP diastolic 7–79
[2018-05-08 08:55] LABS: BASOPHILS 0.1 % (0-2); EOSINOPHILS 0 % (0-7); HEMATOCRIT 26.2 % (42.0-54.0); HEMOGLOBIN 8.8 g/dL (13.5-17.5); IMMATURE GRANULOCYTES 0.5 % (0-5); LYMPHOCYTES 5.8 % (15-50); MCH 27.3 pg (26.0-34.0); MCHC 33.6 g/dL (31.0-37.0); MCV 81.4 fL (80.0-100.0); MEAN PLATELET VOLUME 9.3 fL (7.4-10.4); MONOCYTES 2.2 % (2-11); NEUTROPHILS 91.4 % (40-80); PLATELET COUNT 138 10x3/uL (130-400); RBC 3.22 10x6/uL (4.20-6.10); WBC 41.2 10x3/uL (4.8-10.8)
[2018-05-08 09:06] LABS: ANION GAP 18.7 mmol/L (8-16); BILIRUBIN - TOTAL 0.52 mg/dL (0.2-1.3); CARBON DIOXIDE 22.5 mmol/L (21.0-32.0); CREATININE - SERUM 3.6 mg/dL (0.6-1.3); POTASSIUM - SERUM 3.2 mmol/L (3.5-5.1); PROTEIN - SERUM 4.5 g/dL (6.4-8.2)
[2018-05-08 09:09] LABS: ALBUMIN 1.7 g/dL (3.4-5.0)
[2018-05-08 09:10] LABS: CALCIUM 6.1 mg/dL (8.5-10.1)
--- NOTE | 2018-05-08 14:37 | HP ---
PATIENT: ANGEL SKAGGS MEDICAL RECORD: [id number] ACCOUNT: [id number] LOCATION:[facility] D.2305 : [birth year] ADMISSION DATE: 05/07/18 PCP: No PCP HISTORY AND PHYSICAL EXAMINATION DATE OF ADMISSION: 05/07/2018. HISTORY OF PRESENT ILLNESS: This is a 67-year-old white male followed by Dr. James Graves who was brought to the Emergency Department with decreased mental status. His blood sugar was very low. He was in respiratory distress and basically not responsive. He was intubated in the Emergency Department to protect his airway. The story was that the girlfriend reported his blood sugar was low early this morning about 7:00 a.m. She gave him some juice and crackers and he went back to sleep until about 10:30 and she became concerned because he would not respond, so she called EMS. While patient was in the Emergency Room, a code blue was called. He underwent ACLS protocol, chest compressions, multiple doses of epinephrine. A pulse and blood pressure was obtained; however, he remained unresponsive and he was transferred to the ICU then. PAST MEDICAL AND SURGICAL HISTORY: Significant for diabetes, hypertension, history of heart disease, asthma, urinary retention. He has been hospitalized recently. He was admitted in February to general surgery for some sort of infection on his shoulder. He was readmitted in early March of 2018 presenting in septic shock, hypotensive. He was admitted to the ICU at that time. He was discharged to rehab on 04/21/2018 with a diagnosis of acute renal failure, sepsis with obstructive uropathy. He was readmitted from rehab on 04/24/2018 after a code blue was called for acute respiratory failure in the rehab. He was intubated then and discharged just 3 days ago. He improved quickly and was extubated within 24 hours at that time. PAST SURGICAL HISTORY: Appendectomy, tracheostomy. ALLERGIES: IODINE. HOME MEDICATIONS: Include Omnicef 300 mg twice a day, DuoNeb updrafts 4 times a day, Niaspan 500 mg at bedtime, simvastatin 40 mg at bedtime, aspirin 81 mg a day, [place] 5/325 q.4 hours p.r.n. pain, Singulair 10 mg at bedtime, Protonix 40 mg a day, glimepiride 4 mg twice daily. He was discharged on 05/04/2018 with methylprednisolone Dosepak for 6 days. HABITS: No tobacco, alcohol or drugs currently. FAMILY HISTORY: His father with lung cancer. Mother with lung disease, diabetes and a stroke. REVIEW OF SYSTEMS: Unable to be obtained at this time as the patient is on the ventilator. PHYSICAL EXAMINATION: VITAL SIGNS: Temperature 97.5, heart rate 126, respirations 26-30, blood pressure is 87/46. He is intubated and does not respond. GENERAL: He is not on any sedatives at this time. HEART: Tachycardic. LUNGS: Coarse upper airway sounds. ABDOMEN: Soft. HISTORY AND PHYSICAL [id number] ANGEL SKAGGS EXTREMITIES: No edema. LABORATORY DATA: ABG: pH 7.073, pCO2 of 59, pO2 of 81 on 100% oxygen. CBC with a white count of 41,000, hemoglobin 11.2, hematocrit 34.7, platelets 229,000, 87% neutrophils, 2% bands. INR 1.21. D-dimer elevated at 8.64. Sodium 142, potassium 5.2, chloride 109, CO2 22.6, BUN 25, creatinine 2.7. Lactic acid 2.4, calcium 6.8, magnesium 1.5. Liver functions are all normal. Troponin is elevated at 0.388. Chest x-ray showed left lower lobe infiltrate. IMPRESSION: 1. Pneumonia. 2. Hypoglycemia. 3. Probable sepsis. 4. Respiratory failure due to hypoglycemia and pneumonia. PLAN: He is in the ICU. Pulmonary/critical care has been consulted. He is on antibiotics. Other tests and procedures as warranted. TRANSINT:[id number] Voice Confirmation ID: [id number] DOCUMENT ID: [id number] JUVENTINO CASTILLO MD at 1437 CC: [id number] DICTATION DATE: 05/08/1826 LEAD [employer]UTIONS ARCHITECT: 05/08/18216 ADM IN [place] [id number] [place] [address]
--- NOTE | 2018-05-10 10:45 | CN ---
PATIENT NAME:ANGEL NAPOLES MEDICAL RECORD: [id number] : 48 LOCATION:[id number] ADMIT DATE: 05/07/18 ACCOUNT: [id number] CONSULTING PHYSICIAN: MARINO ALVAREZ MD REFERRING PHYSICIAN: JUVENTINO CASTILLO MD DATE OF CONSULTATION: 05/08/2018 DIAGNOSES: 1. Status post code. 2. Respiratory failure. 3. Increased troponin. HISTORY OF PRESENT ILLNESS: Mr. Napoles presented to the Emergency Room with hypoglycemia. He was quite hypoglycemic for quite some time prior to arrival. He then had respiratory distress. He had bradycardia to asystole. Code was initiated. He was intubated, the bradycardia resolved. Most likely, the bradycardia was related to hypoxemia. His troponin is elevated at 0.388. He has had no further episodes of bradycardia. He is now tachycardic, sinus tachycardia at 110-120. He is on dopamine for pressors. His EKG is with sinus tachycardia, but no ST-T abnormalities. We do not know a cardiac history. PHYSICAL EXAMINATION: GENERAL APPEARANCE: Well-nourished, well-developed, appears stated age. Level of distress, comfortable. PSYCHIATRIC: Mental status, alert, normal affect. Orientation, oriented to time, place and person. EYES: Lids and conjunctiva, noninjected. No discharge, no pallor. ENT: Lips, teeth, gums, normal dentition. Oropharynx, no cyanosis, no pallor. NECK: Carotid arteries, bilateral normal upstroke, no bruits, no thrills. JUGULAR VEINS: No jugular venous pressure or distention. CERVICAL LYMPH NODES: Nontender, nonenlarged. THYROID: Not enlarged. Nontender. No nodules. LUNGS: Respiratory effort, unlabored. CHEST: Normal curvature. No thoracic deformity. No chest wall tenderness. Percussion, resonant. Auscultation, clear. No wheezes, no rales, no rhonchi. CARDIOVASCULAR: Precordial exam, nondisplaced. No heaves or pericardial thrills. Rate and rhythm, regular. Heart sounds, normal S1, normal S2. No S3, no gallop, no rub. Systolic murmur, not heard. Diastolic murmur, not heard. EXTREMITIES: No cyanosis, no edema. Peripheral pulses, full and equal in all extremities, except as noted. No bruits appreciated. ABDOMEN: Soft, nondistended. Normal aorta. No bruit. Nontender. No masses. Liver, nontender, no hepatomegaly. Spleen, nontender, no splenomegaly. MUSCULOSKELETAL: No joint tenderness. No joint swelling. No erythema. NEUROLOGICAL: Normal gait, normal strength, normal tone. SKIN: Warm and dry. OVERALL IMPRESSION: Bradycardia, most likely related to hypoxemia. He has had no further episodes of bradycardia. He is intubated and on pressors. Most likely, he has sepsis from pneumonia. We will get an echocardiogram, but no other cardiac workup treatment is necessary at this time. TRANSINT:[id number] Voice Confirmation ID: [id number] DOCUMENT ID: [id number] CONSULT REPORT [id number] ANGEL NAPOLES, MARINO WILCOX at 1045 CC: [id number] DICTATION DATE: 05/08/18 1128 CODING QUALITY ANALYST: 05/08/18 1227 DIS IN 05/08/18 [place] [id number] [place] [address]
--- NOTE | 2018-05-10 10:45 | EC ---
PATIENT:ANGEL SKAGGS DATE OF SERVICE: 05/07/18 SEX: M MEDICAL RECORD: [id number] DATE OF : 48 LOCATION:[facility] [address] AGE OF PATIENT: 67 ADMISSION DATE: 05/07/18 REFERRING PHYSICIAN: INTERPRETING PHYSICIAN: MARINO LUNA MD ECHOCARDIOGRAM REPORT ECHO CHARGES 5 ECHO LIMITED Date: 05/08/18 CLINICAL DIAGNOSIS: POST CARDIAC ARREST/EF ECHOCARDIOGRAPHIC MEASUREMENTS (adult normal given) AC root (d.<3.7cm) 2.8 cm LV Septum d (<1.2 cm> 1.6 cm Valve Excursion 1.4 cm LV Septum (systole) 1.8 cm Left Atria (s.<4.0cm> 4.1 cm LVPW d(<1.2cm) 2.0 cm RV (d.<2.3cm) 3.9 cm LVPW (sytole) 2.2 cm LV diastole(<5.6CM) 3.3 cm MV E-F(>70mm/sec) cm LV systole 2.6 cm LVOT Diameter cm MV exc.(>10mm) cm Est.ejection fraction (50-75%) % DOPPLER: LVIT cm/sec A cm/sec E cm/sec LA cm/sec RVSP 31 mmHg LVOT cm/sec AOP1/2T m/s Asc. Ao cm/sec RVOT cm/sec RA cm/sec PA cm/sec AV Gradient Peak mmHg AV Mean mmHg AV Area cm MV Gradient Peak mmHg MV Mean mmHg MV Area cm COMMENTS: Head Of Ethics And Compliance: Vandana TANG Qc Lab Technician: 1 Dr. Luna TAPE# PACS Pericardial Effusion Y DATE OF SERVICE: 05/08/2018 PROCEDURE: Echocardiogram. FINDINGS: 1. Left ventricular chamber size is within normal limits. Left ventricular systolic function is normal. Overall ejection fraction estimated to 55% to 60%. 2. The left atrium is mildly dilated at 4.1 cm. Right atrium and right ventricular chamber sizes are within normal limits. 3. Valvular structures have normal structure and motion. ECHOCARDIOGRAM REPORT [id number] ANGEL SKAGGS 4. Doppler interrogation reveals mild tricuspid regurgitation, no other valvular insufficiency or stenosis. Pulmonary systolic pressure is estimated at 31 mmHg. 5. Trace pericardial effusion is present. This is not hemodynamically significant. No evidence of left ventricular thrombus. TRANSINT:[id number] Voice Confirmation ID: [id number] DOCUMENT ID: [id number] MARINO LUNA MD at 1045 CC: [id number] DICTATION DATE: 05/09/18922 AQUATIC HABITAT BIOLOGIST: 05/09/18 1118 DIS IN 05/08/18 [place] [id number] [place] [id number]
== END 2018-05-08 23:00 | DRG 871 ==
LOC: D.ER 13:34 → D.EDHOLD 16:31 → D.ICU 16:31
PROVIDERS: Family Medicine; ADMIT Family Medicine
PROC: 03HY32Z Insertion of Monitoring Device into Upper Artery, Percutaneous Approach (ICD-10-PCS; principal; 2018-05-07)
PROC: 05H633Z Insertion of Infusion Device into Left Subclavian Vein, Percutaneous Approach (ICD-10-PCS; 2018-05-07)
PROC: 5A1945Z Respiratory Ventilation, 24-96 Consecutive Hours (ICD-10-PCS; 2018-05-07)
PROC: 0BH17EZ Insertion of Endotracheal Airway into Trachea, Via Natural or Artificial Opening (ICD-10-PCS; 2018-05-07)
DX: A41.9 Sepsis, unspecified organism (principal); J18.9 Pneumonia, unspecified organism; J96.01 Acute respiratory failure with hypoxia; N17.9 Acute kidney failure, unspecified; E11.649 Type 2 diabetes mellitus with hypoglycemia without coma; I46.9 Cardiac arrest, cause unspecified; I10 Essential (primary) hypertension